=== PATIENT | female | born 1960 | race Caucasian/White ===

== ENCOUNTER 2024-05-30 19:00 | Outpatient (OUT) | payer MEDICARE, SELFPAY | END 2024-05-30 19:01 | disposition home or self-care (01) | LOC: SLEEP 05-31 09:10 | PROVIDERS: PCP Family Medicine; Visit Provider Family Medicine | DX: G47.33 Obstructive sleep apnea (adult) (pediatric) (principal) | CPT/HCPCS: 95811 ==

== ENCOUNTER 2024-09-10 16:03 | Outpatient (OUT) | payer MEDICARE, SELFPAY ==
--- NOTE | 2024-09-10 16:30 | XR_ITS ---
The [address] [address] Patient Name: FERMIN CARNES MRN: [id number] date: 1960 Sex: F Assigned Patient Location: LAB Current Patient Location: LAB Accession/Order Number: [id number] Exam Date: 09/10/2024 16:27 Report Date: 09/11/2024 08:56 At the request of: NOAH GRIFFITHS Procedure: XR chest 2V EXAM: XR chest. HISTORY: . Acute bronchitis, J20.9 . COMPARISON: None. TECHNIQUE: Frontal and lateral chest FINDINGS: Heart and vascularity are unremarkable. Lungs are free of focal infiltrates. Early spondylosis of the spine is noted. There is a slight scoliotic deformity of the spine with convexity to the right. XR/XR chest 2V IMPRESSION: No acute heart or lung disease identified. Electronically authenticated by: THOMAS PAREDES Date: 09/11/2024 08:56
[2024-09-10 17:23] LABS: Basophils Percent Auto 0.2 % (0.2-2.0); Hematocrit 45.8 % (36.0-48.0); Hemoglobin 15.1 g/dL (12.0-16.0); Immature Granulocytes Abs Auto 0.15 10^3/uL (0.00-0.03); Immature Granulocytes Pct Auto 1.6 % (0.0-0.5); Lymphocytes Absolute Auto 1.1 10^3/uL (1.2-3.8); Mean Corpuscular Hemoglobin 28.7 pg (26.7-34.0); Mean Corpuscular Volume 87.1 fL (81.0-99.0); Mean Platelet Volume 10.3 fL (9.5-13.5); Monocytes Absolute Auto 0.4 10^3/uL (0.3-0.8); Monocytes Percent Auto 4.6 % (1.7-12.0); Neutrophils Absolute Auto 7.7 10^3/uL (1.4-6.5); Neutrophils Percent Auto 81.6 % (43.0-75.0); Platelet Count 321 10^3/uL (150-450); Red Blood Count 5.26 10^6/uL (4.20-5.40); Red Cell Distribution Width 13.2 % (11.0-15.0); White Blood Count 9.5 10^3/uL (4.0-11.0)
[2024-09-10 18:11] LABS: Alanine Aminotransferase 53 U/L (14-59); Albumin Globulin Ratio 1.2; Albumin Level 3.8 g/dL (3.4-5.0); Alkaline Phosphatase 113 U/L (46-116); Anion Gap 9.6; Aspartate Amino Transferase 24 U/L (15-37); BUN Creatinine Ratio 22.5; Bilirubin Total 0.4 mg/dL (0.2-1.0); Calcium 9.1 mg/dL (8.5-10.1); Carbon Dioxide 34.7 mmol/L (21.0-32.0); Chloride 100 mmol/L (98-107); Estimated GFR (African America 50 (>=60 mL/min/1.73m^2); Estimated GFR (Non-African Ame 41 (>=60 mL/min/1.73m^2); Globulin 3.3 g/dL; Glucose 234 mg/dL (74-106); Potassium 3.3 mmol/L (3.5-5.1); Sodium 141 mmol/L (136-145); Total Protein 7.1 g/dL (6.4-8.2)
== END 2024-09-10 16:04 | disposition home or self-care (01) ==
LOC: LAB 16:05
PROVIDERS: PCP Family Medicine; Visit Provider Family Medicine
DX: E11.69 Type 2 diabetes mellitus with other specified complication (principal); J20.9 Acute bronchitis, unspecified
CPT/HCPCS: 36415; 71046; 80053; 85025

== ENCOUNTER 2024-09-11 08:22 | Outpatient (REF) | payer MEDICARE, SELFPAY ==
--- OUTSIDE RECORDS SUMMARY | 2024-09-11 08:45 | XMS_ITS | CCD ---
Author Organization [facility] CliniSynd Care Team Providers Care Underwriting Manager Name Role Phone DR NOAH LEWIS Primary Care Unavailable AYE, DR ZAMORA Admitting Unavailable AYE, DR ZAMORA Attending Unavailable AYE, DR ZAMORA Consulting Unavailable WEST, DR THOMAS Kee Consulting Unavailable DR NOAH LEWIS Primary Care Unavailable AYE, DR ZAMORA Admitting Unavailable AYE, DR ZAMORA Attending Unavailable AYE, DR ZAMORA Consulting Unavailable Unavailable Unavailable Noah Lewis Unavailable Unavailable Unavailable MD Noah Lewis Primary Care Provider [phone] MD Wiley Schmitt Attending Provider DO Bari Mac Attending Provider [phone] MD Noah Lewis Referring Provider [phone] Self, Referral Attending Provider Unavailable MD Noah Lewis Primary Care Provider [phone] MD Benedicto Campos Attending Provider Cleve Damien Luque Attending Provider Ene Poon Unavailable Dr. Noah Lewis Primary Care Unavail able Parish MATA, Dr. Wiley Solano Attending Unavailable Parish MATA, Dr. Wiley Solano Referring Unavailable Dr. Noah Lewis Primary Care Unavail able Dionte, Ms. Julia Thurman Attending Katja Rapp, Ms. Julia Thurman Referring Katja Schmitt II, Dr. Wiley Solano Attending Unavailable Parish MATA, Dr. Wiley Solano Referring Unavailable Dr. Noah Lewis Primary Care Unavail able Jose Laughlin Unavailable MD Noah Lewis Primary Care Provider MD Noah Lewis Attending Provider MD Noah Lewis Primary Care Provider MD Noah Lewis Attending Provider MD Noah Lewis Referring Provider MD Ana Luisa Harvey Attending Provider DO Raphael Connors Attending Provider Noah Lewis MD Primary Care Provider WILEY SCHMITT Referring Unavailable NOAH LEWIS Primary Care Unavailable WILEY SCHMITT Referring Unavailable NOAH LEWIS Primary Care Unavailable MD Noah Lewis Referring Provider MD Ana Luisa Harvey Attending Provider [phone] WILEY SCHMITT Attending Unavailable NOAH LEWIS Primary Care Unavailable MD Noah Lewis Referring Provider MD Ana Luisa Harvey Attending Provider MD Noah Lewis Primary Care Provider MD Noah Lewis Attending Provider [phone] MD Thomas Hoover Attending Provider MD Noah Lewis Referring Provider MD Ana Luisa Harvey Attending Provider MD Noah Lewis Primary Care Provider MD Noah Lewis Referring Provider MD Ana Luisa Harvey Attending Provider [phone] MD Noah Lewis Primary Care Provider MD Noah Lewis Referring Provider MD Kinsey Canela Attending Provider MD Noah Lewis Primary Care Provider MD Noah Lewis Attending Provider Noah Lewis Attending Unavailable Hoy, Noah M Primary Care Unavailable Hoy, Noah M Admitting Unavailable Hoy, Noah M Primary Care Unavailable Raphael Connors Admitting Unavailable LaffaRaphael ryder Attending Unavailable Hoy, Noah M Primary Care Unavailable Thomas Hoover Admitting Unavailable Thomas Hoover Attending Unavailable Hoy, Noah M Admitting Unavailable Hoy, Noah M Primary Care Unavailable Hoy, Noah M Attending Unavailable Hoy, Noah M Primary Care Unavailable Hoy, Noah M Attending Unavailable Hoy, Noah M Admitting Unavailable Hoy, Noah M Primary Care Unavailable Hoy, Noah M Attending Unavailable Hoy, Noah M Admitting Unavailable Hoy, Noah M Attending Unavailable Hoy, Noah M Primary Care Unavailable Hoy, Noah M Admitting Unavailable Hoy, Noah M Primary Care Unavailable Raphael Connors Admitting Unavailable LaffayRaphael Attending Unavailable Hoy, Noah M Attending Unavailable Hoy, Noah M Primary Care Unavailable Hoy, Noah M Admitting Unavailable Hoy, Noah M Referring Unavailable Hoy, Noah M Primary Care Unavailable Kinsey Canela Admitting Unavailable Kinsey Canela Attending Unavailable Noah Lewis MD Primary Care Provider RAPHAEL CONNORS Attending Unavailable HOY, NOAH M Referring Unavailable RAPHAEL CONNORS Attending Unavailable RAPHAEL CONNORS Attending Unavailable RAPHAEL CONNORS Attending Unavailable RAPHAEL CONNORS Attending Unavailable RAPHAEL CONNORS Attending Unavailable Allergies Allergy Classification Reported Allergen(s) Allergy Type Date of Onset Reaction(s) Facility Cephalosporins (antibiotic) (1 source) Cephalexin Drug Allergy [facility] Repository (20 sources) Cephalexin; Translations: [cephalexin] Drug Allergy 8 hives, Itching, Rash [facility] (10 sources) Hmg-Coa Reductase Inhibitors (Statins); Translations: [Statins] Allergy to drug (finding) Myalgia [facility] 250 DO Work Phone: (20 sources) Hydroxychloroqui ne; Translations: [Plaquenil Sulfate] Drug Allergy 4 Itching [facility] 250 DO Work Phone: (20 sources) Hydroxychloroqui ne; Translations: [HYDROXYCHLOROQU INE] Drug Allergy 8 Itching [facility] (18 sources) Pgyaehh-EWX-VpT Reductase Inhibitor; Translations: [Lfgyola-XRV-JgF Reductase Inhibitor] Allergy to substance 8 Difficulty Breathing [facility] (2 sources) Amoxicillin; Translations: [Amoxicillin TABS] [facility] (5 sources) HMG-CoA reductase inhibitor Drug allergy 4 Shortness of breath [facility] [employer] Other (16 sources) levoFLOXacin Drug Allergy 3 Swelling [facility] (8 sources) HMG-CoA reductase inhibitor; Translations: [JDITOKW-CRU-VID REDUCTASE INHIBITORS] Drug Allergy 4 [facility] Work Phone: (1 source) Cephalexin Drug Allergy 4 [facility] Repository (1 source) levoFLOXacin Drug Allergy 4 [facility] Repository (4 sources) ezetimibe Drug Allergy 4 Shortness of breath [facility] Medications Current Medications Medication Drug Class(es) Dates Sig (Normalized) Sig (Original) anastrozole 1 mg oral tablet (12 sources) Aromatase Inhibitor Start: 02-09-2024 End: 04-11-2024 anastrozole (Arimidex) 1 MG chemo tablet Daily 04/11/2024 Active aspirin 81 mg delayed release oral tablet (20 sources) Platelet Aggregation Inhibitor, Nonsteroidal Anti-inflammatory Drug Start: 06-19-2018 take 1 tablet by mouth once daily GNP Aspirin Low Dose 81 MG EC tablet TAKE 1 TABLET BY MOUTH ONCE DAILY DIRECTED 10/17/2023 Active 60 actuat budesonide 0.16 mg/actuat / formoterol fumarate 0.0045 mg/actuat metered dose inhaler (20 sources) Corticosteroid, beta2-Adrenergic Agonist Start: 07-14-2023 take 2 puff(s) by inhalation in the morning budesonide-formot fritz (Symbicort) 160-4.5 MCG/ACT inhaler Inhale 2 puffs in the morning and 2 puffs before bedtime. 07/14/2023 Active Start: 06-19-2018 take 1 puff(s) by in halation once daily in the morning Budesonide-Formoterol (Symbicort) 160-4.5 mcg/actuation Hfa Aerosol Inhaler Active 1 PUFF INHALATION Every morning June 19, 2018 12:00am Start: 06-19-2018 take 1 puff(s) by in halation every twelve hours Budesonide-Formoterol (Symbicort) 160-4.5 mcg/actuation Hfa Aerosol Inhaler Active 2 PUFF INHALATION Q12H June 19, 2018 12:00am budesonide-formo teroL (Symbicort) 160-4.5 mcg/actuation inhaler Inhale. As directed Active take 1 puff(s) by in halation twice daily Symbicort 160-4.5 MCG/ACT 1 puff Inhalation Twice a day Active Symbicort 160-4. 5 MCG/ACT Inhalation Aerosol USE DIRECTED. Quantity: 0 Refills: 0 Ordered: 02-Feb-2022 DO Active chlorthalidone 25 mg oral tablet (20 sources) Thiazide-like Diuretic Start: 01-22-2022 take 1 tablet by mouth once daily chlorthalidone (Hygroton) 25 MG tablet Take 25 mg by mouth Daily 10/17/2023 Active clopidogrel 75 mg oral tablet (20 sources) P2Y12 Platelet Inhibitor Start: 04-15-2022 End: 01-03-2025 take 1 tablet by mouth once daily clopidogrel (Plavix) 75 MG tablet Take 75 mg by mouth Daily 10/17/2023 Active diclofenac sodium 75 mg delayed release oral tablet (20 sources) Nonsteroidal Anti-inflammatory Drug Start: 10-24-2023 take 1 tablet by mouth in the morning diclofenac (Voltaren) 75 MG EC tablet Take 75 mg by mouth in the morning and 75 mg before bedtime. 10/24/2023 Active take 1 tablet by mouth once mike y diclofenac (Voltaren) 75 mg EC tablet Take 1 tablet (75 mg) by mouth once daily. Active doxycycline monohydrate 100 mg oral capsule (4 sources) Tetracycline-class Drug Start: 02-07-2024 take 1 capsule by mouth in the morning doxycycline (Monodox) 100 MG capsule Take 100 mg by mouth in the morning and 100 mg before bedtime. 02/07/2024 Active empagliflozin 10 mg oral tablet (2 sources) Sodium-Glucose Cotransporter 2 Inhibitor empagliflozin (Jardiance) 10 MG Take by mouth Active esomeprazole 40 mg delayed release oral capsule (20 sources) Proton Pump Inhibitor Start: 06-19-2018 take 1 capsule by mouth once daily esomeprazole (NexIUM) [address] capsule Take 40 mg by mouth Daily 11/21/2023 Active 1 ml evolocumab 140 mg/ml prefilled syringe (20 sources) PCSK9 Inhibitor Start: 01-04-2024 End: 01-03-2025 inject 1 mL by subcutaneous injection once evolocumab (Repatha Syringe) 140 mg/mL injection Indications: Mixed hyperlipidemia Inject 1 mL (140 mg) under the skin every 28 (twenty-eight) days. As directed 3 each 3 01/04/2024 01/03/2025 Active Start: 09-28-2023 inject 1 mL by subcu taneous injection every other week Repatha SureClick 140 MG/ML injection INJECT 1 ML subcutaneously EVERY 2 WEEKS 09/28/2023 Active Start: 06-19-2018 End: 01-04-2024 Evolocumab (Repatha Syringe) 140 mg/mL Syringe Active 140 MG SUBCUT EVERY 2 WEEKS June 19, 2018 12:00am inject 140 mg by sub cutaneous injection every other week Repatha SureClick 140 MG/ML Inject 140mg Subcutaneous every 2 weeks Active glimepiride 4 mg oral tablet (20 sources) Sulfonylurea Start: 10-17-2023 take 1 tablet by mouth at mealtime glimepiride (Amaryl) 4 MG tablet Take 4 mg by mouth in the morning. Take with meals. 10/17/2023 Active levothyroxine sodium 0.075 mg oral tablet (20 sources) l-Thyroxine Start: 12-01-2023 Levothyroxine (Synthroid) 75 mcg tablet Active 50 MCG PO Daily at bedtime December 01, 2023 7:58am Start: 06-19-2018 End: 12-01-2023 take 1 tablet by mouth once daily levothyroxine (Synthroid, Levoxyl) 75 MCG tablet Take 75 mcg by mouth Daily 04/11/2023 Active take 1 tablet by mono th once daily in the morning Levothyroxine Sodium 75 MCG 1 tablet in the morning on an empty stomach Orally Once a day Active lisinopril 40 mg oral tablet (20 sources) Angiotensin Converting Enzyme Inhibitor Start: 01-04-2024 take 1 tablet by mouth once daily lisinopril 40 mg tablet Indications: Essential hypertension , Hypertension, unspecified type Take 1 tablet (40 mg) by mouth once daily. 90 tablet 3 01/04/2024 Active Start: 11-14-2023 End: 01-04-2024 take 1 tablet by mouth once daily lisinopril 40 MG tablet Take 40 mg by mouth Daily 11/14/2023 Active take 1 tablet by mono th every twenty-four hours Lisinopril 40 MG 1 tablet Orally Once a day Active 24 hr metFORMIN hydrochloride 500 mg extended release oral tablet (20 sources) Biguanide Start: 10-17-2023 take 1 tablet by mouth once daily at dinner metFORMIN XR (Glucophage-XR) 500 MG 24 hr tablet TAKE 1 TABLET BY MOUTH ONCE DAILY WITH evening meal 10/17/2023 Active Start: 06-19-2018 take 500 mg by mouth once daily at bedtime Metformin Active 500 MG PO Daily at bedtime June 19, 2018 12:00am take 1 tablet by mono th every twenty-four hours metFORMIN HCl ER 500 MG 1 tablet with evening meal Orally Once a day Active 24 hr metoprolol succinate 100 mg extended release oral tablet (20 sources) beta-Adrenergic Parker Start: 01-22-2022 End: 01-03-2025 take 1 tablet by mouth once daily metoprolol succinate XL (Toprol-XL) 100 MG 24 hr tablet Take 100 mg by mouth Daily 10/17/2023 Active mometasone furoate 1 mg/ml topical cream (8 sources) Corticosteroid Start: 02-16-2024 mometasone (Elocon) 0.1 % cream Daily 02/16/2024 Active Start: 02-16-2024 Mometasone Act gibran 1 APPLIC TOPICAL Daily February 16, 2024 12:00am Apply to radiation site, once a day, AFTER radiation treatments. montelukast 10 mg oral tablet (20 sources) Leukotriene Receptor Antagonist Start: 06-19-2018 take 1 tablet by mouth once daily montelukast (Singulair) 10 MG tablet TAKE 1 TABLET BY MOUTH ONCE DAILY FOR 90 DAYS 07/29/2023 Active Multivitamin preparation (1 source) take 1 tablet by mouth once daily Multivitamin - 1 tablet Orally Once a day Glucocil Supplement for Blood Sugar Support Active NON FORMULARY (4 sources) NON FORMULARY GLUCOCIL 2 DAILY Active Suprep Bowel Prep Kit 17.5-3.13-1.6 GM/180ML (2 sources) Start: 06-15-2018 Suprep Bowel P rep Kit 17.5-3.13-1.6 GM/180ML 1 bottle AT 4 PM AND 1 BOTTLE AT 11 PM Orally Once a day for 1 days May, Active Completed/Discontinued Medications Medication Drug Class(es) Dates Sig (Normalized) Sig (Original) acetaminophen 325 mg / HYDROcodone bitartrate 5 mg oral tablet (8 sources) Opioid Agonist Start: 12-26-2023 End: 01-11-2024 take 2 tablets by mouth every six hours Hydrocodone-Acetam inophen Discontinued 2 TAB PO Q6H 20 December 26, 2023 January 11, 2024 8:53am amLODIPine 5 mg oral tablet (17 sources) Dihydropyridine Calcium Channel Parker Start: 07-25-2018 End: 12-01-2023 take 5 mg by mouth once daily Amlodipine Discontinued 5 MG PO Daily July 25, 2018 1:00am December 01, 2023 8:01am carvedilol 25 mg oral tablet (17 sources) alpha-Adrenergic Parker, beta-Adrenergic Parker Start: 06-19-2018 End: 12-01-2023 take 1 tablet by mouth twice daily Carvedilol (Coreg) 25 mg Tablet Discontinued 25 MG PO Twice daily June 19, 2018 12:00am December 01, 2023 8:01am irbesartan 300 mg oral tablet (17 sources) Angiotensin 2 Receptor Parker Start: 06-19-2018 End: 12-01-2023 take 300 mg by mouth once daily Irbesartan Discontinued 300 MG PO Daily June 19, 2018 12:00am December 01, 2023 8:01am nitroglycerin 0.4 mg sublingual tablet (20 sources) Nitrate Vasodilator Start: 07-25-2018 End: 11-22-2018 Nitroglycerin Discontinued 0.4 MG SUBLINGUAL every 5 to 15 minutes July 25, 2018 1:00am November 22, 2018 12:01am until response; do not exceed 3 doses per episode regadenoson (Lexiscan) injection 0.4 mg (1 source) Start: 12-20-2023 End: 12-20-2023 0.4 mg, intravenous, Once, 1 dose, On Tue12/20/23 at 1145, Routine Tc-99m tetrofosmin (Myoview) injection 30 millicurie (2 sources) Start: 12-21-2023 End: 12-21-2023 30 millicurie, intravenous, Once in imaging, Starting on Tue12/21/23 at 1422, For 1 dose, Administer 45 to 90 minutes prior to imaging unless otherwise indicated. Start: 12-20-2023 End: 12-20-2023 30 millicurie, intravenous, Once in imaging, 1 dose, Starting on Tue12/20/23 at 1138, Until Tue12/20/23 at 1128, Administer 45 to 90 minutes prior to imaging unless otherwise indicated., Routine ticagrelor 90 mg oral tablet (17 sources) Start: 07-25-2018 End: 07-20-2019 take 1 tablet by mouth twice daily Ticagrelor (Brilinta) 90 mg tablet Discontinued 90 MG PO Twice daily 180 90 July 25, 2018 1:00am July 20, 2019 1:05am Problems Active Problems Problem Classification Problem Date Documented Date Episodic/Chronic Administrative/social admission (20 sources) Patient encounter status; Translations: [Other specified counseling] 12-01-2023 Episodic Cancer of breast (20 sources) Malignant neoplasm of central part of female breast; Translations: [Malignant neoplasm of central portion of right female breast] Onset: 11-23-2023 12-01-2023 Chronic Cancer of breast (2 sources) History of malignant neoplasm of breast; Translations: [Personal history of malignant neoplasm of breast] 08-23-2024 Episodic Chronic obstructive pulmonary disease and bronchiectasis (14 sources) Chronic obstructive lung disease; Translations: [Chronic obstructive pulmonary disease, unspecified] 01-24-2024 Chronic Coronary atherosclerosis and other heart disease (20 sources) Atherosclerotic heart disease of [place] coronary artery with unstable angina pectoris; Translations: [Atherosclerotic heart disease of [place] coronary artery without angina pectoris] Onset: 01-16-2021 Chronic Coronary atherosclerosis and other heart disease (20 sources) Patient post percutaneous transluminal coronary angioplasty; Translations: [Percutaneous transluminal coronary angioplasty status] Onset: 01-04-2024 12-01-2023 Episodic Diabetes mellitus without complication (9 sources) Diabetes mellitus; Translations: [Diabetes mellitus without mention of complication, type II or unspecified type, not stated as uncontrolled] Chronic Disorders of lipid metabolism (13 sources) Hyperlipidemia; Translations: [Other and unspecified hyperlipidemia] Onset: 01-04-2024 01-04-2024 Chronic Essential hypertension (20 sources) Essential (primary) hypertension; Translations: [Essential hypertension] Onset: 01-23-2021 01-04-2024 Chronic Fluid and electrolyte disorders (13 sources) Metabolic alkalosis; Translations: [Alkalosis] 01-24-2024 Episodic Immunizations and screening for infectious disease (1 source) Encounter for immunization Episodic Osteoarthritis (8 sources) Unilateral primary osteoarthritis, right knee; Translations: [Osteoarthritis] Onset: 01-19-2021 Chronic Other aftercare (1 source) Other adjunct faculty for medical terminology (current) drug therapy Episodic Other aftercare (3 sources) Long-term current use of drug therapy; Translations: [Encounter for therapeutic drug level monitoring] 04-11-2024 Episodic Other aftercare (3 sources) Encounter for therapeutic drug level monitoring; Translations: [Encounter for therapeutic drug monitoring] 04-11-2024 Episodic Other hematologic conditions (7 sources) H/O: anemia - iron deficient; Translations: [Personal history of diseases of the blood and blood-forming organs and certain disorders involving the immune mechanism] 01-24-2024 Episodic Other hematologic conditions (6 sources) Personal history of diseases of the blood and blood-forming organs and certain disorders involving the immune mechanism; Translations: [Personal history of diseases of blood and blood-forming organs] 01-24-2024 Episodic Other nervous system disorders (1 source) Sleep-wake schedule disorder, delayed phase type; Translations: [Circadian rhythm sleep disorder, delayed sleep phase type] 05-01-2024 Chronic Other nervous system disorders (1 source) Circadian rhythm sleep disorder, delayed sleep phase type; Translations: [Circadian rhythm sleep disorder, delayed sleep phase type] 05-01-2024 Chronic Other nutritional; endocrine; and metabolic disorders (20 sources) Body mass index 40+ - severely obese; Translations: [Morbid obesity] Onset: 01-04-2024 01-04-2024 Chronic Other nutritional; endocrine; and metabolic disorders (3 sources) Body mass index (BMI) 40.0-44.9, adult; Translations: [Body Mass Index 40.0-44.9, adult] Onset: 01-04-2024 Chronic Other nutritional; endocrine; and metabolic disorders (6 sources) Body mass index (BMI) 45.0-49.9, adult; Translations: [Body Mass Index 45.0-49.9, adult] 01-24-2024 Chronic Residual codes; unclassified (8 sources) Obstructive sleep apnea syndrome; Translations: [Obstructive sleep apnea (adult) (pediatric)] 01-24-2024 Chronic Residual codes; unclassified (7 sources) Obstructive sleep apnea (adult) (pediatric); Translations: [Obstructive sleep apnea (adult)(pediatric)] Onset: 02-07-2024 01-24-2024 Chronic Residual codes; unclassified (1 source) Idiopathic sleep related nonobstructive alveolar hypoventilation; Translations: [Idiopathic sleep related non-obstructive alveolar hypoventilation] 05-01-2024 Chronic Residual codes; unclassified (17 sources) Family history of cancer of colon; Translations: [Family history of malignant neoplasm of digestive organs] 06-21-2018 Episodic Residual codes; unclassified (2 sources) Never smoked tobacco; Translations: [Other specified health status] Onset: 01-04-2024 01-04-2024 Episodic Residual codes; unclassified (1 source) Statin declined; Translations: [Procedure and treatment not carried out because of patient's decision for unspecified reasons] 01-04-2024 Episodic Residual codes; unclassified (2 sources) Other specified health status; Translations: [Other specified health status] Onset: 01-04-2024 Episodic Residual codes; unclassified (7 sources) Insomnia; Translations: [Insomnia, unspecified] 01-24-2024 Episodic Residual codes; unclassified (6 sources) Insomnia, unspecified; Translations: [Insomnia, unspecified] 01-24-2024 Episodic Thyroid disorders (9 sources) Hypothyroidism; Translations: [Hypothyroidism, unspecified] Onset: 05-31-2024 01-24-2024 Chronic Unclassified (1 source) Encounter for screening mammogram for malignant neoplasm of breast; Translations: [Encounter for screening mammogram for malignant neoplasm of breast] Onset: 10-27-2023 Past or Other Problems Problem Classification Problem Date Documented Da te Episodic/Chronic Acute bronchitis (1 source) Acute bronchiolitis, unspecified; Translations: [Acute bronchiolitis, unspecified] Onset: 06-16-2023 Episodic Nonmalignant breast conditions (20 sources) Breast lump; Translations: [Unspecified lump in the right breast, unspecified quadrant] Onset: 11-15-2023 11-15-2023 Episodic Other screening for suspected conditions (not mental disorders or infectious disease) (20 sources) Encounter for screening for osteoporosis; Translations: [Special screening for osteoporosis] Onset: 11-08-2023 12-01-2023 Episodic Residual codes; unclassified (1 source) Estrogen receptor positive status [ER+]; Translations: [Estrogen receptor positive status [ER+]] Onset: 12-26-2023 Episodic Unclassified (9 sources) Never smoked tobacco; Translations: [Never a smoker] Unclassified (1 source) Onset: 01-04-2024 01-04-2024 Results Test Name Value Interpretation Reference Range Facility A1C with Estimated Average G anujabrennan 05-31-2024 Glucose [Mass/Vol] 131 mg/dL Normal [facility] Comment on above: Result Comment: PERF ORMED BY: [place] [address] MAKER SUSAN THOMPSON M.D. Performed By: #### A 1C WT eA, THYROID SC, CBC, LIPID, T3F, CMP #### [facility] [address] [place] [address] [place] Alanine aminotransferase [En zymatic activity/volume] in Serum or PlasmaOrdered By: Noah Lewis on 05-31-2024 ALT [Catalytic activity/Vol] 26 U/L Normal 7-52 [facility] Comment on above: Performed By: #### A 1C WT eA, THYROID SC, CBC, LIPID, T3F, CMP #### [place] [address] [place] Albumin [Mass/volume] in Ser um or Plasma by Bromocresol green (BCG) dye binding methoOrdered By: Noah Lewis on 05-31-2024 Albumin BCG dye [Mass/Vol] 3.9 g/dL 3.5-5.7 [facility] Alkaline phosphatase [Enzyma tic activity/volume] in Serum or PlasmaOrdered By: Noah Lewis on 05-31-2024 ALP [Catalytic activity/Vol] 80 U/L Normal 34-104 [facility] Comment on above: Performed By: #### A 1C WT eA, THYROID SC, CBC, LIPID, T3F, CMP #### [address] Aspartate aminotransferase [ Enzymatic activity/volume] in Serum or PlasmaOrdered By: Noah Lewis on 05-31-2024 AST [Catalytic activity/Vol] 19 U/L Normal 13-39 [facility] Comment on above: Performed By: #### A 1C WT eA, THYROID SC, CBC, LIPID, T3F, CMP #### [address] Automated basophil %Ordered By: Noah Lewis on 05-31-2024 Basophils/100 WBC (Bld) 0.3 % Normal . [facility] Comment on above: Performed By: #### A 1C WT eA, THYROID SC, CBC, LIPID, T3F, CMP #### [address] Automated basophil countOrde red By: Noah Lewis on 05-31-2024 Basophils (Bld) [#/Vol] 0.0 10*3/uL Normal 0.0-0.2 [facility] Comment on above: Result Comment: PERF ORMED BY: [place] [address] MAKER SUSAN THOMPSON M.D. Performed By: #### A 1C WT eA, THYROID SC, CBC, LIPID, T3F, CMP #### [address] Automated blood monocyte cou ntOrdered By: Noah Lewis on 05-31-2024 Monocytes (Bld) [#/Vol] 0.7 10*3/uL Normal 0.0-0.8 [facility] Comment on above: Performed By: #### A 1C WTH eA, THYROID SC, CBC, LIPID, T3F, CMP #### [address] Automated eosinophil %Ordere d By: Noah Zamoraaleksey on 05-31-2024 Eosinophils/100 WBC (Bld) 1.1 % Normal . [facility] Comment on above: Performed By: #### A 1C WT eA, THYROID SC, CBC, LIPID, T3F, CMP #### [address] Automated eosinophil countOr dered By: Noah Zamoraaleksey on 05-31-2024 Eosinophils (Bld) [#/Vol] 0.1 10*3/uL Normal 0.0-0.45 [facility] [facility] Comment on above: Performed By: #### A 1C WT eA, THYROID SC, CBC, LIPID, T3F, CMP #### [address] Automated monocyte %Ordered By: Noah Lewis on 05-31-2024 Monocytes/100 WBC (Bld) 7.8 % Normal . [facility] Comment on above: Performed By: #### A 1C WT eA, THYROID SC, CBC, LIPID, T3F, CMP #### [address] Automated neutrophil %Ordere d By: Noah Aye on 05-31-2024 Neutrophils/100 WBC (Bld) 67.9 % Normal . [facility] Comment on above: Performed By: #### A 1C WT eA, THYROID SC, CBC, LIPID, T3F, CMP #### [address] Bilirubin.total [Mass/volume ] in Serum or PlasmaOrdered By: Noah Lewis on 05-31-2024 Bilirubin [Mass/Vol] 0.7 mg/dL Normal 0.3-1.0 [facility] Comment on above: Performed By: #### A 1C WTH eA, THYROID SC, CBC, LIPID, T3F, CMP #### [address] Calcium [Mass/volume] in Ser um or PlasmaOrdered By: Noah Lewis on 05-31-2024 Calcium [Mass/Vol] 9.4 mg/dL Normal 8.6-10.3 [facility] Comment on above: Performed By: #### A 1C WT eA, THYROID SC, CBC, LIPID, T3F, CMP #### [facility] [address] [place] [id number] [place] Carbon dioxide, total [Moles /volume] in Serum or PlasmaOrdered By: Noah Lewis on 05-31-2024 CO2 [Moles/Vol] 33.5 mmol/L High 21.0-31.0 [facility] Comment on above: Performed By: #### A 1C WT eA, THYROID SC, CBC, LIPID, T3F, CMP #### [facility] [address] [place] [address] [place] Chloride [Moles/volume] in S yoandy or PlasmaOrdered By: Noah Lewis on 05-31-2024 Chloride [Moles/Vol] 101 mmol/L Normal 98-107 [facility] Comment on above: Performed By: #### A 1C WT eA, THYROID SC, CBC, LIPID, T3F, CMP #### [facility] [address] [place] [id number] [place] Cholesterol [Mass/volume] in Serum or PlasmaOrdered By: Noah Lewis on 05-31-2024 Cholesterol [Mass/Vol] 209 mg/dL High 140-200 [facility] Comment on above: Chol less than 200 m g/dl low riskChol 201-239 mg/dl borderline riskChol 240 mg/dl and greater high risk Result Comment: Chol less than 200 mg/dl low risk Chol 201-239 mg/dl borderline risk Chol 240 mg/dl and greater high risk Performed By: #### A 1C WT eA, THYROID SC, CBC, LIPID, T3F, CMP #### [facility] [address] [place] [id number] [place] Cholesterol in LDL Calc [Mas s/Vol]Ordered By: Noah Lewis on 05-31-2024 Cholesterol in LDL [Mass/Vol] 120 mg/dL High 0-100 [facility] Comment on above: LDL ATP III CLASSIFI CATIONLDL less than 100 mg/dL OptimalLDL 100-129 mg/dL Near or above optimalLDL 130-159 mg/dL Borderline highLDL 160-189 mg/dL HighLDL greater than 189 mg/dL Very high Cholesterol in VLDL Calc [Ma ss/Vol]Ordered By: Noah Lewis on 05-31-2024 Cholesterol in VLDL [Mass/Vol] 50 mg/dL [facility] Complete Blood Count Auto Di ffon 05-31-2024 Mean Corpuscular HGB Conc 33.8 g/dL Normal 32.0-35.0 [facility] Comment on above: Performed By: #### A 1C WT eA, THYROID SC, CBC, LIPID, T3F, CMP #### [address] NRBC% 0.1 /100{WBC} Normal 0-0.5 [facility] Comment on above: Performed By: #### A 1C WT eA, THYROID SC, CBC, LIPID, T3F, CMP #### [facility] [address] [place] [address] Comprehensive Metabolic Pane deandre 05-31-2024 Albumin [Mass/Vol] 3.9 g/dL Normal 3.5-5.7 [facility] Comment on above: Performed By: #### A 1C WT eA, THYROID SC, CBC, LIPID, T3F, CMP #### [address] GFR/1.73 sq M.predicted MDRD (S/P/Bld) [Vol rate/Area] 53.991 mL/min/{1.73_m2} Normal [facility] Comment on above: Performed By: #### A 1C WT eA, THYROID SC, CBC, LIPID, T3F, CMP #### [address] Creatinine [Mass/volume] in Serum or PlasmaOrdered By: Noah Lewis on 05-31-2024 Creatinine [Mass/Vol] 1.13 mg/dL Normal 0.60-1.20 [facility] Comment on above: Performed By: #### A 1C WT eA, THYROID SC, CBC, LIPID, T3F, CMP #### [facility] [address] Erythrocyte distribution wid th [Ratio] by Automated countOrdered By: Noah Lewis on 05-31-2024 Erythrocyte distribution width (RBC) [Ratio] 14.0 % Normal 11.9-15.3 [facility] Comment on above: Performed By: #### A [address]C [facility] eA, THYROID SC, CBC, LIPID, T3F, CMP #### [facility] [address] Erythrocytes [#/volume] in B lood by Automated countOrdered By: Noah Lewis on 05-31-2024 RBC (Bld) [#/Vol] 4.66 10*6/uL Normal 3.60-5.00 [facility] Comment on above: Performed By: #### A 1C WT eA, THYROID SC, CBC, LIPID, T3F, CMP #### [facility] [address] Glucose [Mass/volume] in Ser um or PlasmaOrdered By: Noah Lewis on 05-31-2024 Glucose [Mass/Vol] 113 mg/dL High 70-100 [facility] Comment on above: ADA recommended refe rence rangeRandom Glucose Reference Range is dependent on time and content of last meal. Glucose of more than 200 mg/dL in a nonstressed, ambulatory subject supports the diagnosis of Diabetes Mellitus. Result Comment: [place] om Glucose Reference Range is dependent on time and content of last meal. Glucose of more than 200 mg/dL in a nonstressed, ambulatory subject supports the diagnosis of Diabetes Mellitus. ADA recommended reference range Performed By: #### A 1C WT eA, THYROID SC, CBC, LIPID, T3F, CMP #### [facility] [place] [address] Glucose mean value [Mass/vol ume] in Blood Estimated from glycated hemoglobinOrdered By: Noah Lewis on 05-31-2024 Average glucose Estimated from glycated hemoglobin (Bld) [Mass/Vol] 131 mg/dL [facility] Hematocrit [Volume Fraction] of Blood by Automated countOrdered By: Noah Lewis on 05-31-2024 Hematocrit (Bld) [Volume fraction] 40.3 % Normal 34.0-46.4 [facility] Comment on above: Performed By: #### A 1C WT eA, THYROID SC, CBC, LIPID, T3F, CMP #### [facility] [address] Hemoglobin A1c percentageOrd ered By: Noah Lewis on 05-31-2024 HbA1c (Bld) [Mass fraction] 6.2 % High 4.3-5.6 [facility] Comment on above: Increased risk for d iabetes: 5.7 - 6.4diabetes: >6.4glycemic control for adults with diabetes: <7.0 Result Comment: Incr eased risk for diabetes: 5.7 - 6.4 diabetes: >6.4 glycemic control for adults with diabetes: <7.0 Performed By: #### A [address] eA, THYROID SC, CBC, LIPID, T3F, CMP #### [facility] [address] [place] [address] [place] Hemoglobin [Mass/volume] in BloodOrdered By: Noah Lewis on 05-31-2024 Hemoglobin (Bld) [Mass/Vol] 13.6 g/dL Normal 11.8-15.4 [facility] Comment on above: Performed By: #### A 1C WT eA, THYROID SC, CBC, LIPID, T3F, CMP #### [facility] [address] [place] [address] Leukocytes [#/volume] correc irena for nucleated erythrocytes in Blood by Automated counOrdered By: Noah Lewis on 05-31-2024 WBC corrected for nucl RBC Auto (Bld) [#/Vol] 8.6 10*3/uL 3.8-11.6 [facility] Leukocytes [#/volume] in Blo od by Automated countOrdered By: Noah Lewis on 05-31-2024 WBC (Bld) [#/Vol] 8.6 10*3/uL Normal 3.8-11.6 [facility] Comment on above: Performed By: #### A 1C WTH eA, THYROID SC, CBC, LIPID, T3F, CMP #### [facility] [place] [address] [place] [id number] [facility] Lipid Panelon 05-31-2024 LDL Cholesterol,Calculated 120 mg/dL High 0-100 [facility] Comment on above: Result Comment: LDL ATP III CLASSIFICATION LDL less than 100 mg/dL Optimal LDL 100-129 mg/dL Near or above optimal LDL 130-159 mg/dL Borderline high LDL 160-189 mg/dL High LDL greater than 189 mg/dL Very high Performed By: #### A 1C WTH eA, THYROID SC, CBC, LIPID, T3F, CMP #### [facility] [address] Triglyceride w/Reflex 251 mg/dL High 0-149 [facility] Comment on above: Result Comment: TRIG ATP III CLASSIFICATION TRIG less than 150 mg/dL Normal TRIG 150-199 mg/dL Borderline high TRIG 200-500 mg/dL High TRIG greater than 500 mg/dL Very high Standard traceable to the Center for Disease Conrtrol and Prevention (CDC) test method. Performed By: #### A 1C WT eA, THYROID SC, CBC, LIPID, T3F, CMP #### [facility] [address] VLDL CHOLESTEROL 50 mg/dL Normal [facility] Comment on above: Performed By: #### A 1C WTH eA, THYROID SC, CBC, LIPID, T3F, CMP #### [facility] [address] [place] [address] [place] Lymphocytes [#/volume] in Bl ood by Automated countOrdered By: Noah Lewis on 05-31-2024 Lymphocytes (Bld) [#/Vol] 2.0 10*3/uL Normal 1.00-4.8 [facility] Comment on above: Performed By: #### A 1C WTH eA, THYROID SC, CBC, LIPID, T3F, CMP #### [facility] [place] [address] [place] [id number] [place] Lymphocytes/100 leukocytes i n Blood by Automated countOrdered By: Noah Lewis on 05-31-2024 Lymphocytes/100 WBC (Bld) 22.9 % Normal . [facility] Comment on above: Performed By: #### A [address] eA, THYROID SC, CBC, LIPID, T3F, CMP #### [facility] [address] MCH [Entitic mass] by Automa irena countOrdered By: Noah Lewis on 05-31-2024 MCH (RBC) [Entitic mass] 29.2 pg Normal 24.7-34.3 [facility] Comment on above: Performed By: #### A [address] [facility] eA, THYROID SC, CBC, LIPID, T3F, CMP #### [facility] [address] MCHC Auto (RBC) [Mass/Vol]Or dered By: Noah Lewis on 05-31-2024 MCHC (RBC) [Mass/Vol] 33.8 g/dL 32.0-35.0 [facility] MCV [Entitic volume] by Auto mated countOrdered By: Noah Lewis on 05-31-2024 MCV (RBC) [Entitic vol] 86.4 fL Normal 80-100 [facility] Comment on above: Performed By: #### A [address] [facility] eA, THYROID SC, CBC, LIPID, T3F, CMP #### [facility] [address] [place] [address] Neutrophils [#/volume] in Bl ood by Automated countOrdered By: Noah Lewis on 05-31-2024 Neutrophils (Bld) [#/Vol] 5.9 10*3/uL Normal 1.8-7.7 [facility] Comment on above: Performed By: #### A [address] eA, THYROID SC, CBC, LIPID, T3F, CMP #### [facility] [address] [place] [address] No Panel InformationOrdered By: Noah Lewis on 05-31-2024 Estimated GFR (CKD-EPI) 53.991 mL/Min [facility] Creatinine Clearance (Chem N/A [facility] Nucleated erythrocytes [Pres ence] in Blood by Automated countOrdered By: Noah Lewis on 05-31-2024 Nucleated RBC Auto Ql (Bld) 0.1 /100{WBC} 0-0.5 [facility] Platelet mean volume [Entiti c volume] in Blood by Automated countOrdered By: Noah Lewis on 05-31-2024 Platelet mean volume (Bld) [Entitic vol] 8.5 fL Normal 6.3-10.7 [facility] Comment on above: Performed By: #### A 1C WT eA, THYROID SC, CBC, LIPID, T3F, CMP #### [facility] [address] Platelets [#/volume] in Bloo d by Automated countOrdered By: Noah Lewis on 05-31-2024 Platelets (Bld) [#/Vol] 299 10*3/uL Normal 150-450 [facility] Comment on above: Performed By: #### A [address] eA, THYROID SC, CBC, LIPID, T3F, CMP #### [facility] [address] Potassium [Moles/volume] in Serum or PlasmaOrdered By: Noah Lewis on 05-31-2024 Potassium [Moles/Vol] 3.8 mmol/L Normal 3.5-5.1 [facility] Comment on above: Performed By: #### A 1C WT eA, THYROID SC, CBC, LIPID, T3F, CMP #### [facility] [address] Protein [Mass/volume] in Ser um or PlasmaOrdered By: Noah Lewis on 05-31-2024 Protein [Mass/Vol] 6.1 g/dL Low 6.4-8.9 [facility] Comment on above: Performed By: #### A 1C WT eA, THYROID SC, CBC, LIPID, T3F, CMP #### [facility] [address] Serum globulin measurement b y calculation (mass/volume)Ordered By: Noah Lewis on 05-31-2024 Globulin (S) [Mass/Vol] 2.2 g/dL Normal [facility] Comment on above: Performed By: #### A 1C WT eA, THYROID SC, CBC, LIPID, T3F, CMP #### [facility] [address] Serum or plasma albumin/glob ulin mass ratioOrdered By: Noah Lewis on 05-31-2024 Albumin/Globulin [Mass ratio] 1.8 {ratio} Normal [facility] Comment on above: Performed By: #### A 1C WT eA, THYROID SC, CBC, LIPID, T3F, CMP #### [facility] [address] Serum or plasma anion gap de terminationOrdered By: Noah Lewis on 05-31-2024 Anion gap [Moles/Vol] 11.3 mmol/L Normal 6.0-15.0 [facility] Comment on above: Performed By: #### A 1C WTH eA, THYROID SC, CBC, LIPID, T3F, CMP #### [address] Serum or plasma high density lipoprotein (HDL) cholesterol measurementOrdered By: Noah Lewis on 05-31-2024 Cholesterol in HDL [Mass/Vol] 39 mg/dL Normal 23-92 [facility] Comment on above: HDL CHOL ATP-III CLA SSIFICATION Cardiovascular RiskHDL > or equal to 60 mg/dL LOWHDL < 40 mg/dL HIGH Result Comment: HDL CHOL ATP-III CLASSIFICATION Cardiovascular Risk HDL > or equal to 60 mg/dL LOW HDL < 40 mg/dL HIGH Performed By: #### A 1C WTH eA, THYROID SC, CBC, LIPID, T3F, CMP #### [facility] [address] [place] [address] Serum or plasma total choles terol/high density lipoprotein (HDL) cholesterol mass ratOrdered By: Noah Lewis on 05-31-2024 Cholesterol.total/Mari sterol in HDL [Mass ratio] 5.4 {ratio} Normal <5.0 [facility] Comment on above: Performed By: #### A 1C WTH eA, THYROID SC, CBC, LIPID, T3F, CMP #### [facility] [address] [place] [address] Sodium [Moles/volume] in Ser um or PlasmaOrdered By: Noah Lewis on 05-31-2024 Sodium [Moles/Vol] 142 mmol/L Normal 136-145 [facility] Comment on above: Performed By: #### A [address] [facility] eA, THYROID SC, CBC, LIPID, T3F, CMP #### [facility] [address] Thyrotropin [Units/volume] i n Serum or PlasmaOrdered By: Noah Lewis on 05-31-2024 TSH Qn 2.02 m[IU]/L Normal 0.45-5.33 [facility] Comment on above: Performed By: #### A [address] [facility] eA, THYROID SC, CBC, LIPID, T3F, CMP #### [facility] [address] Thyroxine (T4) free [Mass/vo lume] in Serum or PlasmaOrdered By: Noah Lewis on 05-31-2024 Free T4 [Mass/Vol] 1.11 ng/dL Normal 0.61-1.12 [facility] Comment on above: Performed By: #### A [address] [facility] eA, THYROID SC, CBC, LIPID, T3F, CMP #### [facility] [address] Triglyceride [Mass/volume] i n Serum or PlasmaOrdered By: Noah Lewis on 05-31-2024 Triglyceride [Mass/Vol] 251 mg/dL High 0-149 [facility] Comment on above: TRIG ATP III CLASSIF ICATIONTRIG less than 150 mg/dL NormalTRIG 150-199 mg/dL Borderline highTRIG 200-500 mg/dL High TRIG greater than 500 mg/dL Very highStandard traceable to the Center for Disease Conrtrol and Prevention (CDC) test method. Urea nitrogen [Mass/volume] in Serum or PlasmaOrdered By: Noah Lewis on 05-31-2024 Urea nitrogen [Mass/Vol] 30 mg/dL High 7-25 [facility] Comment on above: Performed By: #### A 1C WT eA, THYROID SC, CBC, LIPID, T3F, CMP #### [facility] [address] Vitamin D 25 Hydroxy Totalon 05-31-2024 Vitamin D 25 Hydroxy Total 27.7 ng/mL Low 30-100 [facility] Comment on above: Result Comment: KEVEN MIN D STATUS 25([place])VITAMIN D RANGE (ng/mL) Deficient <20 Insufficient 20 to <30 Sufficient 30 to 100 Reference: Darrel Lima, Shane PAIGE, et al. Evaluation,treatment, and prevention of vitamin D deficiency; an Endocrine Society clinical practice guideline. JCEM. 2010; 96(7):191-. PERFORMED BY: [place] [address] MAKER SUSAN THOMPSON M.D. Performed By: #### A 1C WTH eA, THYROID SC, CBC, LIPID, T3F, CMP #### [address] [address] [facility] Vitamin D+Metabolites [Mass/ volume] in Serum or PlasmaOrdered By: Noah Lewis on 05-31-2024 Vitamin D+Metabolites [Mass/Vol] 27.7 ng/mL Low 30-100 [facility] Comment on above: VITAMIN D STATUS 25( [place])VITAMIN D RANGE (ng/mL) Deficient <20 Insufficient 20 to <30Sufficient 30 to 100Reference: Darrel Lima, Shane PAIGE, et al. Evaluation,treatment, and prevention of vitamin D deficiency; an Endocrine Society clinical practice guideline. JCEM. 2010; 96(7):1911-. Capillary blood glucose leonor urement by glucometer (mass/volume)Ordered By: Raphael Connors on 12-26-2023 Glucose [Mass/Vol] 127 mg/dL Normal [facility] Comment on above: Random Glucose Refer ence Range is dependent on time and content of last meal. Glucose of more than 200 mg/dL in a nonstressed, ambulatory subject supports the diagnosis of Diabetes Mellitus. Result Comment: [place] om Glucose Reference Range is dependent on time and content of last meal. Glucose of more than 200 mg/dL in a nonstressed, ambulatory subject supports the diagnosis of Diabetes Mellitus. Performed By: #### G LULS #### Point of Care testing , Glucose Poct Glucometerson 0 12-26-2023 Commemt1 Glu2: Cleaned Meter Normal [facility] Comment on above: Result Comment: PERF ORMED BY: [facility] [address] MAKER SUSAN THOMPSON M.D. Performed By: #### G LULS #### Point of Care testing , Deandre 12-26-2023 L Specimen: [id number] Received: 12/26/23 Status: JALEN Recharlotte Num: [id number] Spec Type: Surgical Subm Dr: Raphael Connors DO Tissues: A Breast Lumpectmy/Mass - Requiring Micros Eval of Margins (RT BREAST MASS) B Breast [place] Lymph Node (RT SN) Procedures: HE/44, Gross/Micro L5/2 Age/ Patient Sex Location Account Attending Physician Doris Carnes 63/F [place] [id number] Raphael Connors DO SPEC NUM: [id number] RECD: 12/26/23 STATUS: JALEN MIGUEL NUM: [id number] CAMELIA: 12/26/[address]: Raphael Connors DO ENTERED: 12/26/[address] [facility] [address]: SPEC TYPE: Surgical DEPT: S ORDERED: HE/44, Gross/Micro L5/2 ORDERED: HE/44, Gross/Micro L5/2 Supplemental Report Addendum 2 Entered: 02/16/24 Margins are negative for DCIS. DCIS is 0.7 cm from the closest margin (medial margin). Addendum Signed (signature on file) Kadi Aleman MD 02/16/241939 Addendum 1 Entered: 02/09/24 Oncotype DX report: Recurrence score result: 17 Distant recurrence risk at 9 years: 5% Group average absolute chemotherapy benefit: Less than 1% Please see attached report. Specimen: [id number] Received: 12/26/23 Status: JALEN Godwin Num: [id number] Spec Type: Surgical Subm Dr: Raphael Connors DO Tissues: A Breast Lumpectmy/Mass - Requiring Micros Eval of Margins (RT BREAST MASS) B Breast [place] Lymph Node (RT SN) Procedures: EBONY/Judith, Gross/Micro L5/2 Patient: Doris Carnes [id number] (Continued) Specimen: [id number] Received: 12/26/23 (Continued) Supplemental Report (Continued) Signed (signature on file) Kadi Aleman MD 12/28/23 1516 Specimen: [id number] Received: 12/26/23 Status: JALEN Godwin Num: [id number] Spec Type: Surgical Subm Dr: Raphael Connors DO Tissues: A Breast Lumpectmy/Mass - Requiring Micros Eval of Margins (RT BREAST MASS) B Breast [place] Lymph Node (RT SN) Procedures: EBONY/Judith, Erich/Lin L5/2 Patient: Doris Carnes [id number] (Continued) Specimen: [id number] Received: 12/26/23 (Continued) Supplemental Report (Continued) Addendum Signed (signature on file) Kadi Aleman MD 02/09/242012 Pathological Diagnosis A. Mass, Right breast, Lumpectomy: Invasive Ductal Carcinoma. Tumor Is 1.7 Cm In Greatest Dimension. Grade 3/ Poorly Differentiated. Tumor Is 0.2 Cm From The Nearest Surgical Margin (medial margin). Associated Ductal Carcinoma In Situ (DCIS), High Grade. No Evidence Of Lymphovascular Invasion. B. [place] node, left axilla, biopsy: One lymph node, negative for metastatic lesions (0/ 1). [facility]ER CASE SUMMARY SPECIMEN Procedure: Excision (less than total mastectomy) Specimen Laterality: Right TUMOR Histologic Type: Invasive carcinoma of no special type (ductal) Glandular (Acinar) / Tubular Differentiation: Score 3 Nuclear Pleomorphism: Score 3 Mitotic Rate: Score 2 Overall Grade: Grade 3 (score of 8/9) Tumor Size: Greatest dimension of largest invasive focus (Millimeters) - 17 mm Ductal Carcinoma In Situ (DCIS): Present Lymphatic and / or Vascular Invasion: Not identified Treatment Effect in the Breast: No known presurgical therapy MARGINS Margin Status for Invasive Carcinoma: Negative Distance from invasive carcinoma to Closest Margin: 2 mm Closest Margin(s) to invasive carcinoma: Medial Specimen: [id number] Received: 12/26/23 Status: JALEN Godwin Num: [id number] Spec Type: Surgical Subm Dr: Raphael Connors,DO Tissues: A Breast Lumpectmy/Mass - Requiring Micros Eval of Margins (RT BREAST MASS) B Breast [place] Lymph Node (RT SN) Procedures: HE/44, Gross/Micro L5/2 Patient: Doris Carnes [id number] (Continued) Specimen: [id number] Received: 12/26/23-1227 (Continued) Pathological Diagnosis (Continued) Signed (more content not included)... Normal [facility] MM surgical specimen RTon [place] [address] Mammography Report Signed Patient: Doris Carnes MR#: [id number] : 1960 Acct:[id number] Age/Sex: 63 / F ADM Date: 12/26/23 Loc: [place] Room: Type: [facility] Attending Dr: Raphael Connors DO Copies to: MD Raphael Bates DO Ordering Provider: Raphael Connors DO Date of Service: 12/26/23 MM/MM surgical specimen RT: RT BREAST SPECIMEN IN OR WITH CLIP/MAGNETIC SEED RIGHT BREAST SPECIMEN RADIOGRAPH CLINICAL DATA: Recently diagnosed invasive carcinoma of the right breast COMPARISON: Localization mammogram 12/23/2023 A single specimen radiograph was obtained in the operating room on a grid. The tissue sample contains the radiation seed overlying the C5 coordinate. The biopsy marking clip overlies the B5 coordinate. Impression dictated by: Yeni Garza M.D.12/26/2023 2:45 PM Dictation Location: [place] [address] Transcribed By: WILFREDO 12/26/23 144 Dictated By: Yeni Garza MD 12/26/231440 Signed By: 12/26/23 144 Normal [facility] NM sentinel node w imagingon 12-26-2023 NM sentinel node w imaging [facility] Main [place] [id number] Nuclear Medicine Report Signed Patient: Doris Carnes MR#: [id number] : 1960 Acct:[id number] Age/Sex: 63 / F ADM Date: 12/26/23 Loc: [place] Room: Type: [facility] Attending Dr: Raphael Connors DO Copies to: Edwardo Means Jr, DO Paul C Laffay, DO Ordering Provider: Raphael Connors DO Date of Service: 12/26/23 NM/NM sentinel node w imaging: [id number] Nuclear medicine [place] node imaging. Reason for exam: Right breast cancer. TECHNIQUE: 0.409 mCi of technetium 99m sulfur colloid was injected into the right breast and delayed images were obtained. FINDINGS: The delayed images demonstrate migration of the radiotracer towards the right axilla. NM/NM sentinel node w imaging Impression: Migration of the radiotracer seen towards the right axilla. Impression dictated by: Edwardo Means Jr., DTrinhOTrinh12/26/2023 2:04 PM Dictation Location: [facility] Transcribed By: [facility] 12/26/23 1404 Dictated By: Edwardo Means Jr, DO 12/26/23 1401 Signed By: 12/26/23 1404 Normal [facility] No Panel InformationOrdered By: Raphael Connors on 12-26-2023 Bedside Glucose Comment Glu2: cleaned meter [facility] MM diagnostic mammo RT w/CAD on 12-23-2023 MM diagnostic mammo RT w/CAD [facility] Main [address] [address] Ultrasound Report Signed Patient: Doris Carnes MR#: [id number] : 1960 Acct:[id number] Age/Sex: 63 / F ADM Date: 11/23/23 Loc: [place] Room: Type: [facility] Attending Dr: Raphael Connors DO Ordering Provider: Raphael Connors DO Date of Service: 12/23/23 US/US breast needle loc RT: RT BREAST MAGNETIC SEED LOC ([id number]) MM/MM diagnostic mammo RT w/CAD: POST U/S MAGNETIC SEED LOC Copies to: Raphael Connors,DO ULTRASOUND-GUIDED RIGHT BREAST MAGNETIC SEED LOCALIZATION CLINICAL DATA: Recently diagnosed invasive carcinoma at the superior medial breast. Patient's previous imaging from October 2023 was reviewed. Procedure was discussed with patient and consent was obtained. Ultrasound survey at the superior medial breast shows an ill-defined area of hypodensity at 1:00, 10 cm from the nipple. Following sterile preparation and local anesthesia with lidocaine, a spinal needle loaded with a magnetic seed was advanced into the area and the seed was deployed. There were no immediate complications. DIAGNOSTIC RIGHT MAMMOGRAM - FULL FIELD DIGITAL Craniocaudal and true lateral views of the breast were obtained using low-dose digital technique. Comparison is made to previous mammograms from April 08, 2022 through November 15, 2023. There is minimal residual fibroglandular tissue. At the superior medial breast, there is now a radiation seed a few millimeters inferior and medial to the biopsy marking clip. There is density within the breast posterior to the clip and seed which may be residual lesion and or hematoma. There are some benign-appearing calcifications. US/US breast needle loc RT IMPRESSION: STATUS POST MAGNETIC SEED LOCALIZATION OF THE RESIDUAL RIGHT BREAST LESION. Impression dictated by: Yeni Garza M.D.12/23/2023 11:29 AM Dictation Location: [facility] Tech: Rheaaleja Schafer Transcribed By: WILFREDO 12/23/23 1129 Dictated By: Yeni Garza MD 12/23/23 1056 Signed By: 12/23/23 1129 Normal [facility] NM Heart Perfusion W stress and W radionuclide [place] 12-21-2023 Normal Lexiscan Myov iew cardiac perfusion stress test. No evidence of ischemia or myocardial infarction by perfusion imaging. Normal left ventricular systolic function, ejection fraction 87%. When compared to previous study. Previous study reported anteroseptal defect under question infarct versus attenuation. This defect is no longer present. Signed by: Ciera Pastor 12/21/2023 5:04 PM Dictation workstation: [id number] MMODAL Interpreted By: Traboulssi, MourhaTam starkey STUDY: MYOCARDIAL PERFUSION STRESS TEST WITH LEXISCAN Performing facility: [facility], [address], [address], [place] [address] [facility] Provider: Ben Schmitt MD, [facility] PCP: Dr. Obi Lewis Supervising provider: Ciera Pastor MD INDICATION: Abnormal EKG; Pre-operative risk assessment for Lumpectomy scheduled at [facility] on 12-26-23 HISTORY: Gender: F; Age: 63 y/o ; Height: HT 162.6 cm cm; Weight: WT 122.018 kg kg. CAD; High Cholesterol; Abnormal EKG; Diabetes; HTN; Denies smoking. Cardiac catheterization on 2017. PTCA on 2017. COMPARISON: Previous nuclear testing completed [id number] at [facility]. ACCESSION NUMBER(S): [id number] ORDERING CLINICIAN: WILEY SCHMITT TECHNIQUE: TWO DAY protocol. Stress injection: Date:12-20-23, 34.5 mCi of Myoview IV 20 seconds after rapid injection of Lexiscan. Rest injection: Date: 12-21-23, 35.0 mCi of Myoview IV at rest. The patient had a rapid injection of 0.4 mg of Lexiscan IV over 10 seconds. Imaging was performed by gated tomographic technique. Reason for Lexiscan: hip/knee pain, Unsteady gait STRESS TEST DATA: Resting heart rate was 85 BPM. Resting blood pressure was 136/82 mmHg. Peak blood pressure was 128/82 mmHg. Peak heart rate was 112 BPM. TEST TERMINATED DUE TO: Protocol completed FINDINGS: STRESS TEST RESULTS: Resting electrocardiogram revealed normal sinus rhythm with nonspecific ST-T changes. There were no significant ischemic ECG changes or dysrhythmias. The patient did not have chest pains/symptoms during procedure. There was a normal recovery phase. IMAGING RESULTS: Image quality was good. Rest and stress tomographic images were reviewed and revealed normal perfusion without evidence of ischemia, myocardial infarction, or left ventricular dilatation with stress. Overall left ventricular systolic function appeared to be normal without regional wall motion abnormalities. Ejection fraction was 87%. TID is 0.7 and is normal. There were no evidence of attenuation artifact. MMODAL Ciera Pastor MD - 12/21/2023 Interpreted By: Ciera Pastor and Giannuzzi Michael STUDY: MYOCARDIAL PERFUSION STRESS TEST WITH LEXISCAN Performing facility: [facility], [address] [place] [address], [address], [place] [address] [facility] Provider: Ben Schmitt MD, FACC PCP: Dr. Obi Lewis Supervising provider: Ciera Pastor MD INDICATION: Abnormal EKG; Pre-operative risk assessment for Lumpectomy scheduled at [facility] on 12-26-23 HISTORY: Gender: F; Age: 63 y/o ; Height: HT 162.6 cm cm; Weight: WT 122.018 kg kg. CAD; High Cholesterol; Abnormal EKG; Diabetes; HTN; Denies smoking. Cardiac catheterization on 2017. PTCA on 2017. COMPARISON: Previous nuclear testing completed [id number] at [facility]. ACCESSION NUMBER(S): [id number] ORDERING CLINICIAN: WILEY SCHMITT TECHNIQUE: TWO DAY protocol. Stress injection: Date:12-20-23, 34.5 mCi of Myoview IV 20 seconds after rapid injection of Lexiscan. Rest injection: Date: 12-21-23, 35.0 mCi of Myoview IV at rest. The patient had a rapid injection of 0.4 mg of Lexiscan IV over 10 seconds. Imaging was performed by gated tomographic technique. Reason for Lexiscan: hip/knee pain, Unsteady gait STRESS TEST DATA: Resting heart rate was 85 BPM. Resting blood pressure was 136/82 mmHg. Peak blood pressure was 128/82 mmHg. Peak heart rate was 112 BPM. TEST TERMINATED DUE TO: Protocol completed FINDINGS: STRESS TEST RESULTS: Resting electrocardiogram revealed normal sinus rhythm with nonspecific ST-T changes. There were no significant ischemic ECG changes or dysrhythmias. The patient did not have chest pains/symptoms during procedure. There was a normal recovery phase. IMAGING RESULTS: Image quality was good. Rest and stress tomographic images were reviewed and revealed normal perfusion without evidence of ischemia, myocardial infarction, or left ventricular dilatation with stress. Overall left ventricular systolic function appeared to be normal without regional wall motion abnormalities. Ejection fraction was 87%. TID is 0.7 and is normal. There were no evidence of attenuation artifact. IMPRESSION: Normal Lexiscan Myoview cardiac perfusion stress test. No evidence of ischemia or myocardial infarction by perfusion imaging. Normal left ventricular systolic function, ejection fraction 87%. When compared to previous study. Previous study reported anteroseptal defect under question infarct versus attenuation. This defect is no longer present. Signed by: Ciera Pastor 12/21/2023 5:04 PM Dictation workstation: [id number] [facility] Work Phone: NM Heart Perfusion W stress and W radionuclide IVOrdered By: Ciera Pastor on 12-21-2023 [facility] Work Phone: NM Heart Perfusion W stress and W radionuclide [place] 12-20-2023 Radiology Study observation (narrative) [facility] Work Phone: NUCLEAR STRESS TESTon 2023 NUCLEAR STRESS TEST Interpreted By: Ciera Pastor and Adri Olson STUDY: MYOCARDIAL PERFUSION STRESS TEST WITH LEXISCAN Performing facility: [facility], [address] [place] [address], [address] Provider: Ben Schmitt MD, [facility] PCP: Dr. Obi Lewis Supervising provider: Ciera Pastor MD INDICATION: Abnormal EKG; Pre-operative risk assessment for Lumpectomy scheduled at [facility] on 12-26-23 HISTORY: Gender: F; Age: 63 y/o ; Height: HT 162.6 cm cm; Weight: WT 122.018 kg kg. CAD; High Cholesterol; Abnormal EKG; Diabetes; HTN; Denies smoking. Cardiac catheterization on 2017. PTCA on 2017. COMPARISON: Previous nuclear testing completed [id number] at [facility]. ACCESSION NUMBER(S): [id number] ORDERING CLINICIAN: WILEY SCHMITT TECHNIQUE: TWO DAY protocol. Stress injection: Date:12-20-23, 34.5 mCi of Myoview IV 20 seconds after rapid injection of Lexiscan. Rest injection: Date: 12-21-23, 35.0 mCi of Myoview IV at rest. The patient had a rapid injection of 0.4 mg of Lexiscan IV over 10 seconds. Imaging was performed by gated tomographic technique. Reason for Lexiscan: hip/knee pain, Unsteady gait STRESS TEST DATA: Resting heart rate was 85 BPM. Resting blood pressure was 136/82 mmHg. Peak blood pressure was 128/82 mmHg. Peak heart rate was 112 BPM. TEST TERMINATED DUE TO: Protocol completed FINDINGS: STRESS TEST RESULTS: Resting electrocardiogram revealed normal sinus rhythm with nonspecific ST-T changes. There were no significant ischemic ECG changes or dysrhythmias. The patient did not have chest pains/symptoms during procedure. There was a normal recovery phase. IMAGING RESULTS: Image quality was good. Rest and stress tomographic images were reviewed and revealed normal perfusion without evidence of ischemia, myocardial infarction, or left ventricular dilatation with stress. Overall left ventricular systolic function appeared to be normal without regional wall motion abnormalities. Ejection fraction was 87%. TID is 0.7 and is normal. There were no evidence of attenuation artifact. IMPRESSION: Normal Lexiscan Myoview cardiac perfusion stress test. No evidence of ischemia or myocardial infarction by perfusion imaging. Normal left ventricular systolic function, ejection fraction 87%. When compared to previous study. Previous study reported anteroseptal defect under question infarct versus attenuation. This defect is no longer present. Signed by: Ciera Pastor 12/21/2023 5:04 PM Dictation workstation: [id number] [facility] Automated basophil %Ordered By: Raphael Connors on 12-12-2023 Basophils/100 WBC (Bld) 0.3 % Normal . [facility] Comment on above: Performed By: #### B MP, CBC #### [address] Automated basophil countOrde red By: Raphael Connors on 12-12-2023 Basophils (Bld) [#/Vol] 0.0 10*3/uL Normal 0.0-0.2 [facility] Comment on above: Result Comment: PERF ORMED BY: [address] [place] [address] MAKER SUSAN THOMPSON M.D. Performed By: #### B MP, CBC #### [address] Automated blood monocyte cou ntOrdered By: Raphael Connors on 12-12-2023 Monocytes (Bld) [#/Vol] 0.5 10*3/uL Normal 0.0-0.8 [facility] Comment on above: Performed By: #### B MP, CBC #### [address] Automated eosinophil %Ordere d By: Raphael Connors on 12-12-2023 Eosinophils/100 WBC (Bld) 0.7 % Normal . [facility] Comment on above: Performed By: #### B MP, CBC #### [address] Automated eosinophil countOr dered By: Raphael Connors on 12-12-2023 Eosinophils (Bld) [#/Vol] 0.1 10*3/uL Normal 0.0-0.45 [facility] Comment on above: Performed By: #### B MP, CBC #### [address] Automated monocyte %Ordered By: Rapahel Connors on 12-12-2023 Monocytes/100 WBC (Bld) 6.5 % Normal . [facility] Comment on above: Performed By: #### B MP, CBC #### [address] Automated neutrophil %Ordere d By: Raphael Connors on 12-12-2023 Neutrophils/100 WBC (Bld) 64.9 % Normal . [facility] Comment on above: Performed By: #### B MP, CBC #### [address] Basic Metabolic Panelon 11-27 GFR/1.73 sq M.predicted MDRD (S/P/Bld) [Vol rate/Area] mL/min/{1.73_m2} Normal [facility] Comment on above: Performed By: #### B MP, CBC #### [address] Calcium [Mass/volume] in Ser um or PlasmaOrdered By: Raphael Connors on 12-12-2023 Calcium [Mass/Vol] 9.5 mg/dL Normal 8.6-10.3 [facility] Comment on above: Result Comment: PERF ORMED BY: [place] [address] MAKER SUSAN THOMPSON M.D. Performed By: #### B MP, CBC #### [address] Carbon dioxide, total [Moles /volume] in Serum or PlasmaOrdered By: Raphael Connors on 12-12-2023 CO2 [Moles/Vol] 33.7 mmol/L High 21.0-31.0 [facility] Comment on above: Performed By: #### B MP, CBC #### [address] Chloride [Moles/volume] in S yoandy or PlasmaOrdered By: Raphael Connors on 12-12-2023 Chloride [Moles/Vol] 101 mmol/L Normal 98-107 [facility] Comment on above: Performed By: #### B MP, CBC #### [address] Complete Blood Count Auto Di ffon 12-12-2023 Mean Corpuscular HGB Conc 33.4 g/dL Normal 32.0-35.0 [facility] Comment on above: Performed By: #### B MP, CBC #### [address] NRBC% 0.1 /100{WBC} Normal 0-0.5 [facility] Comment on above: Performed By: #### B MP, CBC #### [place] [address] [place] Creatinine [Mass/volume] in Serum or PlasmaOrdered By: Raphael Connors on 12-12-2023 Creatinine [Mass/Vol] 0.87 mg/dL Normal 0.60-1.20 [facility] Comment on above: Performed By: #### B MP, CBC #### [place] [address] [place] ECG 12 lead ECGon 12-12-2023 ECG 12 lead ECG [facility] Main [place] [address] [place] [address] Electrocardiograph Report Signed Patient: Doris Carnes MR#: [id number] : 1960 Acct:[id number] Age/Sex: 63 / F ADM Date: 12/12/23 Loc: [place] Room: Type: [facility] Attending Dr: Raphael Connors DO Ordering Provider: Raphael Connors DO Date of Service: 12/12/23 ECG/ECG 12 lead ECG: surgery 12/26/23 Copies to: Test Reason : Blood Pressure : / mmHG Vent. Rate : 083 BPM Atrial Rate : 083 BPM P-R Int : 208 ms QRS Dur : 084 ms QT Int : 378 ms P-R-T Axes : 034 008 029 degrees QTc Int : 444 ms Normal sinus rhythm Normal ECG When compared with ECG of 25-JUL-2018 08:37, No significant change was found Confirmed by Mustapha Krueger ([id number]) on 12/12/2023 2:18:19 PM Referred By: AYE CONNORS Electronically Signed By:Mustapha Krueger Transcribed By: MUS Signed By Mustapha Krueger MD 12/12/23 1418 Normal [facility] Erythrocyte distribution wid th [Ratio] by Automated countOrdered By: Raphael Connors on 12-12-2023 Erythrocyte distribution width (RBC) [Ratio] 13.9 % Normal 11.9-15.3 [facility] Comment on above: Performed By: #### B MP, CBC #### [facility] [address] [place] [address] [place] Erythrocytes [#/volume] in B lood by Automated countOrdered By: Raphael Connors on 12-12-2023 RBC (Bld) [#/Vol] 4.96 10*6/uL Normal 3.60-5.00 [facility] Comment on above: Performed By: #### B MP, CBC #### [facility] [address] [place] [address] [place] Glucose [Mass/volume] in Ser um or PlasmaOrdered By: Raphael Connors on 12-12-2023 Glucose [Mass/Vol] 109 mg/dL High 70-100 [facility] Comment on above: ADA recommended refe rence rangeRandom Glucose Reference Range is dependent on time and content of last meal. Glucose of more than 200 mg/dL in a nonstressed, ambulatory subject supports the diagnosis of Diabetes Mellitus. Result Comment: [place] om Glucose Reference Range is dependent on time and content of last meal. Glucose of more than 200 mg/dL in a nonstressed, ambulatory subject supports the diagnosis of Diabetes Mellitus. ADA recommended reference range Performed By: #### B MP, CBC #### [address] Hematocrit [Volume Fraction] of Blood by Automated countOrdered By: Raphael Connors on 12-12-2023 Hematocrit (Bld) [Volume fraction] 41.9 % Normal 34.0-46.4 [facility] Comment on above: Performed By: #### B MP, CBC #### [address] Hemoglobin [Mass/volume] in BloodOrdered By: Raphael Connors on 12-12-2023 Hemoglobin (Bld) [Mass/Vol] 14.0 g/dL Normal 11.8-15.4 [facility] Comment on above: Performed By: #### B MIKAELA, CBC #### [place] [address] [place] Leukocytes [#/volume] correc irena for nucleated erythrocytes in Blood by Automated counOrdered By: Raphael Connors on 12-12-2023 WBC corrected for nucl RBC Auto (Bld) [#/Vol] 8.2 10*3/uL 3.8-11.6 [facility] Leukocytes [#/volume] in Blo od by Automated countOrdered By: Raphael Connors on 12-12-2023 WBC (Bld) [#/Vol] 8.2 10*3/uL Normal 3.8-11.6 [facility] Comment on above: Performed By: #### B MP, CBC #### [place] [address] [place] Lymphocytes [#/volume] in Bl ood by Automated countOrdered By: Raphael Connors on 12-12-2023 Lymphocytes (Bld) [#/Vol] 2.3 10*3/uL Normal 1.00-4.8 [facility] Comment on above: Performed By: #### B MP, CBC #### [address] Lymphocytes/100 leukocytes i n Blood by Automated countOrdered By: Raphael Connors on 12-12-2023 Lymphocytes/100 WBC (Bld) 27.6 % Normal . [facility] Comment on above: Performed By: #### B MP, CBC #### [address] MCH [Entitic mass] by Automa irena countOrdered By: Raphael Connors on 12-12-2023 MCH (RBC) [Entitic mass] 28.2 pg Normal 24.7-34.3 [facility] Comment on above: Performed By: #### B MP, CBC #### [address] MCHC Auto (RBC) [Mass/Vol]Or dered By: Raphael Connors on 12-12-2023 MCHC (RBC) [Mass/Vol] 33.4 g/dL 32.0-35.0 [facility] MCV [Entitic volume] by Auto mated countOrdered By: Raphael Connors on 12-12-2023 MCV (RBC) [Entitic vol] 84.4 fL Normal 80-100 [facility] Comment on above: Performed By: #### B MP, CBC #### [address] Neutrophils [#/volume] in Bl ood by Automated countOrdered By: Raphael Connors on 12-12-2023 Neutrophils (Bld) [#/Vol] 5.3 10*3/uL Normal 1.8-7.7 [facility] Comment on above: Performed By: #### B MP, CBC #### [address] No Panel InformationOrdered By: Raphael Connors on 12-12-2023 Estimated GFR (CKD-EPI) > 60.0 mL/Min [facility] Creatinine Clearance (Chem N/A [facility] Nucleated erythrocytes [Pres ence] in Blood by Automated countOrdered By: Raphael Connors on 12-12-2023 Nucleated RBC Auto Ql (Bld) 0.1 /100{WBC} 0-0.5 [facility] Platelet mean volume [Entiti c volume] in Blood by Automated countOrdered By: Raphael Connors on 12-12-2023 Platelet mean volume (Bld) [Entitic vol] 8.4 fL Normal 6.3-10.7 [facility] Comment on above: Performed By: #### B MP, CBC #### [facility] [address] Platelets [#/volume] in Bloo d by Automated countOrdered By: Raphael Connors on 12-12-2023 Platelets (Bld) [#/Vol] 318 10*3/uL Normal 150-450 [facility] Comment on above: Performed By: #### B MP, CBC #### [facility] [address] [place] [address] [place] Potassium [Moles/volume] in Serum or PlasmaOrdered By: Raphael Connors on 12-12-2023 Potassium [Moles/Vol] 3.8 mmol/L Normal 3.5-5.1 [facility] Comment on above: Performed By: #### B MP, CBC #### [facility] [address] Serum or plasma anion gap de terminationOrdered By: Raphael Connors on 12-12-2023 Anion gap [Moles/Vol] 11.1 mmol/L Normal 6.0-15.0 [facility] Comment on above: Performed By: #### B MP, CBC #### [facility] [address] [place] [address] [place] Sodium [Moles/volume] in Ser um or PlasmaOrdered By: Raphael Connors on 12-12-2023 Sodium [Moles/Vol] 142 mmol/L Normal 136-145 [facility] Comment on above: Performed By: #### B MP, CBC #### [facility] [address] [place] [id number] [facility] Urea nitrogen [Mass/volume] in Serum or PlasmaOrdered By: Raphael Connors on 12-12-2023 Urea nitrogen [Mass/Vol] 17 mg/dL Normal 7-25 [facility] Comment on above: Performed By: #### B MP, CBC #### [facility] [address] [place] [id number] [place] Deandre 11-15-2023 L Specimen: [id number] Received: 11/15/23 Status: SOUT Req Num: [id number] Spec Type: Surgical Subm Dr: Juan Pablo Eubanks DO Tissues: A BREAST CORE NO CALCS (RT BREAST TISSUE) Procedures: HE/2, Gross/Micro L4, E CADHERIN, ER, p63, MI, GATA3 Age/ Patient Sex Location Account Attending Physician Doris Carnes 63/F MARI [id number] Noah Lewis MD SPEC NUM: [id number] RECD: 11/15/23 STATUS: JALEN GODWIN NUM: [id number] CAMELIA: 11/15/[address]: Juan Pablo Eubanks DO ENTERED: 11/15/[address] [facility] [address]: Noah Lewis MD SPEC TYPE: Surgical DEPT: S ORDERED: HE/2, Gross/Micro L4, E CADHERIN, ER, p63, MI, GATA3 ORDERED: HE/2, Gross/Micro L4, E CADHERIN, ER, p63, MI, GATA3 Addendum Signed (signature on file) Thomas Tran MD 11/17/23 1039 Supplemental Report Addendum 1 Entered: 11/22/23 Supplemental for findings of HER2 by immunohistochemistry from [employer]: -Negative -Score: 0 Addendum Signed (signature on file) Kenn Georges MD 11/22/231934 Pathological Diagnosis Right breast lesion at 1:00 (10 cm from nipple), ultrasound?guided core biopsy:: - Invasive ductal carcinoma, NOS (provisional [place] grade 1). - Immunohistochemical stain for HER2/leona in process with results to follow in a Specimen: [id number] Received: 11/15/23 Status: JALEN Miguel Num: [id number] Spec Type: Surgical Subm Dr: Juan Pablo Eubanks DO Tissues: A BREAST CORE NO CALCS (RT BREAST TISSUE) Procedures: HE/2, Gross/Micro L4, E CADHERIN, ER, p63, MI, GATA3 Patient: Doris Carnes [id number] (Continued) Specimen: [id number] Received: 11/15/23 (Continued) Pathological Diagnosis (Continued) Signed (signature on file) Thomas Tran MD 11/17/23 1031 Specimen: [id number] Received: 11/15/23 Status: JALEN [place] Num: [id number] Spec Type: Surgical Subm Dr: Juan Pablo Eubanks DO Tissues: A BREAST CORE NO CALCS (RT BREAST TISSUE) Procedures: HE/2, Gross/Micro L4, E CADHERIN, ER, p63, MI, GATA3 Patient: Doris Carnes [id number] (Continued) Specimen: Received: 11/15/23 (Continued) Pathological Diagnosis (Continued) supplemental report. - Please refer to the supplemental reports below. - Note: Properly controlled immunohistochemical stains for GATA3, E-cadherin and p63 were also performed. The tumor cells show diffuse positivity for GATA3 and retained membranous expression of E-cadherin, indicative of a ductal phenotype. No appreciable DCIS with retained peripheral p63 myoepithelial cells is noted. CAP CANCER CASE SUMMARY Applies To: SPECIMEN Procedure: Ultrasound?guided core biopsy Specimen Laterality: Right TUMOR Histologic Type: Invasive carcinoma of no special type (ductal) Glandular (Acinar) / Tubular Differentiation: Score 3 Nuclear Pleomorphism: Score 1 Mitotic Rate: Score 1 Overall Grade: Grade 1 (scores of 3, 4 or 5) Ductal Carcinoma In Situ (DCIS): Not identified Comment(s): Properly controlled estrogen receptor and progesterone receptor immunohistochemical stains were performed with the following results: Estrogen receptor strongly positive in 90-100% of tumor cells, progesterone receptor positive in 80-90% of cells at intermediate density. Clinical Information Right breast lesion, 1:00, 10 cm from nipple Gross Description Received in formalin labeled with the patient's name, date of and right breast is a 3.0 x 2.5 x 0.3 cm aggregate of cores of fibrofatty breast tissue. Entirely submitted in one cassette labeled A1. Time of excision: 1:26 PM 11/15/2023, time in formalin: 1:31 PM 11/15/2023, time out of formalin: 11:30 PM 11/15/2023. Cold Ischemia and Fixation Time meets the requirements specified in the latest version of the ASCO/CAP guidelines: Yes. Specimen: Received: 11/15/23 Status: JALEN Godwin Num: [id number] Spec Type: Surgical Subm Dr: Eubanks,Juan Pablo S DO Tissues: A BREAST CORE NO CALCS (RT BREAST TISSUE) Procedures: HE/ (more content not included)... Normal [facility] US breast ndl core biopsy RT on 11-15-2023 US breast ndl core biopsy RT [facility] [address] [place], [place] [id number] Ultrasound Report Signed Patient: Doris Carnes MR#: [id number] : 1960 Acct:[id number] Age/Sex: 63 / F ADM Date: 11/15/23 Loc: [facility] Room: Type: [facility] Attending Dr: Noah Lewis MD Ordering Provider: Noah Lewis MD Date of Service: 11/15/23 US/US breast ndl core biopsy RT: BREAST MASS ([id number]) MM/MM post biopsy RT w/CAD: POST U/S BX WITH CLIP Copies to: Noah Lewis MD ADDENDUM Pathology report: Invasive ductal carcinoma. Surgical consultation recommended. Impression dictated by: Juan Pablo Euabnks M.D.11/18/2023 8:26 AM Ultrasound-guided breast lesion biopsy with vacuum assistance HISTORY: Developing right breast nodule. PRIOR IMAGIN10/27/2023 TECHNIQUE: The region of concern was localized. Sterile technique and local lidocaine utilized. Core biopsy needle was advanced with ultrasound guidance Multiple core tissue samples of the lesion obtained. Before the needle was removed, biopsy marking clip placed. No immediate complications identified. Mammogram obtained for biopsy marking clip localization. Biopsy marking clip is seen within the lesion. IMPRESSION: Successful ultrasound-guided breast lesion biopsy. RESULT CODE: NL Impression dictated by: Juan Pablo Eubanks M.D.11/15/2023 1:58 PM Tech: Pushpa [employer] Transcribed By: 11/15/23 1516 Dictated By: Juan Pablo Eubanks DO 11/15/23 1358 Signed By: 11/22/23 1329 Normal [facility] US breast RT limitedon 11-07 US breast RT limited [facility] Main [place] [address] [place], [place] [id number] Mammography Report Signed Patient: Doris Carnes MR#: [id number] : 1960 Acct:[id number] Age/Sex: 63 / F ADM Date: 11/08/23 Loc: [place] Room: Type: [facility] Attending Dr: Noah Lewis MD Copies to: Noah Lewis MD Ordering Provider: Noah Lewis MD Date of Service: 11/08/23 MM/MM special view RT w/CAD: ABN MANUELA ([id number]) US/US breast RT limited: R92.8 CLINICAL DATA: Callback focal asymmetry right breast. RightDIAGNOSTIC MAMMOGRAM - WITH TOMOSYNTHESIS AND CAD , rightLIMITED BREAST ULTRASOUND COMPARISON:Mammograms dating back to 2014. Tomosynthesis imaging was obtained using low-dose digital technique. This examination was reviewed with the aid of CAD. Additional ultrasound imaging was also obtained. Mammogram: The right breast is composed of scattered fibroglandular densities. The previously identified focal asymmetry persists on today's study. Ultrasound: At the 1:00 position of the right breast approximately 10 cm from nipple, a hypoechoic mass with angular margins is seen measuring 8 x 6 x 4 mm. Additional imaging of the right axilla demonstrates no suspicious lymph nodes. MM/MM special view RT w/CAD IMPRESSION: AT THE 1:00 POSITION OF THE RIGHT BREAST APPROXIMATELY 10 CM FROM NIPPLE, A HYPOECHOIC MASS WITH ANGULAR MARGINS IS SEEN MEASURING 8 X 6 X 4 MM. MALIGNANCY CANNOT BE EXCLUDED AND ULTRASOUND-GUIDED BIOPSY IS RECOMMENDED. RESULT CODE: 4c Suspicious Abnormality - Biopsy Moderate Suspicion DENSITY CODE: 2 (approximately 25-50% glandular) FOLLOW UP: BIO The false-negative rate of mammography is approximately 10-percent. Management of a palpable abnormality must be based on clinical grounds. Impression dictated by: Edwardo Means Jr., D.OTrinh11/08/2023 11:35 AM Dictation Location: [facility] Transcribed By: [facility] 11/08/23 1135 Dictated By: Edwardo Means Jr, DO 11/08/23 1039 Signed By: 11/08/23 1135 Normal [facility] MM screening mammo BI w/CADo n 10-27-2023 MM screening mammo BI w/CAD [facility] [place] [address] Mammography Report Signed Patient: Doris Carnes MR#: [id number] : 1960 Acct:[id number] Age/Sex: 63 / F ADM Date: 10/27/23 Loc: [place] Room: Type: [facility] Attending Dr: Noah Lewis MD Copies to: Noah Lewis MD Ordering Provider: Noah Lewis MD Date of Service: 10/27/23 MM/MM screening mammo BI w/CAD: Z12.31 CLINICAL DATA: Screening for malignancy. BILATERAL SCREENING MAMMOGRAMS - FULL FIELD DIGITAL WITH TOMOSYNTHESIS AND CAD Tomosynthesis craniocaudal and mediolateral oblique views of both breasts were obtained using low- dose digital technique. Comparison is made to prior studies from 04/08/2022, 05/02/2020, 06/28/2018, 06/30/2015. This examination was reviewed with the aid of CAD. There are scattered fibroglandular densities. Benign-appearing lymph nodes are noted along the chest wall. Punctate benign-appearing calcifications are redemonstrated. There is a 9 mm focal asymmetry 9 cm deep to the nipple within the right breast which is new when compared to the prior exam. This is medial and slightly superior localizing to approximately the 2:00 to 3:00 position. MM/MM screening mammo BI w/CAD IMPRESSION: There is a 9 mm focal asymmetry 9 cm deep to the nipple within the right breast which is new when compared to the prior exam. This is medial and slightly superior localizing to approximately the 2:00 to 3:00 position. Further evaluation with spot compressed views of the right breast and ultrasound if necessary is recommended. RESULT CODE: 0 Incomplete:Needs Additional Imaging Evaluation DENSITY CODE: 2 (approximately 25-50% glandular) FOLLOW UP: ADD The false-negative rate of mammography is approximately 10-percent. Management of a palpable abnormality must be based on clinical grounds. Patient was entered into a reminder system with a target due date for the next mammogram. Impression dictated by: Brown Solis M.D.10/27/2023 3:59 PM Dictation Location: [facility] Transcribed By: WILFREDO 10/27/23 7787 Dictated By: Brown Solis II, MD 10/27/23 1555 Signed By: 10/27/23 1559 Normal [facility] Stool Occult Blood (Guaiac)o n 06-17-2023 Stool Occult Blood (Guaiac) Occult Blood Negative for Occult Blood by Guaiac Methodology -------- Reference range = Negative PERFORMED BY: [place] [address] MAKER SUSAN THOMPSON M.D. Normal [facility] Comment on above: Performed By: #### O B(GUAIAC) #### [place] [id number] [place] A1C with Estimated Average G luon 06-16-2023 Glucose [Mass/Vol] 128 mg/dL Normal [facility] Comment on above: Result Comment: PERF ORMED BY: [place] [address] MAKER SUSAN THOMPSON M.D. Performed By: #### A 1C WTH eA, THYROID SC, CBC, LIPID, T3F, CMP #### [facility] [address] [place] [address] [place] Alanine aminotransferase [En zymatic activity/volume] in Serum or PlasmaOrdered By: Noah Lewis on 06-16-2023 ALT [Catalytic activity/Vol] 30 U/L Normal [facility] Comment on above: Performed By: #### A 1C WTH eA, THYROID SC, CBC, LIPID, T3F, CMP #### [facility] [address] [place], [place] [id number] [place] Albumin [Mass/volume] in Ser um or Plasma by Bromocresol green (BCG) dye binding methoOrdered By: Noah Lewis on 06-16-2023 Albumin BCG dye [Mass/Vol] 4.1 g/dL 3.5-5.7 [facility] Alkaline phosphatase [Enzyma tic activity/volume] in Serum or PlasmaOrdered By: Noah Lewis on 06-16-2023 ALP [Catalytic activity/Vol] 78 U/L Normal 34-104 [facility] Comment on above: Performed By: #### A 1C WT eA, THYROID SC, CBC, LIPID, T3F, CMP #### [facility] [address] Aspartate aminotransferase [ Enzymatic activity/volume] in Serum or PlasmaOrdered By: Noah Lewis on 06-16-2023 AST [Catalytic activity/Vol] 21 U/L Normal 13-39 [facility] Comment on above: Performed By: #### A 1C WT eA, THYROID SC, CBC, LIPID, T3F, CMP #### [address] Automated basophil %Ordered By: Noah Lewis on 06-16-2023 Basophils/100 WBC (Bld) 0.3 % Normal . [facility] Comment on above: Performed By: #### A 1C WT eA, THYROID SC, CBC, LIPID, T3F, CMP #### [address] Automated basophil countOrde red By: Noah Lewis on 06-16-2023 Basophils (Bld) [#/Vol] 0.0 10*3/uL Normal 0.0-0.2 [facility] Comment on above: Result Comment: PERF ORMED BY: [place] [address] MAKER SUSAN THOMPSON M.D. Performed By: #### A 1C WT eA, THYROID SC, CBC, LIPID, T3F, CMP #### [address] Automated blood monocyte cou ntOrdered By: Noah Lewis on 06-16-2023 Monocytes (Bld) [#/Vol] 0.6 10*3/uL Normal 0.0-0.8 [facility] Comment on above: Performed By: #### A 1C WT eA, THYROID SC, CBC, LIPID, T3F, CMP #### [address] Automated eosinophil %Ordere d By: Noah Zamoraaleksey on 06-16-2023 Eosinophils/100 WBC (Bld) 1.2 % Normal . [facility] Comment on above: Performed By: #### A 1C WTH eA, THYROID SC, CBC, LIPID, T3F, CMP #### [facility] [address] Automated eosinophil countOr dered By: Noah Zamoraaleksey on 06-16-2023 Eosinophils (Bld) [#/Vol] 0.1 10*3/uL Normal 0.0-0.45 [facility] Comment on above: Performed By: #### A 1C WT eA, THYROID SC, CBC, LIPID, T3F, CMP #### [facility] [address] Automated monocyte %Ordered By: Noah Hoy on 06-16-2023 Monocytes/100 WBC (Bld) 7.3 % Normal . [facility] Comment on above: Performed By: #### A 1C WTH eA, THYROID SC, CBC, LIPID, T3F, CMP #### [facility] [address] Automated neutrophil %Ordere d By: Noah Zamoraaleksey on 06-16-2023 Neutrophils/100 WBC (Bld) 63.8 % Normal . [facility] Comment on above: Performed By: #### A 1C WT eA, THYROID SC, CBC, LIPID, T3F, CMP #### [facility] [address] Bilirubin.total [Mass/volume ] in Serum or PlasmaOrdered By: Noah Lewis on 06-16-2023 Bilirubin [Mass/Vol] 0.8 mg/dL Normal 0.3-1.0 [facility] Comment on above: Performed By: #### A 1C WTH eA, THYROID SC, CBC, LIPID, T3F, CMP #### [facility] [address] Calcium [Mass/volume] in Ser um or PlasmaOrdered By: Noah Lewis on 06-16-2023 Calcium [Mass/Vol] 9.3 mg/dL Normal 8.6-10.3 [facility] Comment on above: Performed By: #### A [address]C [facility] eA, THYROID SC, CBC, LIPID, T3F, CMP #### [facility] [address] [place] [address] [place] Carbon dioxide, total [Moles /volume] in Serum or PlasmaOrdered By: Noah Lewis on 06-16-2023 CO2 [Moles/Vol] 33.0 mmol/L High 21.0-31.0 [facility] Comment on above: Performed By: #### A [address] [facility] eA, THYROID SC, CBC, LIPID, T3F, CMP #### [facility] [address] [place] [address] [place] Chloride [Moles/volume] in S yoandy or PlasmaOrdered By: Noah Lewis on 06-16-2023 Chloride [Moles/Vol] 101 mmol/L Normal 98-107 [facility] Comment on above: Performed By: #### A [address] [facility] eA, THYROID SC, CBC, LIPID, T3F, CMP #### [facility] [address] [place] [address] [place] Cholesterol [Mass/volume] in Serum or PlasmaOrdered By: Noah Lewis on 06-16-2023 Cholesterol [Mass/Vol] 235 mg/dL High 140-200 [facility] Comment on above: Chol less than 200 m g/dl low riskChol 201-239 mg/dl borderline riskChol 240 mg/dl and greater high risk Result Comment: Chol less than 200 mg/dl low risk Chol 201-239 mg/dl borderline risk Chol 240 mg/dl and greater high risk Performed By: #### A [address] [facility] eA, THYROID SC, CBC, LIPID, T3F, CMP #### [facility] [address] [place] [address] [place] Cholesterol in LDL Calc [Mas s/Vol]Ordered By: Noah Lewis on 06-16-2023 Cholesterol in LDL [Mass/Vol] 142 mg/dL 0-100 [facility] Comment on above: LDL ATP III CLASSIFI CATIONLDL less than 100 mg/dL OptimalLDL 100-129 mg/dL Near or above optimalLDL 130-159 mg/dL Borderline highLDL 160-189 mg/dL HighLDL greater than 189 mg/dL Very high Cholesterol in VLDL Calc [Ma ss/Vol]Ordered By: Noah Lewis on 06-16-2023 Cholesterol in VLDL [Mass/Vol] 45 mg/dL [facility] Complete Blood Count Auto Di ffon 06-16-2023 Mean Corpuscular HGB Conc 33.5 g/dL Normal 32.0-35.0 [facility] Comment on above: Performed By: #### A 1C WTH eA, THYROID SC, CBC, LIPID, T3F, CMP #### [facility] [address] NRBC% 0.1 /100{WBC} Normal 0-0.5 [facility] Comment on above: Performed By: #### A 1C WTH eA, THYROID SC, CBC, LIPID, T3F, CMP #### [address] Comprehensive Metabolic Pane deandre 06-16-2023 Albumin [Mass/Vol] 4.1 g/dL Normal 3.5-5.7 [facility] Comment on above: Performed By: #### A 1C WTH eA, THYROID SC, CBC, LIPID, T3F, CMP #### [address] GFR/1.73 sq M.predicted MDRD (S/P/Bld) [Vol rate/Area] mL/min/{1.73_m2} Normal [facility] Comment on above: Performed By: #### A 1C WTH eA, THYROID SC, CBC, LIPID, T3F, CMP #### [address] Creatinine [Mass/volume] in Serum or PlasmaOrdered By: Noah Lewis on 06-16-2023 Creatinine [Mass/Vol] 0.98 mg/dL Normal 0.60-1.20 [facility] Comment on above: Performed By: #### A 1C WTH eA, THYROID SC, CBC, LIPID, T3F, CMP #### [address] Erythrocyte distribution wid th [Ratio] by Automated countOrdered By: Noah Lewis on 06-16-2023 Erythrocyte distribution width (RBC) [Ratio] 14.5 % Normal 11.9-15.3 [facility] Comment on above: Performed By: #### A 1C WT eA, THYROID SC, CBC, LIPID, T3F, CMP #### [facility] [address] Erythrocytes [#/volume] in B lood by Automated countOrdered By: Noah Lewis on 06-16-2023 RBC (Bld) [#/Vol] 4.56 10*6/uL Normal 3.60-5.00 [facility] Comment on above: Performed By: #### A 1C WT eA, THYROID SC, CBC, LIPID, T3F, CMP #### [facility] [address] Glucose [Mass/volume] in Ser um or PlasmaOrdered By: Noah Lewis on 06-16-2023 Glucose [Mass/Vol] 117 mg/dL High 70-100 [facility] Comment on above: ADA recommended refe rence rangeRandom Glucose Reference Range is dependent on time and content of last meal. Glucose of more than 200 mg/dL in a nonstressed, ambulatory subject supports the diagnosis of Diabetes Mellitus. Result Comment: [place] om Glucose Reference Range is dependent on time and content of last meal. Glucose of more than 200 mg/dL in a nonstressed, ambulatory subject supports the diagnosis of Diabetes Mellitus. ADA recommended reference range Performed By: #### A 1C WT eA, THYROID SC, CBC, LIPID, T3F, CMP #### [facility] [address] [place] [id number] [facility] Glucose mean value [Mass/vol ume] in Blood Estimated from glycated hemoglobinOrdered By: Noah Lewis on 06-16-2023 Average glucose Estimated from glycated hemoglobin (Bld) [Mass/Vol] 128 mg/dL [facility] Hematocrit [Volume Fraction] of Blood by Automated countOrdered By: Noah Lewis on 06-16-2023 Hematocrit (Bld) [Volume fraction] 39.4 % Normal 34.0-46.4 [facility] Comment on above: Performed By: #### A 1C WTH eA, THYROID SC, CBC, LIPID, T3F, CMP #### [facility] [address] Hemoglobin A1c percentageOrd ered By: Noah Lewis on 06-16-2023 HbA1c (Bld) [Mass fraction] 6.1 % High 4.3-5.6 [facility] Comment on above: Increased risk for d iabetes: 5.7 - 6.4diabetes: >6.4glycemic control for adults with diabetes: <7.0 Result Comment: Incr eased risk for diabetes: 5.7 - 6.4 diabetes: >6.4 glycemic control for adults with diabetes: <7.0 Performed By: #### A 1C WTH eA, THYROID SC, CBC, LIPID, T3F, CMP #### [address] Hemoglobin [Mass/volume] in BloodOrdered By: Noah Lewis on 06-16-2023 Hemoglobin (Bld) [Mass/Vol] 13.2 g/dL Normal 11.8-15.4 [facility] Comment on above: Performed By: #### A 1C WT eA, THYROID SC, CBC, LIPID, T3F, CMP #### [address] Leukocytes [#/volume] correc irena for nucleated erythrocytes in Blood by Automated counOrdered By: Noah Lewis on 06-16-2023 WBC corrected for nucl RBC Auto (Bld) [#/Vol] 8.4 10*3/uL 3.8-11.6 [facility] Leukocytes [#/volume] in Blo od by Automated countOrdered By: Noah Lewis on 06-16-2023 WBC (Bld) [#/Vol] 8.4 10*3/uL Normal 3.8-11.6 [facility] Comment on above: Performed By: #### A 1C WTH eA, THYROID SC, CBC, LIPID, T3F, CMP #### [address] Lipid Panelon 06-16-2023 LDL Cholesterol,Calculated 142 mg/dL High 0-100 [facility] Comment on above: Result Comment: LDL ATP III CLASSIFICATION LDL less than 100 mg/dL Optimal LDL 100-129 mg/dL Near or above optimal LDL 130-159 mg/dL Borderline high LDL 160-189 mg/dL High LDL greater than 189 mg/dL Very high Performed By: #### A 1C WTH eA, THYROID SC, CBC, LIPID, T3F, CMP #### [facility] [address] Triglyceride w/Reflex 225 mg/dL High 0-149 [facility] Comment on above: Result Comment: TRIG ATP III CLASSIFICATION TRIG less than 150 mg/dL Normal TRIG 150-199 mg/dL Borderline high TRIG 200-500 mg/dL High TRIG greater than 500 mg/dL Very high Standard traceable to the Center for Disease Conrtrol and Prevention (CDC) test method. Performed By: #### A 1C WTH eA, THYROID SC, CBC, LIPID, T3F, CMP #### [address] VLDL CHOLESTEROL 45 mg/dL Normal [facility] Comment on above: Performed By: #### A 1C WTH eA, THYROID SC, CBC, LIPID, T3F, CMP #### [address] Lymphocytes [#/volume] in Bl ood by Automated countOrdered By: Noah Lewis on 06-16-2023 Lymphocytes (Bld) [#/Vol] 2.3 10*3/uL Normal 1.00-4.8 [facility] Comment on above: Performed By: #### A 1C WTH eA, THYROID SC, CBC, LIPID, T3F, CMP #### [facility] [address] [place] [address] [place] Lymphocytes/100 leukocytes i n Blood by Automated countOrdered By: Noah Lewis on 06-16-2023 Lymphocytes/100 WBC (Bld) 27.4 % Normal . [facility] Comment on above: Performed By: #### A 1C WTH eA, THYROID SC, CBC, LIPID, T3F, CMP #### [facility] [address] [place] [address] [place] MCH [Entitic mass] by Automa irena countOrdered By: Noah Lewis on 06-16-2023 MCH (RBC) [Entitic mass] 28.9 pg Normal 24.7-34.3 [facility] Comment on above: Performed By: #### A [address] [facility] eA, THYROID SC, CBC, LIPID, T3F, CMP #### [facility] [address] [place] [address] MCHC Auto (RBC) [Mass/Vol]Or dered By: Noah Lewis on 06-16-2023 MCHC (RBC) [Mass/Vol] 33.5 g/dL 32.0-35.0 [facility] MCV [Entitic volume] by Auto mated countOrdered By: Noah Lewis on 06-16-2023 MCV (RBC) [Entitic vol] 86.3 fL Normal 80-100 [facility] Comment on above: Performed By: #### A [address] [facility] eA, THYROID SC, CBC, LIPID, T3F, CMP #### [address] Neutrophils [#/volume] in Bl ood by Automated countOrdered By: Noah Lewis on 06-16-2023 Neutrophils (Bld) [#/Vol] 5.4 10*3/uL Normal 1.8-7.7 [facility] Comment on above: Performed By: #### A [address] [facility] eA, THYROID SC, CBC, LIPID, T3F, CMP #### [address] No Panel InformationOrdered By: Noah Lewis on 06-16-2023 Estimated GFR (CKD-EPI) > 60.0 mL/Min [facility] Creatinine Clearance (Chem N/A [facility] Nucleated erythrocytes [Pres ence] in Blood by Automated countOrdered By: Noah Lewis on 06-16-2023 Nucleated RBC Auto Ql (Bld) 0.1 /100{WBC} 0-0.5 [facility] Platelet mean volume [Entiti c volume] in Blood by Automated countOrdered By: Noah Lewis on 06-16-2023 Platelet mean volume (Bld) [Entitic vol] 8.9 fL Normal 6.3-10.7 [facility] Comment on above: Performed By: #### A [address] [facility] eA, THYROID SC, CBC, LIPID, T3F, CMP #### [facility] [address] Platelets [#/volume] in Bloo d by Automated countOrdered By: Noah Lewis on 06-16-2023 Platelets (Bld) [#/Vol] 291 10*3/uL Normal 150-450 [facility] Comment on above: Performed By: #### A [address] [facility] eA, THYROID SC, CBC, LIPID, T3F, CMP #### [facility] [address] Potassium [Moles/volume] in Serum or PlasmaOrdered By: Noah Lewis on 06-16-2023 Potassium [Moles/Vol] 4.0 mmol/L Normal 3.5-5.1 [facility] Comment on above: Performed By: #### A [address] eA, THYROID SC, CBC, LIPID, T3F, CMP #### [facility] [address] Protein [Mass/volume] in Ser um or PlasmaOrdered By: Noah Lewis on 06-16-2023 Protein [Mass/Vol] 6.4 g/dL Normal 6.4-8.9 [facility] Comment on above: Performed By: #### A [address] [facility] eA, THYROID SC, CBC, LIPID, T3F, CMP #### [facility] [address] Serum globulin measurement b y calculation (mass/volume)Ordered By: Noah Lewis on 06-16-2023 Globulin (S) [Mass/Vol] 2.3 g/dL Normal [facility] Comment on above: Performed By: #### A 1C WT eA, THYROID SC, CBC, LIPID, T3F, CMP #### [facility] [address] Serum or plasma albumin/glob ulin mass ratioOrdered By: Noah Lewis on 06-16-2023 Albumin/Globulin [Mass ratio] 1.8 {ratio} Normal [facility] Comment on above: Performed By: #### A 1C WT eA, THYROID SC, CBC, LIPID, T3F, CMP #### [facility] [address] Serum or plasma anion gap de terminationOrdered By: Noah Lewis on 06-16-2023 Anion gap [Moles/Vol] 11.0 mmol/L Normal 6.0-15.0 [facility] Comment on above: Performed By: #### A 1C WT eA, THYROID SC, CBC, LIPID, T3F, CMP #### [facility] [address] Serum or plasma high density lipoprotein (HDL) cholesterol measurementOrdered By: Noah Lewis on 06-16-2023 Cholesterol in HDL [Mass/Vol] 48 mg/dL Normal 23-92 [facility] Comment on above: HDL CHOL ATP-III CLA SSIFICATION Cardiovascular RiskHDL > or equal to 60 mg/dL LOWHDL < 40 mg/dL HIGH Result Comment: HDL CHOL ATP-III CLASSIFICATION Cardiovascular Risk HDL > or equal to 60 mg/dL LOW HDL < 40 mg/dL HIGH Performed By: #### A 1C WT eA, THYROID SC, CBC, LIPID, T3F, CMP #### [facility] [address] Serum or plasma total choles terol/high density lipoprotein (HDL) cholesterol mass ratOrdered By: Noah Lewis on 06-16-2023 Cholesterol.total/Mari sterol in HDL [Mass ratio] 4.9 {ratio} Normal <5.0 [facility] Comment on above: Performed By: #### A 1C WT eA, THYROID SC, CBC, LIPID, T3F, CMP #### [facility] [address] Sodium [Moles/volume] in Ser um or PlasmaOrdered By: Noah Lewis on 06-16-2023 Sodium [Moles/Vol] 141 mmol/L Normal 136-145 [facility] Comment on above: Performed By: #### A 1C WT eA, THYROID SC, CBC, LIPID, T3F, CMP #### [facility] [address] Thyrotropin [Units/volume] i n Serum or PlasmaOrdered By: Noah Aye on 06-16-2023 TSH Qn 2.01 m[IU]/L Normal 0.45-5.33 [facility] Comment on above: Result Comment: PERF ORMED BY: [place] [address] MAKER SUSAN THOMPSON M.D. Performed By: #### A [address]C [facility] eA, THYROID SC, CBC, LIPID, T3F, CMP #### [facility] [address] Thyroxine (T4) free [Mass/vo lume] in Serum or PlasmaOrdered By: Noah Hoy on 06-16-2023 Free T4 [Mass/Vol] 1.09 ng/dL Normal 0.61-1.12 [facility] Comment on above: Performed By: #### A 1C WT eA, THYROID SC, CBC, LIPID, T3F, CMP #### [facility] [address] Triglyceride [Mass/volume] i n Serum or PlasmaOrdered By: Noah Hoy on 06-16-2023 Triglyceride [Mass/Vol] 225 mg/dL 0-149 [facility] Comment on above: TRIG ATP III CLASSIF ICATIONTRIG less than 150 mg/dL NormalTRIG 150-199 mg/dL Borderline highTRIG 200-500 mg/dL High TRIG greater than 500 mg/dL Very highStandard traceable to the Center for Disease Conrtrol and Prevention (CDC) test method. Triiodothyronine (T3) Freeon 06-16-2023 Triiodothyronine (T3) Free 4.16 pg/mL High 2.50-3.90 [facility] Comment on above: Result Comment: PERF ORMED BY: [place] [address] MAKER SUSAN THOMPSON M.D. Performed By: #### A 1C WTH eA, THYROID SC, CBC, LIPID, T3F, CMP #### [facility] [address] Triiodothyronine (T3) Free [ Mass/volume] in Serum or PlasmaOrdered By: Noah Lewis on 06-16-2023 Free T3 [Mass/Vol] 4.16 pg/mL 2.50-3.90 [facility] Urea nitrogen [Mass/volume] in Serum or PlasmaOrdered By: Noah Lewis on 06-16-2023 Urea nitrogen [Mass/Vol] 26 mg/dL High 7-25 [facility] Comment on above: Performed By: #### A 1C WTH eA, THYROID SC, CBC, LIPID, T3F, CMP #### [facility] [address] XR knee BI 3V - NOT FOR ER U Martha 06-16-2023 XR knee BI 3V - NOT FOR ER USE [facility] Main [place] [address] [place] [address] XRay Report Signed Patient: Doris Carnes MR#: [id number] : 1960 Acct:[id number] Age/Sex: 63 / F ADM Date: 06/16/23 Loc: XD Room: Type: [facility] Attending Dr: Noah Lewis MD Copies to: Noah Lewis MD Ordering Provider: Noah Lewis MD Date of Service: 06/16/23 XR/XR knee BI 3V - NOT FOR ER USE: M17.9 XR knee BI 3V - NOT FOR ER USE 06/16/2023 10:19 AM SIGNS AND SYMPTOMS: Chronic bilateral knee pain greater on the left compared to the right PROTOCOL: Frontal, lateral, and sunrise views of the bilateral knees COMPARISON: None FINDINGS: There is narrowing of the weightbearing joint spaces, greatest medially on the right. There is spurring along the medial tibial plateaus and medial femoral condyles, right greater than left. There is mild patellofemoral joint space loss. There is a small right and moderate left joint effusion. There is enthesophyte formation at the poles of the patella. There is no fracture or dislocation. XR/XR knee BI 3V - NOT FOR ER USE IMPRESSION: Degenerative changes are noted in the medial weightbearing joint spaces and patellofemoral joint spaces, more pronounced in the right medial weightbearing joint space. Small bilateral joint effusions are noted, left greater than right. No acute bony injury. Impression dictated by: Brown Solis M.D.06/16/2023 4:32 PM Dictation Location: [place] [address] Transcribed By: [facility] 06/16/23 1632 Dictated By: Brown Solis II, MD 06/16/23 1626 Signed By: 06/16/23 1632 Normal [facility] Office Visit (Cardiology)on 01-05-2023 Follow-up visit Diagnoses/Problems Assessed Essential hypertension (401.9) (I10) Diabetes mellitus (250.00) (E11.9) Atherosclerosis of [place] coronary artery of [place] heart without angina pectoris (414.01) (I25.10) S/P PTCA (percutaneous transluminal coronary angioplasty) (V45.82) (Z98.61) Morbid obesity with BMI of 45.0-49.9, adult (278.01,V85.42) (E66.01,Z68.42) Hyperlipidemia (272.4) (E78.5) Never a smoker Orders Atherosclerosis of [place] coronary artery of [place] heart without angina pectoris Renew: Aspirin 81 MG Oral Tablet Delayed Release; TAKE 1 TABLET DAILY DIRECTED Renew: Clopidogrel Bisulfate 75 MG Oral Tablet; TAKE ONE (1) TABLET BY MOUTH ONCE DAILY Atherosclerosis of [place] coronary artery of [place] heart without angina pectoris, Essential hypertension Renew: Chlorthalidone 25 MG Oral Tablet; TAKE 1 TABLET ONCE DAILY Renew: Metoprolol Succinate ER 100 MG Oral Tablet Extended Release 24 Hour; TAKE 1 TABLET DAILY Morbid obesity with BMI of 45.0-49.9, adult Healthy Weight Tips; Status:Complete - Retrospective Authorization; Done: 05Jan2023 Some eating tips that can help you lose weight.; Status:Complete - Retrospective Authorization; Done: 05Jan2023 SocHx: Never a smoker Tobacco Use Screening; Status:Complete; Done: 05Jan2023 Patient Instructions Please bring all medicines, vitamins, and herbal supplements with you when you come to the office. Prescriptions will not be filled unless you are compliant with your follow up appointments or have a follow up appointment scheduled as per instruction of your physician. Refills should be requested at the time of your visit. Follow up in 1 year. Chief Complaint DORIS CARNES is being seen for an annual follow-up of. History of Present Illness Patient returns in follow-up of problems as noted. She is done well. She has none of the symptoms of coronary disease that preceded her diagnosis and subsequent PTCA. Management of risk factors including lipids hypertension and diabetes is reviewed and they are adequately addressed. Blood pressure is controlled as his lipids. She is overweight and the merits of diet and weight loss as well as exercise were advocated. Surgical History Problems History of Colonoscopy History of Dental implant procedure History of Neck surgery History of Shoulder surgery History of Thyroidectomy History of Tonsillectomy with adenoidectomy History of Total hysterectomy abdominal Current Meds Medication NameInstruction Aspirin 81 MG Oral Tablet Delayed ReleaseTAKE 1 TABLET DAILY DIRECTED. Chlorthalidone 25 MG Oral TabletTAKE 1 TABLET ONCE DAILY. Clopidogrel Bisulfate 75 MG Oral TabletTAKE ONE (1) TABLET BY MOUTH ONCE DAILY Diclofenac Sodium 75 MG Oral Tablet Delayed ReleaseTake 1 tablet daily Glimepiride 4 MG Oral TabletTAKE 1 TABLET DAILY. GNP Aspirin Low Dose 81 MG Oral Tablet Delayed ReleaseTAKE ONE (1) TABLET BY MOUTH ONCE DAILY DIRECTED Levothyroxine Sodium 75 MCG Oral TabletTAKE 1 TABLET DAILY. Lisinopril 40 MG Oral TabletTAKE 1 TABLET DAILY. metFORMIN HCl - 500 MG Oral TabletTAKE 1 TABLET DAILY DIRECTED. Metoprolol Succinate ER 100 MG Oral Tablet Extended Release 24 HourTAKE 1 TABLET DAILY. Montelukast Sodium 10 MG Oral TabletTAKE 1 TABLET DAILY. NexIUM 40 MG Oral Capsule Delayed ReleaseTAKE 1 CAPSULE ONCE DAILY. Nitroglycerin 0.4 [address]t [address] 1 TABLET UNDER THE TONGUE EVERY 5 MINUTES FOR UP TO 3 DOSES NEEDED FOR CHEST PAIN.CALL 911 IF PAIN PERSISTS. Repatha 140 MG/ML Subcutaneous Solution Prefilled SyringeInject 1 syringe SQ every 2 weeks as directed. Symbicort 160-4.5 MCG/ACT Inhalation AerosolUSE DIRECTED. Allergies Medication cephalexin Itching; Rash; Updated By: Betty Carmen; 01/20/2022 3:53:46 PM Plaquenil Sulfate Itching; Updated By: Betty Carmen; 01/20/2022 3:53:46 PM Statins Myalgia; Updated By: Betty Carmen; 01/20/2022 3:53:46 PM Amoxicillin TABS Recorded By: Wendy Joseph; 01/05/2023 8:36:46 AM Social History Problems Caffeine use (V49.89) (Z78.9) 2 CUPS OF COFFEE DAILY Never a smoker No alcohol use No illicit drug use Review of Systems Constitutional: not feeling tired. Eyes: no eyesight problems. ENT: no hearing loss and no nosebleeds. Cardiovascular: no intermittent leg claudication and as noted in HPI. Respiratory: no chronic cough and no shortness of breath. Gastrointestinal: no change in bowel habits and no blood in stools. Genitourinary: no urinary frequency. Skin: no skin rashes. Neurological: no seizures and no frequent falls. Psychiatric: no depression and not suicidal. All other systems have been reviewed and are negative for complaint. Vitals Vital Signs Printed in Appendix #1 below. Physical Exam Constitutional: alert and in no acute distress. Eyes: no erythema, swelling or discharge from the eye . Neck: neck is supple, symmetric, trachea midline, no masses and no thyromegaly . Pulmonary: n (more content not included)... Normal [employer] Tobacco Screening.on 023 Adult depression screening assessment No [facility] DO Work Phone: Fall risk assessment a) No falls within the last year [facility] [employer] DO Work Phone: Tobacco use status [facility] b) No [facility] [employer] DO Work Phone: Office Visit (Cardiology)on 05-06-2022 Follow-up visit Diagnoses/Problems Assessed Essential hypertension (401.9) (I10) optimal in office Hyperlipidemia (272.4) (E78.5) Mar 2022 LDL 132: HDL 41 She had missed dosage of Repatha Will be seeing PCP in near future and will repeat lipids Diabetes mellitus (250.00) (E11.9) Mar 2022 HgA1c 6.2 Statin intolerant On SERENA Morbid obesity with BMI of 40.0-44.9, adult (278.01,V85.41) (E66.01,Z68.41) Reviewed the merits of healthy lifestyle choices on overall cardiovascular health. Orders Morbid obesity with BMI of 40.0-44.9, adult Healthy Weight Tips; Status:Complete; Done: [id number] Patient Instructions Please bring all medicines, vitamins, and herbal supplements with you when you come to the office. Prescriptions will not be filled unless you are compliant with your follow up appointments or have a follow up appointment scheduled as per instruction of your physician. Refills should be requested at the time of your visit. PLAN: Through informed decision making process incorporating patients unique circumstances, the following treatment plan will be initiated: 1. Prescription drug management of cardiovascular medication for efficacy, adherence to treatment, side effect assessment and polypharmacy. Current treatment clinically warranted and to continue without modifications. 2. Return for follow-up; in the interim, contact the office if new symptoms arise. Dr. Schmitt as scheduled Discussed the dynamic nature of coronary artery disease and the importance of seeking medical attention if new symptoms arise. Chief Complaint BP check 'doing fine' DORIS CARNES is being seen for a 2 month follow-up of hypertension. Patient was last evaluated in clinic Dr. Schmitt December 2021 Changes to medical regimen at that time coreg changed to Toprol, hydralazine stopped and chlorthalidone initiated. Repeat labs K+ 3.6, Cr 0.8 Patient has been compliant with changes, denies any side effects. BP at home: 'good' Type of machine: wrist Time of BP assessment: after meds Has machine been previously calibrated by medical staff? no Obstructive Sleep Apnea: + testing but does not have machine any longer Mar 2022 LDL 132 - reports did not have repatha at the time but has since resumed treatment. Otherwise, patient denies any change in overall cardiovascular status since last evaluation in clinic. Reports is becoming more diaphoretic (this was one of her symptoms prior to 2018 PCI), is not having limitations to activity like prior PCI. She believes PCP did stress test due to these concerns last year. History of Present Illness The patient presents for follow-up of essential hypertension. The patient states she has been doing well with her blood pressure control since the last visit. Comorbid Illnesses: coronary artery disease. Symptoms: denies impaired vision, denies dyspnea, denies chest pain, denies intermittent leg claudication and denies lower extremity edema. Associated symptoms include no headache. Home monitoring: The patient checks her blood pressure regularly. Blood pressure control has been good. Medications: the patient is adherent with her medication regimen. She denies medication side effects. Surgical History Problems History of Colonoscopy History of Dental implant procedure History of Neck surgery History of Shoulder surgery History of Thyroidectomy History of Tonsillectomy with adenoidectomy History of Total hysterectomy abdominal Current Meds Medication NameInstruction Aspirin 81 MG Oral Tablet Delayed ReleaseTAKE 1 TABLET DAILY DIRECTED. Chlorthalidone 25 MG Oral TabletTAKE 1 TABLET ONCE DAILY. Clopidogrel Bisulfate 75 MG Oral TabletTAKE ONE (1) TABLET BY MOUTH ONCE DAILY Diclofenac Sodium 75 MG Oral Tablet Delayed ReleaseTake 1 tablet daily Glimepiride 4 MG Oral TabletTAKE 1 TABLET DAILY. Levothyroxine Sodium 75 MCG Oral TabletTAKE 1 TABLET DAILY. Lisinopril 40 MG Oral TabletTAKE 1 TABLET DAILY. metFORMIN HCl - 500 MG Oral TabletTAKE 1 TABLET DAILY DIRECTED. Metoprolol Succinate ER 100 MG Oral Tablet Extended Release 24 HourTAKE 1 TABLET DAILY. Montelukast Sodium 10 MG Oral TabletTAKE 1 TABLET DAILY. NexIUM 40 MG Oral Capsule Delayed ReleaseTAKE 1 CAPSULE ONCE DAILY. Repatha 140 MG/ML Subcutaneous Solution Prefilled SyringeInject 1 syringe SQ every 2 weeks as directed. Symbicort 160-4.5 MCG/ACT Inhalation AerosolUSE DIRECTED. Patient did not bring medication list or bottles. Updated verbally with patient Allergies Medication cephalexin Itching; Rash; Updated By: Betty Carmen; 01/20/2022 3:53:46 PM Plaquenil Sulfate Itching; Updated By: Betty Carmen; 01/20/2022 3:53:46 PM Statins Myalgia; Updated By: Betty Carmen; 01/20/2022 3:53:46 PM Social History Problems Caffeine use (V49.89) (Z78.9) 2 CUPS OF COFFEE DAILY Never a smoker No alcohol use No illicit drug use Review of Systems Constitutional: not feeling tired. Cardiovascular: no chest pain, no palpitations (more content not included)... Normal [employer] Tobacco Screening.on 022 Adult depression screening assessment No [facility] DO Work Phone: Fall risk assessment a) No falls within the last year [facility] [employer] DO Work Phone: Tobacco use status [facility] b) No [facility] DO Work Phone: Basophils Auto (Bld) [#/Vol] Ordered By: Bari Mac on 04-08-2022 Basophils (Bld) [#/Vol] 0.0 10*3/uL 0.0-0.2 [facility] Basophils/100 WBC Auto (Bld) Ordered By: Bari Mac on 04-08-2022 Basophils/100 WBC (Bld) 0.4 % . [facility] Blood hemoglobin measurement (mass/volume)Ordered By: Bari Mac on 04-08-2022 Hemoglobin (Bld) [Mass/Vol] 14.2 g/dL 11.8-15.4 [facility] Blood leukocytes automated c ount (number/volume)Ordered By: Bari Mac on 04-08-2022 WBC (Bld) [#/Vol] 8.1 10*3/uL 4.5-11.0 [facility] Body fluid albumin measureme nt (mass/volume)Ordered By: Bari Mac on 04-08-2022 Albumin (Body fld) [Mass/Vol] 3.8 g/dL 3.2-5.5 [facility] Cholesterol [Mass/volume] in Serum or PlasmaOrdered By: Bari Mac on 04-08-2022 Cholesterol [Mass/Vol] 225 mg/dL 140-200 [facility] Comment on above: Chol less than 200 m g/dl low risk Chol 201-239 mg/dl borderline risk Chol 240 mg/dl and greater high risk Chol less than 200 m g/dl low riskChol 201-239 mg/dl borderline riskChol 240 mg/dl and greater high risk Cholesterol in LDL Calc [Mas s/Vol]Ordered By: Bari Mac on 04-08-2022 Cholesterol in LDL [Mass/Vol] 132 mg/dL 0-100 [facility] Comment on above: LDL ATP III CLASSIFI CATION LDL less than 100 mg/dL Optimal LDL 100-129 mg/dL Near or above optimal LDL 130-159 mg/dL Borderline high LDL 160-189 mg/dL High LDL greater than 189 mg/dL Very high LDL ATP III CLASSIFI CATIONLDL less than 100 mg/dL OptimalLDL 100-129 mg/dL Near or above optimalLDL 130-159 mg/dL Borderline highLDL 160-189 mg/dL HighLDL greater than 189 mg/dL Very high Cholesterol in VLDL Calc [Ma ss/Vol]Ordered By: Bari Mac on 04-08-2022 Cholesterol in VLDL [Mass/Vol] 52 mg/dL [facility] Creatinine and Glomerular fi ltration rate.predicted panel (S/P/Bld)Ordered By: Bari Mac on 04-08-2022 Creatinine [Mass/Vol] 0.94 mg/dL 0.44-1.03 [facility] Eosinophils Auto (Bld) [#/Vo l]Ordered By: Bari Mac on 04-08-2022 Eosinophils (Bld) [#/Vol] 0.1 10*3/uL 0.0-0.45 [facility] Eosinophils/100 WBC Auto (Bl d)Ordered By: Bari Mac on 04-08-2022 Eosinophils/100 WBC (Bld) 1.2 % . [facility] Erythrocyte distribution wid th Auto (RBC) [Ratio]Ordered By: Bari Mac on 04-08-2022 Erythrocyte distribution width (RBC) [Ratio] 14.3 % 11.9-15.3 [facility] Estimated glomerular filtrat ion rate (GFR) non- AmericanOrdered By: Bari Mac on 04-08-2022 GFR/1.73 sq M.predicted among non-blacks MDRD (S/P/Bld) [Vol rate/Area] 60 mL/Min [facility] Globulin Calc (S) [Mass/Vol] Ordered By: Bari Mac on 04-08-2022 Globulin (S) [Mass/Vol] 2.9 g/dL [facility] Glucose mean value [Mass/vol ume] in Blood Estimated from glycated hemoglobinOrdered By: Bari Mac on 04-08-2022 Average glucose Estimated from glycated hemoglobin (Bld) [Mass/Vol] 131 mg/dL [facility] Hematocrit Auto (Bld) [Volum e fraction]Ordered By: Bari Mac on 04-08-2022 Hematocrit (Bld) [Volume fraction] 42.7 % 34.0-46.4 [facility] Laboratory - Chemistry and C hemistry - challengeOrdered By: Bari Mac on 04-08-2022 Glucose [Mass/Vol] 111 mg/dL 70-100 [facility] Comment on above: ADA recommended refe rence range Laboratory - Hematology and Cell countsOrdered By: Bari Mac on 04-08-2022 HbA1c (Bld) [Mass fraction] 6.2 % 4.3-5.6 [facility] Comment on above: Increased risk for d iabetes: 5.7 - 6.4 diabetes: >6.4 glycemic control for adults with diabetes: <7.0 Increased risk for d iabetes: 5.7 - 6.4diabetes: >6.4glycemic control for adults with diabetes: <7.0 Nucleated RBC/100 WBC (Bld) [Ratio] 0.1 % 0-0.5 [facility] Lymphocytes Auto (Bld) [#/Vo l]Ordered By: Bari Mac on 04-08-2022 Lymphocytes (Bld) [#/Vol] 2.3 10*3/uL 1.00-4.8 [facility] Lymphocytes/100 WBC Auto (Bl d)Ordered By: Bari Mac on 04-08-2022 Lymphocytes/100 WBC (Bld) 28.8 % . [facility] MCH Auto (RBC) [Entitic mass ]Ordered By: Bari Mac on 04-08-2022 MCH (RBC) [Entitic mass] 28.8 pg 24.7-34.3 [facility] MCHC Auto (RBC) [Mass/Vol]Or dered By: Bari Mac on 04-08-2022 MCHC (RBC) [Mass/Vol] 33.1 g/dL 32.0-35.0 [facility] MCV Auto (RBC) [Entitic vol] Ordered By: Bari Mac on 04-08-2022 MCV (RBC) [Entitic vol] 87.0 fL 80-100 [facility] Monocyte %Ordered By: Bari Mac on 04-08-2022 Monocyte % 262 mg/dL 35-149 [facility] Comment on above: TRIG ATP III CLASSIF ICATION TRIG less than 150 mg/dL Normal TRIG 150-199 mg/dL Borderline high TRIG 200-500 mg/dL High TRIG greater than 500 mg/dL Very high Standard traceable to the Center for Disease Conrtrol and Prevention (CDC) test method. TRIG ATP III CLASSIF ICATIONTRIG less than 150 mg/dL NormalTRIG 150-199 mg/dL Borderline highTRIG 200-500 mg/dL High TRIG greater than 500 mg/dL Very highStandard traceable to the Center for Disease Conrtrol and Prevention (CDC) test method. Monocytes Auto (Bld) [#/Vol] Ordered By: Bari Mac on 04-08-2022 Monocytes (Bld) [#/Vol] 0.6 10*3/uL 0.0-0.8 [facility] Monocytes/100 WBC Auto (Bld) Ordered By: Bari Mac on 04-08-2022 Monocytes/100 WBC (Bld) 7.6 % . [facility] Neutrophils Auto (Bld) [#/Vo l]Ordered By: Bari Mac on 04-08-2022 Neutrophils (Bld) [#/Vol] 5.0 10*3/uL 1.8-7.7 [facility] Neutrophils/100 WBC Auto (Bl d)Ordered By: Bari Mac on 04-08-2022 Neutrophils/100 WBC (Bld) 62.0 % . [facility] No Panel InformationOrdered By: Bari Mac on 04-08-2022 Estimated GFR () > 60 mL/Min [facility] Comment on above: GFR estimated refere nce range: According to KDOQI guidelines, <60 ml/min/1.73m2 is sufficient to diagnose a patient with chronic kidney disease. Nicotine Metabolite Negative Cutoff=25 [facility] Comment on above: Performed at: [facility] [place] [address] [place], [place] [id number] Knock Out Hand: Mendy Elizondo MD, Phone: [phone] Performed at: [facility] [id number] [place], [place] [id number] Director: Mendy Elizondo MD, Phone: [phone] Pharmacy Creatinine Clearance (Chem N/A [facility] Platelet mean volume Auto (B ld) [Entitic vol]Ordered By: Bari Mac on 04-08-2022 Platelet mean volume (Bld) [Entitic vol] 9.1 fL 6.3-10.7 [facility] Platelets Auto (Bld) [#/Vol] Ordered By: Bari Mac on 04-08-2022 Platelets (Bld) [#/Vol] 290 10*3/uL 150-450 [facility] Protein [Mass/volume] in Ser um or PlasmaOrdered By: Bari Mac on 04-08-2022 Protein [Mass/Vol] 6.7 g/dL 6.1-7.9 [facility] RBC Auto (Bld) [#/Vol]Ordere d By: Bari Mac on 04-08-2022 RBC (Bld) [#/Vol] 4.91 10*6/uL 3.60-5.00 [facility] Serum or plasma alanine warren otransferase measurement without P-5'-P (enzymatic activiOrdered By: Bari Mac on 04-08-2022 ALT No additional P-5'-P [Catalytic activity/Vol] 32 U/L 10-60 [facility] Serum or plasma albumin/glob ulin mass ratioOrdered By: Bari Mac on 04-08-2022 Albumin/Globulin [Mass ratio] 1.3 {ratio} [facility] Serum or plasma alkaline jhonatan sphatase measurement (enzymatic activity/volume)Ordered By: Bari Mac on 04-08-2022 ALP [Catalytic activity/Vol] 87 U/L 32-92 [facility] Serum or plasma aspartate am inotransferase measurement (enzymatic activity/volume)Ordered By: Bari Mac on 04-08-2022 AST [Catalytic activity/Vol] 24 U/L 10-42 [facility] Serum or plasma calcium leonor urement (mass/volume)Ordered By: Bari Mac on 04-08-2022 Calcium [Mass/Vol] 9.4 mg/dL 8.2-10.2 [facility] Serum or plasma chloride maggie surement (moles/volume)Ordered By: Bari Mac on 04-08-2022 Chloride [Moles/Vol] 96 mmol/L 95-114 [facility] Serum or plasma high density lipoprotein (HDL) cholesterol measurementOrdered By: Bari Mac on 04-08-2022 Cholesterol in HDL [Mass/Vol] 41 mg/dL 35-85 [facility] [facility] Comment on above: HDL CHOL ATP-III CLA SSIFICATION Cardiovascular Risk HDL > or equal to 60 mg/dL LOW HDL < 40 mg/dL HIGH HDL CHOL ATP-III CLA SSIFICATION Cardiovascular RiskHDL > or equal to 60 mg/dL LOWHDL < 40 mg/dL HIGH Serum or plasma potassium me asurement (moles/volume)Ordered By: Bari Mac on 04-08-2022 Potassium [Moles/Vol] 3.6 mmol/L 3.5-5.1 [facility] Serum or plasma sodium measu rement (moles/volume)Ordered By: Bari Mac on 04-08-2022 Sodium [Moles/Vol] 139 mmol/L 136-146 [facility] Serum or plasma total biliru bin measurement (mass/volume)Ordered By: Bari Mac on 04-08-2022 Bilirubin [Mass/Vol] 0.9 mg/dL 0.3-1.2 [facility] Serum or plasma total carbon dioxide measurement (moles/volume)Ordered By: Bari Mac on 04-08-2022 CO2 [Moles/Vol] 31.6 mmol/L 22.0-30.0 [facility] Serum or plasma total choles terol/high density lipoprotein (HDL) cholesterol mass ratOrdered By: Bari Mac on 04-08-2022 Cholesterol.total/Mari sterol in HDL [Mass ratio] 5.5 {ratio} <5.0 [facility] Serum or plasma urea nitroge n measurement (mass/volume)Ordered By: Bari Mac on 04-08-2022 Urea nitrogen [Mass/Vol] 20 mg/dL 9- [facility] TSH DL <= 0.005 mIU/L QnOrde red By: Bari Mac on 04-08-2022 TSH Qn 1.68 m[IU]/L 0.45-5.33 [facility] Creatinine and Glomerular fi ltration rate.predicted panel (S/P/Bld)Ordered By: Wiley Schmitt on 02-12-2022 Creatinine [Mass/Vol] 0.85 mg/dL 0.44-1.03 [facility] Estimated glomerular filtrat ion rate (GFR) non- AmericanOrdered By: Wiley Schmitt on 02-12-2022 GFR/1.73 sq M.predicted among non-blacks MDRD (S/P/Bld) [Vol rate/Area] > 60 mL/Min [facility] No Panel InformationOrdered By: Wiley Schmitt on 02-12-2022 Estimated GFR () > 60 mL/Min [facility] Comment on above: GFR estimated refere nce range: According to KDOQI guidelines, <60 ml/min/1.73m2 is sufficient to diagnose a patient with chronic kidney disease. Pharmacy Creatinine Clearance (Chem N/A [facility] No Panel Informationon 02-12 9.1\S\9.1 Normal 8.2-10.[address] [facility] [employer] [address] DO Work Phone: Comment on above: PERFORMED BY:[facility] [place], [place] [id number] MEDICAL DIRECTORSUSAN THOMPSON M.D. 30.0\S\30.0 Normal 22.0-30.[address] [facility] [address] DO Work Phone: [phone] 98\S\98 Normal 95-[address] [facility] [address] DO Work Phone: [phone] 3.6\S\3.6 Normal 3.5-5.[address] [facility] [address] DO Work Phone: [phone] 141\S\141 Normal 136-[address] [facility] [address] DO Work Phone: [phone] > [address] [facility] [place] [facility] Work Phone: [phone] Comment on above: GFR estimated refere nce range: According to KDOQI guidelines, <60 ml/min/1.73m2 is sufficient to diagnose a patient with chronic kidney disease. 0.85\S\0.85 Normal 0.44-1.[address] [facility] [address] DO Work Phone: 16\S\16 Normal 9-[address] [facility] [address] DO Work Phone: [phone] 122\S\122 above high threshold 70-[address] [facility] [address] DO Work Phone: Comment on above: Random Glucose Refer ence Range is dependent on time and content of last meal. Glucose of more than 200 mg/dL in a nonstressed, ambulatory subject supports the diagnosis of Diabetes Mellitus. ADA recommended reference range Serum or plasma calcium leonor urement (mass/volume)Ordered By: Wiley Schmitt on 02-12-2022 Calcium [Mass/Vol] 9.1 mg/dL 8.2-10.2 [facility] Serum or plasma chloride maggie surement (moles/volume)Ordered By: Wiley Schmitt on 02-12-2022 Chloride [Moles/Vol] 98 mmol/L 95-114 [facility] Serum or plasma glucose leonor urement (mass/volume)Ordered By: Wiley Schmitt on 02-12-2022 Glucose [Mass/Vol] 122 mg/dL 70-100 [facility] Comment on above: ADA recommended refe rence range Random Glucose Reference Range is dependent on time and content of last meal. Glucose of more than 200 mg/dL in a nonstressed, ambulatory subject supports the diagnosis of Diabetes Mellitus. Serum or plasma potassium me asurement (moles/volume)Ordered By: Wiley Schmitt on 02-12-2022 Potassium [Moles/Vol] 3.6 mmol/L 3.5-5.1 [facility] Serum or plasma sodium measu rement (moles/volume)Ordered By: Wiley Schmitt on 02-12-2022 Sodium [Moles/Vol] 141 mmol/L 136-146 [facility] Serum or plasma total carbon dioxide measurement (moles/volume)Ordered By: Wiley Schmitt on 02-12-2022 CO2 [Moles/Vol] 30.0 mmol/L 22.0-30.0 [facility] Serum or plasma urea nitroge n measurement (mass/volume)Ordered By: Wiley Schmitt on 02-12-2022 Urea nitrogen [Mass/Vol] 16 mg/dL 05-21 [facility] Office Visit (Cardiology)on 01-22-2022 Follow-up visit Diagnoses/Problems Assessed Diabetes mellitus (250.00) (E11.9) Essential hypertension (401.9) (I10) Hyperlipidemia (272.4) (E78.5) Atherosclerosis of [place] coronary artery of [place] heart without angina pectoris (414.01) (I25.10) S/P PTCA (percutaneous transluminal coronary angioplasty) (V45.82) (Z98.61) Never a smoker Morbid obesity with BMI of 45.0-49.9, adult (278.01,V85.42) (E66.01,Z68.42) Orders Atherosclerosis of [place] coronary artery of [place] heart without angina pectoris, Essential hypertension Start: Chlorthalidone 25 MG Oral Tablet; TAKE 1 TABLET ONCE DAILY Basic Metabolic Panel; Status:Active; Requested for:08Feb2022; Start: Metoprolol Succinate ER 100 MG Oral Tablet Extended Release 24 Hour; TAKE 1 TABLET DAILY SocHx: Never a smoker Tobacco Use Screening; Status:Complete; Done: 22Jan2022 Unlinked Stop: Carvedilol 25 MG Oral Tablet Stop: hydrALAZINE HCl - 25 MG Oral Tablet Stop: hydrALAZINE HCl - 50 MG Oral Tablet Patient Instructions By signing my name below, I, Shelley Horowitz LPN, Scribe, attest that this documentation has been prepared under the direction and in the presence of Dr. Wiley Schmitt MD. All medical record entries made by the Keithibe were at my direction and personally dictated by me. I have reviewed the chart and agree that the record accurately reflects my personal performance of the history, physical exam, discussion and plan. Please bring all medicines, vitamins, and herbal supplements with you when you come to the office. Prescriptions will not be filled unless you are compliant with your follow up appointments or have a follow up appointment scheduled as per instruction of your physician. Refills should be requested at the time of your visit. Blood Pressure Follow Up In 2-3 weeks Follow up in 1 year. Patient is okay to hold her plavix as needed for dental for 5-7 days prior. Chief Complaint DORIS CARNES is being seen for an annual follow-up of. History of Present Illness Patient is seen in follow-up of hypertension. Recently has been difficult to control. Otherwise asymptomatic. No complaints of angina or anginal-like symptomatology we discussed her coronary disease and symptoms that led up to PTCA and she has had none of those symptoms. Diabetes and lipids are adequately. I recommended changes in blood pressure medicine, specifically changing carvedilol to Toprol-XL and stopping hydralazine and adding chlorthalidone. Blood pressure check with chemistries in several weeks. I also reminded her of the merits of diet and weight loss and its favorable impact on diabetes and hypertension. Surgical History Problems History of Colonoscopy History of Neck surgery History of Shoulder surgery History of Thyroidectomy History of Tonsillectomy with adenoidectomy History of Total hysterectomy abdominal Current Meds Medication NameInstruction Aspirin 81 MG Oral Tablet Delayed ReleaseTAKE 1 TABLET DAILY DIRECTED. Carvedilol 25 MG Oral TabletTAKE 1 TABLET TWICE DAILY. Clopidogrel Bisulfate 75 MG Oral TabletTAKE 1 TABLET DAILY. Diclofenac Sodium 75 MG Oral Tablet Delayed ReleaseTake 1 tablet daily Glimepiride 4 MG Oral TabletTAKE 1 TABLET DAILY. hydrALAZINE HCl - 25 MG Oral TabletTAKE 1 TABLET TWICE DAILY. hydrALAZINE HCl - 50 MG Oral TabletTAE 1/2 TABLET TWICE DAILY Levothyroxine Sodium 75 MCG Oral TabletTAKE 1 TABLET DAILY. Lisinopril 40 MG Oral TabletTAKE 1 TABLET DAILY. metFORMIN HCl - 500 MG Oral TabletTAKE 1 TABLET DAILY DIRECTED. Montelukast Sodium 10 MG Oral TabletTAKE 1 TABLET DAILY. NexIUM 40 MG Oral Capsule Delayed ReleaseTAKE 1 CAPSULE ONCE DAILY. Allergies Medication cephalexin Itching; Rash; Updated By: Betty Carmen; 01/20/2022 3:53:46 PM Plaquenil Sulfate Itching; Updated By: Betty Carmen; 01/20/2022 3:53:46 PM Statins Myalgia; Updated By: Betty Carmen; 01/20/2022 3:53:46 PM Social History Problems Caffeine use (V49.89) (Z78.9) 2 CUPS OF COFFEE DAILY Never a smoker No alcohol use No illicit drug use Review of Systems Constitutional: not feeling tired. Eyes: no eyesight problems. ENT: no hearing loss and no nosebleeds. Cardiovascular: no intermittent leg claudication and as noted in HPI. Respiratory: no chronic cough and no shortness of breath. Gastrointestinal: no change in bowel habits and no blood in stools. Genitourinary: no urinary frequency. Skin: no skin rashes. Neurological: no seizures and no frequent falls. Psychiatric: no depression and not suicidal. All other systems have been reviewed and are negative for complaint. Vitals Vital Signs Recorded: 22Jan2022 12:20PM Heart Rate74, L Radial Ondbvlof935, RUE, Sitting [id number], RUE, Sitting Height5 ft 4 in Fuvlyg189 lb BMI Mbodiyytkx82 kg/m2 BSA Calculated2.22 Tobacco Useb) No PHQ-2 #1. Over the last 2 weeks have you felt down, depressed or hopeless? (If yes, answer PHQ-9 below)No PHQ-2 #2. Over the last 2 weeks paige (more content not included)... Normal [employer] Tobacco Screening.on Adult depression screening assessment No [facility] [employer] [facility] Work Phone: Fall risk assessment a) No falls within the last year [facility] [employer] DO Work Phone: Tobacco use status [facility] b) No [facility] [employer] DO Work Phone: NM STRESS/REST MULTIon 01-16 NM STRESS/REST MULTI Patient: DORIS CARNES Exam Date: 01/16/2021 : 1960 Gender:F Ordering : DR NOAH LEWIS . Admission #: [id number] Family : Order #: [id number] CLICK HERE TO VIEW EXAM RADIOLOGY REPORT PROCEDURE: RADIONUCLIDE IMAGING STRESS/REST MULTI COMPARISON: None. INDICATIONS: Dyspnea TECHNIQUE: Exam Description: Stress/Rest two day protocol gated SPECT Rest Imagin.0 mCi Tc-99m Cardiolite IV on 01/16/2021 Stress Imaging 25.2 mCi Tc-99m Cardiolite IV on 01/19/2021 Exercise Protocol: 0.4 mg Lexiscan given IV Heart Rate (bpm): Rest: 66 Max: 92 PMHR: 58 Blood Pressure: Rest: 180/112 Max: 192/116 Symptoms: Rest and peak stress ECG findings were non-diagnostic and the exercise portion of the study was Non-diagnostic per attending physician Dr. Holguin due to T wave inversions V4 AND V5. For more details please see separate cardiac stress test report. FINDINGS: QUALITY OF STUDY: Good. PERFUSION DEFECT: LOCATION: Basal anterior. Mid-anterior. Apical anterior. [place]. SIZE: Medium (3-4 segments). SEVERITY: Moderate. TYPE: Persistent. WALL MOTION: Moderate hypokinesis: Apical anterior. Apical inferior. [place]. LV SIZE: Normal. 79 mL. TID / TCD: None; 1.0 LVEF: Normal. Calculated EF 64%. SUMMARY: Myocardial perfusion imaging study has ABNORMAL findings. CONCLUSION: 1. Fixed defect in the anterior wall, possibly breast attenuation artifact 2. No reversible ischemia 3. Nondiagnostic exercise test secondary to T-wave inversions Dictated by: Thomas Flynn MD on 01/19/2021 at 15:25 Approved by: Thomas Flynn MD on 01/19/2021 at 15:40 Normal [facility] Vital Signs Date Time Vital Sign Value Performing Clinician Facility 08-23-2024 13:43-0500 Body height 162.6 cm Raphael Monialeksey [employer] Work Phone: [facility] 08-23-2024 13:43-0500 Body mass index (BMI) [Ratio] 43.94 kg/m2 Raphael [employer] Work Phone: [facility] 08-23-2024 13:43-0500 Body weight 116.12 kg Raphael [employer] Phone: [facility] 08-23-2024 13:43-0500 Diastolic blood pressure 80 mm[Hg] Raphael [employer] Phone: [facility] 08-23-2024 13:43-0500 Systolic blood pressure 125 mm[Hg] Raphael [employer] Phone: [facility] 05-01-2024 14:24-0400 Body height 162.56 cm MD Noah Lewis Work Phone: [facility] 05-01-2024 14:24-0400 Body mass index (BMI) [Ratio] 43.9 kg/m2 MD Noah Lewis Work Phone: [facility] 05-01-2024 14:24-0400 Body weight 116.11 kg MD Noah Lewis Work Phone: [facility] 05-01-2024 14:24-0400 Diastolic blood pressure 83 mm[Hg] MD Noah Lewis Work Phone: [facility] 05-01-2024 14:24-0400 Heart rate 76 /min MD Noah Lewis Work Phone: [facility] 05-01-2024 14:24-0400 SaO2% (BldA) [Mass fraction] 96 % MD Noah Lewis Work Phone: [facility] 05-01-2024 14:24-0400 Systolic blood pressure 142 mm[Hg] MD Noah Lewis Work Phone: [facility] 04-17-2024 09:50-0400 Body height 162.6 cm Raphael Connors DO Work Phone: [facility] 04-17-2024 09:50-0400 Body mass index (BMI) [Ratio] 44.29 kg/m2 Raphael Connors DO Work Phone: [facility] 04-17-2024 09:50-0400 Body weight 117.03 kg Raphael Connors DO Work Phone: [facility] 04-17-2024 09:50-0400 Diastolic blood pressure 80 mm[Hg] Raphael Connors DO Work Phone: [facility] 04-17-2024 09:50-0400 Systolic blood pressure 120 mm[Hg] Raphael Connors DO Work Phone: [facility] 04-11-2024 11:16-0400 Body height 162.56 cm MD Noah Lewis Work Phone: [facility] 04-11-2024 11:16-0400 Body mass index (BMI) [Ratio] 44.2 kg/m2 MD Noah Lewis Work Phone: [facility] 04-11-2024 11:16-0400 Body temperature 97.8 [degF] MD Noah Lewis Work Phone: [facility] 04-11-2024 11:16-0400 Body weight 117.02 kg MD Noah Lewis Work Phone: [facility] 04-11-2024 11:16-0400 Diastolic blood pressure 78 mm[Hg] MD Noah Lewis Work Phone: [facility] 04-11-2024 11:16-0400 Heart rate 65 /min MD Noah Lewis Work Phone: [facility] 04-11-2024 11:16-0400 Respiratory rate 16 /min MD Noah Lewis Work Phone: [facility] 04-11-2024 11:16-0400 SaO2% (BldA) [Mass fraction] 98 % MD Noah Lewis Work Phone: [facility] 04-11-2024 11:16-0400 Systolic blood pressure 135 mm[Hg] MD Noah Lewis Work Phone: [facility] 02-16-2024 13:11-0400 Body weight 118.84 kg MD Noah Lewis Work Phone: [facility] 02-16-2024 13:11-0400 Diastolic blood pressure 91 mm[Hg] MD Noah Lewis Work Phone: [facility] 02-16-2024 13:11-0400 Heart rate 69 /min MD Noah Lewis Work Phone: [facility] 02-16-2024 13:11-0400 Respiratory rate 18 /min MD Noah Lewis Work Phone: [facility] 02-16-2024 13:11-0400 SaO2% (BldA) [Mass fraction] 97 % MD Noah Lewis Work Phone: [facility] 02-16-2024 13:11-0400 Systolic blood pressure 150 mm[Hg] MD Noah Lewis Work Phone: [facility] 02-09-2024 09:00-0400 Body height 162.56 cm MD Noah Lewis Work Phone: [facility] 02-09-2024 09:00-0400 Body mass index (BMI) [Ratio] 45.4 kg/m2 MD Noah Lewis Work Phone: [facility] 02-09-2024 09:00-0400 Body temperature 97.5 [degF] MD Noah Lewis Work Phone: [facility] 02-09-2024 09:00-0400 Body weight 120.2 kg MD Noah Lewis Work Phone: [facility] 02-09-2024 09:00-0400 Diastolic blood pressure 104 mm[Hg] MD Noah Lewis Work Phone: [facility] 02-09-2024 09:00-0400 Heart rate 73 /min MD Noah Lewis Work Phone: [facility] 02-09-2024 09:00-0400 Respiratory rate 16 /min MD Noah Lewis Work Phone: [facility] 02-09-2024 09:00-0400 SaO2% (BldA) [Mass fraction] 95 % MD Noah Lewis Work Phone: [facility] 02-09-2024 09:00-0400 Systolic blood pressure 169 mm[Hg] MD Noah Lewis Work Phone: [facility] 01-24-2024 08:38-0400 Body height 162.56 cm MD Noah Lewis Work Phone: [facility] 01-24-2024 08:38-0400 Body mass index (BMI) [Ratio] 45.4 kg/m2 MD Noah Lewis Work Phone: [facility] 01-24-2024 08:38-0400 Body weight 120.2 kg MD Noah Lewis Work Phone: [facility] 01-24-2024 08:38-0400 Diastolic blood pressure 95 mm[Hg] MD Noah Lewis Work Phone: [facility] 01-24-2024 08:38-0400 Heart rate 68 /min MD Noah Lewis Work Phone: [facility] 01-24-2024 08:38-0400 SaO2% (BldA) [Mass fraction] 98 % MD Noah Lewis Work Phone: [facility] 01-24-2024 08:38-0400 Systolic blood pressure 153 mm[Hg] MD Noah Lewis Work Phone: [facility] 01-11-2024 08:51-0400 Body temperature 97 [degF] MD Noah Lewis Work Phone: [facility] 01-11-2024 08:51-0400 Body weight 119.74 kg MD Noah Lewis Work Phone: [facility] 01-11-2024 08:51-0400 Diastolic blood pressure 85 mm[Hg] MD Noah Lewis Work Phone: [facility] 01-11-2024 08:51-0400 Heart rate 66 /min MD Noah Lewis Work Phone: [facility] 01-11-2024 08:51-0400 Respiratory rate 16 /min MD Noah Lewis Work Phone: [facility] 01-11-2024 08:51-0400 SaO2% (BldA) [Mass fraction] 97 % MD Noah Lewis Work Phone: [facility] 01-11-2024 08:51-0400 Systolic blood pressure 141 mm[Hg] MD Noah Lewis Work Phone: [facility] 01-04-2024 08:50-0400 Body height 162.6 cm Wiley Schmitt MD Work Phone: [facility] 01-04-2024 08:50-0400 Body mass index (BMI) [Ratio] 44.97 kg/m2 Wiley Schmitt MD Work Phone: [facility] 01-04-2024 08:50-0400 Body weight 118.84 kg Wiley Schmitt MD Work Phone: [facility] 01-04-2024 08:50-0400 Diastolic blood pressure 82 mm[Hg] Wiley Schmitt MD Work Phone: [facility] 01-04-2024 08:50-0400 Heart rate 76 /min Wiley Schmitt MD Work Phone: [facility] 01-04-2024 08:50-0400 Systolic blood pressure 118 mm[Hg] Wiley Schmitt MD Work Phone: [facility] 12-26-2023 13:40-0400 Diastolic blood pressure 95 mm[Hg] MD Noah Lewis Work Phone: [facility] 12-26-2023 13:40-0400 Heart rate 57 /min MD Noah Lewis Work Phone: [facility] 12-26-2023 13:40-0400 Respiratory rate 16 /min MD Noah Lewis Work Phone: [facility] 12-26-2023 13:40-0400 SaO2% (BldA) [Mass fraction] 96 % MD Noah Lewis Work Phone: [facility] 12-26-2023 13:40-0400 Systolic blood pressure 161 mm[Hg] MD Noah Lewis Work Phone: [facility] 12-26-2023 12:45-0400 Body temperature 97.1 [degF] MD Noah Lewis Work Phone: [facility] 12-26-2023 12:15-0400 Inhaled oxygen flow rate 8 L/min MD Noah Lewis Work Phone: [facility] 12-26-2023 10:22-0400 Body height 162.56 cm MD Noah Lewis Work Phone: [facility] 12-26-2023 10:22-0400 Body mass index (BMI) [Ratio] 45 kg/m2 MD Noah Lewis Work Phone: [facility] 12-26-2023 10:22-0400 Body weight 119 kg MD Noah Lewis Work Phone: [facility] 12-20-2023 11:19-0400 Diastolic blood pressure 82 mm[Hg] Kerline 1 [facility] 12-20-2023 11:19-0400 Heart rate 85 /min Kerline 1 [facility] 12-20-2023 11:19-0400 Systolic blood pressure 136 mm[Hg] Kerline 1 [facility] 12-01-2023 11:02-0400 Body height 162.56 cm MD Noah Lewis Work Phone: [facility] 12-01-2023 11:02-0400 Body mass index (BMI) [Ratio] 45.6 kg/m2 MD Noah Lewis Work Phone: [facility] 12-01-2023 11:02-0400 Body temperature 97.1 [degF] MD Noah Lewis Work Phone: [facility] 12-01-2023 11:02-0400 Body weight 120.65 kg MD Noah Lewis Work Phone: [facility] 12-01-2023 11:02-0400 Diastolic blood pressure 106 mm[Hg] MD Noah Lewis Work Phone: [facility] 12-01-2023 11:02-0400 Heart rate 76 /min MD Noah Lewis Work Phone: [facility] 12-01-2023 11:02-0400 Respiratory rate 16 /min MD Noah Lewis Work Phone: [facility] 12-01-2023 11:02-0400 SaO2% (BldA) [Mass fraction] 98 % MD Noah Lewis Work Phone: [facility] 12-01-2023 11:02-0400 Systolic blood pressure 173 mm[Hg] MD Noah Lewis Work Phone: [facility] 11-15-2023 13:05-0400 Body temperature 98.2 [degF] MD Noah Lewis Work Phone: [facility] 11-15-2023 13:05-0400 Diastolic blood pressure 92 mm[Hg] MD Noah Lewis Work Phone: [facility] 11-15-2023 13:05-0400 Heart rate 76 /min MD Noah Lewis Work Phone: [facility] 11-15-2023 13:05-0400 Respiratory rate 18 /min MD Noah Lewis Work Phone: [facility] 11-15-2023 13:05-0400 SaO2% (BldA) [Mass fraction] 98 % MD Noah Lewis Work Phone: [facility] 11-15-2023 13:05-0400 Systolic blood pressure 173 mm[Hg] MD Noah Lewis Work Phone: [facility] 01-05-2023 10:37-0400 Body height 162.56 cm Noah Zamoray Work Phone: [facility] [employer] [address] DO Work Phone: 01-05-2023 10:37-0400 Body mass index (BMI) [Ratio] 46.17 kg/m2 Noah Zamoray Work Phone: [facility] [employer] [address] DO Work Phone: 01-05-2023 10:37-0400 Body surface area Derived from formula 2.22 m2 Noah Goldsmith Hoy Work Phone: [facility] [employer] 600 DO Work Phone: 01-05-2023 10:37-0400 Body weight 122.02 kg Noah Zamoray Work Phone: [facility] [employer] 600 DO Work Phone: 01-05-2023 10:37-0400 Diastolic blood pressure 84 mm[Hg] Noah M Hoy Work Phone: [facility] [address] DO Work Phone: 01-05-2023 10:37-0400 Heart rate 64 /min Noah M Hoy Work Phone: [facility] [address] DO Work Phone: 01-05-2023 10:37-0400 Systolic blood pressure 134 mm[Hg] Noah M Hoy Work Phone: [facility] [address] DO Work Phone: 01-05-2023 09:14-0400 Diastolic blood pressure 92 mm[Hg] Noah M Hoy Work Phone: [facility] [address] DO Work Phone: 01-05-2023 09:14-0400 Diastolic blood pressure 100 mm[Hg] Noah M Hoy Work Phone: [facility] [address] DO Work Phone: 01-05-2023 09:14-0400 Systolic blood pressure 138 mm[Hg] Noah M Hoy Work Phone: [facility] [address] DO Work Phone: 01-05-2023 09:14-0400 Systolic blood pressure 130 mm[Hg] Noah M Hoy Work Phone: [facility] [address] DO Work Phone: 01-05-2023 08:38-0400 Body height 162.56 cm Noah M Hoy Work Phone: [facility] [address] DO Work Phone: 01-05-2023 08:38-0400 Body mass index (BMI) [Ratio] 46.17 kg/m2 Noah M Hoy Work Phone: [facility] [address] DO Work Phone: 01-05-2023 08:38-0400 Body surface area Derived from formula 2.22 m2 Noah M Hoy Work Phone: [facility] [address] DO Work Phone: 01-05-2023 08:38-0400 Body weight 122.02 kg Noah M Hoy Work Phone: [facility] [address] DO Work Phone: 01-05-2023 08:38-0400 Diastolic blood pressure 102 mm[Hg] Noah M Hoy Work Phone: [facility] [address] DO Work Phone: 01-05-2023 08:38-0400 Heart rate 68 /min Noah M Hoy Work Phone: [facility] [address] DO Work Phone: 01-05-2023 08:38-0400 Systolic blood pressure 148 mm[Hg] Noah M Hoy Work Phone: [facility] 600 DO Work Phone: 05-06-2022 14:44-0400 Body height 162.56 cm Noah M Hoy Work Phone: [facility] 600 DO Work Phone: 05-06-2022 14:44-0400 Body mass index (BMI) [Ratio] 44.8 kg/m2 Noah M Hoy Work Phone: [facility] 600 DO Work Phone: 05-06-2022 14:44-0400 Body surface area Derived from formula 2.19 m2 Noah M Hoy Work Phone: [facility] 600 DO Work Phone: 05-06-2022 14:44-0400 Body weight 118.39 kg Noah M Hoy Work Phone: [facility] 600 DO Work Phone: 05-06-2022 14:44-0400 Diastolic blood pressure 82 mm[Hg] Noah M Hoy Work Phone: [facility] 600 DO Work Phone: 05-06-2022 14:44-0400 Heart rate 63 /min Noah M Hoy Work Phone: [facility] 600 DO Work Phone: 05-06-2022 14:44-0400 Systolic blood pressure 120 mm[Hg] Noah M Hoy Work Phone: [facility] 600 DO Work Phone: 01-22-2022 12:20-0400 Body height 162.56 cm Noah M Hoy Work Phone: [facility] 600 DO Work Phone: 01-22-2022 12:20-0400 Body mass index (BMI) [Ratio] 46 kg/m2 Noah M Hoy Work Phone: [facility] 600 DO Work Phone: 01-22-2022 12:20-0400 Body surface area Derived from formula 2.22 m2 Noah M Hoy Work Phone: [facility] 600 DO Work Phone: 01-22-2022 12:20-0400 Body weight 121.56 kg Noah M Hoy Work Phone: [facility] 600 DO Work Phone: 01-22-2022 12:20-0400 Diastolic blood pressure 96 mm[Hg] Noah M Hoy Work Phone: [facility] 600 DO Work Phone: 01-22-2022 12:20-0400 Heart rate 74 /min Noah M Hoy Work Phone: [facility] DO Work Phone: 01-22-2022 12:20-0400 Systolic blood pressure 150 mm[Hg] Noah Lewis Work Phone: [facility] 600 DO Work Phone: Encounters Encounter Date Encounter Type Care Provider Facility Start: 08-23-2024 End: 08-23-2024 Office outpatient visit 15 minutes Raphael Connors DO Work Phone: [facility] Comment on above: Infiltrating ductal carcinoma of right breast (CMS/HCC) (Primary Dx); History of right breast cancer Start: 08-23-2024 End: 08-23-2024 ambulatory RAPHAEL CONNORS Not Available Start: 05-31-2024 End: 05-31-2024 Patient encounter procedure MD Noah Lewis Work Phone: [facility] [place] Work Phone: Start: 05-31-2024 End: 05-31-2024 ambulatory MD Noah Lewis Work Phone: [facility] Work Phone: Start: 05-01-2024 End: 05-01-2024 Patient encounter procedure MD Noah Lewis Work Phone: [facility] Work Phone: Start: 04-17-2024 End: 04-17-2024 ambulatory RAPHAEL CONNORS Not Available Start: 04-17-2024 End: 04-17-2024 Office outpatient visit 15 minutes Raphael Connors DO Work Phone: [facility] Comment on above: Infiltrating ductal carcinoma of right breast (CMS/HCC) (Primary Dx) Start: 04-11-2024 End: 04-11-2024 ambulatory MD Noah Lewis Work Phone: [facility] Work Phone: Start: 04-11-2024 End: 04-11-2024 Patient encounter procedure MD Noah Lewis Work Phone: [facility] Work Phone: Start: 04-11-2024 Registered Recurring MD Rich Lewis Work Phone: [facility] Work Phone: Start: 04-11-2024 ambulatory Noah Lewis Facility: [facility] Start: 03-05-2024 Non-patient / Non-visit MD Panfilo Lewis Work Phone: [facility] Work Phone: Start: 02-21-2024 Non-patient / Non-visit MD Panfilo Lewis Work Phone: [facility] Sleep Lab Work Phone: Start: 02-21-2024 Non-patient / Non-visit MD Panfilo Lewis Work Phone: [facility] Work Phone: Start: 02-16-2024 End: 02-16-2024 ambulatory MD Noah Lewis Work Phone: [facility] Work Phone: Start: 02-16-2024 End: 02-16-2024 Patient encounter procedure MD Noah Lewis Work Phone: [facility] Work Phone: Start: 02-16-2024 Registered Recurring MD Rich Lewis Work Phone: [facility] Work Phone: Start: 02-09-2024 End: 02-09-2024 ambulatory MD Noah Lewis Work Phone: [facility] Work Phone: Start: 02-09-2024 End: 02-09-2024 Patient encounter procedure MD Noah Lewis Work Phone: [facility] Work Phone: Start: 02-09-2024 Registered Recurring MD Rich Lewis Work Phone: [facility] Work Phone: Start: 02-07-2024 End: 02-07-2024 Patient encounter procedure MD Noah Lewis Work Phone: [facility]-Sleep Lab Work Phone: Start: 02-07-2024 End: 02-07-2024 ambulatory MD Noah Lewis Work Phone: [facility] Work Phone: Start: 01-24-2024 End: 01-24-2024 ambulatory MD Noah Lewis Work Phone: [facility] Work Phone: Start: 01-24-2024 End: 01-24-2024 Patient encounter procedure MD Noah Lewis Work Phone: [facility] Sleep Lab Work Phone: Start: 01-17-2024 End: 01-17-2024 ambulatory RAPHAEL CONNORS Not Available Start: 01-11-2024 End: 01-11-2024 Patient encounter procedure MD Noah Lewis Work Phone: [facility] Work Phone: Start: 01-11-2024 Registered Recurring MD Rich Lewis Work Phone: [facility] Work Phone: Start: 01-04-2024 End: 01-04-2024 ambulatory WILEY Hicks [facility] Start: 01-04-2024 End: 01-04-2024 Office outpatient visit 25 minutes Wiley Schmitt MD Work Phone: [facility] Comment on above: Coronary artery dise ase involving [place] coronary artery of [place] heart without angina pectoris (Primary Dx); Essential hypertension; Mixed hyperlipidemia; History of PTCA; Hypertension, unspecified type; BMI 40.0-44.9, adult (Multi); Never smoked tobacco; Statin declined Start: 01-03-2024 End: 01-03-2024 ambulatory RAPHAEL CONNORS Not Available Start: 12-26-2023 End: 12-26-2023 Admission to same day surgery center MD Noah Lewis Work Phone: [facility]-Surgery Center [place] Start: 12-26-2023 End: 12-26-2023 ambulatory MD Noah Lewis Work Phone: [facility] Work Phone: Start: 12-21-2023 End: 12-22-2023 ambulatory [facility] Start: 12-21-2023 End: 12-21-2023 Subsequent hospital visit by physician Kerline Shen 1 [facility] Start: 12-21-2023 End: 12-21-2023 ambulatory RAPHAEL CONNORS Not Available Start: 12-20-2023 End: 12-21-2023 ambulatory [facility] Start: 12-20-2023 End: 12-21-2023 Encounter for other preprocedural examination [facility] Start: 12-20-2023 End: 12-20-2023 Preoperative state [address] Work Phone: Start: 12-20-2023 End: 12-20-2023 Subsequent hospital visit by physician Kerline Shen Admin Room 1 [facility] Comment on above: Pre-operative cleara nce; Abnormal EKG; Osteoarthritis, unspecified osteoarthritis type, unspecified site Start: 12-14-2023 Registered Recurring MD Rich Lewis Work Phone: [facility]-Cancer Center Acute Work Phone: Start: 12-12-2023 End: 12-12-2023 Patient encounter procedure MD Noah Lewis Work Phone: [facility]-Pre-Surgical Testing Work Phone: Start: 12-12-2023 End: 12-12-2023 ambulatory MD Noah Lewis Work Phone: [facility] Work Phone: Start: 12-12-2023 Encounter for preprocedural laboratory examination Raphael Cnonors [facility] Physician [facility] Start: 12-01-2023 Registered Recurring MD Rich Lewis Work Phone: [facility]-Cancer Center Acute Work Phone: Start: 12-01-2023 End: 12-01-2023 ambulatory MD Noah Lewis Work Phone: [facility] Work Phone: Start: 12-01-2023 End: 12-01-2023 Patient encounter procedure MD Noah Lewis Work Phone: [facility] Physician [facility] Ambulatory Work Phone: Start: 11-23-2023 End: 11-23-2023 ambulatory RAPHAEL CONNORS Not Available Start: 11-15-2023 End: 11-15-2023 Admission to same day surgery center MD Noah Lewis Work Phone: [facility]-Ultrasound Cntr for Breast Car Start: 11-15-2023 End: 11-15-2023 ambulatory MD Noah Lewis Work Phone: [facility] Work Phone: Start: 11-08-2023 End: 11-08-2023 Patient encounter procedure MD Noah Lewis Work Phone: [facility]-Center for Breast Care Work Phone: Start: 11-08-2023 End: 11-08-2023 ambulatory Noah Lewis Facility:[facility] Start: 10-27-2023 End: 10-27-2023 ambulatory Noah Lewis Facility:[facility] Start: 10-27-2023 End: 10-27-2023 Patient encounter procedure MD Noah Lewis Work Phone: [facility]-Center for Breast Care Work Phone: Start: 06-17-2023 End: 06-17-2023 ambulatory Noah Lewis Facility:[facility] Start: 06-16-2023 End: 06-16-2023 Patient encounter procedure MD Noah Lewis Work Phone: [facility] Ctr-XRay Main [place] Work Phone: Start: 06-16-2023 End: 06-16-2023 ambulatory MD Noah Lewis Work Phone: [facility] Work Phone: Start: 06-09-2023 Registered Recurring MD Rich Lewis Work Phone: [facility] Work Phone: Start: 06-09-2023 End: 06-09-2023 ambulatory Jose Laughlin Other [employer] [facility] [employer] Other Start: 06-09-2023 TX ROOM EST LVL II M TM VIRTUAL [facility] Start: 05-12-2023 End: 05-12-2023 ambulatory Ene Poon Other [facility] [employer] Other Start: 05-12-2023 Telephone encounter Ene Poon [facility] Start: 01-05-2023 Office outpatient vi sit 25 minutes Noah Lewis Work Phone: [facility] 600 DO Work Phone: Start: 01-05-[address] Wiley Schmitt II Facility: Start: 11-23-2022 Rx Renewal Noah Goldsmith Hoy Work Phone: [facility] 250 DO Work Phone: Start: 10-22-2022 Rx Renewal Noah Goldsmith Hoy Work Phone: [facility] 250 DO Work Phone: Start: 05-27-2022 ([facility] INJ) [facility] Injection Ene Poon [facility] Start: 05-27-2022 End: 05-27-2022 ambulatory MD Noah Lewis Work Phone: [facility] Work Phone: Start: 05-27-2022 End: 05-27-2022 Patient encounter procedure MD Noah Lewis Work Phone: [facility] Start: 05-06-2022 Office outpatient vi sit 15 minutes [facility] Work Phone: Start: 05-06-[address] Noah Lewis Facility: Start: 04-15-2022 Rx Renewal Noah Lewis Work Phone: [facility] 250 DO Work Phone: Start: 04-08-2022 End: 04-08-2022 Patient encounter procedure MD Noah Lewis Work Phone: [facility] Start: 04-08-2022 End: 04-08-2022 Departed Referred MD Noah Lewis Work Phone: [facility]-Employee Benefit Screening Start: 02-18-2022 Chart Update [facility] Work Phone: Start: 02-12-2022 End: 02-12-2022 Patient encounter procedure MD Noah Lewis Work Phone: [facility]-Lab Main [place] Start: 01-22-2022 Office outpatient vi sit 25 minutes [facility] Work Phone: Start: 01-22-[address] Noah Lewis Facility: Start: 10-12-2021 Rx Renewal Wiley amin MD Work Phone: [facility] 250 DO Work Phone: Start: 01-19-2021 End: 01-20-[address] NOAH LEWIS Facility:[facility] Start: 01-16-2021 End: 01-17-[address] NOAH LEWIS Facility: Procedures Date Procedure Procedure Detail Performing Clinician Start: 01-04-2024 History of percutaneous transluminal coronary angioplasty History of PTCA Wiley Schmitt MD Work Phone: Start: 12-26-2023 Lumpectomy of right breast MD Noah ryder Work Phone: Start: 12-26-2023 Radionuclide sentinel lymph node study MD Noah Lewis Work Phone: Start: 12-26-2023 Mammography Raphael Connors DO Work Phone: Start: 12-26-2023 Mammography of right breast specimen MD Noah Lewis Work Phone: Start: 12-23-2023 Mammography of right breast MD Noah strong Work Phone: Start: 12-23-2023 Ultrasonography guided needle localization of lesion of right breast MD Noah Lewis Work Phone: Start: 12-21-2023 NUCLEAR STRESS TEST WILEY SCHMITT Start: 12-21-2023 Cv strs tst xers&/or rx cont ecg trcg only Wiley Schmitt MD Work Phone: Start: 12-14-2023 Dual energy X-ray absorptiometry MD Noah Lewis Work Phone: Start: 11-15-2023 Core needle biopsy of breast using ultrasound guidance MD Noah Lewis Work Phone: Start: 11-15-2023 Mammography of right breast MD Noah strong Work Phone: Start: 11-08-2023 Mammography of right breast MD Noah strong Work Phone: Start: 11-08-2023 Ultrasonography of right breast MD Noah Lewis Work Phone: Start: 10-27-2023 Screening mammography of bilateral breasts MD Noah Lewis Work Phone: Start: 06-16-2023 X-ray of both knees MD Noah Lewis Work Phone: Start: 04-08-2022 Screening mammography of bilateral breasts MD Noah Lewis Work Phone: Colonoscopy Noah Lewis Work Phone: Dental implant procedure Panfilo babak Lewis Work Phone: History of placement of stent in anterior descending branch of left coronary artery History of placement of stent in LAD coronary artery MD Noah Lewis Work Phone: Procedure on neck Noah Lewis Work Phone: Repair of shoulder Noah Lewis Work Phone: Thyroidectomy Noah Lewis Work Phone: Tonsillectomy and adenoidectomy Noah Lewis Work Phone: Total abdominal hysterectomy Noah Lewis Work Phone: Plan of Treatment Date Care Activity Detail Author Start: 01-03-2025 End: 01-03-2025 Patient encounter procedure 01/03/2025 1:30 PM EDT Office Visit [facility] [address] [facility] [address] [place] [address] Ciera Pastor MD [address] [place] [address] [facility] Start: 12-25-2024 Screening for malign ant neoplasm of breast Mammogram [facility] Start: 12-25-2024 End: 12-25-2024 Patient encounter procedure 12/25/2024 10:45 AM EDT Office Visit [facility] [address] [facility] [address] [place] [id number] Raphael Connors DO [address] [facility] [address] [place] [address] [facility] Start: 11-26-2024 End: 10-24-2025 MG Breast - bilateral Diagnostic Bilateral diagnostic mammogram Imaging Routine Infiltrating ductal carcinoma of right breast (CMS/HCC) History of right breast cancer Expected: 11/26/2024, Expires: 10/24/2025 [facility] Work Phone: Comment on above: Expected: 11/26/2024 , Expires: 10/24/2025 Start: 08-23-2024 End: 08-23-2024 Patient encounter procedure 08/23/2024 1:45 PM EST Office Visit [facility] [address] [facility] [address] [place] [id number] Raphael Connors DO [address] [facility] [address] [place] [address] [facility] Start: 04-29-2024 Influenza vaccination Influenza Vacc ine (#1) [facility] Start: 02-09-2024 Patient referral [facility] Work Phone: Start: 01-04-2024 FUV, Provider: Wiley Schmitt, Status: Pen, Time: 9:00 AM FUV, Provider: Wiley Schmitt, Status: Pen, Time: 9:00 AM [facility] 600 DO Work Phone: Start: 01-04-2024 End: 01-04-2024 Patient encounter procedure 01/04/2024 9:00 AM EDT Office Visit [place] [address] [place] [address] Wiley Schmitt MD [address] [facility] [address] [place] [address] [facility] Start: 01-03-2024 Pneumococcal Vaccine : 65+ Years (2 of 2 - PCV) Pneumococcal Vaccine: 65+ Years (2 of 2 - PCV) [facility] Start: 12-26-2023 [facility] Start: 12-26-2023 [facility] Start: 12-26-2023 NM Lymphatic vessels Views W radionuclide intra lymphatic [facility] Start: 12-26-2023 Radionuclide sentine l lymph node study NM sentinel node w imaging [facility] Start: 12-26-2023 Mammography of right breast specimen MM surgical specimen RT [facility] Start: 12-26-2023 MG Breast specimen - right Views [facility] Start: 12-21-2023 End: 12-21-2023 Patient encounter procedure Karen [facility] Start: 11-26-2023 COVID-19 Vaccine () COVID-19 Vaccine () [facility] Start: 01-05-2023 FUV, Provider: Wiley Schmitt, Status: Pen, Time: 8:40 AM FUV, Provider: Wiley Schmitt, Status: Pen, Time: 8:40 AM -[facility] 600 DO Work Phone: Start: 05-07-2022 FUV, Provider: Wiley Schmitt, Status: Pen, Time: 1:00 PM FUV, Provider: Wiley Schmitt, Status: Pen, Time: 1:00 PM -[facility] 250 DO Work Phone: Start: 05-06-2022 FUV, Provider: Julia Verdin, Status: Pen, Time: 2:30 PM FUV, Provider: Julia Verdin, Status: Pen, Time: 2:30 PM -[facility] 250 DO Work Phone: Start: 03-25-2022 FUV, Provider: Julia Verdin, Status: Pen, Time: 2:30 PM FUV, Provider: Julia Verdin, Status: Pen, Time: 2:30 PM -[facility] 250 DO Work Phone: Start: 2019 RSV patient s and/or patients aged 60+ years (1 - 1-dose 60+ series) RSV patients and/or patients aged 60+ years (1 - 1-dose 60+ series) [facility] Start: 07-07-2017 Pneumococcal Vaccine : 65+ Years (2 of 2 - PCV) Pneumococcal Vaccine: 65+ Years (2 of 2 - PCV) [facility] Start: 2009 Zoster Vaccines (1 o f 2) Zoster Vaccines (1 of 2) [facility] Start: 1989 Screening for malign ant neoplasm of cervix [facility] Start: 1981 DTaP/Tdap/Td Vaccine s (1 - Tdap) DTaP/Tdap/Td Vaccines (1 - Tdap) [facility] Start: 01-03-1980 Screening for malign ant neoplasm of cervix [facility] Start: 1977 Diabetes mellitus screening Diabetes Screening [facility] Start: 1977 Hepatitis C screening Hepatitis C [facility] Start: 01-03-1960 MMR Vaccines (1 of 1 - Standard series) MMR Vaccines (1 of 1 - Standard series) [facility] Start: 1959 Annual wellness visit Medicare Initial Physical (IPPE) [facility] Start: 1959 HIV screening HIV Screening [facility] Start: 1959 Lipid panel Lipid Panel [facility] Start: 1959 Screening for malign ant neoplasm of colon [facility] Start: 1959 Screening for osteoporosis Bone Density Scan [facility] Start: 1959 Thyroid stimulating hormone measurement TSH Level [facility] Start: 1959 Yearly Adult Physical Yearly Adult P hysical [facility] Computed tomography for radiotherapy planning [facility] DXA Skeletal system.axial Views for bone density [facility] End: 12-20-2023 NM Heart Perfusion W stress and W radionuclide [facility] Service Area Work Phone: Comment on above: Once for 1 Occurrenc es starting 12/20/2023 until 12/20/2023 Patient referral [facility] Work Phone: [facility] Immunizations Immunization Date Immunization Notes Care Provider Fa cility 07-28-2023 COVID-19 (PFIZER) [id number] 12Y and older MD Noah Lewis Work Phone: [facility] 07-28-2023 influenza virus vacc ine, unspecified formulation Raphael Connors DO Work Phone: [facility] 05-27-2022 influenza, injectabl e, quadrivalent, preservative free Ene Fitt Other [facility] 05-27-2022 COVID-19 Moderna (BIvalent) Ene Fitt Other [facility] 06-30-2021 Moderna COVID-19 Vac cine 100 MCG/0.5ML Intramuscular Suspension Noah M Hoy Work Phone: [facility] 09-22-2020 Moderna COVID-19 Vac cine 100 MCG/0.5ML Intramuscular Suspension Noah M Hoy Work Phone: [facility] 08-25-2020 Moderna COVID-19 Vac cine 100 MCG/0.5ML Intramuscular Suspension Noah M Hoy Work Phone: [facility] 06-06-2020 influenza virus vacc ine, unspecified formulation Noah M Hoy [facility] Work Phone: 05-29-2020 influenza virus vacc ine, unspecified formulation Noah M Hoy Work Phone: [facility] Work Phone: 06-05-2019 influenza virus vacc ine, unspecified formulation Noah M Hoy Work Phone: [facility] Work Phone: 06-16-2018 influenza virus vacc ine, unspecified formulation Noah M Hoy Work Phone: [facility] DO Work Phone: 07-07-2016 pneumococcal polysaccharide vaccine, 23 valent Noah M Hoy Work Phone: [facility] DO Work Phone: Payers Date Payer Category Payer Medicare [id number] 2023 Medicare (Managed Care) [employer] Member Subscriber Plan / Payer (Effective 2023-Present) Name: Doris Carnes Relation to Subscriber: Self Name: Doris Carnes Payer ID: Not on file Group ID: [id number] Type: Not on file Address: [facility] [address] [place] [id number] 2023 Medicare [id number] 2023 Unknown 2023 Self-pay [id number] 1959 Unknown [id number] 1959 Unknown [id number] 2.16.840.1.618832.3.579.2. 593 1959 Unknown [id number] 2.16.840.1.112169.3.579.2. 593 1959 Unknown [id number] 2.16.840.1.402991.3.579.2. 356 1959 Unknown [id number] 2.16.840.1.392828.3.579.2. 356 1959 Unknown [id number] 2.16.840.1.921653.3.579.2. 356 1959 Unknown [id number] 2.16.840.1.768181.3.579.2. 1246 1959 Unknown [id number] 2.16.840.1.584175.3.579.2. 1246 1959 Unknown [id number] 2.16.840.1.860663.3.579.2. 1245 1959 Unknown [id number] 2.16.840.1.190645.3.579.2. 1245 1959 Unknown [id number] 2.16.840.1.610249.3.579.2. 1245 1959 Unknown [id number] 2.16.840.1.368708.3.579.2. 1243 1959 Unknown [id number] 2.16.840.1.312945.3.579.2. 1258 1959 Unknown [id number] 2.16.840.1.267190.3.579.2. 1258 1959 Unknown [id number] 2.16.840.1.324737.3.579.2. 1258 1959 Unknown [id number] 2.16.840.1.917964.3.579.2. 1258 1959 Unknown [id number] 2.16.840.1.212254.3.579.2. 1258 1959 Unknown [id number] 2.16.840.1.998527.3.579.2. 1259 Unknown [id number] 2.16.840.1.755917.3.579.2. 531 Unknown [id number] 2.16.840.1.891051.3.579.2. 531 Unknown [id number] 2.16.840.1.006000.3.579.2. 531 Unknown [id number] 2.16.840.1.326693.3.579.2. 531 Unknown [id number] 2.16.840.1.274383.3.579.2. 531 Unknown [id number] 2.16.840.1.024822.3.579.2. 531 Unknown [id number] 2.16.840.1.290722.3.579.2. 531 Unknown [id number] 2.16.840.1.204522.3.579.2. 531 Unknown [id number] 2.16.840.1.909618.3.579.2. 531 Unknown [id number] Social History Date Type Detail Facility Start: 01-04-2024 End: 08-23-2024 No alcohol use No alcohol use [facility] DO Work Phone: Comment on above: 2 CUPS OF COFFEE SHRUTHI LY; Start: 1960 Sex Assigned At Female F [facility] Start: 01-04-2024 End: 08-23-2024 Sex Assigned At [facility] [employer] Other Start: 11-23-2023 End: 12-01-2023 Tobacco smoking status NHIS Never smoked tobacco (finding) [facility] Start: 11-02-2023 Tobacco smoking stat us ILIS Tobacco smoking consumption unknown [facility] Work Phone: Start: 1960 [facility] Start: 12-10-2023 End: 01-04-2024 Exposure to SARS-CoV-2 (event) Not sure [facility] Start: 11-23-2023 End: 01-04-2024 Tobacco use and exposure Smokeless tobacco non-user [facility] Work Phone: Start: 01-04-2024 End: 08-23-2024 Alcoholic beverage intake Lifetime non-drinker (finding) [facility] Work Phone: Start: 11-21-2023 Gender identity Identifies as female gender (finding) [facility] Work Phone: Start: 11-21-2023 Sexual orientation Heterosexual (fin ding) [facility] Work Phone: Medical Equipment Procedure Code Equipment Code Equipment Origin al Text Equipment Identifier Dates CL STENT DONNA 4. 0 X 22 FDA Start: 07-25-2018 CL STENT DONNA 4. 0 X 22 FDA Start: 07-25-2018 CL STENT DONNA 4. 0 X 22 FDA Start: 07-25-2018 CL STENT DONNA 4. 0 X 22 FDA Start: 07-25-2018 CL STENT DONNA 4. 0 X 22 FDA Start: 07-25-2018 CL STENT DONNA 4. 0 X 22 FDA Start: 07-25-2018 CL STENT DONNA 4. 0 X 22 FDA Start: 07-25-2018 CL STENT DONNA 4. 0 X 22 FDA Start: 07-25-2018 CL STENT DONNA 4. 0 X 22 FDA Start: 07-25-2018 CL STENT DONNA 4. 0 X 22 FDA Start: 07-25-2018 CL STENT DONNA 4. 0 X 22 FDA Start: 07-25-2018 CL STENT DONNA 4. 0 X 22 FDA Start: 07-25-2018 CL STENT DONNA 4. 0 X 22 FDA Start: 07-25-2018 CL STENT DONNA 4. 0 X 22 FDA Start: 07-25-2018 CL STENT DONNA 4. 0 X 22 FDA Start: 07-25-2018 CL STENT DONNA 4. 0 X 22 FDA Start: 07-25-2018 CL STENT DONNA 4. 0 X 22 FDA Start: 07-25-2018 USE FOR BLOOD GLUCOSE MONITORING TWICE DAILY AND NEEDED DIRECTED Start: 12-19-2023 Goals Date Patient Goal Desired Activity /State Clinical Notes 05-27-2022 to 08-23-2024 Raphael Connors DO - 08/23/2024 1:45 PM Leila Connors DO - 04/17/2024 9:45 AM Breana Schmitt MD - 01/04/2024 9:00 AM EDTPatient Instructions Note Date & Type Note Facility 08-23-2024 History of Presen t illness Narrative Images from the original note were not included. Doris Carnes 1960 Doris Carnes is a 64 y.o. female presents with chief complaint of 8th pom Rt lumpectomy HPI: HPI Patient said that she is doing well. She has been going to the [facility] and getting some exercise. She still does notice a little bit of a lump at the lumpectomy site. It has not changed. She is not having any skin changes. She has not having any dimpling nipple discharge. She has not having any new lumps or bumps at any other locations. SUBJECTIVE: MEDICATIONS: ALLERGIES Current Outpatient Medications Medication Instructions anastrozole (Arimidex) 1 MG chemo tablet Daily budesonide-formoterol (Symbicort) 160-4.5 MCG/ACT inhaler 2 puffs, 2 times daily chlorthalidone (HYGROTON) 25 mg, Daily clopidogrel (PLAVIX) 75 mg, Daily diclofenac (VOLTAREN) 75 mg, 2 times daily doxycycline (MONODOX) 100 mg, 2 times daily empagliflozin (Jardiance) 10 MG Take by mouth esomeprazole (NEXIUM) 40 mg, Daily glimepiride (AMARYL) 4 mg, Daily with breakfast GNP Aspirin Low Dose 81 MG EC tablet TAKE 1 TABLET BY MOUTH ONCE DAILY DIRECTED levothyroxine (SYNTHROID, LEVOXYL) 75 mcg, Daily lisinopril 40 mg, Daily metFORMIN XR (Glucophage-XR) 500 MG 24 hr tablet TAKE 1 TABLET BY MOUTH ONCE DAILY WITH evening meal metoprolol succinate XL (TOPROL-XL) 100 mg, Daily mometasone (Elocon) 0.1 % cream Daily montelukast (Singulair) 10 MG tablet TAKE 1 TABLET BY MOUTH ONCE DAILY FOR 90 DAYS nitroglycerin (NITROSTAT) 0.4 mg, Every 5 min PRN NON FORMULARY GLUCOCIL 2 DAILY Repatha SureClick 140 MG/ML injection INJECT 1 ML subcutaneously EVERY 2 WEEKS True Metrix Blood Glucose Test test strip USE FOR BLOOD GLUCOSE MONITORING TWICE DAILY AND NEEDED DIRECTED Allergies Allergen Reactions Statins Shortness of breath Other Reaction(s): Myalgia Zetia [Ezetimibe] Shortness of breath Hydroxychloroquine Itching Levofloxacin Swelling Cephalexin Itching and Rash PAST MEDICAL HISTORY: SOCIAL HISTORY SURGICAL HISTORY: Past Medical History: Diagnosis Date Breast cancer (CMS/HCC) 11/18/23 COPD (chronic obstructive pulmonary disease) (CMS/HCC) Coronary artery disease (CMS/HCC) 2018 Diabetes mellitus (CMS/HCC) Diverticulitis of colon Fibrocystic breast May 2019 Hypertension (CMS/HCC) Thyroid nodule (CMS/HCC) One side removed Social History Tobacco Use Smoking status: Never Smokeless tobacco: Never Substance Use Topics Alcohol use: Never Drug use: Never Past Surgical History: Procedure Laterality Date BREAST LUMPECTOMY 12/26/2023 Right lumpectomy HYSTERECTOMY TUBAL LIGATION REVIEW OF SYMPTOMS: Review of Systems Constitutional: Negative for appetite change, fatigue and fever. HENT: Negative for trouble swallowing. Breasts: Positive for breast mass. Negative for breast discharge. Respiratory: Negative for cough and shortness of breath. Cardiovascular: Negative for chest pain. Gastrointestinal: Negative for abdominal pain. Genitourinary: Negative for hematuria. Musculoskeletal: Negative for back pain. Skin: Negative for wound. Neurological: Negative for seizures. OBJECTIVE: Visit Vitals Ht 5' 4 Wt 256 lb BMI 43.94 kg/m Smoking Status Never BSA 2.29 m Physical Exam Exam conducted with a electric truck operator present. Constitutional: Appearance: Normal appearance. HENT: Head: Atraumatic. Eyes: General: No scleral icterus. Cardiovascular: Rate and Rhythm: Regular rhythm. Pulmonary: Effort: No respiratory distress. Chest: Comments: Postsurgical changes are unchanged at the lumpectomy site. There is no other dominant mass noted. No skin changes or nipple discharge or axillary lymphadenopathy. Abdominal: General: There is no distension. Tenderness: There is no abdominal tenderness. Skin: Findings: No bruising. Neurological: Mental Status: She is alert. Gait: Gait normal. ASSESSMENT AND PLAN: Assessment/Plan Diagnoses and all orders for this visit: Infiltrating ductal carcinoma of right breast (CMS/HCC) Status post right lumpectomy and sentinel lymph node biopsy for invasive ductal carcinoma and DCIS. Margins are negative. [place] lymph node negative. T1 N0 = stage I breast CA. Oncotype DX low risk of recurrence, no chemo. Pt on endocrine therapy. Patient will continue on her anastrozole. If she notices anything suspicious she will contact me for sooner re-evaluation otherwise I will see her in 4 months. She will get mammogram in the meantime. documented in this encounter [facility] 04-17-2024 History of Presen t illness Narrative Images from the original note were not included. Doris Carnes 1960 Doris Carnes is a 64 y.o. female presents for 4th pom - right lumpectomy HPI: HPI Patient had her radiation without any difficulty. She has not having any sunburn or skin changes or problems. She has not having any new lumps or bumps or masses. Some swelling that she had the area and firmness at the surgical site is getting smaller. She has not having any nipple discharge. She feels no side effects from the anastrozole. She has not losing weight without trying to. She has not feeling fatigued or with other issues. She has not having shortness of breath or chest pain. She has not noticed any new breast masses or lumps or bumps. She has not having any nerve issues. She does have hot flashes that is something she had before she was taking anastrozole as well as some joint pain. OBJECTIVE: Physical Exam Exam conducted with a electric truck operator present. Constitutional: Appearance: Normal appearance. HENT: Head: Atraumatic. Eyes: General: No scleral icterus. Cardiovascular: Rate and Rhythm: Regular rhythm. Pulmonary: Effort: No respiratory distress. Chest: Comments: There is palpable postsurgical changes and well healing scar on the right breast otherwise no suspicious findings whatsoever on either breast nor any skin changes nor nipple discharge nor any axillary lymphadenopathy. Abdominal: General: There is no distension. Tenderness: There is no abdominal tenderness. Skin: Findings: No bruising. Neurological: Mental Status: She is alert. Gait: Gait normal. ASSESSMENT AND PLAN: Assessment/Plan Diagnoses and all orders for this visit: Infiltrating ductal carcinoma of right breast (CMS/HCC) Status post right lumpectomy and sentinel lymph node biopsy for invasive ductal carcinoma and DCIS. Margins are negative. [place] lymph node negative. T1 N0 = stage I breast CA. Oncotype DX low risk of recurrence, no chemo. Pt on endocrine therapy. No evidence of any recurrence on exam. Would recommend repeat exam every 4 months for the 1st 2 years and then every 6 months for the next 3. Yearly mammogram. If she notices anything suspicious in the meantime she will contact me for sooner re-evaluation. Additionally No follow-ups on file. She will continue with her anastrozole. documented in this encounter [facility] 01-11-2024 Hospital Discharg e instructions Ambulatory OrdersOncology Histology Time Frame: 01/11/24, Location: Determined By Patient [facility] Work Phone: 01-04-2024 History of Presen t illness Narrative Subjective Doris Carnes is a 64 y.o. female Chief Complaint Follow-up HPI Review of Systems All other systems reviewed and are negative. Patient returns in follow-up of problems as noted. In the interim she is done well. I cannot elicit any angina CHF or arrhythmia symptomatology. She states she has none of the symptoms of coronary disease that preceded her diagnosis and subsequent PTCA. Blood pressure control is good. Lipids could be improved upon. LDL cholesterol is 142 and I recommend the addition of another agent. She steadfastly refuses. She states she has had every known side effect in the book not only on statin therapy but even on Zetia. Because of this she is steadfastly opposed to the implementation of any other agent. I attempted to impress upon her the negative effect of hyperlipidemia on her prognosis but she states she understands and chooses not to take any more additional medical therapy. She was educated regarding cardiac signs and symptoms to watch for and encouraged to call if they arise. We also advocated the merits of diet and weight loss. Vitals: 01/04/24 0850 BP: 118/82 BP Location: Left arm Patient Position: Sitting Pulse: 76 Weight: 119 kg (262 lb) Height: 1.626 m (5' 4 ) Objective Physical Exam Constitutional: Appearance: Normal appearance. HENT: Nose: Nose normal. Neck: Vascular: No carotid bruit. Cardiovascular: Rate and Rhythm: Normal rate. Pulses: Normal pulses. Heart sounds: Normal heart sounds. Pulmonary: Effort: Pulmonary effort is normal. Abdominal: General: Bowel sounds are normal. Palpations: Abdomen is soft. Musculoskeletal: General: Normal range of motion. Cervical back: Normal range of motion. Right lower leg: No edema. Left lower leg: No edema. Skin: General: Skin is warm and dry. Neurological: General: No focal deficit present. Mental Status: She is alert. Psychiatric: Mood and Affect: Mood normal. Behavior: Behavior normal. Thought Content: Thought content normal. Judgment: Judgment normal. Allergies Hydroxychloroquine, Kndefoo-dek-lzm reductase inhibitors, and Cephalexin Current Medications Current Outpatient Medications: aspirin 81 mg EC tablet, Take 1 tablet (81 mg) by mouth once daily., Disp: , Rfl: budesonide-formoteroL (Symbicort) 160-4.5 mcg/actuation inhaler, Inhale. As directed, Disp: , Rfl: chlorthalidone (Hygroton) 25 mg tablet, Take 1 tablet (25 mg) by mouth once daily., Disp: , Rfl: clopidogrel (Plavix) 75 mg tablet, Take 1 tablet (75 mg) by mouth once daily., Disp: , Rfl: diclofenac (Voltaren) 75 mg EC tablet, Take 1 tablet (75 mg) by mouth 2 times a day., Disp: , Rfl: esomeprazole (NexIUM) [address] capsule, Take 1 capsule (40 mg) by mouth once daily., Disp: , Rfl: evolocumab (Repatha Syringe) 140 mg/mL injection, Inject under the skin. As directed, Disp: , Rfl: glimepiride (Amaryl) 4 mg tablet, Take 1 tablet (4 mg) by mouth once daily., Disp: , Rfl: levothyroxine (Synthroid, Levoxyl) 75 mcg tablet, Take 1 tablet (75 mcg) by mouth once daily., Disp: , Rfl: lisinopril 40 mg tablet, Take 1 tablet (40 mg) by mouth once daily., Disp: 90 tablet, Rfl: 3 metFORMIN (Glucophage) 500 mg tablet, Take 1 tablet (500 mg) by mouth once daily., Disp: , Rfl: metoprolol succinate XL (Toprol-XL) 100 mg 24 hr tablet, Take 1 tablet (100 mg) by mouth once daily., Disp: , Rfl: montelukast (Singulair) 10 mg tablet, Take 1 tablet (10 mg) by mouth once daily., Disp: , Rfl: nitroglycerin (Nitrostat) 0.4 mg SL tablet, Place 1 tablet (0.4 mg) under the tongue every 5 minutes if needed for chest pain., Disp: , Rfl: Assessment/Plan 1. Coronary artery disease involving [place] coronary artery of [place] heart without angina pectoris No recurrence of symptoms hence we believe CAD to be stable, for now. 2. Essential hypertension Review of treatment strategy demonstrates good control 3. Mixed hyperlipidemia Treatment could be improved upon but she refuses 4. History of PTCA A durable result has been achieved 5. Hypertension, unspecified type Review of treatment strategy demonstrates good control 6. BMI 40.0-44.9, adult (Multi) The merits of diet and weight loss were advocated 7. Never smoked tobacco Noted Scribe Attestation By signing my name below, I, Wendy HERNAN , Keithibe attest that this documentation has been prepared under the direction and in the presence of Wiley Schmitt MD. Provider Attestation - Scribe documentation All medical record entries made by the Scribe were at my direction and personally dictated by me. I have reviewed the chart and agree that the record accurately reflects my personal performance of the history, physical exam, discussion and plan. documented in this encounter [facility] Work Phone: 01-04-2024 Instructions Ana Luisa Mederos LPN - 01/04/2024 9:00 AM EDT Please bring all medicines, vitamins, and herbal supplements with you when you come to the office. Prescriptions will not be filled unless you are compliant with your follow up appointments or have a follow up appointment scheduled as per instruction of your physician. Refills should be requested at the time of your visit. documented in this encounter [facility] Work Phone: 06-09-2023 Evaluation note Encounter Date Diagnosis Assessment Notes May, Encounter for medication management (ICD-10 - Z79.899) May, Other Patient presented today for a virtual comprehensive medication review with pharmacist as part of the [facility] Medication Therapy Management (MTM) program. The patient verbally consents to this comprehensive medication review being completed via audio/visual virtual visit. Patients information as available was reviewed and a preliminary individualized packet prepared prior to visit. At visit, patient information was updated as to medication, dosages, reason for taking, timing of taking, and start date or current length of therapy. OTC treatments, either routine or PRN were added. Problem list was updated. Discussed patient's vaccine history and potential vaccines the patient may be due for. This patient has been selected for MTM services by their prescription benefit due to being prescribed the medication, Repatha (Evolocumab). The following was reviewed with the patient, regarding this medication: Reason for Taking (Indication): High cholesterol - How does the patient feel this medication is working for them? Patient has been on repatha for 4 years. Patient has statin intolerance. Patient states their cholesterol and triglycerides have gone down since starting this medication. Potential Side Effects: This is not a comprehensive list of all side effects. Talk to your doctor if you have questions. Drug Information Handout was provided. - runny nose - sore throat - common cold or flu-like symptoms - back pain - high blood sugar (diabetes) - redness, pain, or bruising at the injection site Side Effect the Patient is Experiencing: None of the above side effects reported Administration Technique: Drug information Handout was provided. Patient explained how they inject this medication and any knowledge gaps were discussed. - It is given into the fatty part of the skin on the top of the thigh, belly area, or upper arm. - Wash your hands before and after use. - Do not open until you are ready to use. - Do not give into skin that is irritated, tender, bruised, red, scarred, or has stretch dietrich. - Rotate the sites where you give this drug. Do not give into the same place as another shot. - Do not shake. - Let this drug come to room temperature before using it. Be sure you know how long to leave it at room temperature before using. Do not heat this drug. - Do not use this drug if it has been dropped or if it is broken. - Do not use if the solution is cloudy, leaking, or has particles. This drug is colorless to a faint yellow. Do not use if the solution changes color. - Throw away after using. Do not use the device more than 1 time. - Throw away needles in a needle/sharp disposal box. Do not reuse needles or other items. Storage: - Store in a refrigerator. Do not freeze. Store in the original container to protect from light. Keep all drugs in a safe place. Keep all drugs out of the reach of children and pets. Dispose of used medication in a sharps disposal container. - If needed, you may store at room temperature for up to 30 days. Write down the date you take this drug out of the refrigerator. If stored at room temperature and not used within 30 days, throw this drug away. Missed Doses: - If you take this drug every 2 weeks: take a missed dose as soon as you think about it. If it has been 7 days or more since the missed dose, skip the missed dose and go back to your normal time. - Do not take 2 doses at the same time or extra doses The patient was provided with information on medications, a medication list, and an action plan sheet to remind patient of advised changes or monitoring, as well as issues to discuss with provider. Time spent with patient: 25 minutes Seen by: Jose Laughlin PharmD , Evolocumab injection material was published [employer] Other 09-29-2022 Evaluation note* Encounter Date Diagnosis Assessment Notes Treatment Notes Treatment Clinical Notes Apr, Encounter for immunization (ICD-10 - Z23) Patient denies current illness, previous allergic reaction to influenza vaccine, eggs, or other vaccines, and Guillain-[place] Syndrome. Patient given current editions of influenza Vaccine Information Statement (VIS). [employer] Other Evaluation noteNo assessment information available [facility] Work Phone: evaluamakk noteNo InformationNort [employer] Other evaluqjnht note* Diagnosis Onset Date Resolution Status Breast mass, right acute [facility] Work Phone: Evaluation note* Diagnosis Onset Date Resolution Status Breast mass, right acute Encounter for coordination of complex care acute History of placement of stent in LAD coronary artery acute [id number] acute Screening for osteoporosis a cute [facility] Work Phone: Evaluation note* Diagnosis Pre-operative clearance Unspecified pre-operative examination Abnormal EKG Nonspecific abnormal electrocardiogram (ECG) (EKG) Osteoarthritis, unspecified osteoarthritis type, unspecified site documented in this encounter [facility] Work Phone: Evaluation note* Diagnosis Coronary artery disease involving [place] coronary artery of [place] heart without angina pectoris- Primary Essential hypertension Unspecified essential hypertension Mixed hyperlipidemia History of PTCA Postsurgical percutaneous transluminal coronary angioplasty status Hypertension, unspecified type BMI 40.0-44.9, adult (Multi) Never smoked tobacco Statin declined documented in this encounter [facility] Work Phone: Evaluation note* Diagnosis Onset Date Resolution Status Breast mass, right acute Encounter for coordination of complex care acute History of placement of stent in LAD coronary artery acute [id number] acute Screening for osteoporosis a cute Encounter for coordination of complex care acute History of placement of stent in LAD coronary artery acute [id number] acute Screening for osteoporosis a cute BMI 45.0-49.9, adult acute COPD (chronic obstructive pulmonary disease) acute Hx of iron deficiency anemia acute Hypertension acute Insomnia acute Metabolic alkalosis acute [facility] Work Phone: Evaluation note* Diagnosis Onset Date Resolution Status Breast mass, right acute Encounter for coordination of complex care acute History of placement of stent in LAD coronary artery acute [id number] acute Screening for osteoporosis a cute Encounter for coordination of complex care acute History of placement of stent in LAD coronary artery acute [id number] acute Screening for osteoporosis a cute BMI 45.0-49.9, adult acute COPD (chronic obstructive pulmonary disease) acute Hx of iron deficiency anemia acute Hypertension acute Insomnia acute Metabolic alkalosis acute Obstructive sleep apnea acut e [facility] Work Phone: Evaluation note* Diagnosis Onset Date Resolution Status Breast mass, right acute Encounter for coordination of complex care acute History of placement of stent in LAD coronary artery acute [id number] acute Screening for osteoporosis a cute Encounter for coordination of complex care acute History of placement of stent in LAD coronary artery acute [id number] acute Screening for osteoporosis a cute BMI 45.0-49.9, adult acute COPD (chronic obstructive pulmonary disease) acute Hx of iron deficiency anemia acute Hypertension acute Insomnia acute Metabolic alkalosis acute Obstructive sleep apnea acut e Encounter for coordination of complex care acute History of placement of stent in LAD coronary artery acute [id number] acute Screening for osteoporosis [facility] Work Phone: Evaluation note* Diagnosis Onset Date Resolution Status Encounter for coordination of complex care acute History of placement of stent in LAD coronary artery acute [id number] acute Screening for osteoporosis a cute Encounter for coordination of complex care acute History of placement of stent in LAD coronary artery acute [id number] acute Screening for osteoporosis a cute BMI 45.0-49.9, adult acute COPD (chronic obstructive pulmonary disease) acute Hx of iron deficiency anemia acute Hypertension acute Insomnia acute Metabolic alkalosis acute Obstructive sleep apnea acut e Encounter for coordination of complex care acute History of placement of stent in LAD coronary artery acute [id number] [id number] Work Phone: Evaluation note* Diagnosis Onset Date Resolution Status BMI 45.0-49.9, adult acute COPD (chronic obstructive pulmonary disease) acute Hx of iron deficiency anemia acute Hypertension acute Insomnia acute Metabolic alkalosis acute Obstructive sleep apnea acut e Encounter for coordination of complex care acute History of placement of stent in LAD coronary artery acute [id number] [facility] for [facility] Health [id number] acute Encounter for monitoring aromatase inhibitor therapy acute History of placement of stent in LAD coronary artery acute [id number] acute Screening for osteoporosis a [facility] Work Phone: Evaluation note* Diagnosis Onset Date Resolution Status BMI 45.0-49.9, adult acute COPD (chronic obstructive pulmonary disease) acute Hx of iron deficiency anemia acute Hypertension acute Insomnia acute Metabolic alkalosis acute Obstructive sleep apnea acut e Encounter for coordination of complex care acute History of placement of stent in LAD coronary artery acute [id number] acute Screening for osteoporosis a [facility] [id number] acute Encounter for monitoring aromatase inhibitor therapy acute History of placement of stent in LAD coronary artery acute [id number] acute Screening for osteoporosis a cute [id number] [facility] Work Phone: Evaluation note* Diagnosis Onset Date Resolution Status Encounter for monitoring aromatase inhibitor therapy acute History of placement of stent in LAD coronary artery acute [id number] acute Screening for osteoporosis a [facility] [id number] acute BMI 40.0-44.9, adult acute Chronic intermittent hypoxia with obstructive sleep apnea acute COPD (chronic obstructive pulmonary disease) acute Hypertension acute Hypothyroidism acute Obstructive sleep apnea acut e Sleep phase syndrome, delayed acute [facility] Work Phone: Evaluation note* Diagnosis Infiltrating ductal carcinoma of right breast (CMS/HCC)- Primary documented in this encounter [facility] HealthcareEvaluation note* Diagnosis Infiltrating ductal carcinoma of right breast (CMS/HCC)- Primary History of right breast cancer documented in this encounter [facility] HealthcareHistory general Narrative - Reported* Type Description Date Medical History high cholesterol Medical History Esophageal reflux Medical History heart disease Medical History high blood pressure Medical History Hypothyroidism Medical History diabetes mallitus Medical History shortness of breath [employer] Other History of Present illness NarrativePatient is seen in follow-up of hypertension. Recently has been difficult to control. Otherwise asymptomatic. No complaints of angina or anginal-like symptomatology we discussed her coronary disease and symptoms that led up to PTCA and she has had none of those symptoms. Diabetes and lipids are adequately. I recommended changes in blood pressure medicine, specifically changing carvedilol to Toprol- XL and stopping hydralazine and adding chlorthalidone. Blood pressure check with chemistries in several weeks. I also reminded her of the merits of diet and weight loss and its favorable impact on diabetes and hypertension.-[facility] [employer] DO Work Phone: History of Present illness Narrative* The patient presents for follow-up of essential hypertension. The patient states she has been doingwell with her blood pressure control since the last visit. Comorbid Illnesses: coronary artery disease. * Symptoms: denies impaired vision, denies dyspnea, denies chest pain, denies intermittent leg claudication and denies lower extremity edema. Associated symptoms include no headache. * Home monitoring: The patient checks her blood pressure regularly. Blood pressure control has been good. * Medications: the patient is adherent with her medication regimen. She denies medication side effects. -[facility] [employer] 600 DO Work Phone: History of Present illness NarrativePatient returns in follow-up of problems as noted. She is done well. She has none of the symptoms of coronary disease that preceded her diagnosis and subsequent PTCA. Management of risk factors including lipids hypertension and diabetes is reviewed and they are adequately addressed. Blood pressure is controlled as his lipids. She is overweight and the merits of diet and weight loss as well as exercise were advocated.-[facility] [employer] 600 DO Work Phone: Hospital Discharge instructionsAmbulatory Orders* Referral to Radiation Oncology Location: None [facility] Work Phone: Reason for referral (narrative)* Consultation (Routine) - Authorized Specialty Diagnoses / Procedures Referred By Contac t Referred To Contact Cardiology Diagnoses Coronary artery disease involving [place] coronary artery of [place] heart without angina pectoris Procedures Follow Up In Cardiology Wiley Schmitt MD [address] [place] [address] [address], [address] [address] Ciera Pastor MD [address] [place] [address] 2, [address] [address] Referral ID Status Reason Start Date Expiration Date V isits Requested Visits Authorized [id number] Authorized 01/04/2024 01/03/2025 1 1 [facility] Work Phone: Summary Purpose Family History No Family History Records FoundUnknown Family Member Name Dates Details Family history of arterioscl erotic cardiovascular disease: Mother, Father(V17.49, Z82.49) Status:Active Family history of diabetes m ellitus: Mother(V18.0, Z83.3) Status:Active Unknown Family Member Name Dates Details Family history of arterioscl erotic cardiovascular disease: Mother, Father(V17.49, Z82.49) Status:Active Family history of diabetes m ellitus: Mother(V18.0, Z83.3) Status:Active Unknown Family Member Name Dates Details Family history of arterioscl erotic cardiovascular disease: Mother, Father(V17.49, Z82.49) Status:Active Family history of diabetes m ellitus: Mother(V18.0, Z83.3) Status:Active Unknown Family Member Name Dates Details Family history of arterioscl erotic cardiovascular disease: Mother, Father(V17.49, Z82.49) Status:Active Family history of diabetes m ellitus: Mother(V18.0, Z83.3) Status:Active Unknown Family Member Name Dates Details Family history of arterioscl erotic cardiovascular disease: Mother, Father(V17.49, Z82.49) Status:Active Family history of diabetes m ellitus: Mother(V18.0, Z83.3) Status:Active Unknown Family Member Name Dates Details Family history of arterioscl erotic cardiovascular disease: Mother, Father(V17.49, Z82.49) Status:Active Family history of diabetes m ellitus: Mother(V18.0, Z83.3) Status:Active Unknown Family Member Name Dates Details Family history of arterioscl erotic cardiovascular disease: Mother, Father(V17.49, Z82.49) Status:Active Family history of diabetes m ellitus: Mother(V18.0, Z83.3) Status:Active Unknown Family Member Name Dates Details Family history of arterioscl erotic cardiovascular disease: Mother, Father(V17.49, Z82.49) Status:Active Family history of diabetes m ellitus: Mother(V18.0, Z83.3) Status:Active Relationship Condition Age at Onset Recorded Date/T shannon Not Specified Diabetes mellitus Unknown Heart disease Unknown father Parkinson's disease Unknown Alzheimer's disease Unknown Relationship Condition Age at Onset Recorded Date/T shannon mother Diabetes mellitus Unknown Heart disease Unknown father Parkinson's disease Unknown Alzheimer's disease Unknown Advance Directives No Advanced Directives Records Found Advance Directive Response Recorded Date/ Time Advance Directives No June 02, 2017 11:36am Chief Complaint DORIS CARNES is being seen for an annual follow-up of.* BP check 'doing fine' * DORIS CARNES is being seen for a 2 month follow-up of hypertension. * Patient was last evaluated in clinic Dr. Schmitt December 2021 * Changes to medical regimen at that time coreg changed to Toprol, hydralazine stopped and chlorthalidone initiated. * Repeat labs K+ 3.6, Cr 0.8 * Patient has been compliant with changes, denies any side effects. * BP at home: 'good' * Type of machine: wrist * Time of BP assessment: after meds * Has machine been previously calibrated by medical staff? no * Obstructive Sleep Apnea: + testing but does not have machine any longer * Mar 2022 LDL 132 - reports did not have repatha at the time but has since resumed treatment. * Otherwise, patient denies any change in overall cardiovascular status since last evaluation in clinic. * Reports is becoming more diaphoretic (this was one of her symptoms prior to 2018 PCI), is not having limitations to activity like prior PCI. She believes PCP did stress test due to these concerns last year. DORIS CARNES is being seen for an annual follow-up of.DORIS CARNES is being seen for an annual follow-up of. Chief Complaint and Reason for Visit Chief Complaint I25.10 I10 Chief Complaint I25.10 I10 Pillars Screening Chief Complaint Pillars Screening Booster Flu Chief Complaint obesity J21.9 B35.4 M17.9 Chief Complaint z12.31 r92.8 Breast Mass Reason for Visit Breast mass, right Chief Complaint z12.31 r92.8 Breast Mass NEW Invasive breast cancer Invasive ductal carcinoma Reason for Visit Breast mass, right Chief Complaint z12.31 r92.8 Breast Mass NEW Invasive breast cancer Invasive ductal carcinoma Right Breast Cancer Reason for Visit Breast mass, right Encounter for coordination of complex care History of placement of stent in LAD coronary artery [id number] Screening for osteoporosis Chief Complaint z12.31 r92.8 Breast Mass NEW Invasive breast cancer Right Breast Cancer Invasive ductal carcinoma Right Breast Cancer Reason for Visit Breast mass, right Encounter for coordination of complex care History of placement of stent in LAD coronary artery [id number] Screening for osteoporosis Chief Complaint z12.31 r92.8 Breast Mass NEW Invasive breast cancer Right Breast Cancer Right Breast Cancer Invasive ductal carcinoma Follow Up after Surgery g47.33 Reason for Visit Breast mass, right Encounter for coordination of complex care History of placement of stent in LAD coronary artery [id number] Screening for osteoporosis Encounter for coordination of complex care History of placement of stent in LAD coronary artery [id number] Screening for osteoporosis BMI 45.0-49.9, adult COPD (chronic obstructive pulmonary disease) Hx of iron deficiency anemia Hypertension Insomnia Metabolic alkalosis Chief Complaint Breast Mass NEW Invasive breast cancer Right Breast Cancer Right Breast Cancer Invasive ductal carcinoma Follow Up after Surgery g47.33 Unspecified sleep apnea Reason for Visit Breast mass, right Encounter for coordination of complex care History of placement of stent in LAD coronary artery [id number] Screening for osteoporosis Encounter for coordination of complex care History of placement of stent in LAD coronary artery [id number] Screening for osteoporosis BMI 45.0-49.9, adult COPD (chronic obstructive pulmonary disease) Hx of iron deficiency anemia Hypertension Insomnia Metabolic alkalosis Obstructive sleep apnea Chief Complaint Breast Mass NEW Invasive breast cancer Right Breast Cancer Right Breast Cancer Follow Up after Surgery g47.33 Unspecified sleep apnea Invasive ductal carcinoma Follow Up Reason for Visit Breast mass, right Encounter for coordination of complex care History of placement of stent in LAD coronary artery [id number] Screening for osteoporosis Encounter for coordination of complex care History of placement of stent in LAD coronary artery [id number] Screening for osteoporosis BMI 45.0-49.9, adult COPD (chronic obstructive pulmonary disease) Hx of iron deficiency anemia Hypertension Insomnia Metabolic alkalosis Obstructive sleep apnea Encounter for coordination of complex care History of placement of stent in LAD coronary artery [id number] Screening for osteoporosis Chief Complaint NEW Invasive breast cancer Right Breast Cancer Right Breast Cancer Follow Up after Surgery g47.33 Unspecified sleep apnea Follow Up Invasive ductal carcinoma New Patient, Right Breast Cancer Reason for Visit Encounter for coordi nation of complex care History of placement of stent in LAD coronary artery [id number] Screening for osteoporosis Encounter for coordination of complex care History of placement of stent in LAD coronary artery [id number] Screening for osteoporosis BMI 45.0-49.9, adult COPD (chronic obstructive pulmonary disease) Hx of iron deficiency anemia Hypertension Insomnia Metabolic alkalosis Obstructive sleep apnea Encounter for coordination of complex care History of placement of stent in LAD coronary artery [id number] Screening for osteoporosis [id number] Chief Complaint g47.33 Unspecified sleep apnea Follow Up New Patient, Right Breast Cancer Right Breast Invasive ductal carcinoma APNEA Right Breast Invasive ductal carcinoma Right Breast Invasive ductal carcinoma Follow Up Reason for Visit BMI 45.0-49.9, adult COPD (chronic obstructive pulmonary disease) Hx of iron deficiency anemia Hypertension Insomnia Metabolic alkalosis Obstructive sleep apnea Encounter for coordination of complex care History of placement of stent in LAD coronary artery [id number] Screening for osteoporosis [id number] Encounter for monitoring aromatase inhibitor therapy History of placement of stent in LAD coronary artery [id number] Screening for osteoporosis Chief Complaint g47.33 Unspecified sleep apnea Follow Up New Patient, Right Breast Cancer Right Breast Invasive ductal carcinoma APNEA Right Breast Invasive ductal carcinoma Right Breast Invasive ductal carcinoma Follow Up Follow Up 1 Month, Right Breast Cancer Reason for Visit BMI 45.0-49.9, adult COPD (chronic obstructive pulmonary disease) Hx of iron deficiency anemia Hypertension Insomnia Metabolic alkalosis Obstructive sleep apnea Encounter for coordination of complex care History of placement of stent in LAD coronary artery [id number] Screening for osteoporosis [id number] Encounter for monitoring aromatase inhibitor therapy History of placement of stent in LAD coronary artery [id number] Screening for osteoporosis [id number] Chief Complaint Right Breast Invasiv e ductal carcinoma Follow Up Follow Up 1 Month, Right Breast Cancer MELVI/ Visit i25.10 e11.69 g47.00 i10 e03.9 Reason for Visit Encounter for monito ring aromatase inhibitor therapy History of placement of stent in LAD coronary artery [id number] Screening for osteoporosis [id number] BMI 40.0-44.9, adult Chronic intermittent hypoxia with obstructive sleep apnea COPD (chronic obstructive pulmonary disease) Hypertension Hypothyroidism Obstructive sleep apnea Sleep phase syndrome, delayed Reason for Referral Specialty Diagnoses / Procedures Referred By Contac t Referred To Contact Radiology Diagnoses Pre-operative clearance Abnormal EKG Osteoarthritis, unspecified osteoarthritis type, unspecified site Procedures Nuclear Stress Test CHG MYOCARDIAL SPECT MULTIPLE STUDIES Wiley Schmitt MD [address] [address], [place] [id number] Referral ID Status Reason Start Date Expiration Date V isits Requested Visits Authorized [id number] Authorized 11/30/2023 11/29/2024 5 5 Additional Source Comments INFORMATION SOURCE (unrecogn ized section and content) DATE CREATED AUTHOR 01/25/2021 [facility] DATE CREATED AUTHOR AUTHOR'S ORGANIZ ATION 01/07/2023 [facility] DATE CREATED AUTHOR AUTHOR'S ORGANIZ ATION 01/07/2023 [employer] DATE CREATED AUTHOR AUTHOR'S ORGANIZ ATION 12/26/2023 [facility] DATE CREATED AUTHOR AUTHOR'S ORGANIZ ATION 01/05/2024 [facility] DATE CREATED AUTHOR AUTHOR'S ORGANIZ ATION 06/12/2024 [facility] DATE CREATED AUTHOR AUTHOR'S ORGANIZ ATION 08/24/2024 [facility] Care Teams (unrecognized sec tion and content) Team Status: Active Member Role Status Rosa Lewis MD Primary Care Provider Active Team Status: Active Member Role Status Rosa Lewis MD Primary Care Provide r, Referring Provider Active Start: April 11, 2024 Kinsey Canela MD Attending Provider Active Start: April 11, 2024 Team Status: Inactive Member Role Status Rosa Lewis MD Primary Care Provider Active Start: April 11, 2024 End: April 11, 2024 Ana Luisa Harvey MD Attending Provider Active Start: April 11, 2024 End: April 11, 2024 Team Status: Inactive Member Role Status Rosa Lewis MD Primary Care Provider Active Start: April 11, 2024 End: April 11, 2024 Kinsey Canela MD Attending Provider Active Start: April 11, 2024 End: April 11, 2024 Team Status: Inactive Member Role Status Rosa Lewis MD Primary Care Provider Active Start: May 01, 2024 End: May 01, 2024 Thomas Hoover MD Attending Provider Active S tart: May 01, 2024 End: May 01, 2024 Team Status: Inactive Member Role Status Rosa Lewis MD Primary Care Provide r, Attending Provider Active Start: May 31, 2024 End: May 31, 2024 Team Status: Inactive Member Role Status Rosa Lewis MD Primary Care Provide r, Attending Provider Active Start: October 27, 2023 End: October 27, 2023 Team Status: Inactive Member Role Status Rosa Lewis MD Primary Care Provide r, Attending Provider Active Start: November 08, 2023 End: November 08, 2023 Team Status: Inactive Member Role Status Rosa Lewis MD Primary Care Provide r, Attending Provider Active Start: November 15, 2023 End: November 15, 2023 Team Status: Active Member Role Status Dates Noah Lewis MD Primary Care Provider, Attending Pr ovider Active Team Status: Inactive Member Role Status Rosa Lewis MD Primary Care Provider, Attending Pr ovider Active Team Status: Inactive Member Role Status Rosa Lewis MD Primary Care Provider Active Wiley Schmitt MD Attending Provider Active Team Status: Inactive Member Role Status Rosa Lewis MD Primary Care Provider, Referring Pr ovider Active Referral Self Attending Provider Active Team Status: Inactive Member Role Status Rosa Lewis MD Primary Care Provider Active Bari Mac DO [facility] Attending Provider Active Team Status: Active Member Role Status Rosa Lewis MD Primary Care Provider Active Ene Poon Damien Attending Provider Active Team Status: Inactive Member Role Status Rosa Lewis MD Primary Care Provider Active Benedicto Campos MD Attending Provider Active Team Status: Inactive Member Role Status Rosa Lewis MD Primary Care Provider Active Ene Poon Damien Attending Provider Active Team Status: Inactive Member Role Status Rosa Lewis MD Primary Care Provide r, Referring Provider Active Start: December 01, 2023 End: December 01, 2023 Ana Luisa Harvey MD Attending Provider Active Start: December 01, 2023 End: December 01, 2023 Team Status: Active Member Role Status Rosa Lewis MD Primary Care Provide r, Referring Provider Active Start: December 01, 2023 Ana Luisa Harvey MD Attending Provider Active Start: December 01, 2023 Team Status: Inactive Member Role Status Dates Noah Lewis MD Primary Care Provider Active Start: December 12, 2023 End: December 12, 2023 Raphael Connors DO Attending Provider Active Start : December 12, 2023 End: December 12, 2023 Underwriting Manager Relationship Specialty Start Date End Date Noah Lewis MD [address] [place] [address] PCP - General 08/29/20 Underwriting Manager Relationship Specialty Start Date End Date Noah Lewis MD [address] [place] [address] [place] [address] PCP - General 08/29/20 Underwriting Manager Relationship Specialty Start Date End Date Noah Lewis MD [address] [place] [address] PCP - General 08/29/20 Underwriting Manager Relationship Specialty Start Date End Date Noah Lewis MD [facility] [place] [address] PCP - General 08/29/20 Team Status: Active Member Role Status Dates Noah Lewis MD Primary Care Provide r, Referring Provider Active Start: December 14, 2023 Ana Luisa Harvey MD Attending Provider Active Start: December 14, 2023 Team Status: Inactive Member Role Status Dates Noah Lewis MD Primary Care Provider Active Start: December 26, 2023 End: December 26, 2023 Raphael Connors DO Attending Provider Active Start : December 26, 2023 End: December 26, 2023 Underwriting Manager Relationship Specialty Start Date End Date Noah Lewis MD [address] [place] [address] PCP - General 08/29/20 Team Status: Active Member Role Status Dates Noah Lewis MD Primary Care Provide r, Referring Provider Active Start: January 11, 2024 Ana Luisa Harvey MD Attending Provider Active Start: January 11, 2024 Team Status: Inactive Member Role Status Dates Noah Lewis MD Primary Care Provider Active Start: January 11, 2024 End: January 11, 2024 Ana Luisa Harvey MD Attending Provider Active Start: January 11, 2024 End: January 11, 2024 Team Status: Inactive Member Role Status Dates Noah Lewis MD Primary Care Provider Active Start: January 24, 2024 End: January 24, 2024 Thomas Hoover MD Attending Provider Active S tart: January 24, 2024 End: January 24, 2024 Team Status: Inactive Member Role Status Dates Noah Lewis MD Primary Care Provider Active Start: February 07, 2024 End: February 07, 2024 Thomas Hoover MD Attending Provider Active S tart: February 07, 2024 End: February 07, 2024 Team Status: Active Member Role Status Dates Noah Lewis MD Primary Care Provide r, Referring Provider Active Start: February 09, 2024 Ana Luisa Harvey MD Attending Provider Active Start: February 09, 2024 Team Status: Inactive Member Role Status Dates Noah Lewis MD Primary Care Provider Active Start: February 09, 2024 End: February 09, 2024 Ana Luisa Harvey MD Attending Provider Active Start: February 09, 2024 End: February 09, 2024 Team Status: Active Member Role Status Rosa Lewis MD Primary Care Provide r, Referring Provider Active Start: February 16, 2024 Ana Luisa Harvey MD Attending Provider Active Start: February 16, 2024 Team Status: Inactive Member Role Status Dates Noah Lewis MD Primary Care Provider Active Start: February 16, 2024 End: February 16, 2024 Kinsey Canela MD Attending Provider Active Start: February 16, 2024 End: February 16, 2024 Team Status: Active Member Role Status Dates Noah Lewis MD Primary Care Provide r, Referring Provider Active Start: February 21, 2024 Kinsey Canela MD Attending Provid er, Other Provider Active Start: February 21, 2024 Team Status: Active Member Role Status Dates Noah Lewis MD Primary Care Provider Active Start: February 21, 2024 Thomas Hoover MD Attending Provider, Other Provide r Active Start: February 21, 2024 Team Status: Active Member Role Status Dates Noah Lewis MD Primary Care Provide r, Referring Provider Active Start: March 05, 2024 Kinsey Canela MD Attending Provid er, Other Provider Active Start: March 05, 2024 Underwriting Manager Relationship Specialty Start Date End Date Noah Lewis MD [address] [place] [address] PCP - General Family Medicine 11/21/23 Underwriting Manager Relationship Specialty Start Date End Date Noah Lewis MD [address] [place] [id number] PCP - General Family Medicine 11/21/23 Goals (unrecognized section and content) Goals may be documented in a n alternate sectionGoals may be documented in an alternate sectionGoals may be documented in an alternate sectionGoals may be documented in an alternate sectionGoals may be documented in an alternate sectionNo InformationNo InformationNo InformationGoals may be documented in an alternate sectionGoals may be documented in an alternate sectionGoals may be documented in an alternate sectionGoals may be documented in an alternate sectionGoals may be documented in an alternate sectionGoals may be documented in an alternate sectionGoals may be documented in an alternate section REASON FOR VISIT (unrecogniz ed section and content) Specialty Diagnoses / Procedures Referred By Contac t Referred To Contact Radiology Diagnoses Pre-operative clearance Abnormal EKG Osteoarthritis, unspecified osteoarthritis type, unspecified site Procedures Nuclear Stress Test CHG MYOCARDIAL SPECT MULTIPLE STUDIES Wiley Schmitt MD [address] [facility] 2, [facility] [address] [place] [address] Referral ID Status Reason Start Date Expiration Date V isits Requested Visits Authorized [id number] Authorized 11/30/2023 11/29/2024 5 5 Reason Comments Follow-up 1yr Reason Comments 4th pom - right lumpectomy Reason Comments 8th pom Rt lumpectomy FOR RECORDS PERTAINING TO PATIENTS WHO ARE OR HAVE BEEN ENROLLED IN A CHEMICAL DEPENDENCY/SUBSTANCEABUSE PROGRAM, SOME INFORMATION MAY BE OMITTED. This clinical summary was aggregated from multiple sources. Caution should be exercised in using it in the provision of clinical care. This summary normalizes information from multiple sources, and as a consequence, information in this document may materially change the coding, format and clinical context of patient data. In addition, data may be omitted in some cases. CLINICAL DECISIONS SHOULD BE BASED ON THE PRIMARY CLINICAL RECORDS. [employer] [facility]. provides no warranty or guarantee of the accuracy or completeness of information in this document.
== END 2024-09-11 08:23 | disposition home or self-care (01) ==
LOC: LAB 08:22
PROVIDERS: PCP Family Medicine; Visit Provider Family Medicine
DX: J20.9 Acute bronchitis, unspecified (principal); E11.69 Type 2 diabetes mellitus with other specified complication
CPT/HCPCS: 87070; 87205

== ENCOUNTER 2025-05-03 11:14 | Outpatient (OUT) | payer MEDICARE, SELFPAY ==
--- OUTSIDE RECORDS SUMMARY | 2025-01-23 07:00 | XMS_ITS ---
Author Organization The [facility] in [place] Address [address] [place] [address] Care Team Providers Care Third Mate Name Role Phone Carlos Enrique Lewis Primary Care Provider Allergies Allergen (clinical drug ingredient) Drug/Non Drug Allergy documented on EMR Reaction Allergy Type Onset Date Status rosuvastatin Crestor Unknown Drug Allergy Acti ve Keflex Unknown Drug Allergy Active hydroxychloroquine Hydroxychloroquine Unknown Drug Allergy Active Substance with 0-qrwelhx-0-methylglutar yl-coenzyme A reductase inhibitor mechanism of action (substance) Statins Unknown Drug Allergy Active levofloxacin Levofloxacin Nausea, Drug Allergy A ctive REASON FOR VISIT 3mon, Dr Pastor wanted her to discuss Monjouro to see if helps with A1C, Patient states BS highthis AM but forget meds last night, Patient curious on why the longer she stands, the more she sweats Medications Medication SIG (Take, Route, Frequency, Duration) Notes Start Date End Date Status Montelukast Sodium 10 MG 1 tablet Oral O nce a day for 90 days Active Test Strips - Use 1 strip to monit or glucose daily DX E11.9 for 90 days 09/24/2024 Active True Metrix Strips/Lancets - Use one strip with meter QD and PRN Dx: Diabetes Type II for 90 days 03/14/2023 Active Repatha SureClick 140 MG/ML INJECT 1ML S UBCUTANEOUS ONCE EVERY TWO WEEKS 28 DAYS for 84 Active Symbicort 160-4.5 MCG/ACT 2 puffs Inhala tion Twice a day for 90 days 05/23/2023 Active Metoprolol Succinate ER 100 MG TAKE 1 TABLET BY MOUTH ONCE DAILY Oral for 90 days Active metFORMIN HCl ER 500 MG 1 tablet with ev ening meal Orally Once a day for 90 days 05/10/2023 Active Levothyroxine Sodium 75 MCG 1 tablet in the morning on an empty stomach Orally Once a day for 90 days Active Lisinopril 40 MG TAKE 1 TABLET BY JEANNE TH ONCE DAILY Oral for 90 Days Active Mounjaro 2.5 MG/0.5ML 2.5 mg Subcutaneou s weekly 01/23/2025 Active Lancets 33G - Use as directed BID and PRN to test blood sugar Dx: Diabetes Type II for 90 days 03/14/2023 Active Lancets 33G - Use 1 lancet to chec k glucose level DX E11.9 for 90 days 09/24/2024 Active GNP Aspirin Low Dose 81 MG TAKE 1 TABLET BY MOUTH ONCE DAILY DIRECTED Oral for 90 Days Active Jardiance 10 MG 1 tablet Orally Once a day for 90 days 05/17/2024 Active Glimepiride 4 MG 1/2 tablet Orally wi th breakfast for 90 days Active Clopidogrel Bisulfate 75 MG TAKE 1 TABLE T BY MOUTH ONCE DAILY Oral for 90 Days Active Diclofenac Sodium 75 MG 1 tablet as need ed Orally Twice a day for 30 days 10/17/2024 Active Chlorthalidone 25 MG TAKE 1 TABLET BY MO NCH ONCE DAILY Oral for 90 Days Active Esomeprazole Magnesium 40 MG TAKE ONE CAPSULE BY MOUTH EVERY DAY for 90 Active Blood Glucose Test - as directed true metrix test strips In Vitro once daily for 100 days DX E11.9 09/13/2024 Active Anastrozole 1 MG 1 tablet Orally Once a day 05/17/2024 Active Blood Glucose Meter -- Use device to mon itor glucose level DX E11.9 for 365 days 09/24/2024 Active Probiotic Bioma Active Accu-Chek Guide Test - Use 1 strip In Vi tro to check sugar daily DX E11.9 for 90 days Active Ketoconazole 2 % 1 application Cutter Aluminum Sheet ally bid for 14 days 01/23/2025 Active Social History Tobacco Use: Social History Observation Description Date Details (start date - stop date) Never Smoker NA - NA Tobacco Use/Smoking Question Answer Notes Patient is a nonsmoker Problems Problem Type SNOMED Code ICD Code Onset Dates Problem Status W/U Status Risk Notes Problem Panlobular emphysema (4674490) Panlobular emphysema (J43.1) Active confirmed Vital Signs Weight 255.2 lbs 01/23/2025 Height 64 in 01/23/2025 Blood pressure systolic 134 mm Hg 01/24/20 25 Blood pressure diastolic 90 mm Hg 025 BMI 43.8 kg/m2 01/23/2025 Encounters Encounter Location Date Provider Diagnosis [facility] [address] [place] [address] 01/23/2025 Carlos Enrique Lewis Panlobular emphysema J43.1 ; Type 2 diabetes mellitus with other specified complication E11.69 ; CAD (coronary artery disease) I25.10 ; Obstructive sleep apnea G47.33 ; Hypothyroidism E03.9 and Hypertension I10 Assessments Encounter Date Diagnosis (ICD Code) Assessment Notes Treatment Notes Treatment Clinical Notes Section Notes 01/23/2025 Panlobular emphysema (ICD-10 - J43.1) 01/23/2025 Type 2 diabetes mellitus with other specified complication (ICD-10 - E11.69) reviewd labs from last year 01/23/2025 CAD (coronary artery disease) (ICD-10 - I25.10) stable 01/23/2025 Obstructive sleep apnea (ICD-10 - G47.33) wearing mas 01/23/2025 Hypothyroidism (ICD-10 - E03.9) on mes - reviewed labs 01/23/2025 Hypertension (ICD-10 - I10) stable Plan Of Treatment Medication Medication Name Sig Start Date Stop Date Notes Mounjaro 2.5 MG/0.5ML 2.5 mg Subcutaneous weekly Ketoconazole 2 % 1 application Cutter Aluminum Sheet ally bid for 14 days 01/23/2025 Treatment Notes Assessment Notes Type 2 diabetes mellitus wit h other specified complication reviewd labs from last year CAD (coronary artery disease) stable Obstructive sleep apnea wearing mas Hypothyroidism on mes - reviewed la bs Hypertension stable Progress Notes * Nina MAYS:[birth year] (65 yo F)Acc No.[id number]:01/23/2025 Progress Note Patient: Doris OCONNELL Provider: Isael Lewis ([facility]), :1960 A ge:65 Y S ex:Female Date:01/23/2025 Address:[address], [place], [id number] Check In:10:55 AM ESTCheck O ut:11:41 AM EST Subjective: * Chief Complaints: * 3 Joe Pastor wanted her to discuss Monjouro to see if helps with [id number] states BS high this AM but forget meds last nightPatient curious on why the longer she stands, the more she sweats * HPI: G eneral: rash on chest - some nasal congestion - nasal gavage is helping some - taking coricedin encuraged claritin DM - 146 this am 0 but didngt take meds yesterday hypertension - well controled astham - well controlled. * ROS: E ENT: hearing changes d enies. v isual changes d enies.?non-healing mouth sores d enies. s wollen glands or neck lumps d enies. h oarseness d enies. s ore throat d enies. d ifficulty swallowing d enies. n ose bleeds d enies. n david congestion d enies. e ar ache d enies. e ar discharge?denies. r inging in ears d enies. l ight sensitivity d enies. e ye pain d enies. b lurring d enies. e ye irritation d enies. d ouble vision d enies.?vision loss d enies. G eneral/Constitutional: Sweats: D enies. F atigue d enies. S leep problems d enies. A norexia d enies. M alaise d enies. W eight loss d enies.?Fatigue or Weakness d enies. F ever or Chills d enies. C ardiovascular: Shortness of Breath w/lying flat d enies. L ightheadedness/dizziness d enies. C hest tightness/ heavy pressure d enies. S welling of legs, ankles, or feet d enies. W aking up with shortness of breath d enies. C hest pain denies. P alpitations d enies. W eight gain d enies. R espiratory: Chronic or frequent cough d enies. C oughing up blood?denies. D ifficulty breathing d enies. P roductive cough d enies. S noring?denies. S hortness of breath that awakens from sleep (PND) d enies. C hest pain d enies. S putum production d enies. W heezing d enies. M usculoskeletal: Joint pain d enies. J oint Fluid d enies. B ack pain d enies. K nee pain d enies. N owen pain d enies. J oint Stiffness d enies. M uscle cramps d enies. W eakness of muscles d enies. A rthritis d enies. M uscle aches d enies. P ain in shoulder(s) d enies. S wollen joints d enies. * Active Problem List E78.5 Hyperlipidemia Modified On:05/24/2023 Status:confirmed I10 Hypertension Modified On:09/23/2023 Status:confirmed E03.9 Hypothyroidism Modified On:09/23/2023 Status:confirmed G47.33 Obstructive sleep ap saul Modified On:10/28/2023 Status:confirmed I25.10 CAD (coronary artery disease) Modified On:05/24/2023 Status:confirmed M79.7 Fibromyalgia Modified On:05/24/2023 Status:confirmed E11.69 Type 2 diabetes nav itus with other specified complication Modified On:09/23/2023 Status:confirmed J21.9 Acute bronchiolitis Modified On:05/24/2023 Status:confirmed B35.4 Tinea corporis Modified On:05/24/2023 Status:confirmed M17.9 Knee osteoarthritis Modified On:06/29/2023 Status:confirmed C50.919 Breast cancer Modified On:11/18/2023 Status:confirmed G47.00 Insomnia, unspecifie d Modified On:01/25/2024U Status:confirmed E66.01 Morbid (severe) obes ity due to excess calories Modified On:09/06/2024U Status:confirmed J43.1 Panlobular emphysema Modified On:01/23/2025W/U Status:confirmed * Medical History: * Surgical History: T otal Hysterectomy Tonsils and Adnoids Partial Thyroidectomy Left Shoulder Spurs Plate in Back of Neck Lumpectomy * Hospitalization/Major Diagno stic Procedure: D enies Past Hospitalization * Family History: F ather: , rheumatoid arthritis, Parkinsons, Alzheimers, diagnosed with Unspecified heart disease. M other: , diagnosed with Diabetes mellitus without mention of complication, type II or unspecified type, not stated as uncontrolled, Unspecified heart disease. * Social History: T obacco Use: T obacco Use/Smoking P atient is a n onsmoker * Medications: T akingAccu-Chek Guide Test(Glucose Blood) - Strip Use 1 strip In Vitro to check sugar daily DX E11.9 Anastrozole 1 MG Tablet 1 tablet Orally Once a day Blood Glucose Meter -- -- Use device to monitor glucose level DX E11.9 Blood Glucose Test - Strip as directed true metrix test strips In Vitro once daily DX E11.9Chlorthalidone 25 MG Tablet TAKE 1 TABLET BY MOUTH ONCE DAILY Oral Clopidogrel Bisulfate 75 MG Tablet TAKE 1 TABLET BY MOUTH ONCE DAILY Oral Diclofenac Sodium 75 MG Tablet Delayed Release 1 tablet as needed Orally Twice a day Esomeprazole Magnesium 40 MG Capsule Delayed Release TAKE ONE CAPSULE BY MOUTH EVERY DAY Glimepiride 4 MG Tablet 1/2 tablet Orally with breakfast GNP Aspirin Low Dose(Aspirin) 81 MG Tablet Delayed Release TAKE 1 TABLET BY MOUTH ONCE DAILY DIRECTED Oral Jardiance(Empagliflozin) 10 MG Tablet 1 tablet Orally Once a day Lancets 33G(Lancets) - Miscellaneous Use as directed BID and PRN to test blood sugar Dx: Diabetes Type II Lancets 33G(Lancets) - Miscellaneous Use 1 lancet to check glucose level DX E11.9 Levothyroxine Sodium 75 MCG Capsule 1 tablet in the morning on an empty stomach Orally Once a day Lisinopril 40 MG Tablet TAKE 1 TABLET BY MOUTH ONCE DAILY Oral metFORMIN HCl ER 500 MG Tablet Extended Release 24 Hour 1 tablet with evening meal Orally Once a day Metoprolol Succinate ER 100 MG Tablet Extended Release 24 Hour TAKE 1 TABLET BY MOUTH ONCE DAILY Oral Montelukast Sodium 10 MG Tablet 1 tablet Oral Once a day Probiotic , Notes to Pharmacist: Marcella Barretoick(Evolocumab) 140 MG/ML Solution Auto-injector INJECT 1ML SUBCUTANEOUS ONCE EVERY TWO WEEKS 28 DAYS Symbicort(Budesonide-Formoterol Fumarate) 160-4.5 MCG/ACT Aerosol 2 puffs Inhalation Twice a day Test Strips - - Use 1 strip to monitor glucose daily DX E11.9 True Metrix Strips/Lancets - - Use one strip with meter QD and PRN Dx: Diabetes Type II Taking Accu-Chek Guide Test(Glucose Blood) - Strip Use 1 strip In Vitro to check sugar daily DX E11.9 Taking Anastrozole 1 MG Tablet 1 tablet Orally Once a day Taking Blood Glucose Meter -- -- Use device to monitor glucose level DX E11.9 Taking Blood Glucose Test - Strip as directed true metrix test strips In Vitro once daily DX E11.9Taking Chlorthalidone 25 MG Tablet TAKE 1 TABLET BY MOUTH ONCE DAILY Oral Taking Clopidogrel Bisulfate 75 MG Tablet TAKE 1 TABLET BY MOUTH ONCE DAILY Oral Taking Diclofenac Sodium 75 MG Tablet Delayed Release 1 tablet as needed Orally Twice a day Taking Esomeprazole Magnesium 40 MG Capsule Delayed Release TAKE ONE CAPSULE BY MOUTH EVERY DAY Taking Glimepiride 4 MG Tablet 1/2 tablet Orally with breakfast Taking GNP Aspirin Low Dose(Aspirin) 81 MG Tablet Delayed Release TAKE 1 TABLET BY MOUTH ONCE DAILY DIRECTED Oral Taking Jardiance(Empagliflozin) 10 MG Tablet 1 tablet Orally Once a day Taking Lancets 33G(Lancets) - Miscellaneous Use as directed BID and PRN to test blood sugar Dx: Diabetes Type II Taking Lancets 33G(Lancets) - Miscellaneous Use 1 lancet to check glucose level DX E11.9 Taking Levothyroxine Sodium 75 MCG Capsule 1 tablet in the morning on an empty stomach Orally Once a day Taking Lisinopril 40 MG Tablet TAKE 1 TABLET BY MOUTH ONCE DAILY Oral Taking metFORMIN HCl ER 500 MG Tablet Extended Release 24 Hour 1 tablet with evening meal Orally Once a day Taking Metoprolol Succinate ER 100 MG Tablet Extended Release 24 Hour TAKE 1 TABLET BY MOUTH ONCE DAILY Oral Taking Montelukast Sodium 10 MG Tablet 1 tablet Oral Once a day Taking Probiotic , Notes to Pharmacist: StephaTaking Zoran Martinez(Evolocumab) 140 MG/ML Solution Auto-injector INJECT 1ML SUBCUTANEOUS ONCE EVERY TWO WEEKS 28 DAYS Taking Symbicort(Budesonide-Formoterol Fumarate) 160-4.5 MCG/ACT Aerosol 2 puffs Inhalation Twice a day Taking Test Strips - - Use 1 strip to monitor glucose daily DX E11.9 Taking True Metrix Strips/Lancets - - Use one strip with meter QD and PRN Dx: Diabetes Type II DiscontinuedDiflucan(Fluconazole) 100 MG Tablet 1 tablet Orally daily Medication List reviewed and reconciled with the patientDiscontinued Diflucan(Fluconazole) 100 MG Tablet 1 tablet Orally daily Medication List reviewed and reconciled with the patient * Allergies: K eflexHydroxychloroquineCrestorStatinsLevofloxacin: Nausea,no[Allergies Verified] Objective: * Vitals: W t:255.2lbs, Ht: 64 in, BP:134/90mm Hg, BMI:43.8Index, Ht-cm: 162.56 cm, Wt-k.76 kg. * Examination: P hysical Exam: GENERAL: w ell developed, well nourished, in no acute distress. HEAD: n ormocephalic/atraumatic. EYES: p upils equal, round and reactive to light, conjunctivae and sclerae normal. EARS: n o deformity or lesion of external ear, canals and TM appear normal bilaterally, TM's intact, not inflamed with normal light reflex, hearing grossly normal to conversational speech. NOSE: n o deformity, discharge, inflammation, or lesions.? MOUTH: m ucous membranes moist, normal oropharynx and posterior pharynx without lesions or exudates, tongue normal, dentition normal. NECK: n owen supple, no masses or palpable cervical nodes, trachea midline, thyroid without nodules, masses, tenderness, or enlargement. CHEST: n o chest wall deformity, no chest wall tenderness.? LUNGS: n ormal respiratory effort and clear to auscultation, no wheezes, rales, or rhonchi, good air exchange. CARDIO: r egular rate and rhythm, normal S1 and S2, nor murmur, rub, or gallop. PULSES: n ormal capillary refill. ABDOMEN: s oft, non-distended, non-tender, no masses. MUSCULOSKELETAL: n o deformity or scoliosis noted, normal range of motion, joints normal, no erythema, edema, effusion, or ecchymosis. EXTREMITY: n o clubbing, cyanosis, edema, or deformity with normal ROM in both upper and lower bilateral extremities. NEUROLOGIC: g rossly normal. SKIN: n o rashes, ulcerations, or suspicious lesions. LYMPH NODES: n o cervical adenopathy, nodes normal. MENTAL STATUS: a lert and oriented x3, normal mood and affect. Assessment: * Assessment: 1. P anlobular emphysema - J43.1 (Primary) 2 . T ype 2 diabetes mellitus with other specified complication - E11.69 3 . C AD (coronary artery disease) - I25.10 4 . O bstructive sleep apnea - G47.33 5 . H ypothyroidism - E03.9 6 . H ypertension - I10 Plan: * Treatment: 2. T ype 2 diabetes mellitus with other specified complication Start Mounjaro Solution Auto-injector, 2.5 MG/0.5ML, 2.5 mg, Subcutaneous, weekly, 1, Refills 11.? Notes: reviewd labs from last year 3. C AD (coronary artery disease) Notes: stable 4. O bstructive sleep apnea Notes: wearing mas 5. H ypothyroidism Notes: on mes - reviewed labs 6. H ypertension Notes: stable * Procedure Codes: * Preventive Medicine: Screenings/Counseling: B RI ACTION PLAN Above Normal BMI Follow-up D ietary management education, guidance, and counseling * * Sign off status: Completed Visit Status: C HK (Check Out) true * Provider: Isael Lewis ([facility])MD Date: 0 01/23/2025 Generated for Printi ng/Fajaelyng/eTransmitting on: 0 05/03/2025 11:19 AM EDT History and Physical Notes * HPI (History of Present Illness) Category Sub-Category Detail Notes Category Not es General rash on chest - some nasal congestion - nasal gavage is helping some - taking coricedin encuraged claritin DM - 146 this am 0 but didngt take meds yesterday hypertension - well controled astham - well controlled Examination Category Sub-Category Detail Notes Category Not es Physical Exam GENERAL: well developed, well nourished, in no acute distress HEAD: normocephalic/atraum atic EYES: pupils equal, round and reactive to light, conjunctivae and sclerae normal EARS: no deformity or lesi on of external ear, canals and TM appear normal bilaterally, TM's intact, not inflamed with normal light reflex, hearing grossly normal to conversational speech NOSE: no deformity, discha rge, inflammation, or lesions MOUTH: mucous membranes ruben st, normal oropharynx and posterior pharynx without lesions or exudates, tongue normal, dentition normal NECK: neck supple, no mass es or palpable cervical nodes, trachea midline, thyroid without nodules, masses, tenderness, or enlargement CHEST: no chest wall deform ity, no chest wall tenderness LUNGS: normal respiratory e ffort and clear to auscultation, no wheezes, rales, or rhonchi, good air exchange CARDIO: regular rate and rhy thm, normal S1 and S2, nor murmur, rub, or gallop PULSES: normal capillary ref ill ABDOMEN: soft, non-distended, non-tender, no masses RECTAL: MUSCULOSKELETAL: no deformity or scol iosis noted, normal range of motion, joints normal, no erythema, edema, effusion, or ecchymosis EXTREMITY: no clubbing, cyanosi s, edema, or deformity with normal ROM in both upper and lower bilateral extremities NEUROLOGIC: grossly normal SKIN: no rashes, ulceratio ns, or suspicious lesions LYMPH NODES: no cervical adenopat hy, nodes normal MENTAL STATUS: alert and oriented x 3, normal mood and affect
--- OUTSIDE RECORDS SUMMARY | 2025-03-08 06:08 | XMS_ITS ---
Author Organization The [facility] in [place] Address [address] [place] [address] Care Team Providers Care Electric Brain Wave Equipment Mechanic Name Role Phone Carlos Enrique Lewis Primary Care Provider [phone] REASON FOR VISIT BS Medications Medication SIG (Take, Route, Fr equency, Duration) Notes Start Date End Date Status Glimepiride 1 MG 1 tablet NEEDED O rally with breakfast for 90 days Active Encounters Encounter Location Date Provider Diagnosis [facility] [address] [place] [address] 03/08/2025 Carlos Enrique Lewis Hyperlipidemia E78.5 Assessments Encounter Date Diagnosis (ICD Code) Assessment Notes Treatment Notes Treatment Clinical Notes Section Notes 03/08/2025 Hyperlipidemia (ICD-10 - E78.5) Plan Of Treatment Medication Medication Name Sig Start Date Stop Date Notes Glimepiride 1 MG 1 tablet NEEDED O rally with breakfast for 90 days Progress Notes * Doris MAYSDOB:[birth year] (65 yo F)Acc No.[id number]:03/08/2025 Patient: Doris OCONNELL :1960 A ge:65 Y S ex:Female Address:[address] [place], [address] * Refills Refill Glimepiride Tablet, 1 MG, Orally, 1 tablet NEEDED, with breakfast, 90 days, Refills=3 * true * Date: Generated for Shiloh manzanares/Mahendra/Mingitting on: 0 05/03/2025 11:20 AM EDT
--- OUTSIDE RECORDS SUMMARY | 2025-04-17 06:48 | XMS_ITS ---
Author Organization The [facility] in [place] Address [address] [place] [address] Care Team Providers Care Senior Production Supervisor Name Role Phone Debbie Carlos Enrique Primary Care Provider [phone] REASON FOR VISIT Sinus Infection Medications Medication SIG (Take, Route, Frequency, Duration) Notes Start Date End Date Status Amoxicillin-Pot Clavulanate 875-125 MG 1 tablet Orally every 12 hrs for 10 days 04/17/2025 Active Wsfrqlmz-Ljvfhxyni-Apwmyjdg 3.5-84891-3.1 1 drop into affected eye Ophthalmic Four times a day for 7 days 04/17/2025 Active Encounters Encounter Location Date Provider Diagnosis [facility] [address] [place] [address] 04/17/2025 Carlos Enrique Lewis Plan Of Treatment Medication Medication Name Sig Start Date Stop Date Notes Amoxicillin-Pot Clavulanate 875-125 MG 1 tablet Orally every 12 hrs for 10 days 04/17/2025 Vfyvuhfy-Wrgfbwzcm-Diwuoljc 3.5-78216-6.1 1 drop into affected eye Ophthalmic Four times a day for 7 days 04/17/2025 Progress Notes * Doris MAYSDOB:[birth year] (65 yo F)Acc No.[id number]:04/17/2025 Patient: Doris OCONNELL :1960 A ge:65 Y S ex:Female Address:[address] [place], [address] * Refills Start Unkyzydi-Dahbfpidq-Oztvknjh Suspension, 3.5-55791-9.1, Ophthalmic, 1.4 ML, 1 drop into affected eye, Four times a day, 7 days, Refills=1 Start Amoxicillin-Pot Clavulanate Tablet, 875-125 MG, Orally, 20 Tablet, 1 tablet, every 12 hrs, 10 days, Refills=0 * true * Date: Generated for Shiloh manzanares/Mahendra/Mingitting on: 0 05/03/2025 11:19 AM EDT
--- OUTSIDE RECORDS SUMMARY | 2025-04-24 12:12 | XMS_ITS ---
Author Organization The [facility] in [place] Address [address] [place] [address] Care Team Providers Care Field Care Manager Name Role Phone NoahalekseyCarlos Enrique Primary Care Provider REASON FOR VISIT Stellus Rx - Statin Recommendation Problems Problem Type SNOMED Code ICD Code Onset Dates Problem Status W/U Status Risk Notes Problem Myopathy (851258753) Myopathy (G72.9) Active confirmed Encounters Encounter Location Date Provider Diagnosis [facility] [address] [place] [address] 04/24/2025 Carlos Enrique Lewis Plan Of Treatment No Information Progress Notes * DEYVI DorisDOB:[birth year] (65 yo F)Acc No.[id number]:04/24/2025 UNLOCKED PROGRESS NOTE Patient: Doris OCONNELL :1960 A ge:65 Y S ex:Female Address:[address] [place], [address] * * Date:
--- OUTSIDE RECORDS SUMMARY | 2025-04-25 10:15 | XMS_ITS ---
Author Organization [facility] [place] Address [address] [place] [address] Care Team Providers Care Log Buyer Name Role Phone Carlos Enrique Lewis Primary Care Provider Allergies Allergen (clinical drug ingredient) Drug/Non Drug Allergy documented on EMR Reaction Allergy Type Onset Date Status rosuvastatin Crestor Unknown Drug Allergy Acti ve Keflex Unknown Drug Allergy Active hydroxychloroquine Hydroxychloroquine Unknown Drug Allergy Active Substance with 7-gfuloei-7-methylglutar yl-coenzyme A reductase inhibitor mechanism of action (substance) Statins Unknown Drug Allergy Active levofloxacin Levofloxacin Nausea, Drug Allergy A ctive REASON FOR VISIT 3 month f/u, When she sits in her chair with feet up, her left hip starts to hurt her- sometimes goes down into the knee- sometimes feels better if gets up and moves, Sugars have been running 120s-140s Medications Medication SIG (Take, Route, Frequency, Duration) Notes Start Date End Date Status True Metrix Strips/Lancets - Use one strip with meter QD and PRN Dx: Diabetes Type II for 90 days 03/14/2023 Active Test Strips - Use 1 strip to monit or glucose daily DX E11.9 for 90 days 09/24/2024 Active Avtyxchl-Diqrjsejk-Hwkaxzzm 3.5-39740-0.1 1 drop into affected eye Ophthalmic Four times a day for 7 days 04/17/2025 Active Repatha SureClick 140 MG/ML INJECT 1ML S UBCUTANEOUS ONCE EVERY TWO WEEKS 28 DAYS for 84 Active Probiotic Bioma Active Lisinopril 40 MG TAKE 1 TABLET BY JEANNE ONCE DAILY Oral for 90 Days Active Metoprolol Succinate ER 100 MG TAKE ONE TABLET BY MOUTH EVERY DAY for 90 Active metFORMIN HCl ER 500 MG TAKE ONE TABLET BY MOUTH WITH EVENING MEAL ONCE DAILY for 90 Active Mounjaro 2.5 MG/0.5ML 2.5 mg Subcutaneou s weekly 01/23/2025 Active Montelukast Sodium 10 MG TAKE ONE TABLET BY MOUTH EVERY DAY for 90 Active Lancets 33G - Use 1 lancet to chec k glucose level DX E11.9 for 90 days 09/24/2024 Active Lancets 33G - Use as directed BID and PRN to test blood sugar Dx: Diabetes Type II for 90 days 03/14/2023 Active Levothyroxine Sodium 75 MCG 1 tablet in the morning on an empty stomach Orally Once a day for 90 days Active Ketoconazole 2 % 1 application Evaporator Repairer ally bid for 14 days 01/23/2025 Active Jardiance 10 MG 1 tablet Orally Once a day for 90 days 05/17/2024 Active Diclofenac Sodium 75 MG 1 tablet as need ed Orally Twice a day for 30 days 10/17/2024 Active Clopidogrel Bisulfate 75 MG TAKE 1 TABLE T BY MOUTH ONCE DAILY Oral for 90 Days Active Glimepiride 1 MG 1 tablet NEEDED Orally with breakfast for 90 days Active Esomeprazole Magnesium 40 MG TAKE ONE CAPSULE BY MOUTH EVERY DAY for 90 Active GNP Aspirin Low Dose 81 MG TAKE 1 TABLET BY MOUTH ONCE DAILY DIRECTED Oral for 90 Days Active Chlorthalidone 25 MG TAKE 1 TABLET BY MO [facility] ONCE DAILY Oral for 90 Days Active Breyna 160-4.5 MCG/ACT INHALE TWO PUFFS BY MOUTH TWICE A DAY for 90 Active Blood Glucose Test - as directed true metrix test strips In Vitro once daily for 100 days DX E11.9 09/13/2024 Active Blood Glucose Meter -- Use device to mon itor glucose level DX E11.9 for 365 days 09/24/2024 Active Anastrozole 1 MG 1 tablet Orally Once a day 05/17/2024 Active Nexletol 180 MG 1 tablet Orally Once a day Cardio 04/25/2025 Active Amoxicillin-Pot Clavulanate 875-125 MG 1 tablet Orally every 12 hrs for 10 days 04/17/2025 Active Accu-Chek Guide Test - Use 1 strip In Vi tro to check sugar daily DX E11.9 for 90 days Active Social History Tobacco Use: Social History Observation Description Date Details (start date - stop date) Never Smoker NA - NA Tobacco Use/Smoking Question Answer Notes Patient is a nonsmoker Vital Signs Weight 245.6 lbs 04/25/2025 Height 64 in 04/25/2025 Blood pressure systolic 132 mm Hg 04/25/20 25 Blood pressure diastolic 88 mm Hg 025 BMI 42.15 kg/m2 04/25/2025 Encounters Encounter Location Date Provider Diagnosis [facility] [address] [place] [address] 04/25/2025 Carlos Enrique Lewis Type 2 diabetes nav itus with other specified complication E11.69 ; Hyperlipidemia E78.5 ; Hypertension I10 ; Obstructive sleep apnea G47.33 ; CAD (coronary artery disease) I25.10 ; Hip pain, acute, right M25.551 and Hip pain, acute, left M25.552 Assessments Encounter Date Diagnosis (ICD Code) Assessment Notes Treatment Notes Treatment Clinical Notes Section Notes 04/25/2025 Type 2 diabetes mellitus with other specified complication (ICD-10 - E11.69) well controld 04/25/2025 Hyperlipidemia (ICD-10 - E78.5) on Repatha 04/25/2025 Hypertension (ICD-10 - I10) stabel here - diastolic up sl 04/25/2025 Obstructive sleep apnea (ICD-10 - G47.33) weating mask 04/25/2025 CAD (coronary artery disease) (ICD-10 - I25.10) stqabel seeing cardiology 04/25/2025 Hip pain, acute, right (ICD-10 - M25.551) 04/25/2025 Hip pain, acute, left (ICD-10 - M25.552) needs x-ray Plan Of Treatment Treatment Notes Assessment Notes Type 2 diabetes mellitus wit h other specified complication well controld Hyperlipidemia on Repatha Hypertension stabel here - diasto lic up sl Obstructive sleep apnea weating mask CAD (coronary artery disease) stqabel se eing cardiology Hip pain, acute, left needs x-ray Pending Test Test Name Order Date HEMOGLOBIN A1C (GLYCO) 04/25/2025 IRON, TOTAL 04/25/2025 LIPID PANEL (CHOL/TRIG/HDL/LDL) 04/25/20 25 VITAMIN D, 25 LEVEL (TOTAL) 04/25/2025 XR HIP LT 2 3V W PELVIS 04/25/2025 THYROID PANEL (T4/TSH/FREE T3) 5 CMP (COMP MET PETERS) w/eGFR CKD-EPI 2024 CBC WITH DIFF 04/25/2025 Progress Notes * Doris MAYSDOB:[birth year] (65 yo F)Acc No.[id number]:04/25/2025 Progress Note Patient: Doris OCONNELL Provider: Isael Lewis ([facility])MD :1960 A ge:65 Y S ex:Female Date:04/25/2025 Address:[address] [place] [address], [place], [id number] Check In:01:51 PM ESTCheck O ut:02:52 PM EST Subjective: * Chief Complaints: * 3 month f/uWhen she sits in her chair with feet up, her left hip starts to hurt her- sometimes goes down into the knee- sometimes feels better if gets up and movesSugars have been running 120s-140s * HPI: G eneral: DM 120- 140's if cheats HTN - stabel at home Tyrpoid - meds - stabel Hyperchol - on nexlatol, and repatha R hip pain 0jnitermittant worse wtihactivity. * ROS: E ENT: hearing changes d [...] nav itus with other specified complication Modified On:01/26/2024W/U Status:confirmed J21.9 Acute bronchiolitis Modified On:05/24/2023 Status:confirmed B35.4 Tinea corporis Modified On:05/24/2023 Status:confirmed M17.9 Knee osteoarthritis Modified On:06/29/2023 Status:confirmed C50.919 Breast cancer Modified On:11/18/2023 Status:confirmed G47.00 Insomnia, unspecifie d Modified On:01/25/2024U Status:confirmed E66.01 Morbid (severe) obes ity due to excess calories Modified On:09/06/2024 Status:confirmed J43.1 Panlobular emphysema Modified On:01/23/2025 Status:confirmed C50.911 Malignant neoplasm o f right breast Modified On:04/16/2025 Status:confirmed G72.9 Myopathy Modified On:05/01/2025 Status:confirmed * Medical History: * Surgical History: [...] Vitro to check sugar daily DX E11.9 Amoxicillin-Pot Clavulanate 875-125 MG Tablet 1 tablet Orally every 12 hrs Anastrozole 1 MG Tablet 1 tablet Orally Once a day Blood Glucose Meter -- -- Use device to monitor glucose level DX E11.9 Blood Glucose Test - Strip as directed true metrix test strips In Vitro once daily DX E11.9Breyna(Budesonide-Formoterol Fumarate) 160-4.5 MCG/ACT Aerosol INHALE TWO PUFFS BY MOUTH TWICE A DAY Chlorthalidone 25 MG Tablet TAKE 1 TABLET BY MOUTH ONCE DAILY Oral Clopidogrel Bisulfate 75 MG Tablet TAKE 1 TABLET BY MOUTH ONCE DAILY Oral Diclofenac Sodium 75 MG Tablet Delayed Release 1 tablet as needed Orally Twice a day Esomeprazole Magnesium 40 MG Capsule Delayed Release TAKE ONE CAPSULE BY MOUTH EVERY DAY Glimepiride 1 MG Tablet 1 tablet NEEDED Orally with breakfast GNP Aspirin Low Dose(Aspirin) 81 MG Tablet Delayed Release TAKE 1 TABLET BY MOUTH ONCE DAILY DIRECTED Oral Jardiance(Empagliflozin) 10 MG Tablet 1 tablet Orally Once a day Ketoconazole 2 % Cream 1 application Externally bid Lancets 33G(Lancets) - Miscellaneous Use as directed [...] 500 MG Tablet Extended Release 24 Hour TAKE ONE TABLET BY MOUTH WITH EVENING MEAL ONCE DAILY Metoprolol Succinate ER 100 MG Tablet Extended Release 24 Hour TAKE ONE TABLET BY MOUTH EVERY DAY Montelukast Sodium 10 MG Tablet TAKE ONE TABLET BY MOUTH EVERY DAY Mounjaro(Tirzepatide) 2.5 MG/0.5ML Solution Auto-injector 2.5 mg Subcutaneous weekly Miqiidaf-Qknebibzf-Uznoowig 3.5-14986-8.1 Suspension 1 drop into affected eye Ophthalmic Four times a day Nexletol(Bempedoic Acid) 180 MG Tablet 1 tablet Orally Once a day , Notes to Pharmacist: CardioProbiotic , Notes to Pharmacist: BiomaRepatha SureClick(Evolocumab) 140 MG/ML Solution Auto-injector INJECT 1ML SUBCUTANEOUS ONCE EVERY TWO WEEKS 28 DAYS Test Strips - - Use 1 strip to monitor glucose daily DX E11.9 True Metrix Strips/Lancets - - Use one strip with meter QD and PRN Dx: Diabetes Type II Medication List reviewed and reconciled with the patientTaking Accu-Chek Guide Test(Glucose Blood) - Strip Use 1 strip In Vitro to check sugar daily DX E11.9 Taking Amoxicillin-Pot Clavulanate 875-125 MG Tablet 1 tablet Orally every 12 hrs Taking Anastrozole 1 MG Tablet 1 tablet Orally Once a day Taking Blood Glucose Meter -- -- Use device to monitor glucose level DX E11.9 Taking Blood Glucose Test - Strip as directed true metrix test strips In Vitro once daily DX E11.9Taking Breyna(Budesonide-Formoterol Fumarate) 160-4.5 MCG/ACT Aerosol INHALE TWO PUFFS BY MOUTH TWICE A DAY Taking Chlorthalidone 25 MG Tablet TAKE 1 TABLET BY MOUTH ONCE DAILY Oral Taking Clopidogrel Bisulfate 75 MG Tablet TAKE 1 TABLET BY MOUTH ONCE DAILY Oral Taking Diclofenac Sodium 75 MG Tablet Delayed Release 1 tablet as needed Orally Twice a day Taking Esomeprazole Magnesium 40 MG Capsule Delayed Release TAKE ONE CAPSULE BY MOUTH EVERY DAY Taking Glimepiride 1 MG Tablet 1 tablet NEEDED Orally with breakfast Taking GNP Aspirin Low Dose(Aspirin) 81 MG Tablet Delayed Release TAKE 1 TABLET BY MOUTH ONCE DAILY DIRECTED Oral Taking Jardiance(Empagliflozin) 10 MG Tablet 1 tablet Orally Once a day Taking Ketoconazole 2 % Cream 1 application Externally bid Taking Lancets 33G(Lancets) - Miscellaneous Use as [...] 500 MG Tablet Extended Release 24 Hour TAKE ONE TABLET BY MOUTH WITH EVENING MEAL ONCE DAILY Taking Metoprolol Succinate ER 100 MG Tablet Extended Release 24 Hour TAKE ONE TABLET BY MOUTH EVERY DAY Taking Montelukast Sodium 10 MG Tablet TAKE ONE TABLET BY MOUTH EVERY DAY Taking Mounjaro(Tirzepatide) 2.5 MG/0.5ML Solution Auto-injector 2.5 mg Subcutaneous weekly Taking Zwqkjnlf-Uqbvbcigt-Gahjswqb 3.5-79799-3.1 Suspension 1 drop into affected eye Ophthalmic Four times a day Taking Nexletol(Bempedoic Acid) 180 MG Tablet 1 tablet Orally Once a day , Notes to Pharmacist: CardioTaking Probiotic , Notes to Pharmacist: BiomaTaking Repatha SureClick(Evolocumab) 140 MG/ML Solution Auto-injector INJECT 1ML SUBCUTANEOUS ONCE EVERY TWO WEEKS 28 DAYS Taking Test Strips - - Use 1 strip to monitor glucose daily DX E11.9 Taking True Metrix Strips/Lancets - - Use one strip with meter QD and PRN Dx: Diabetes Type II Medication List reviewed and reconciled with the patient * Allergies: K eflexHydroxychloroquineCrestorStatinsLevofloxacin: Nausea,no[Allergies Verified] Objective: * Vitals: W t:245.6lbs, Ht: 64 in, BP:132/88mm Hg, BMI:42.15Index, Ht-cm: 162.56 cm, Wt-k.4 kg. * Examination: P hysical Exam: GENERAL: [...] mood and affect. Assessment: * Assessment: 1. T ype 2 diabetes mellitus with other specified complication - E11.69 (Primary) ?2. H yperlipidemia - E78.5 3 . H ypertension - I10 4 .?Obstructive sleep apnea - G47.33 5 . C AD (coronary artery disease) - I25.10 6. H ip pain, acute, right - M25.551 7 . H ip pain, acute, left - M25.552 Plan: * Treatment: 2. H yperlipidemia L AB: HEMOGLOBIN A1C (GLYCO) L AB: IRON, TOTAL L AB: LIPID PANEL (CHOL/TRIG/HDL/LDL) L AB: VITAMIN D, 25 LEVEL (TOTAL) L AB: THYROID PANEL (T4/TSH/FREE T3) L AB: CMP (COMP MET PETERS) w/eGFR CKD-EPI L AB: CBC WITH DIFF Notes: on Repatha 3. H ypertension L AB: HEMOGLOBIN A1C (GLYCO) L AB: IRON, TOTAL L AB: LIPID PANEL (CHOL/TRIG/HDL/LDL) L AB: VITAMIN D, 25 LEVEL (TOTAL) L AB: THYROID PANEL (T4/TSH/FREE T3) L AB: CMP (COMP MET PETERS) w/eGFR CKD-EPI L AB: CBC WITH DIFF Notes: stabel here - diastolic up sl 4. O bstructive sleep apnea L AB: HEMOGLOBIN A1C (GLYCO) L AB: IRON, TOTAL L AB: LIPID PANEL (CHOL/TRIG/HDL/LDL) L AB: VITAMIN D, 25 LEVEL (TOTAL) L AB: THYROID PANEL (T4/TSH/FREE T3) L AB: CMP (COMP MET PETERS) w/eGFR CKD-EPI L AB: CBC WITH DIFF Notes: weating mask 5. C AD (coronary artery disease) L AB: HEMOGLOBIN A1C (GLYCO) L AB: IRON, TOTAL L AB: LIPID PANEL (CHOL/TRIG/HDL/LDL) L AB: VITAMIN D, 25 LEVEL (TOTAL) L AB: THYROID PANEL (T4/TSH/FREE T3) L AB: CMP (COMP MET PETERS) w/eGFR CKD-EPI L AB: CBC WITH DIFF Notes: stqabel seeing cardiology 6. H ip pain, acute, right L AB: HEMOGLOBIN A1C (GLYCO) L AB: IRON, TOTAL L AB: LIPID PANEL (CHOL/TRIG/HDL/LDL) L AB: VITAMIN D, 25 LEVEL (TOTAL) L AB: THYROID PANEL (T4/TSH/FREE T3) L AB: CMP (COMP MET PETERS) w/eGFR CKD-EPI L AB: CBC WITH DIFF I maging: XR HIP LT 2 3V W PELVIS 7. H ip pain, acute, left L AB: HEMOGLOBIN A1C (GLYCO) L AB: IRON, TOTAL L AB: LIPID PANEL (CHOL/TRIG/HDL/LDL) L AB: VITAMIN D, 25 LEVEL (TOTAL) L AB: THYROID PANEL (T4/TSH/FREE T3) L AB: CMP (COMP MET PETERS) w/eGFR CKD-EPI L AB: CBC WITH DIFF Notes: needs x-ray * Procedure Codes: * Preventive Medicine: Screenings/Counseling: B [facility] PLAN Above Normal BMI Follow-up D ietary management education, guidance, and counseling * * Sign off status: Completed Visit Status: C HK (Check Out) true * Provider: Isael Lewis (TTC)MD Date: 0 04/25/2025 Generated for Printi ng/Faxing/eTransmitting on: 0 05/03/2025 11:20 AM EDT History and Physical Notes * HPI (History of Present Illness) Category Sub-Category Detail Notes Category Not es General DM 120- 140's if cheats HTN - stabel at home Tyrpoid - meds - stabel Hyperchol - on nexlatol, and repatha R hip pain 0jnitermittant worse wtihactivity Examination Category Sub-Category Detail Notes Category Not [...]
--- OUTSIDE RECORDS SUMMARY | 2025-04-30 10:45 | XMS_ITS | Encounter Summary ---
Author Organization [facility] Address [address] [place] [address] Care Team Providers Care Crop Scout Name Role Phone Carlos Lewis MD Primary Care Provider [phone] Reason for Visit * Reason Comments 1st poy 4th pom Rt lumpectomy Encounter Details Date Type Department Care Team (Late st Contact Info) Description 04/30/2025 10:45 AM EDT Office Visit [facility] [address] [phone] Raphael Nelson DO 703 [facility] [address] [place] [address] History of right breast cancer (Primary Dx) Social History Tobacco Use Types Packs/Day Years Used Date Smoking Tobacco: Never Smokeless Tobacco: Never Alcohol Use Standard Drinks/Week Comments Never 0 (1 standard drink = 0.6 oz pur e alcohol) Comments Unknown Sex and Gender Information Value Date Recorded Sex Assigned at Female 11/21/2023 12:04 PM EDT Legal Sex Female 9:34 AM EDT Gender Identity Female 11/21/2023 12:04 PM EDT Sexual Orientation Straight 11/21/2023 12 :04 PM EDT documented as of this encounter Last Filed Vital Signs Vital Sign Reading Time Taken Comments Blood Pressure 123/78 04/30/2025 10:45 AM EDT Pulse - - Temperature - - Respiratory Rate - - Oxygen Saturation - - Inhaled Oxygen Concentration - - Weight 109 kg (240 lb) 04/30/2025 10:45 AM EDT Height 162.6 cm (5' 4 ) 04/30/2025 10:45 AM EDT Body Mass Index 41.2 04/30/2025 10:45 AM EDT documented in this encounter Progress Notes * Raphael Nelson, - 04/30/2025 10:45 AM EDT Images from the original note were not included. Doris Mays 1960 Doris Mays is a 65 y.o. female presents with chief complaint of 1st poy 4th pom Rt lumpectomy HPI: HPI Patient does not have any changes to the scar tissue that she can feel at the right breast lumpectomy site nor does she notice any dominant mass on either breast. She has not noticing any skin changes or lumps or bumps. She has not having any nipple discharge. She has not having any lumps or bumps in the axilla. She has not having any new health complaints. She is still taking anastrozole. SUBJECTIVE: MEDICATIONS: ALLERGIES Current Outpatient Medications Medication Instructions anastrozole (Arimidex) 1 MG chemo tablet budesonide-formoterol (Symbicort) 160-4.5 MCG/ACT inhaler 2 puffs, 2 times daily chlorthalidone (HYGROTON) 25 mg, Daily clopidogrel (PLAVIX) 75 mg, Daily diclofenac (VOLTAREN) 75 mg, 2 times daily doxycycline (MONODOX) 100 mg, 2 times daily empagliflozin (Jardiance) 10 MG Take by mouth esomeprazole (NEXIUM) 40 mg, Daily glimepiride (AMARYL) 4 mg, Daily with breakfast GNP Aspirin Low Dose 81 MG EC tablet lisinopril 40 mg, Daily metFORMIN XR (Glucophage-XR) 500 MG 24 hr tablet metoprolol succinate XL (TOPROL-XL) 100 mg, Daily mometasone (Elocon) 0.1 % cream montelukast (Singulair) 10 MG tablet nitroglycerin (NITROSTAT) 0.4 mg, Every 5 min PRN NON FORMULARY GLUCOCIL 2 DAILY Repatha SureClick 140 MG/ML injection Synthroid 50 MCG tablet True Metrix Blood Glucose Test test strip Allergies Allergen Reactions Statins Shortness of breath Other Reaction(s): Myalgia Zetia [Ezetimibe] Shortness of breath Hydroxychloroquine Itching Levofloxacin Swelling Cephalexin Itching and Rash PAST MEDICAL HISTORY: SOCIAL HISTORY SURGICAL HISTORY: Past Medical History: Diagnosis Date Breast cancer (HCC) 11/18/23 COPD (chronic obstructive pulmonary disease) (HCC) Coronary artery disease 2018 Diabetes mellitus (HCC) Diverticulitis of colon Fibrocystic breast May 2019 Hypertension Thyroid nodule One side removed Social History Tobacco Use Smoking status: Never Smokeless tobacco: Never Substance Use Topics Alcohol use: Never Drug use: Never Past Surgical History: Procedure Laterality Date BREAST LUMPECTOMY 12/26/2023 Right lumpectomy HYSTERECTOMY TUBAL LIGATION REVIEW OF SYMPTOMS: Review of Systems Constitutional: Negative for appetite change, fatigue and fever. HENT: Negative for trouble swallowing. Breasts: Negative for breast discharge. Respiratory: Negative for cough and shortness of breath. Cardiovascular: Negative for chest pain. Gastrointestinal: Negative for abdominal pain. Genitourinary: Negative for hematuria. Musculoskeletal: Negative for back pain. Skin: Negative for wound. Neurological: Negative for seizures. OBJECTIVE: Visit Vitals Smoking Status Never Physical Exam Exam conducted with a chute worker present. Constitutional: Appearance: Normal appearance. HENT: Head: Atraumatic. Eyes: General: No scleral icterus. Cardiovascular: Rate and Rhythm: Regular rhythm. Pulmonary: Effort: No respiratory distress. Chest: Comments: Bilateral exam is performed in the seated and supine position, there is no suspicious mass, skin changes or nipple discharge. There is no axillary lymphadenopathy. Patient has unchanged palpable scar tissue / fat necrosis around this site of the lumpectomy, just above the middle of the incision. Abdominal: General: There is no distension. Tenderness: There is no abdominal tenderness. Skin: Findings: No bruising. Neurological: Mental Status: She is alert. Gait: Gait normal. 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 [place] lymph node negative. T1 N0 = stage I breast CA. Oncotype DX low risk of recurrence, no chemo. Pt on endocrine therapy. October Repeat bilateral mammogram shows no suspicious findings. No suspicious findings on exam besides stable palpable postsurgical changes.. We discussed continue follow up, recheck physical exam in 4 months. She will continue with the anastrozole. Repeat mammogram next year. If she notices anything suspicious or concerning she will contact me for earlier re-evaluation. documented in this encounter Plan of Treatment Upcoming Encounters Date Type Department Care Team (Late st Contact Info) Description 09/04/2025 9:45 AM EST Office Visit [facility] [address] [phone] Raphael Nelson DO [address] [address] documented as of this encounter Visit Diagnoses Diagnosis History of right breast cancer- Primary documented in this encounter Care Teams Crop Scout Relationship Specialty Start Date End Date Carlos Lewis MD [address] [place] [address] PCP - General Family Medicine 04/09/25 documented as of this encounter
--- OUTSIDE RECORDS SUMMARY | 2025-05-03 11:19 | XMS_ITS | Encounter Summary ---
Author Organization [facility] Address [address] [place] [address] Phone Care Team Providers Care Salesperson Florist Supplies Name Role Phone Carlos Lewis MD Primary Care Provider [phone] Encounter Details Date Type Department Care Team (Late st Contact Info) Description 04/08/2022 Orders Only [facility] [address] [place] [address] Conversion, Onbase Social History Tobacco Use Types Packs/Day Years Used Date Smoking Tobacco: Never Assessed Comments Unknown Sex and Gender Information Value Date Recorded Sex Assigned at Female 01/03/2024 10:02 PM EDT Legal Sex Female 5:24 PM EST Gender Identity Female 01/03/2024 10:02 PM EDT Sexual Orientation Straight 01/03/2024 10 :02 PM EDT documented as of this encounter Plan of Treatment Upcoming Encounters Date Type Department Care Team (Late st Contact Info) Description 01/07/2026 1:50 PM EDT Office Visit [address] [place] [address] Ciera Pastor MD [address] [facility] [place] [address] Scheduled Orders Name Type Priority Associated Diagnoses Orde r Schedule OUTSIDE LAB SCAN Lab Ordered: 04/08/2022 documented as of this encounter Visit Diagnoses Not on filedocumented in this encounter Care Teams Salesperson Florist Supplies Relationship Specialty Start Date End Date Carlos Lewis MD [address] [place] [address] PCP - General 08/29/20 documented as of this encounter
--- OUTSIDE RECORDS SUMMARY | 2025-05-03 11:19 | XMS_ITS | Patient Health Record ---
Author Organization [facility] in [place] Address [address] [place] [address] Care Team Providers Care Rn Endocrinology Name Role Phone Debbie Carlos Enrique Primary Care Provider [phone] Allergies Allergen (clinical drug ingredient) Drug/Non Drug Allergy documented on EMR Reaction Allergy Type Onset Date Status rosuvastatin Crestor Unknown Drug Allergy Acti ve Keflex Unknown Drug Allergy Active hydroxychloroquine Hydroxychloroquine Unknown Drug Allergy Active Substance with 6-jluvmvg-4-methylglutar yl-coenzyme A reductase inhibitor mechanism of action (substance) Statins Unknown Drug Allergy Active levofloxacin Levofloxacin Nausea, Drug Allergy A ctive Results Component Value Reference Range Notes XR chest 2V Reviewed date:09/11/2024 07:15:50 PM Interpretation: Performing Lab: Notes/Report: Source Facility: [place] [address] [place] [address] XRay Report Signed Patient: DORIS MAYS MR#: [id number] : 1960 Acct:[id number] Age/Sex: 64 / F ADM Date: 09/10/24 Loc: LAB Attending Dr: Noah Griffiths M.D. Ordering Physician: Noah Griffiths M.D. Date of Service: 09/10/24 Procedure(s): XR chest 2V Accession Number(s): [id number] cc: Noah Griffiths M.D. [place] [id number] Patient Name: DORIS MAYS MRN: [id number] date: 1960 Sex: F Assigned Patient Location: LAB Current Patient Location: LAB Accession/Order Number: [id number] Exam Date: 09/10/2024 16:27 Report Date: 09/11/2024 08:56 At the request of: NOAH GRIFFITHS Procedure: XR chest 2V EXAM: XR chest. HISTORY: . Acute bronchitis, J20.9 . COMPARISON: None. TECHNIQUE: Frontal and lateral chest FINDINGS: Heart and vascularity are unremarkable. Lungs are free of focal infiltrates. Early spondylosis of the spine is noted. There is a slight scoliotic deformity of the spine with convexity to the right. XR/XR chest 2V IMPRESSION: No acute heart or lung disease identified. Electronically authenticated by: THOMAS PRIDE Date: 09/11/2024 08:56 Dictated By: Thomas Pride M.D. Signed By: 09/11/24 0859 DD/ TD/TT: Body Worker: [place] [address] XRay Report Signed Patient: DORIS MAYS MR#: [id number] : 1960 Acct:[id number] Age/Sex: 64 / F ADM Date: 09/10/24 Loc: LAB Attending Dr: Rich Grififths M.D. Ordering Physician: Noah Griffiths M.D. Date of Service: 09/10/24 Procedure(s): XR ana st 2V Accession Number(s): [id number] cc: Noah Griffiths M.D. [address] [address] Patient Name: DORIS MAYS MRN: [id number] date: 1960 Sex: F Assigned Patient Location: LAB Current Patient Location: LAB Accession/Order Numb er: [id number] Exam Date: 09/10/2024 16:27 Report Date: 09/11/2024 08:56 At the request of: NOAH GRIFFITHS Procedure: XR chest 2V EXAM: XR chest. HISTORY: . Acute bronchitis, J20.9 . COMPARISON: None. TECHNIQUE: Frontal a nd lateral chest FINDINGS: Heart and vascularity are unremarkable. Lungs are free of focal infiltrates. Early spondylosis of the spine is noted. There is a slight scoliotic deformity of the spine with convexity to the right. XR/XR chest 2V IMPRESSION: No acute heart or mark ng disease identified. Electronically authenticated by: THOMAS PRIDE Date: 09/11/2024 08:56 Dictated By: Thomas Pride M.D. Signed By: 09/11/2459 DD/ TD/TT: Body Worker: PROF Murcia(COMP METB) Reviewed date:09/10/2024 08:20:42 PM Interpretation: Performing Lab: Notes/Report: [facility] , Sodium 141 136-145 mmol/L Potassium 3.3 3.5-5.1 mmol/L Chloride 100 98-107 mmol/L Carbon Dioxide 34.7 21.0-32.0 mmol/L Anion Gap 9.6 Glucose 234 74-106 mg/dL Blood Urea Nitrogen 29.0 7.0-18.0 mg/dL Creatinine 1.29 0.55-1.02 mg/dL Estimated GFR ( Angela 50 >=60 mL/min/1.73m 2 Estimated GFR (Non- Cassi 41 >=60 mL/min/1.73m 2 BUN Creatinine Ratio 22.5 Calcium 9.1 8.5-10.1 mg/dL Bilirubin Total 0.4 0.2-1.0 mg/dL Aspartate Amino Transferase 24 15-37 U/L Alanine Aminotransferase 53 14-59 U/L Alkaline Phosphatase 113 46-116 U/L Total Protein 7.1 6.4-8.2 g/dL Albumin Level 3.8 3.4-5.0 g/dL Globulin 3.3 Albumin Globulin Ratio 1.2 Performing Lab: see note ML - [facility] LB CBC AUTO DIFF Reviewed date:09/10/2024 08:20:42 PM Interpretation: Performing Lab: Notes/Report: [facility] , White Blood Count 9.5 4.0-11.0 10 3/uL Red Blood Count 5.26 4.20-5.40 10 6/uL Hemoglobin 15.1 12.0-16.0 g/dL Hematocrit 45.8 36.0-48.0 % Mean Corpuscular Volume 87.1 81.0-99.0 fL Mean Corpuscular Hemoglobin 28.7 26.7-34.0 pg Mean Corpuscular HGB Conc 33.0 29.9-35.2 g/dL Red Cell Distribution Width 13.2 11.0-15.0 % Platelet Count 321 150-450 10 3/uL Mean Platelet Volume 10.3 9.5-13.5 fL Neutrophils Percent Auto 81.6 43.0-75.0 % Lymphocytes Percent Auto 12.0 20.5-60.0 % Monocytes Percent Auto 4.6 1.7-12.0 % Eosinophils Percent Auto 0.0 0.9-7.0 % Basophils Percent Auto 0.2 0.2-2.0 % Immature Granulocytes Pct Auto 1.6 0.0-0.5 % Neutrophils Absolute Auto 7.7 1.4-6.5 10 3/uL Lymphocytes Absolute Auto 1.1 1.2-3.8 10 3/uL Monocytes Absolute Auto 0.4 0.3-0.8 10 3/uL Eosinophils Absolute Auto 0.0 0.0-0.7 10 3/uL Basophils Absolute Auto 0.0 0.0-0.1 10 3/uL Immature Granulocytes Abs Auto 0.15 0.00-0.03 10 3/uL Performing Lab: see note ML - [facility] LB COVID-19, Flu A+B IH Reviewed date:09/11/2024 07:15:50 PM Interpretation: Performing Lab: Notes/Report: COVID neg FLU A neg FLU B neg Control present Lower Respiratory Culture Reviewed date:09/16/2024 02:45:03 PM Interpretation: Performing Lab: Notes/Report: [facility] , Lower Respiratory Culture See Below For Report WILL FOLLOW Lower Respiratory Culture Lower Respiratory Culture Routine respir atory jimbo WILL FOLLOW Lower Respiratory Culture Lower Res[facility] Respiratory Culture Lower Respiratory Culture [address], [place], [place] [id number] WILL FOLLOW Lower Respiratory Culture Lower Respiratory Culture Newspaper Writer: Tyler Freedman PhD, Phone: [phone] WILL FOLLOW Lower Respiratory Culture Performing Lab: see note SEE REPORT - Tax Associate Attorney Id information not found for OBX-specific shafting worker legend LC - [facility] LB Gram Stain Evaluation Reviewed date:09/16/2024 02:45:03 PM Interpretation: Performing Lab: Notes/Report: [facility] , Gram Stain Evaluation See Below For Report Gram Stain Evaluation This specimen is of good quality and is acceptable for routine Gram Stain Evaluation bacterial culture. Gram Stain Evaluation This specimen is of good quality and is acceptable for routine Performing Lab: see note LC - [facility] LB Result 4 Reviewed date:09/16/2024 02:45:03 PM Interpretation: Performing Lab: Notes/Report: [facility] , Result 4 See Below For Report Result 4 Few gram positive rods. Performing Lab: see note LC - [facility] LB Result 3 Reviewed date:09/16/2024 02:45:03 PM Interpretation: Performing Lab: Notes/Report: [facility] , Result 3 See Below For Report Few gram negative diplococci. Result 3 Performing Lab: see note LC - [facility] LB Result 2 Reviewed date:09/16/2024 02:45:03 PM Interpretation: Performing Lab: Notes/Report: [facility] , Result 2 See Below For Report Few gram negative rods. Result 2 Performing Lab: see note LC - [facility] LB Result 1 Reviewed date:09/16/2024 02:45:03 PM Interpretation: Performing Lab: Notes/Report: [facility] , Result 1 See Below For Report Result 1 Moderate number of gram positive cocci. Performing Lab: see note LC - [facility] LB Epithelial Cells Reviewed date:09/16/2024 02:45:03 PM Interpretation: Performing Lab: Notes/Report: [facility] , Epithelial Cells See Below For Report Few Epithelial Cells Performing Lab: see note LC - [facility] LB White Blood Cells Reviewed date:09/16/2024 02:45:03 PM Interpretation: Performing Lab: Notes/Report: [facility] , White Blood Cells See Below For Report Wh ite Blood Cells White Blood Cells Few White Bloo d Cells Performing Lab: see note LC - [facility] LB Reason For Referral No Information Medications Medication SIG (Take, Route, Frequency, Duration) Notes Start Date End Date Status Lancets 33G - Use 1 lancet to chec k glucose level DX E11.9 for 90 days 09/24/2024 Active Lancets 33G - Use as directed BID and PRN to test blood sugar Dx: Diabetes Type II for 90 days 03/14/2023 Active Lisinopril 40 MG TAKE 1 TABLET BY JEANNE TH ONCE DAILY Oral for 90 Days Active Levothyroxine Sodium 75 MCG 1 tablet in the morning on an empty stomach Orally Once a day for 90 days Active Ketoconazole 2 % [address] Man ally bid for 14 days 01/23/2025 Active Jardiance 10 MG 1 tablet Orally Once a day for 90 days 05/17/2024 Active Blood Glucose Meter -- Use device to mon itor glucose level DX E11.9 for 365 days 09/24/2024 Active Anastrozole 1 MG 1 tablet Orally Once a day 05/17/2024 Active Nexletol 180 MG 1 tablet Orally Once a day Cardio 04/25/2025 Active Metoprolol Succinate ER 100 MG TAKE ONE TABLET BY MOUTH EVERY DAY for 90 Active metFORMIN HCl ER 500 MG TAKE ONE TABLET BY MOUTH WITH EVENING MEAL ONCE DAILY for 90 Active Amoxicillin-Pot Clavulanate 875-125 MG 1 tablet Orally every 12 hrs for 10 days 04/17/2025 Active Mounjaro 2.5 MG/0.5ML 2.5 mg Subcutaneou s weekly 01/23/2025 Active Accu-Chek Guide Test - Use 1 strip In Vi tro to check sugar daily DX E11.9 for 90 days Active Montelukast Sodium 10 MG TAKE ONE TABLET BY MOUTH EVERY DAY for 90 Active Chlorthalidone 25 MG TAKE 1 TABLET BY MO NEH ONCE DAILY Oral for 90 Days Active True Metrix Strips/Lancets - Use one strip with meter QD and PRN Dx: Diabetes Type II for 90 days 03/14/2023 Active Breyna 160-4.5 MCG/ACT INHALE TWO PUFFS BY MOUTH TWICE A DAY for 90 Active Test Strips - Use 1 strip to monit or glucose daily DX E11.9 for 90 days 09/24/2024 Active Diclofenac Sodium 75 MG 1 tablet as need ed Orally Twice a day for 30 days 10/17/2024 Active Clopidogrel Bisulfate 75 MG TAKE 1 TABLE T BY MOUTH ONCE DAILY Oral for 90 Days Active Jykgrwxl-Ntmuotnek-Jqzgvinu 3.5-12728-9.1 1 drop into affected eye Ophthalmic Four times a day for 7 days 04/17/2025 Active Blood Glucose Test - as directed true metrix test strips In Vitro once daily for 100 days DX E11.9 09/13/2024 Active Repatha SureClick 140 MG/ML INJECT 1ML S UBCUTANEOUS ONCE EVERY TWO WEEKS 28 DAYS for 84 Active Probiotic Bioma Active Glimepiride 1 MG 1 tablet NEEDED Orally with breakfast for 90 days Active Esomeprazole Magnesium 40 MG TAKE ONE CAPSULE BY MOUTH EVERY DAY for 90 Active GNP Aspirin Low Dose 81 MG TAKE 1 TABLET BY MOUTH ONCE DAILY DIRECTED Oral for 90 Days Active Social History Tobacco Use: Social History Observation Description Date Details (start date - stop date) Never Smoker NA - NA Tobacco Use/Smoking Question Answer Notes Patient is a nonsmoker Problems Problem Type SNOMED Code ICD Code Onset Dates Problem Status W/U Status Risk Notes Problem Tinea corporis (66643678) Tinea corporis (B35.4) Active confirmed Problem 96609846 Type 2 diabetes mellitus with other specified complication (E11.69) Active confirmed Problem Morbid obesity (disorder) (150157357) Morbid (severe) obesity due to excess calories (E66.01) Active confirmed Problem 307321052 Insomnia, unspecified (G47.00) Active confirmed Problem Panlobular emphysema (5703680) Panlobular emphysema (J43.1) Active confirmed Problem Hyperlipidemia (85832026) Hyperlipidemia (E78.5) Active confirmed Problem Hypertension (40448578) Hypertension (I10) Active confirmed Problem Hypothyroidism (58316023) Hypothyroidism (E03.9) Active confirmed Problem Obstructive sleep apnea (30858478) Obstructive sleep apnea (G47.33) Active confirmed Problem Osteoarthritis of knee (169794483) Knee osteoarthritis (M17.9) Active confirmed Problem Coronary artery disease (09684827) CAD (coronary artery disease) (I25.10) Active confirmed Problem Breast cancer (463580040) Breast cancer (C50.919) Active confirmed Problem Fibromyalgia (859937352) Fibromyalgia (M79.7) Active confirmed Problem Myopathy (972387507) Myopathy (G72.9) Active confirmed Problem Acute bronchiolitis (8684348) Acute bronchiolitis (J21.9) Active confirmed Problem Malignant neoplasm of female breast (450695552) Malignant neoplasm of right breast (C50.911) Active confirmed Vital Signs Temperature 98.7 degrees Fahrenheit 09/06/2024 Blood pressure diastolic 88 mm Hg 04/25/2025 Height 64 in 04/25/2025 Blood pressure systolic 132 mm Hg 04/25/2025 Weight 245.6 lbs 04/25/2025 BMI 42.15 kg/m2 04/25/2025 Encounters Encounter Location Date Provider Diagnosis [facility] [address] [place] [address] 04/17/2025 Carlos Enrique [facility] [address] [place] [address] 04/24/[address] [facility] [address] [place] [address] 09/13/2024 Carlos Enrique Griffiths [facility] [address] [facility] [place] [address] 09/14/[address] [facility] [address] [place] [address] 09/20/2024 Carlos Enrique [facility] [address] [place] [address] 09/24/[address] [facility] [address] [facility] [place] [address] 10/17/[address] [facility] [address] [facility] [place] [address] 03/08/2025 Carlos Enrique Griffiths Hyperlipidemia E78.5 [facility] [address] [facility] [place] [address] 05/17/2024 Carlos Enrique Griffiths Hypothyroidism E03.9 ; Hypertension I10 ; CAD (coronary artery disease) I25.10 ; Type 2 diabetes mellitus with other specified complication E11.69 and Insomnia, unspecified G47.00 [facility] [address] [facility] [place] [address] 05/31/2024 Carlos Enrique Zamoray [facility] [address] [facility] [place] [address] 09/06/2024 Carlos Enrique Griffiths Hypertension I10 [facility] [address] [facility] [place] [address] 09/10/2024 Carlos Enrique Griffiths Type 2 diabetes nav itus with other specified complication E11.69 and Acute bronchitis, unspecified organism J20.9 [facility] [address] [place] [address] 09/11/[address] [facility] [address] [place] [address] 09/11/[address] [facility] [address] [place] [address] 05/17/[address] [facility] [address] [place] [address] 05/17/2024 Carlos Enrique Griffiths Hypertension I10 ; Hypothyroidism E03.9 ; Obstructive sleep apnea G47.33 ; Type 2 diabetes mellitus with other specified complication E11.69 and CAD (coronary artery disease) I25.10 [address] [place] [address] 09/06/2024 Carlos Enrique Griffiths Type 2 diabetes nav itus with other specified complication E11.69 ; Acute bronchitis, unspecified organism J20.9 and Morbid (severe) obesity due to excess calories E66.01 [address] [place] [address] 01/23/2025 Carlos Enrique Griffiths Panlobular emphysema J43.1 ; Type 2 diabetes mellitus with other specified complication E11.69 ; CAD (coronary artery disease) I25.10 ; Obstructive sleep apnea G47.33 ; Hypothyroidism E03.9 and Hypertension I10 [address] [address] 10/17/2024 Carlos Enrique Griffiths Hypertension I10 ; Hypothyroidism E03.9 ; Hyperlipidemia E78.5 and CAD (coronary artery disease) I25.[address] [address] 04/25/2025 Carlos Enrique Griffiths Type 2 diabetes nav itus with other specified complication E11.69 ; Hyperlipidemia E78.5 ; Hypertension I10 ; Obstructive sleep apnea G47.33 ; CAD (coronary artery disease) I25.10 ; Hip pain, acute, right M25.551 and Hip pain, acute, left M25.552 Assessments Encounter Date Diagnosis (ICD Code) Assessment Notes Treatment Notes Treatment Clinical Notes Section Notes 05/17/2024 Hypertension (ICD-10 - I10) 05/17/2024 Hypothyroidism (ICD-10 - E03.9) 09/06/2024 Type 2 diabetes mellitus with other specified complication (ICD-10 - E11.69) 09/06/2024 Acute bronchitis, unspecified organism (ICD-10 - J20.9) Rest and drink more liquids, especially water. You may use a humidifier or vaporizer to help keep the drainage moist. Ford-ovr-hvukplc Nasal Saline may help the stuffy and runny nose. Use Ibuprofen and or Tylenol as needed for fever, chills, body aches or pain. Children 5 years old should not be given hzol-txm-kqkjoql cough and cold medications such as guaifenesin and dextromethorphan. If you're over age 5, you may try izla-iio-ayuhvxz cold medications such as guaifenesin and dextromethorphan, or multi-symptom cold reliever such as Dayquil to help reduce the symptoms. Antibiotics have been prescribed. You should take these until completed and follow the directions. Antibiotics can sometimes cause upset stomach, and in rare cases, serious allergic reactions or serious gastrointestinal problems. If you start having severe abdominal pain, severe vomiting, or bloody diarrhea, you should be reevaluated by your physician or urgent care immediately. Follow up with your Primary Care Provider or return to clinic if symptoms do not improve within 3-5 days. If you develop severe symptoms such as shortness of breath, repeated vomiting, coughing up blood, or chest pain you should go to the emergency room or call 911 01/23/2025 Panlobular emphysema (ICD-10 - J43.1) 01/23/2025 Type 2 diabetes mellitus with other specified complication (ICD-10 - E11.69) reviewd labs from last year 10/17/2024 Hypertension (ICD-10 - I10) 10/17/2024 Hypothyroidism (ICD-10 - E03.9) 05/17/2024 Hypothyroidism (ICD-10 - E03.9) 05/17/2024 Hypertension (ICD-10 - I10) 04/25/2025 Type 2 diabetes mellitus with other specified complication (ICD-10 - E11.69) well controld 04/25/2025 Hyperlipidemia (ICD-10 - E78.5) on Repatha 09/06/2024 Hypertension (ICD-10 - I10) 09/10/2024 Type 2 diabetes mellitus with other specified complication (ICD-10 - E11.69) 03/08/2025 Hyperlipidemia (ICD-10 - E78.5) 09/10/2024 Acute bronchitis, unspecified organism (ICD-10 - J20.9) 04/25/2025 Hypertension (ICD-10 - I10) stabel here - diastolic up sl 05/17/2024 CAD (coronary artery disease) (ICD-10 - I25.10) 10/17/2024 Hyperlipidemia (ICD-10 - E78.5) 01/23/2025 CAD (coronary artery disease) (ICD-10 - I25.10) stable 09/06/2024 Morbid (severe) obesity due to excess calories (ICD-10 - E66.01) 05/17/2024 Obstructive sleep apnea (ICD-10 - G47.33) 05/17/2024 Type 2 diabetes mellitus with other specified complication (ICD-10 - E11.69) 01/23/2025 Obstructive sleep apnea (ICD-10 - G47.33) wearing mas 10/17/2024 CAD (coronary artery disease) (ICD-10 - I25.10) 05/17/2024 Type 2 diabetes mellitus with other specified complication (ICD-10 - E11.69) 04/25/2025 Obstructive sleep apnea (ICD-10 - G47.33) weating mask 04/25/2025 CAD (coronary artery disease) (ICD-10 - I25.10) stqabel seeing cardiology 05/17/2024 Insomnia, unspecified (ICD-10 - G47.00) 01/23/2025 Hypothyroidism (ICD-10 - E03.9) on mes - reviewed labs 05/17/2024 CAD (coronary artery disease) (ICD-10 - I25.10) 01/23/2025 Hypertension (ICD-10 - I10) stable 04/25/2025 Hip pain, acute, right (ICD-10 - M25.551) 04/25/2025 Hip pain, acute, left (ICD-10 - M25.552) needs x-ray Plan Of Treatment Pending Test Test Name Order Date CMP (COMPLETE METABOLIC PANEL) 09/26/202 3 CMP (COMPLETE METABOLIC PANEL) 4 HEMOGLOBIN A1C (GLYCO) 05/24/2023 HEMOGLOBIN A1C (GLYCO) 04/25/2025 IRON, TOTAL 04/25/2025 LIPID PANEL (CHOL/TRIG/HDL/LDL) 04/25/20 25 LIPID PANEL (CHOL/TRIG/HDL/LDL) 05/24/20 23 CBC WITH DIFF 05/24/2023 VITAMIN D, 25 LEVEL (TOTAL) 04/25/2025 MAMM Mammograms CAD 09/23/2023 US Guided Breast Biopsy 11/08/2023 CBC W/AUTO DIFF 05/17/2024 STOOL OCCULT BLOOD 05/24/2023 US Breast Limited Bilat-Right 10/27/2023 MAMM DIAG UNILAT RT CHARLY 3D GLOBAL GLYCOHEMOGLOBIN A1C 05/17/2024 LIPID PROFILE 05/17/2024 XR HIP LT 2 3V W PELVIS 04/25/2025 XR KNEE LT 3V 05/24/2023 XR KNEE RT 3V 05/24/2023 THYROID PANEL (T4/TSH/FREE T3) 3 THYROID PANEL (T4/TSH/FREE T3) 5 THYROID PANEL (T4/TSH/FREE T3) 4 Vitamin D 05/17/2024 Gram Stain w/Sputum Cult Rflx 09/10/2024 CMP (COMP MET PETERS) w/eGFR CKD-EPI 2024 CBC WITH DIFF 04/25/2025 Insurance Providers Payer Name Payer Address Payer Phone Subscriber Number Group Number Insured Name Patient Relationship to Insured Coverage Start Date Coverage End Date [employer] ADV PLAN [address] [place] [phone] [id number] Doris Mays Self - patient is the insured Medications Administered Medication Instructions Date of Administration Dosage Notes Kenalog-40 06/29/2023 80 mg Kenalog-40 06/29/2023 80 mg Medical (General) History Medical History History ICD Code Internal derangement of knee M23.90 COVID-19 U07.1 Osteoarthritis of right knee M17.11 CAD (coronary artery disease) I25.10 Unstable angina I20.0 Fibromyalgia M79.7 Hypertension I10 Gout M10.9 Insomnia G47.00 Diverticular disease K57.90 Obstructive sleep apnea G47.33 Hyperlipidemia E78.5 Hypothyroidism E03.9 malignant neoplasm of central portion of right breast Surgical History Surgery Date(Month/Year) Lumpectomy Plate in Back of Neck Left Shoulder Spurs Partial Thyroidectomy Tonsils and Adnoids Total Hysterectomy
--- OUTSIDE RECORDS SUMMARY | 2025-05-03 11:19 | XMS_ITS | Encounter Summary ---
Author Organization [facility] Address [address] [place] [address] Phone Care Team Providers Care De Alcholizer Name Role Phone Carlos Lewis MD Primary Care Provider [phone] Encounter Details Date Type Department Care Team (Late st Contact Info) Description 05/31/2024 Scanned Document [facility] [address] [place] [id number] Scanning, Generic Provider Social History Tobacco Use Types Packs/Day Years [...] Description 01/07/2026 1:50 PM EDT Office Visit [place] [address] [facility] [address] [place] [address] Ciera Pastor MD [address] [facility] [address] [place], [place] [id number] documented as of this encounter Visit Diagnoses Not on filedocumented in this encounter Additional Health Concerns Assessment Noted Time A fall risk assessment has been complete d for the patient 01/04/2024 8:50 AM EDT documented as of this encounter Care Teams De Alcholizer Relationship Specialty Start Date End Date Carlos Lewis MD [address] [place] [address] PCP - General 08/29/20 documented as of this encounter
--- OUTSIDE RECORDS SUMMARY | 2025-05-03 11:19 | XMS_ITS | Encounter Summary ---
Author Organization [facility] Address [address] [place] [address] Care Team Providers Care Osteopathic Physician Name Role Phone Carlos Lewis MD Primary Care Provider [phone] Carlos Lewis MD Primary Care Provider [phone] Encounter Details Date Type Department Care Team (Late Contact Info) Description 12/12/2023 External Result Encounter [facility] External Department Unsolicited Raphael Nelson, [address] [address] Social History Tobacco Use Types Packs/Day Years [...] Encounters Date Type Department Care Team (Late Contact Info) Description 09/04/2025 9:45 AM EST Office Visit [facility] [address] [phone] Raphael Nelson DO [address] [address] documented as of this encounter Procedures Procedure Name Priority Date/Time Associated Diagnosis Comments ECG 12-LEAD 12/12/2023 11:06 AM EDT documented in this encounter Results * ECG 12 lead (12/12/2023 11:06 AM EDT) 12/12/2023 11:0 6 AM EDT [facility] - 12/12/2023 2:18 PM EDT [place] [id number] Electrocardiograph Report Signed Patient: Doris Mays MR#: [id number] : 1960 Acct:[id number] Age/Sex: 63 / F ADM Date: 12/12/23 Loc: PS Room: Type: REG CLI Attending Dr: Raphael Nelson DO Ordering Provider: Raphael Nelson DO Date of Service: 12/12/23 ECG/ECG 12 [...] change was found Confirmed by Mustapha Krueger ([id number]) on 12/12/2023 2:18:19 PM Referred By: AYE NELSON Electronically Signed By:Mustapha Krueger Transcribed By: MUS Signed By Mustapha Krueger MD 12/12/23 1418 Procedure Note Morris Krueger MD - 12/12/[address] [address] Electrocardiograph Report Signed Patient: Doris Mays EMR#: [id number] : 9Acct:[id number] Age/Sex: 63 / FADM Date: 12/12/23 Loc: PS Room:Type: REG CLI Attending Dr: Raphael Nelson DO Ordering Provider: Raphael Nelson DO Date of Service: 12/12/23 ECG/ECG 12 [...] change was found Confirmed by Mustapha Krueger ([id number]) on 12/12/2023 2:18:19 PM Referred By: AYE NELSON Electronically Signed By:Mustapha Krueger Transcribed By: [facility] Signed By Mustapha Krueger MD 12/12/23 1418 us Raphael Nelson DO ECG ORDERABLES Final Result Performing Organization Address City/State/[facility] Phone Number [address] [address] documented in this encounter Visit Diagnoses Not on filedocumented in this encounter Care Teams Osteopathic Physician Relationship Specialty Start Date End Date Carlos Lewis MD PCP - General Family Medicine 11/21/23 04/08/25 Carlos Lewis MD [address] [place] [address] PCP - General Family Medicine 04/09/25 documented as of this encounter
--- OUTSIDE RECORDS SUMMARY | 2025-05-03 11:19 | XMS_ITS | Encounter Summary ---
Author Organization [facility] Address [address] [place] [address] Phone Care Team Providers Care Build Technician Name Role Phone Carlos Lewis MD Primary Care Provider [phone] Encounter Details Date Type Department Care Team (Late st Contact Info) Description 12/12/2023 Scanned Document [facility] [address] [place] [id number] Scanning, Generic Provider Social History Tobacco Use [...] Description 01/07/2026 1:50 PM EDT Office Visit [place] 332773 [facility] [address] [place] [address] Ciera Pastor MD 703 [facility] [address] [place] [address] documented as of this encounter Visit Diagnoses Not on filedocumented in this encounter Care Teams Build Technician Relationship Specialty Start Date End Date Carlos Lewis MD [address] [place] [address] PCP - General 08/29/20 documented as of this encounter
--- OUTSIDE RECORDS SUMMARY | 2025-05-03 11:19 | XMS_ITS | Clinical Summary ---
Author Organization [facility] Address [address] [place] [address] Phone Care Team Providers Care Bar And Filler Assembler Name Role Phone Carlos Lewis MD Primary Care Provider [phone] Allergies Active Allergy Reactions Criticality Noted Date Comments Cephalexin Itching,Rash Low 11/02/2023 Hydroxychloroquine Itching 11/02/2023 Biezrou-Qeo-Ume Reductase Inhibitors Myalgia 11/02/2023 Medications budesonide-formoter oL (Symbicort) 160-4.5 mcg/actuation inhaler Inhale. As directed Active diclofenac (Voltaren) 75 mg EC tablet Take 1 tablet (75 mg) by mouth 2 times a day. Active esomeprazole (NexIUM) [address] capsule Take 1 capsule (40 mg) by mouth once daily. Active glimepiride (Amaryl) 4 mg tablet Take 1 tablet (4 mg) by mouth once daily. Active levothyroxine (Synthroid, Levoxyl) 75 mcg tablet Take 1 tablet (75 mcg) by mouth once daily. Active metFORMIN (Glucophage) 500 mg tablet Take 1 tablet (500 mg) by mouth once daily. Active montelukast (Singulair) 10 mg tablet Take 1 tablet (10 mg) by mouth once daily. Active nitroglycerin (Nitrostat) 0.[address] 1 tablet (0.4 mg) under the tongue every 5 minutes if needed for chest pain. Active metoprolol succinate XL (Toprol-XL) 100 mg 24 hr tabletIndications:C oronary artery disease involving lumbee coronary artery of lumbee heart without angina pectoris Take 1 tablet (100 mg) by mouth once daily. 90 tablet 3 4 Active lisinopril 40 mg tabletIndications:E ssential hypertension,Hypert ension, unspecified type Take 1 tablet (40 mg) by mouth once daily. 90 tablet 3 5 12/06/19 26 Active chlorthalidone (Hygroton) 25 mg tabletIndications:E ssential hypertension Take 1 tablet (25 mg) by mouth once daily. 90 tablet 3 5 12/06/19 26 Active clopidogrel (Plavix) 75 mg tabletIndications:C oronary artery disease involving lumbee coronary artery of lumbee heart without angina pectoris,History of PTCA Take 1 tablet (75 mg) by mouth once daily. 90 tablet 3 5 12/06/19 26 Active empagliflozin (Jardiance) 10 mg tablet Take by mouth. Active anastrozole (Arimidex) 1 mg tablet Take 1 tablet (1 mg total) by mouth once daily. Swallow whole with a drink of water. Active multivitamin tablet Take 1 tablet by mouth once daily. Active evolocumab (Repatha SureClick) 140 mg/mL injection Inject 1 mL (140 mg) under the skin every 14 (fourteen) days. Active bempedoic acid (Nexletol) 180 mg tabletIndications:C oronary artery disease involving lumbee coronary artery of lumbee heart without angina pectoris,Mixed hyperlipidemia Take 180 mg by mouth early in the morning.. 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 angina pectoris 01/04/2024 Essential hypertension 01/04/2024 Mixed hyperlipidemia 01/04/2024 History of PTCA 01/04/2024 Never smoked tobacco 01/04/2024 BMI 40.0-44.9, adult (Multi) 01/04/2024 Immunizations Immunization Administration Dates Next Due Flu vaccine (IIV4), preserva tive free *Check age/dose* 05/27/2022 Flu vaccine, quadrivalent, n o egg protein, age 6 month or greater (FLUCELVAX) 07/28/2023 Influenza, Unspecified 05/29/2020,06/05/2019, Influenza, seasonal, injectable 05/29/2020 Moderna SARS-CoV-2 Vaccination 06/30/2021,2020,08/25/2020 Pneumococcal polysaccharide vaccine, 23-valent, age 2 years and older (PNEUMOVAX 23) 07/07/2016 Family History Medical History Relation Name Comments Coronary artery disease Father Coronary artery disease Mother Diabetes Mother Relation Name Status Comments Father Mother Social History Tobacco Use Types Packs/Day Years Used Date Smoking Tobacco: Never Smokeless Tobacco: Never Tobacco Cessation:Counseling Given: Not Answered Alcohol Use Standard Drinks/Week Comments Never 0 (1 standard drink = 0.6 oz pur e alcohol) Comments Unknown Sex and Gender Information Value Date Recorded Sex Assigned at Female 01/03/2024 10:02 PM EDT Legal Sex Female 5:24 PM EST Gender Identity Female 01/03/2024 10:02 PM EDT Sexual Orientation Straight 01/03/2024 10 :02 PM EDT Last Filed Vital Signs Vital Sign Reading Time Taken Comments Blood Pressure 124/58 01/03/2025 1:28 PM EDT Pulse 61 01/03/2025 1:28 PM EDT Temperature - - Respiratory Rate - - Oxygen Saturation - - Inhaled Oxygen Concentration - - Weight 117 kg (258 lb) 01/03/2025 1:28 PM EDT Height 162.6 cm (5' 4 ) 01/03/2025 1:28 PM EDT Body Mass Index 44.29 01/03/2025 1:28 PM EDT Plan of Treatment Upcoming Encounters Date Type Department Care Team (Late st Contact Info) Description 01/07/2026 1:50 PM EDT Office Visit [facility] 703 [facility] [address] [place] [address] Ciera Pastor MD 703 [facility] [address] [place] [address] Health Maintenance Due Date Last Done Comments CT Colonography 1960 Colonoscopy 1960 Colorectal Cancer Screening 1960 Diabetes: Hemoglobin A1C 1960 Diabetes: Urine Protein Screening 1960 FIT-DNA (Cologuard) 1960 FIT 1960 Lipid Panel 1960 Medicare Annual Wellness Visit (AWV) 1960 Sigmoidoscopy 1960 TSH Level 1960 MMR Vaccines (1 of 1 - Standard series) 01/03/1960 Diabetes: Retinopathy Screening 1969 Hepatitis C Screening 1977 DTaP/Tdap/Td Vaccines (1 - Tdap) 1981 Zoster Vaccines (1 of 2) 2009 Pneumococcal Vaccine (2 of 2 - PCV) 07/07/2017 07/07/2016 RSV High Risk: (Elderly (60+) or Population) (1 - Risk 60-74 years 1-dose series) 2019 Bone Density Scan 01/03/2024 COVID-19 Vaccine (6 - Moderna risk 2023- season) 2025 05/13/2024, 07/28/2023, 05/27/2022, Additional history exists Influenza Vaccine (#1) 2025 , 07/28/2023, 05/27/2022, Additional history exists Mammogram 11/08/2025 11/08/2024, 10/27, 11/08/2024, Additional history exists HIB Vaccines Aged Out No longer eligi ble based on patient's age to complete this topic HPV Vaccines Aged Out No longer eligi ble based on patient's age to complete this topic Hepatitis A Vaccines Aged Out No long er eligible based on patient's age to complete this topic Hepatitis B Vaccines Aged Out No long er eligible based on patient's age to complete this topic IPV Vaccines Aged Out No longer eligi ble based on patient's age to complete this topic Meningococcal Vaccine Aged Out No meli vinnie eligible based on patient's age to complete this topic Rotavirus Vaccines Aged Out No longer eligible based on patient's age to complete this topic Insurance [facility] MEDICARE ADVANTAGE [facility] MEDICARE ADVANTAGE Care Teams Bar And Filler Assembler Relationship Specialty Start Date End Date Carlos Lewis MD [address] [facility] [place] [address] PCP - General 08/29/20
--- OUTSIDE RECORDS SUMMARY | 2025-05-03 11:19 | XMS_ITS | Encounter Summary ---
Author Organization [facility] Address [address] [place] [address] Care Team Providers Care Dry Cleaner Apprentice Name Role Phone Carlos Lewis MD Primary Care Provider [phone] Carlos Lewis MD Primary Care Provider [phone] Encounter Details Date Type Department Care Team (Late Contact Info) Description 02/15/2024 Orders Only [facility] [address] [address] Raphael Nelson DO [address] [address] Social History Tobacco Use Types Packs/Day Years [...] EST Office Visit [facility] 703 [facility] [address] [place] [address] Raphael Nelson DO [address] [facility] [address] [place] [address] documented as of this encounter Procedures Procedure Name Priority Date/Time Associated Diagnosis Comments GENERAL PATHOLOGY Routine 02/15/2024 4:11 PM EDT documented in this encounter Results * GENERAL PATHOLOGY (02/15/2024 4:11 PM EDT) Raphael Nelson DO [facility] Final Result documented in this encounter Visit Diagnoses Not on filedocumented in this encounter Care Teams Dry Cleaner Apprentice Relationship Specialty Start Date End Date Carlos Lewis MD PCP - General Family Medicine 11/21/23 04/08/25 [place] [address] [place] [phone] PCP - General Family Medicine 04/09/25 documented as of this encounter
--- OUTSIDE RECORDS SUMMARY | 2025-05-03 11:19 | XMS_ITS | Encounter Summary ---
Author Organization [facility] Address [address] [place] [address] Phone Care Team Providers Care Clay House Worker Name Role Phone Carlos Lewis MD Primary Care Provider [phone] Encounter Details Date Type Department Care Team (Late st Contact Info) Description 05/19/2020 Orders Only [facility] [address] [place] [address] Conversion, Onbase Social History Tobacco Use Types [...] Department Care Team (Late Contact Info) Description 01/07/2026 1:50 PM EDT Office Visit [address] [place] [address] Ciera Pastor MD 703 [facility] [address] [place] [address] Scheduled Orders Name Type Priority Associated Diagnoses Orde r Schedule OUTSIDE LAB SCAN Lab Ordered: 05/19/2020 documented as of this encounter Visit Diagnoses Not on filedocumented in this encounter Care Teams Clay House Worker Relationship Specialty Start Date End Date Carlos Lewis MD [address] [place] [address] PCP - General 08/29/20 documented as of this encounter
--- OUTSIDE RECORDS SUMMARY | 2025-05-03 11:19 | XMS_ITS | Encounter Summary ---
Author Organization [facility] Address [address] [place] [address] Care Team Providers Care Insurance Rater Name Role Phone Carlos Lewis MD Primary Care Provider [phone] Carlos Lewis MD Primary Care Provider [phone] Encounter Details Date Type Department Care Team (Late Contact Info) Description 02/20/2024 Orders Only [facility] [address] [address] Raphael Nelson DO [address] [address] Social History Tobacco Use Types [...] EST Office Visit [facility] 703 [facility] 150 [place] [address] Raphael Nelson DO 703 [facility] [address] [place] [address] documented as of this encounter Procedures Procedure Name Priority Date/Time Associated Diagnosis Comments GENERAL PATHOLOGY Routine 02/20/2024 9:24 AM EDT documented in this encounter Results * GENERAL PATHOLOGY (02/20/2024 9:24 AM EDT) Raphael Nelson DO [facility] Final Result documented in this encounter Visit Diagnoses Not on filedocumented in this encounter Care Teams Insurance Rater Relationship Specialty Start Date End Date Carlos Lewis MD PCP - General Family Medicine 11/21/23 04/08/25 [place] [address] [place] [phone] PCP - General Family Medicine 04/09/25 documented as of this encounter
--- OUTSIDE RECORDS SUMMARY | 2025-05-03 11:19 | XMS_ITS | Encounter Summary ---
Author Organization [facility] Address [address] [place] [address] Phone Care Team Providers Care Florist Helper Name Role Phone Carlos Lewis MD Primary Care Provider [phone] Encounter Details Date Type Department Care Team (Late st Contact Info) Description 04/13/2021 Orders Only [facility] [address] [place] [address] Conversion, Onbase Social History Tobacco Use Types [...] Description 01/07/2026 1:50 PM EDT Office Visit [address] [place] [address] Ciera Pastor MD 703 [facility] [address], [address] [place] [address] Scheduled Orders Name Type Priority Associated Diagnoses Orde r Schedule OUTSIDE LAB SCAN Lab Ordered: 04/13/2021 documented as of this encounter Visit Diagnoses Not on filedocumented in this encounter Care Teams Florist Helper Relationship Specialty Start Date End Date Carlos Lewis MD [address] [place] [address] PCP - General 08/29/20 documented as of this encounter
--- OUTSIDE RECORDS SUMMARY | 2025-05-03 11:19 | XMS_ITS | Encounter Summary ---
Author Organization [facility] Address [address] [place] [address] Phone Care Team Providers Care Checkout Supervisor Name Role Phone Carlos Lewis MD Primary Care Provider [phone] Encounter Details Date Type Department Care Team (Late st Contact Info) Description 03/03/2020 Orders Only [facility] [address] [place] [address] Conversion, Onbase Social History Tobacco Use Types [...] Description 01/07/2026 1:50 PM EDT Office Visit [address] [place] [address] Ciera Pastor MD 703 [facility] [address], [address] [place] [address] Scheduled Orders Name Type Priority Associated Diagnoses Orde r Schedule OUTSIDE LAB SCAN Lab Ordered: 03/03/2020 OUTSIDE LAB SCAN Lab Ordered: 03/03/2020 documented as of this encounter Visit Diagnoses Not on filedocumented in this encounter Care Teams Checkout Supervisor Relationship Specialty Start Date End Date Carlos Lewis MD [address] [place] [address] PCP - General 08/29/20 documented as of this encounter
--- OUTSIDE RECORDS SUMMARY | 2025-05-03 11:19 | XMS_ITS | Encounter Summary ---
Author Organization [facility] Address [address] [place] [address] Care Team Providers Care Reserve Operator Name Role Phone Carlos Lewis MD Primary Care Provider [phone] Carlos Lewis MD Primary Care Provider [phone] Encounter Details Date Type Department Care Team (Late Contact Info) Description 02/14/2024 Orders Only [facility] [address] [address] Raphael Nelson DO [address] [address] Social History Tobacco Use Types [...] EST Office Visit [facility] 703 [facility] [address] [place] [address] Raphael Nelson DO 703 [facility] 150 [place] [address] documented as of this encounter Procedures Procedure Name Priority Date/Time Associated Diagnosis Comments GENERAL PATHOLOGY Routine 02/14/2024 9:34 AM EDT documented in this encounter Results * GENERAL PATHOLOGY (02/14/2024 9:34 AM EDT) Raphael Nelson DO [facility] Final Result documented in this encounter Visit Diagnoses Not on filedocumented in this encounter Care Teams Reserve Operator Relationship Specialty Start Date End Date Carlos Lewis MD PCP - General Family Medicine 11/21/23 04/08/25 [place] [address] [place] [phone] PCP - General Family Medicine 04/09/25 documented as of this encounter
--- OUTSIDE RECORDS SUMMARY | 2025-05-03 11:20 | XMS_ITS | Encounter Summary ---
Author Organization [facility] Address [address] [place] [address] Care Team Providers Care Emergency Vehicle Dispatcher Name Role Phone Carlos Lewis MD Primary Care Provider [phone] Carlos Lewis MD Primary Care Provider [phone] Encounter Details Date Type Department Care Team (Late Contact Info) Description 12/26/2023 External Result Encounter [facility] External Department Unsolicited Raphael Nelson, [address] [address] Social History Tobacco Use Types Packs/Day Years [...] EST Office Visit [facility] [address] [phone] Raphael Nelson DO [address] [address] documented as of this encounter Procedures Procedure Name Priority Date/Time Associated Diagnosis Comments BI MAMMOGRAM DIAGNOSTIC RIGHT 12/26/2023 2:41 PM EDT documented in this encounter Results * Right diagnostic mammogram (12/26/2023 2:41 PM EDT) Anatomical Region Laterality Modality Breast Right Mammography 12/26/2023 2:41 PM EDT Narrative 12/26/2023 2:48 PM EDT [place] [id number] Mammography Report Signed Patient: Doris Mays MR#: [id number] : 1960 Acct:[id number] Age/Sex: 63 / F ADM Date: 12/26/23 Loc: [place] Room: Type: [facility] Attending Dr: Raphael Nelson DO Copies to: MD Raphael Bates DO Ordering Provider: Raphael Nelson DO Date of Service: 12/26/23 MM/MM surgical [...] Yeni Garza M.D.12/26/2023 2:45 PM Dictation Location: [place] [address] Transcribed By: [facility] 12/26/23 1445 Dictated By: Yeni Garza MD 12/26/23 1441 Signed By: <Electronically signed by MD Yeni Garza in OV> 12/26/23 1445 Procedure Note Radiology, Radiologist, - 12/26/[address] [address] Mammography Report Signed Patient: Doris Mays EMR#: [id number] : 1960cct:[id number] Age/Sex: 63 / FADM Date: 12/26/23 Loc: [place] Room:Type: [facility] Attending Dr: Raphael Nelson DO Copies to: MD Raphael Bates DO Ordering Provider: Raphael Nelson DO Date of Service: 12/26/23 MM/MM surgical specimen RT: RT BREAST SPECIMENIN OR WITH CLIP/MAGNETIC SEED RIGHT BREAST SPECIMEN RADIOGRAPH CLINICAL DATA: Recently diagnosed invasive carcinoma of the right breast COMPARISON: Localization mammogram 12/23/2023 A single specimen radiograph was obtained in the operating room on a grid.The tissue sample contains the radiation seed overlying the C5 coordinate. The biopsymarking clip overlies the B5 coordinate. Impression dictated by: Yeni Garza M.D.12/26/2023 2:45 PM Dictation Location: [place] [address] Transcribed By: [facility] 12/26/23 1445 Dictated By: Yeni Garza MD 12/26/23 1441 Signed By: <Electronically signed by MD Yeni Garza in OV> 12/26/23 1445 Raphael Nelson DO IMG BI PROCEDURES Final Result documented in this encounter Visit Diagnoses Not on filedocumented in this encounter Care Teams Emergency Vehicle Dispatcher Relationship Specialty Start Date End Date Carlos Lewis MD PCP - General Family Medicine 11/21/23 04/08/25 Carlos Lewis MD [address] [place] [address] PCP - General Family Medicine 04/09/25 documented as of this encounter
--- OUTSIDE RECORDS SUMMARY | 2025-05-03 11:20 | XMS_ITS | Encounter Summary ---
Author Organization [facility] Address [address] [place] [address] Care Team Providers Care Candy Attendant Name Role Phone Carlos Lewis MD Primary Care Provider [phone] Carlos Lewis MD Primary Care Provider [phone] Encounter Details Date Type Department Care Team (Late Contact Info) Description 11/08/2024 External Result Encounter [facility] External Department Unsolicited Raphael Nelson, [address] [address] Social History Tobacco Use Types Packs/Day Years [...] Office Visit [facility] [address] [phone] Raphael Nelson DO [address] [address] documented as of this encounter Procedures Procedure Name Priority Date/Time Associated Diagnosis Comments BI MAMMOGRAM DIAGNOSTIC TOMOSYNTHESIS BILATERAL 11/08/2024 10:55 AM EDT documented in this encounter Results * Bilateral diagnostic mammogram with tomosynthesis (11/08/2024 10:55 AM EDT) Anatomical Region Laterality Modality Breast Bilateral Mammography 11/08/2024 10:5 5 AM EDT Impressions 11/08/2024 12:34 PM EDT NO MAMMOGRAPHIC EVIDENCE OF MALIGNANCY. ROUTINE FOLLOW-UP IS RECOMMENDED IN ONE YEAR. RESULT CODE: 1 Negative DENSITY CODE: 2 (approximately 25-50% glandular) There are scattered areas of fibroglandular density. FOLLOW UP: 1YR The false-negative rate of mammography is approximately 10-percent. Management of a palpable abnormality must be based on clinical grounds. Patient was entered into a reminder system with a target due date for the next mammogram. Impression dictated by: Edwardo Means Jr., DTrinhOTrinh11/08/2024 11:01 AM Dictation Location: [facility] Dictated By: Edwardo Means Jr, DO 11/08/24 1055 Signed By: <Electronically signed by Edwardo Means Jr, DO in OV> 11/08/24 1101 Narrative 11/08/2024 12:34 PM EDT [facility] [address] [place] [address] Mammography Report Signed Patient: Doris Mays MR#: [id number] : 1960 Acct:[id number] Age/Sex: 64 / F Adm Date: 11/08/24 Loc: [place] Room: Type: [facility] Attending Dr: Raphael Nelson DO Ordering Provider: Raphael Nelson DO Date of Service: 11/08/24 Procedure(s): MM diagnostic mammo BI w/CAD Accession Number(s): ([id number]) MM/MM diagnostic mammo BI w/CAD: Z85.3 Copies to: MD Raphael Bates DO CLINICAL DATA: History of right-sided breast cancer status post lumpectomy in 2023. Bilateral DIAGNOSTIC MAMMOGRAM - WITH TOMOSYNTHESIS AND CAD COMPARISON:Mammograms dating back to 2019 Tomosynthesis imaging was obtained using low-dose digital technique. This examination was reviewed with the aid of CAD. FINDINGS: The breasts are composed of scattered fibroglandular densities. Posttreatment changes are noted involving the right breast. No new areas of architectural distortion, worrisome masses or suspicious microcalcifications. MM/MM diagnostic mammo BI w/CAD Procedure Note Edwardo Means Jr., MD - 11/08/2024 [facility] [address] [place] [address] Mammography Report Signed Patient: Doris Mays EMR#: [id number] : 9Acct:[id number] Age/Sex: 64 / FAdm Date: 11/08/24 Loc: [place] Room:Type: [facility] Attending Dr: Raphael Nelson DO Ordering Provider: Raphael Nelson DO Date of Service: 11/08/24 Procedure(s): MM diagnostic mammo BI w/CAD Accession Number(s): ([id number]) MM/MM diagnostic mammo BI w/CAD: Z85.3 Copies to: MD Raphael Bates DO CLINICAL DATA: History of right-sided breast cancer status postlumpectomy in 2023. Bilateral DIAGNOSTIC MAMMOGRAM - WITH TOMOSYNTHESIS AND CAD COMPARISON:Mammograms dating back to 2019 Tomosynthesis imaging was obtained using low-dose digital technique.This examination was reviewed with the aid of CAD. FINDINGS: The breasts are composed of scattered fibroglandular densities.Posttreatment changes are noted involving the right breast. No new areas of architectural distortion,worrisome masses or suspicious microcalcifications. MM/MM diagnostic mammo BI w/CAD IMPRESSION: NO MAMMOGRAPHIC EVIDENCE OF MALIGNANCY. ROUTINE FOLLOW-UP IS RECOMMENDED IN ONE YEAR. RESULT CODE: 1 Negative DENSITY CODE: 2 (approximately 25-50% glandular) There are scattered areasof fibroglandular density. FOLLOW UP: 1YR The false-negative rate of mammography is approximately 10-percent. Management of a palpable abnormality must be based on clinical grounds. Patient was entered into a reminder system with a target due date for thenext mammogram. Impression dictated by: Edwardo Means Jr., D.OTrinh11/08/2024 11:01 AM Dictation Location: [facility] Dictated By: Edwardo Means Jr, DO 11/08/24 1055 Signed By: <Electronically signed by Edwardo Means Jr DO inOV> 11/08/24 1101 Raphael Nelson DO IMG BI PROCEDURES Final Result documented in this encounter Visit Diagnoses Not on filedocumented in this encounter Care Teams Candy Attendant Relationship Specialty Start Date End Date Carlos Lewis MD PCP - General Family Medicine 11/21/23 04/08/25 Carlos Lewis MD [address] [place] [address] PCP - General Family Medicine 04/09/25 documented as of this encounter
--- OUTSIDE RECORDS SUMMARY | 2025-05-03 11:20 | XMS_ITS | Encounter Summary ---
Author Organization [facility] Address [address] [place] [address] Care Team Providers Care Roller Inspector Name Role Phone Carlos Lewis MD Primary Care Provider [phone] Carlos Lewis MD Primary Care Provider [phone] Encounter Details Date Type Department Care Team (Late Contact Info) Description 12/26/2023 External Result Encounter [facility] External Department Unsolicited Raphael Nelson, [address] [address] Social History Tobacco Use Types Packs/Day Years [...] EST Office Visit [facility] [address] [phone] Raphael Nelson DO [address] [address] documented as of this encounter Procedures Procedure Name Priority Date/Time Associated Diagnosis Comments NM LYMPHOSCINTIGRAM 12/26/2023 2 :01 PM EDT documented in this encounter Results * NM lymphoscintigram (12/26/2023 2:01 PM EDT) Anatomical Region Laterality Modality Nuclear Medicine 12/26/2023 2:01 PM EDT Narrative 12/26/2023 2:06 PM EDT [place] [id number] Nuclear Medicine Report Signed Patient: Doris Mays MR#: [id number] : 1960 Acct:[id number] Age/Sex: 63 / F ADM Date: 12/26/23 Loc: [place] Room: Type: [facility] Attending Dr: Raphael Nelson DO Copies to: Edwardo Means Jr, DO Paul C Laffay, DO Ordering Provider: Raphael Nelson DO Date of Service: 12/26/23 NM/NM sentinel node w imaging: slnb Nuclear medicine [place] node imaging. Reason for exam: Right breast cancer. TECHNIQUE: 0.409 mCi of technetium 99m sulfur colloid was injected into the right breast and delayed images were obtained. FINDINGS: The delayed images demonstrate migration of the radiotracer towards the right axilla. NM/NM sentinel node w imaging Impression: Migration of the radiotracer seen towards the right axilla. Impression dictated by: Edwardo Means Jr., D.OTrinh12/26/2023 2:04 PM Dictation Location: [facility] Transcribed By: [facility] 12/26/23 1404 Dictated By: Edwardo Means Jr, DO 12/26/23 1401 Signed By: <Electronically signed by Edwardo Means Jr, DO in OV> 12/26/23 1404 Procedure Note Radiology, Radiologist, MD - 12/26/2023 [place] [id number] Nuclear Medicine Report Signed Patient: Doris Mays EMR#: [id number] : 1960cct:[id number] Age/Sex: 63 / FADM Date: 12/26/23 Loc: [place] Room:Type: [facility] Attending Dr: Raphael Nelson DO Copies to: Edwardo Means Jr, DO Paul C Laffay, DO Ordering Provider: Raphael Nelson DO Date of Service: 12/26/23 NM/NM sentinel node w imaging: slnb Nuclear medicine [place] node imaging. Reason for exam: Right breast cancer. TECHNIQUE: 0.409 mCi of technetium 99m sulfur colloid was injected intothe right breast and delayed images were obtained. FINDINGS: The delayed images demonstrate migration of the radiotracertowards the right axilla. NM/NM sentinel node w imaging Impression: Migration of the radiotracer seen towards the right axilla. Impression dictated by: Edwardo Means Jr., D.O.12/26/2023 2:04 PM Dictation Location: [place] [address] Transcribed By: [facility] 12/26/23 1404 Dictated By: Edwardo Means Jr, DO 12/26/23 1401 Signed By: <Electronically signed by Edwardo Means Jr, DO inOV> 12/26/23 1404 Raphael Nelson DO IMG NM PROCEDURES Final Result documented in this encounter Visit Diagnoses Not on filedocumented in this encounter Care Teams Roller Inspector Relationship Specialty Start Date End Date Carlos Lewis MD PCP - General Family Medicine 11/21/23 04/08/25 Carlos Lewis MD [address] [place] [address] [phone] PCP - General Family Medicine 04/09/25 documented as of this encounter
--- OUTSIDE RECORDS SUMMARY | 2025-05-03 11:20 | XMS_ITS | Clinical Summary ---
Author Organization [facility] Address [address] [place] [address] Care Team Providers Care Ointment Mill Tender Name Role Phone Carlos Lewis MD Primary Care Provider [phone] Allergies Active Allergy Reactions Criticality Noted Date Comments Cephalexin Itching,Rash Low 11/02/2023 Hydroxychloroquine Itching 11/02/2023 Levofloxacin Swelling 11/23/2023 Statins Shortness of breath High 11/02/2023 Other Reaction(s): Myalgia Ezetimibe Shortness of breath High 04/17/2024 Medications GNP Aspirin Low Dose 81 MG EC tablet 10/17/19 24 Active esomeprazole (NexIUM) [address] capsule Take 40 mg by mouth Daily 11/21/19 24 Active metFORMIN XR (Glucophage-X R) 500 MG 24 hr tablet 10/17/19 24 Active montelukast (Singulair) 10 MG tablet 07/29/20 23 Active Repatha SureClick 140 MG/ML injection 09/28/19 24 Active diclofenac (Voltaren) 75 MG EC tablet Take 75 mg by mouth in the morning and 75 mg before bedtime. 10/24/19 24 Active budesonide-fo rmoterol (Symbicort) 160-4.5 MCG/ACT inhaler Inhale 2 puffs in the morning and 2 puffs before bedtime. 07/14/20 23 Active lisinopril 40 MG tablet Take 40 mg by mouth Daily 11/14/19 24 Active clopidogrel (Plavix) 75 MG tablet Take 75 mg by mouth Daily 10/17/19 24 Active chlorthalidon e (Hygroton) 25 MG tablet Take 25 mg by mouth Daily 10/17/19 24 Active metoprolol succinate XL (Toprol-XL) 100 MG 24 hr tablet Take 100 mg by mouth Daily 10/17/19 24 Active nitroglycerin (Nitrostat) 0.[address] 0.4 mg under the tongue every 5 (five) minutes if needed for chest pain Active NON FORMULARY GLUCOCIL 2 DAILY Active anastrozole (Arimidex) 1 MG chemo tablet 04/11/20 24 Active doxycycline (Monodox) 100 MG capsule Take 100 mg by mouth in the morning and 100 mg before bedtime. 02/07/20 24 Active True Metrix Blood Glucose Test test strip 12/19/19 24 Active mometasone (Elocon) 0.1 % cream 02/16/20 24 Active empagliflozin (Jardiance) 10 MG Take by mouth Active Synthroid 50 MCG tablet 10/12/19 25 Active Mounjaro 2.5 MG/0.5ML solution auto-injector INJECT 2.5 MG SUBCUTANEOUSLY WEEKLY 04/17/20 25 Active Nexletol 180 MG tablet TAKE 1 TABLET BY MOUTH EVERY DAY IN THE MORNING *FAXED PA* Active glimepiride (Amaryl) 4 MG tablet Take 4 mg by mouth in the morning. Take with meals. 10/17/19 24 2024 Discontinued Active Problems Problem Noted Date Diagnosed Date History of right breast cancer 04/30/2025 Infiltrating ductal carcinoma of right breast Encounters Date Type Department Care Team Description 04/30/2025 10:45 AM EDT Office Visit [facility] [address] [address] Raphael Nelson, History of right breast cancer (Primary Dx) 04/30/2025 Travel 04/25/2025 Travel 04/09/2025 Travel from Last 3 Months Family History Medical History Relation Name Comments Arthritis Father Vic Rohrbacher Hearing loss Father Vic Rohrbacher Heart disease Father Vic Rohrbacher Hyperlipidemia Father Vic Rohrbacher Vision loss Father's Sister Bailey Morrowr Heart disease Maternal Grandfather Efrem Quevedo Sr Heart disease Maternal Grandmother Henry Quevedo Diabetes Mother Yaquelin Rohrbacher Heart disease Mother Yaquelin Rohrbacher Hyperlipidemia Mother Yaquelin Phillipsrbacher Hypertension Mother Yaquelin Phillipsrbacher Kidney disease Mother Yaquelin Rohrbacher Cancer Mother's Brother Efrem(Topton) Quevedo Jr Cancer Mother's Sister Naty Mora COPD Paternal Grandmother Iris Rohrbacher Diabetes Sister Luiza Watters Hyperlipidemia Sister Luiza Watters Hypertension Sister Luiza Watters Relation Name Status Comments Father Vic Phillipsrbacher Father's Sister Bailey Elias Maternal Grandfather Efrem Quevedo Sr Maternal Grandmother Henry Quevedo Mother Yaquelin Phillipsrbacher Mother's Brother Efrem(Topton) Quevedo Jr Mother's Sister Naty Mora Paternal Grandmother Iris Rohrbacher Sister Luiza Watters Social History Tobacco Use Types Packs/Day Years [...] Orientation Straight 11/21/2023 12 :04 PM EDT Last Filed Vital Signs Vital [...] Mass Index 41.2 04/30/2025 10:45 AM EDT Plan of Treatment Upcoming Encounters Date Type Department Care Team (Late st Contact Info) Description 09/04/2025 9:45 AM EST Office Visit [facility] [address] [address] Raphael Nelson DO 703 [facility] [address] [place] [address] Health Maintenance Due Date Last Done Comments CT Colonography 1960 Colonoscopy 1960 Colorectal Cancer Screening 1960 FIT-DNA 1960 FIT 1960 FOBT 1960 Sigmoidoscopy 1960 Pneumococcal Vaccine: 65+ Ye ars (2 of 2 - PCV) 07/07/2017 07/07/2016 Influenza Vaccine (#1) 2025 , 07/28/2023, 05/27/2022, Additional history exists Mammogram 11/08/2025 11/08/2024, 04/04/2024, 12/23/2023, Additional history exists Procedures Procedure Name Priority Date/Time Associated Diagnosis Comments BI MAMMOGRAM DIAGNOSTIC TOMOSYNTHESIS BILATERAL 11/08/2024 10:55 AM EDT from Last 3 Months or Most Recently Relevant to Health Maintenance Results * Bilateral diagnostic mammogram with tomosynthesis [...] Means Jr., D.OTrinh11/08/2024 11:01 AM Dictation Location: [facility] Dictated By: Edwardo Means Jr, DO 11/08/24 1055 Signed By: <Electronically signed by Edwardo Means Jr, DO in OV> 11/08/24 1101 Narrative 11/08/2024 12:34 PM EDT [facility] [address] [place] [address] Mammography Report Signed Patient: Doris Mays MR#: [id number] : 1960 Acct:[id number] Age/Sex: 64 / F Adm Date: 11/08/24 Loc: [place] Room: Type: [facility] CLI Attending Dr: Raphael Nelson DO Ordering Provider: Raphael Nelson DO Date of Service: 11/08/24 Procedure(s): MM diagnostic mammo BI w/CAD Accession Number(s): ([id number]) MM/MM diagnostic mammo BI w/CAD: Z85.3 Copies to: MD Raphael aBtes DO CLINICAL DATA: History of right-sided breast [...] Note Edwardo Means Jr., MD - 11/08/2024 [facility] [place] [address] Mammography Report Signed Patient: Doris Mays EMR#: [id number] : 1960cct:[id number] Age/Sex: 64 / FAdm Date: 11/08/24 Loc: [place] Room:Type: [facility] CLI Attending Dr: Raphael Nelson DO Ordering Provider: Raphael Nelson DO Date of Service: 11/08/24 Procedure(s): MM diagnostic mammo BI w/CAD Accession Number(s): ([id number]) MM/MM diagnostic mammo BI w/CAD: Z85.3 Copies to: MD Raphael Bates DO CLINICAL DATA: History of right-sided breast cancer status postlumpectomy in 2023. Bilateral DIAGNOSTIC MAMMOGRAM - WITH TOMOSYNTHESIS AND CAD COMPARISON:Mammograms dating back to 2020 Tomosynthesis imaging was obtained using low-dose digital [...] mammogram. Impression dictated by: Edwardo Means Jr., Isael.OTrinh11/08/2024 11:01 AM Dictation Location: [facility] Dictated By: Edwardo Means Jr, DO 11/08/24 1055 Signed By: <Electronically signed by Edwardo Means Jr, DO inOV> 11/08/24 1101 Raphael Nelson DO IMG BI PROCEDURES Final Result from Last 3 Months or Most Recently Relevant to Health Maintenance Insurance [employer] Care Teams Ointment Mill Tender Relationship Specialty Start Date End Date Carlos Lewis MD [address] [place] [address] PCP - General Family Medicine 8/12/25
--- OUTSIDE RECORDS SUMMARY | 2025-05-03 11:20 | XMS_ITS | Encounter Summary ---
Author Organization [facility] Address [address] [place] [address] Care Team Providers Care Piano Technician Name Role Phone Carlos Lewis MD Primary Care Provider [phone] Carlos Lewis MD Primary Care Provider [phone] Encounter Details Date Type Department Care Team (Late Contact Info) Description 11/23/2023 Orders Only [facility] [address] [address] Carlos Lewis MD [address] [place] [phone] Social History Tobacco Use Types Packs/Day Years [...] EST Office Visit [facility] [address] [address] Raphael Nelson, [address] [address] documented as of this encounter Procedures Procedure Name Priority Date/Time Associated Diagnosis Comments US LIMITED BREAST RT Routine 11/23/2023 4:14 PM EDT MG MAMMOGRAM SCREENING BILAT Routine 11/23/2023 4:13 PM EDT documented in this encounter Results * US LIMITED BREAST RT (11/23/2023 4:14 PM EDT) Anatomical Region Laterality Modality Radiographic Kenia ging Carlos Lewis MD IMG XR PROCEDURES Final Result * MG MAMMOGRAM SCREENING BILAT (11/23/2023 4:13 PM EDT) Anatomical Region Laterality Modality Radiographic Kenia ging Carlos Lewis MD IMG XR PROCEDURES Final Result documented in this encounter Visit Diagnoses Not on filedocumented in this encounter Care Teams Piano Technician Relationship Specialty Start Date End Date Carlos Lewis MD PCP - General Family Medicine 11/21/23 04/08/25 Carlos Lewis MD [address] [place] [address] PCP - General Family Medicine 04/09/25 documented as of this encounter
--- OUTSIDE RECORDS SUMMARY | 2025-05-03 11:20 | XMS_ITS | Encounter Summary ---
Author Organization [facility] Address [address] [place] [address] Care Team Providers Care Family Program Specialist Name Role Phone Carlos Lewis MD Primary Care Provider [phone] Encounter Details Date Type Department Care Team (Latest Contact Info) Description 04/25/2025 Travel Social History Tobacco Use Types Packs/Day Years [...] EST Office Visit [facility] 703 [facility] [address] [place] [phone] Raphael Nelson DO 703 [facility] [address] [place] [address] documented as of this encounter Visit Diagnoses Not on filedocumented in this encounter Care Teams Family Program Specialist Relationship Specialty Start Date End Date Carlos Lewis MD [address] [facility] [place] [address] PCP - General Family Medicine 04/09/25 documented as of this encounter
--- OUTSIDE RECORDS SUMMARY | 2025-05-03 11:20 | XMS_ITS | Encounter Summary ---
Author Organization [facility] Address [address] [place] [address] Care Team Providers Care Animal Scientist Name Role Phone Carlos Lewis MD Primary Care Provider [phone] Encounter Details Date Type Department Care Team (Latest Contact Info) Description 04/30/2025 Travel Social History Tobacco Use Types Packs/Day [...] EST Office Visit [facility] [address] [facility] [address] [place] [phone] Raphael Nelson DO 703 [facility] [address] [place] [address] documented as of this encounter Visit Diagnoses Not on filedocumented in this encounter Care Teams Animal Scientist Relationship Specialty Start Date End Date Carlos Lewis MD [address] [facility] [place] [address] PCP - General Family Medicine 04/09/25 documented as of this encounter
--- OUTSIDE RECORDS SUMMARY | 2025-05-03 11:20 | XMS_ITS | Encounter Summary ---
Author Organization [facility] Address [address] [place] [address] Care Team Providers Care Device Engineer Name Role Phone Carlos Lewis MD Primary Care Provider [phone] Carlos Lewis MD Primary Care Provider [phone] Encounter Details Date Type Department Care Team (Late Contact Info) Description 12/23/2023 External Result Encounter [facility] External Department Unsolicited Raphael Nelson, [address] [address] Social History Tobacco Use Types Packs/Day Years [...] EST Office Visit [facility] [address] [phone] Raphael Nelson DO [address] [address] documented as of this encounter Procedures Procedure Name Priority Date/Time Associated Diagnosis Comments BI MAMMOGRAM DIAGNOSTIC TOMOSYNTHESIS RIGHT 12/23/2023 10:56 AM EDT documented in this encounter Results * Right diagnostic mammogram with tomosynthesis (12/23/2023 10:56 AM EDT) Anatomical Region Laterality Modality Breast Right Mammography 12/23/2023 10:5 6 AM EDT Impressions 12/23/2023 1:41 PM EDT STATUS POST MAGNETIC SEED LOCALIZATION OF THE RESIDUAL RIGHT BREAST LESION. Impression dictated by: Yeni Garza M.D.12/23/2023 11:29 AM Dictation Location: [facility] Tech: Rhea Pang; Pushpa Schafer Transcribed By: WILFREDO 12/23/23 1129 Dictated By: Yeni Garza MD 12/23/23 1056 Signed By: <Electronically signed by MD Yeni Garza in OV> 12/23/23 1129 Narrative 12/23/2023 1:41 PM EDT [facility] [place] [address] Ultrasound Report Signed Patient: Doris Mays MR#: [id number] : 1960 Acct:[id number] Age/Sex: 63 / F ADM Date: 11/23/23 Loc: [place] Room: Type: [facility] Attending Dr: Raphael Nelson DO Ordering Provider: Raphael Nelson DO Date of Service: 12/23/23 US/US breast needle loc RT: RT BREAST MAGNETIC SEED LOC ([id number]) MM/MM diagnostic mammo RT w/CAD: POST U/S MAGNETIC SEED LOC Copies to: Raphael Nelson DO ULTRASOUND-GUIDED RIGHT BREAST MAGNETIC SEED LOCALIZATION CLINICAL [...] benign-appearing calcifications. US/US breast needle loc RT Procedure Note Radiology, Radiologist, MD - 12/23/2023 [facility] [place] [address] [place] [address] Ultrasound Report Signed Patient: Doris Mays EMR#: [id number] : 9Acct:[id number] Age/Sex: 63 / FADM Date: 11/23/23 Loc: [place] Room:Type: [facility] Attending Dr: Raphael Nelson DO Ordering Provider: Raphael Nelson DO Date of Service: 12/23/23 US/US breast needle loc RT: RT BREAST MAGNETICSEED LOC ([id number]) MM/MM diagnostic mammo RT w/CAD: POST U/S MAGNETIC SEED LOC Copies to: Raphael Nelson DO ULTRASOUND-GUIDED RIGHT BREAST MAGNETIC SEED LOCALIZATION CLINICAL DATA: Recently diagnosed invasive carcinoma at the superiormedial breast. Patient's previous imaging from October 2023 was reviewed. Procedure wasdiscussed with patient and consent was obtained. Ultrasound survey at the superior medial breastshows an ill-defined area of hypodensity at 1:00, 10 cm from the nipple. Following sterile preparationand local anesthesia with lidocaine, a spinal needle loaded with a magnetic seed was advanced intothe area and the seed was deployed. There were no immediate complications. DIAGNOSTIC RIGHT MAMMOGRAM - FULL FIELD DIGITAL Craniocaudal and true lateral views of the breast were obtained usinglow-dose digital technique. Comparison is made to previous mammograms from April 08, 2022 throughNovember 15, 2023. There is minimal residual fibroglandular tissue. At the superior medialbreast, there is now a radiation seed a few millimeters inferior and medial to the biopsy markingclip. There is density within the breast posterior to the clip and seed which may be residuallesion and or hematoma. There are some benign-appearing calcifications. US/US breast needle loc RT IMPRESSION: STATUS POST MAGNETIC SEED LOCALIZATION OF THE RESIDUAL RIGHT BREASTLESION. Impression dictated by: Yeni Garza M.D.12/23/2023 11:29 AM Dictation Location: [facility] Tech: Rhea Pang; Pushpa Hanh Transcribed By: WILFREDO 12/23/23 1129 Dictated By: Yeni Garza MD 12/23/23 1056 Signed By: <Electronically signed by MD Yeni Garza in OV> 12/23/23 1129 Raphael Nelson DO IMG BI PROCEDURES Edited Result - Final documented in this encounter Visit Diagnoses Not on filedocumented in this encounter Care Teams Device Engineer Relationship Specialty Start Date End Date Carlos Lewis MD PCP - General Family Medicine 11/21/23 04/08/25 Carlos Lewis MD [address] [place] [address] PCP - General Family Medicine 04/09/25 documented as of this encounter
--- OUTSIDE RECORDS SUMMARY | 2025-05-03 11:25 | XMS_ITS | CCD ---
Author Organization [facility] [employer] Care Team Providers Care Commercial Truck Driver Name Role Phone DR NOAH LEWIS Primary [...] Unavailable MD Noah Lewis Primary Care Provider [phone] MD Wiley Schmitt Attending Provider DO Bari Mac Attending Provider MD Noah Lewis Referring Provider Self, Referral Attending Provider Unavailable MD Noah Lewis Primary Care Provider [phone] MD Benedicto Campos Attending Provider Cleve Damien [...] Luisa Harvey Attending Provider MD Noah Lewis Referring Provider MD Ana Luisa Harvey Attending Provider MD Noah Lewis Primary Care Provider MD Noah Lewis Attending Provider [phone] MD Thomas Hoover Attending Provider MD Noah Lewis Referring Provider [phone] MD Ana Luisa Harvey Attending Provider MD Noah Lewis Primary Care Provider MD Noah Lewis Referring Provider MD Ana Luisa Harvey Attending Provider MD Noah Lewis Primary Care Provider MD Noah Lewis Referring Provider MD Kinsey Canela Attending Provider MD Noah Lewis Primary Care Provider MD Noah Lewis Attending Provider Noah Lewis MD Primary Care Provider Noah Lewis MD Primary Care Provider Raphael Connors DO Attending Provider Noah Lewis MD Primary Care Provider KAEY PASTOR Attending Unavailable WILEY SCHMITT Referring Unavailable NOAH LEWIS Primary Care Unavailable Noah Lewis MD Primary Care Provider Thomas Hoover MD Attending Provider Kiko TRACK SUPERVISOR-C, Milagro Reaves Attending Provider Noah Lewis MD Referring Provider [phone] Kinsey Canela MD Attending Provider Raphael Connors Admitting Unavailable Raphael Connors Attending Unavailable Noah Lewis Primary Care Unavailable Noah Lewis Admitting Unavailable Noah Lewis Attending Unavailable Noah Lewis Primary Care Unavailable Noah Lewis Referring Unavailable Noah Lewsi Primary Care Unavailable Kinsey Canela Admitting Unavailable Kinsey Canela Attending Unavailable Thomas Hoover Admitting Unavailable Thomas Hoover Attending Unavailable Noah Lewis Primary Care Unavailable Noah Lewis MD Primary Care Provider RAPHAEL CONNORS Attending Unavailable RAPHAEL CONNORS Attending Unavailable RAPHAEL CONNORS Attending Unavailable Allergies Allergy Classification Reported Allergen(s) Allergy Type Date of Onset Reaction(s) Facility Cephalosporins (antibiotic) (1 source) Cephalexin Drug Allergy [facility] Repository (20 sources) Cephalexin; Translations: [cephalexin] Drug Allergy 8 hives, Itching, Rash [facility] (10 sources) Hmg-Coa Reductase Inhibitors (Statins); Translations: [Statins] Allergy to drug (finding) Myalgia [facility] [email or web address] 250 DO Work Phone: (20 sources) Hydroxychloroqui ne; Translations: [Plaquenil Sulfate] Drug Allergy 4 Itching [facility] [email or web address] 250 DO Work Phone: (20 sources) Hydroxychloroqui ne; Translations: [HYDROXYCHLOROQU INE] Drug Allergy 8 Itching [facility] (20 sources) Cjcnmec-EQI-XbU Reductase Inhibitor; Translations: [Aupgcuw-MNE-QnB Reductase Inhibitor] Allergy to substance 8 Difficulty Breathing [facility] Comment on above: joints hurt (2 sources) Amoxicillin; Translations: [Amoxicillin TABS] Drug Allergy -[facility] 600 DO Work Phone: (9 sources) HMG-CoA reductase inhibitor Drug allergy 4 Shortness of breath [facility] [employer] Other (20 sources) levoFLOXacin Drug Allergy 3 Swelling [facility] (9 sources) HMG-CoA reductase inhibitor; Translations: [GELGLZH-JNG-YKD REDUCTASE INHIBITORS] Drug Allergy 4 [facility] Work Phone: (8 sources) ezetimibe Drug Allergy 4 Shortness of breath [facility] (1 source) Cephalexin Drug Allergy 5 [facility] Repository (1 source) levoFLOXacin Drug Allergy 5 [facility] Repository Medications Current Medications Medication Drug Class(es) Dates Sig (Normalized) Sig (Original) anastrozole 1 mg oral tablet (20 sources) Aromatase Inhibitor Start: 02-09-2024 End: 04-11-2024 anastrozole (Arimidex) 1 MG chemo tablet 04/11/2024 Active aspirin 81 mg delayed release oral tablet (20 sources) Platelet Aggregation Inhibitor, Nonsteroidal Anti-inflammatory Drug Start: 06-19-2018 End: 01-24-2025 GNP Aspirin Low Dose 81 MG EC tablet 10/17/2023 Active bempedoic acid 180 mg oral tablet (6 sources) Start: 01-03-2025 End: 01-03-2026 take 1 tablet by mouth once daily 60 actuat budesonide 0.16 mg/actuat / formoterol fumarate 0.0045 mg/actuat metered dose inhaler (20 sources) Corticosteroid, beta2-Adrenergic Agonist Start: 11-16-2023 take 2 puff(s) by inhalation in the morning budesonide-formot fritz (Symbicort) 160-4.5 MCG/ACT inhaler Inhale 2 puffs in the morning and 2 puffs before bedtime. 07/14/2023 Active Start: 06-19-2018 take 1 puff(s) by in halation once daily in the morning Start: 06-19-2018 take 1 puff(s) by in halation once daily in the morning Budesonide-Formoterol (Symbicort) 160-4.5 mcg/actuation Hfa Aerosol Inhaler Active 1 PUFF INHALATION Every morning June 19, 2018 12:00am Complies with drug therapy Start: 06-19-2018 take 1 puff(s) by in halation once daily in the morning Budesonide-Formoterol (Symbicort) 160-4.5 mcg/actuation Hfa Aerosol Inhaler Active 1 PUFF INHALATION Every morning June 18, 2018 11:00pm Start: 06-19-2018 take 1 puff(s) by in [...] tablet (20 sources) Thiazide-like Diuretic Start: 01-22-2022 End: 12-05-2025 take 1 tablet by mouth once daily chlorthalidone (Hygroton) 25 MG tablet Take 25 mg by mouth Daily 10/17/2023 Active clopidogrel 75 mg oral tablet (20 sources) P2Y12 Platelet Inhibitor Start: 04-15-2022 End: 12-05-2025 take 1 tablet by mouth once daily clopidogrel (Plavix) 75 MG tablet Take 75 mg by mouth Daily 10/17/2023 Active diclofenac sodium 75 mg delayed release oral tablet (20 sources) Nonsteroidal Anti-inflammatory Drug Start: 10-24-2023 End: 10-10-2024 take 1 tablet by mouth twice daily take 1 tablet by mouth once mike y diclofenac (Voltaren) 75 mg EC tablet Take 1 tablet (75 mg) by mouth once daily. Active doxycycline monohydrate 100 mg oral capsule (8 sources) Tetracycline-class Drug Start: 02-07-2024 take 1 capsule by mouth in the morning doxycycline (Monodox) 100 MG capsule Take 100 mg by mouth in the morning and 100 mg before bedtime. 02/07/2024 Active empagliflozin 10 mg oral tablet (12 sources) Sodium-Glucose Cotransporter 2 Inhibitor Start: 10-10-2024 take 1 tablet by mouth once daily esomeprazole 40 mg delayed release oral capsule [...] As directed 3 each 3 01/04/2024 01/03/2025 Discontinued (Med List Cleanup) Start: 09-28-2023 Repatha SureCl ick 140 MG/ML injection 09/28/2023 Active Start: 09-28-2023 inject 1 mL by subcu taneous injection every other week Repatha SureClick 140 MG/ML injection INJECT 1 ML subcutaneously EVERY 2 WEEKS 09/28/2023 Active Start: 06-19-2018 End: 01-04-2024 inject 1 mL by subcu taneous injection once evolocumab (Repatha SureClick) 140 mg/mL injection Inject 1 mL (140 mg) under the skin every 14 (fourteen) days. Active inject 140 mg by sub cutaneous injection every other week Zoran Martinez 140 MG/ML Inject 140mg Subcutaneous every 2 weeks Active glimepiride 4 mg oral tablet (20 sources) Sulfonylurea Start: 10-17-2023 End: 04-30-2025 take 1 tablet by mouth at mealtime glimepiride (Amaryl) 4 MG tablet Take 4 mg by mouth in the morning. Take with meals. 10/17/2023 04/30/2025 Discontinued levothyroxine sodium 0.05 mg oral tablet (20 sources) l-Thyroxine Start: 10-12-2024 Synthroid 50 M CG tablet 10/12/2024 Active Start: 12-01-2023 Start: 06-19-2018 End: 12-25-2024 take 1 tablet by mouth once daily Levothyroxine (Synthroid) 75 mcg Tablet Discontinued 75 MCG PO Daily June 19, 2018 12:00am December 01, 2023 8:01am take 1 tablet by mono th once daily in the morning Levothyroxine Sodium 75 MCG 1 tablet in the morning on an empty stomach Orally Once a day Active lisinopril 40 mg oral tablet (20 sources) Angiotensin Converting Enzyme Inhibitor Start: 12-05-2024 End: 12-05-2025 take 1 tablet by mouth once daily lisinopril 40 mg tablet Indications: Essential hypertension , Hypertension, unspecified type Take 1 tablet (40 mg) by mouth once daily. 90 tablet 3 12/05/2024 12/05/2025 Active Start: 01-04-2024 take 1 tablet by mono th once daily lisinopril 40 mg tablet Indications: [...] 1 tablet Orally Once a day Active Magnesium (3 sources) Start: 03-06-2025 Start: 03-06-2025 magnesium Acti ve PO March 06, 2025 12:00am Complies with drug therapy 24 hr metFORMIN hydrochloride 500 mg extended release oral tablet (20 sources) Biguanide Start: 10-17-2023 metFORMIN XR ( Glucophage-XR) 500 MG 24 hr tablet 10/17/2023 Active Start: 10-17-2023 take 1 tablet by mono th once daily at dinner metFORMIN XR (Glucophage-XR) 500 MG 24 hr tablet TAKE 1 TABLET BY MOUTH ONCE DAILY WITH evening meal 10/17/2023 Active Start: 06-19-2018 take 1 tablet by mono once daily at bedtime take 1 tablet by mono every twenty-four hours metFORMIN HCl ER 500 [...] Active mometasone furoate 1 mg/ml topical cream (17 sources) Corticosteroid Start: 02-16-2024 mometasone (Elocon) 0.1 % cream 02/16/2024 Active Start: 02-16-2024 mometasone (El linda) 0.1 % cream Daily 02/16/2024 Active Start: 02-16-2024 End: 10-10-2024 Mometasone 0.1 % cream Disco ntinued 1 APPLIC TOPICAL Daily 45 February 16, 2024 12:00am October 10, 2024 12:31pm Apply to radiation site, once a day, AFTER radiation treatments. montelukast 10 mg oral tablet (20 sources) Leukotriene Receptor Antagonist Start: 06-19-2018 montelukast (Singulair) 10 MG tablet 07/29/2023 Active Mounjaro 2.5 MG/0.5ML solution auto-injector (2 sources) Start: 04-17-2025 inject 2.5 mg by subcutaneous injection every week Mounjaro 2.5 MG/0.5ML solution auto-injector INJECT 2.5 MG SUBCUTANEOUSLY WEEKLY 04/17/2025 Active Multivitamin preparation (1 source) take 1 tablet by mouth once daily Multivitamin - 1 tablet Orally Once a day Glucocil Supplement for Blood Sugar Support Active multivitamin tablet (1 source) take 1 tablet by mouth once daily multivitamin tablet Take 1 tablet by mouth once daily. Active nitroglycerin 0.4 mg sublingual tablet (20 sources) Nitrate Vasodilator Start: 10-10-2024 Start: 07-25-2018 End: 11-22-2018 Nitroglycerin 0.4 mg tablet, sublingual Discontinued 0.4 MG SUBLINGUAL every 5 to 15 minutes as needed for chest pain July 25, 2018 1:00am November 21, 2018 12:00am November 22, 2018 12:01am until response; do not exceed 3 doses per episode NON FORMULARY (8 sources) NON FORMULARY GL UCOCIL 2 DAILY Active Suprep Bowel Prep Kit 17.5-3.13-1.6 GM/180ML (2 sources) Start: 06-15-2018 Suprep Bowel P rep Kit 17.5-3.13-1.6 GM/180ML 1 bottle AT 4 PM AND 1 BOTTLE AT 11 PM Orally Once a day for 1 days May, Active Tirzepatide (3 sources) Start: 03-06-2025 Start: 03-06-2025 Tirzepatide (Rupal hi) 2.5 mg/0.5 mL pen injector Active 2.5 MG SUBCUT every week March 06, 2025 12:00am for 4 weeks Complies with drug therapy Completed/Discontinued Medications Medication Drug Class(es) Dates Sig (Normalized) Sig (Original) acetaminophen 325 mg / HYDROcodone bitartrate 5 mg oral tablet (13 sources) Opioid Agonist Start: 12-26-2023 End: 01-11-2024 take 2 tablets by mouth every six hours as needed for pain Hydrocodone-Aceta minophen 5-325 mg tablet Discontinued 2 TAB PO Q6H as needed for pain 17 03December 26, 2023 January 11, 2024 8:53am amLODIPine 5 mg oral tablet (20 sources) Dihydropyridine Calcium Channel Parker Start: 07-25-2018 End: 12-01-2023 take 1 tablet by mouth once daily Amlodipine 5 mg Tablet Discontinued 5 MG PO Daily July 25, 2018 1:00am December 01, 2023 8:01am carvedilol 25 mg oral tablet (20 sources) alpha-Adrenergic Parker, beta-Adrenergic Parker Start: 06-19-2018 End: 12-01-2023 take 1 tablet by mouth twice daily Carvedilol (Coreg) 25 mg Tablet Discontinued 25 MG PO Twice daily June 19, 2018 12:00am December 01, 2023 8:01am irbesartan 300 mg oral tablet (20 sources) Angiotensin 2 Receptor Parker Start: 06-19-2018 End: 12-01-2023 take 1 tablet by mouth once daily Irbesartan 300 mg Tablet Discontinued 300 MG PO Daily June 19, 2018 12:00am December 01, 2023 8:01am Syedhkhwvcwv-Tbck-J olic Acid (Women's Daily Multivitamin) 18-400 mg-mcg tablet (3 sources) Start: 03-06-2025 End: 04-12-2025 take 1 tablet by mouth once daily Multivitamin-Iron -Folic Acid (Women's Daily Multivitamin) 18-400 mg-mcg tablet Discontinued 1 TAB PO Daily March 06, 2025 12:00am April 12, 2025 11:29am Start: 03-06-2025 take 1 tablet by mouth once da melvin Start: 03-06-2025 take 1 tablet by mouth once da melvin Auiebezkipls-Rjtn-Cnyjm Acid (Women's Daily Multivitamin) 18-400 mg-mcg tablet Active 1 TAB PO Daily March 06, 2025 12:00am Complies with drug therapy regadenoson (Lexiscan) injection 0.4 mg (1 source) [...] indicated., Routine ticagrelor 90 mg oral tablet (20 sources) Start: 07-25-2018 End: 07-20-2019 take 1 tablet by mouth twice daily Ticagrelor (Brilinta) 90 mg tablet Discontinued 90 MG PO Twice daily 180 90 July 25, 2018 1:00am July 19, 2019 1:00am July 20, 2019 1:05am Problems Active Problems Problem Classification Problem Date Documented Date Episodic/Chronic Administrative/social admission (20 sources) Patient encounter status; Translations: [Other specified counseling] 12-01-2023 Episodic Cancer of breast (20 sources) Malignant neoplasm of central part of female breast; Translations: [Malignant neoplasm of central portion of right female breast] Onset: 11-23-2023 12-01-2023 Chronic Comment on above: 11/18/2023 Cancer of breast (6 sources) History of malignant neoplasm of breast; Translations: [Personal history of malignant neoplasm of breast] Onset: 04-30-2025 08-23-2024 Episodic Chronic obstructive pulmonary disease and bronchiectasis (19 sources) Chronic obstructive lung disease; Translations: [Chronic obstructive pulmonary disease, unspecified] 01-24-2024 Chronic Coronary atherosclerosis and other heart disease (20 sources) Atherosclerotic heart disease of [place] coronary artery with unstable angina pectoris; Translations: [Atherosclerotic heart disease of [place] coronary artery without angina pectoris] Onset: 01-16-2021 Chronic Comment on above: 2018 Coronary atherosclerosis and other heart disease (20 sources) Patient post percutaneous transluminal coronary angioplasty; Translations: [Percutaneous transluminal coronary angioplasty status] Onset: 01-04-2024 12-01-2023 Episodic Diabetes mellitus without complication (11 sources) Diabetes mellitus; Translations: [Diabetes mellitus without mention of complication, type II or unspecified type, not stated as uncontrolled] Onset: 01-03-2025 01-03-2025 Chronic Disorders of lipid metabolism (15 sources) Hyperlipidemia; Translations: [Other and unspecified hyperlipidemia] Onset: 01-04-2024 01-04-2024 Chronic Essential hypertension (20 sources) Essential (primary) hypertension; Translations: [Essential hypertension] Onset: 01-23-2021 01-04-2024 Chronic Fluid and electrolyte disorders (18 sources) Metabolic alkalosis; Translations: [Alkalosis] 01-24-2024 Episodic Immunizations and screening for infectious disease (1 source) Encounter for immunization Episodic Nonmalignant breast conditions (20 sources) Breast lump; Translations: [Unspecified lump in the right breast, unspecified quadrant] 11-15-2023 Episodic Osteoarthritis (8 sources) Unilateral primary osteoarthritis, right knee; Translations: [Osteoarthritis] Onset: 01-19-2021 Chronic Other aftercare (1 source) Other fci (current) drug therapy Episodic Other aftercare (9 sources) Long-term current use of drug therapy; Translations: [Encounter for therapeutic drug level monitoring] 04-11-2024 Episodic Other aftercare (5 sources) Encounter for therapeutic drug level monitoring; Translations: [Encounter for therapeutic drug monitoring] 04-11-2024 Episodic Other hematologic conditions (12 sources) H/O: anemia - iron deficient; Translations: [Personal history of diseases of the blood and blood-forming organs and certain disorders involving the immune mechanism] 01-24-2024 Episodic Other hematologic conditions (6 sources) Personal history of diseases of the blood and blood-forming organs and certain disorders involving the immune mechanism; Translations: [Personal history of diseases of blood and blood-forming organs] 01-24-2024 Episodic Other hereditary and degenerative nervous system conditions (4 sources) Restless legs; Translations: [Restless legs syndrome] 03-06-2025 Chronic Other nervous system disorders (9 sources) Sleep-wake schedule disorder, delayed phase type; Translations: [...] [Body Mass Index 45.0-49.9, adult] 01-24-2024 Chronic Other nutritional; endocrine; and metabolic disorders (3 sources) Body mass index (BMI) 40.0-44.9, adult; Translations: [Body Mass Index 40.0-44.9, adult] Onset: 01-04-2024 4 Chronic Other nutritional; endocrine; and metabolic disorders (1 source) Disorder of iron metabolism, unspecified; Translations: [Disorder of iron metabolism, unspecified] Onset: 03-06-2025 Chronic Other screening for suspected conditions (not mental disorders or infectious disease) (20 sources) Encounter for screening for osteoporosis; Translations: [Special screening for osteoporosis] Onset: 12-20-2023 12-01-2023 Episodic Residual codes; unclassified (20 sources) Obstructive sleep apnea syndrome; Translations: [Obstructive sleep apnea (adult) (pediatric)] 01-24-2024 Chronic Residual codes; unclassified (6 sources) Obstructive sleep apnea (adult) (pediatric); Translations: [Obstructive sleep apnea (adult)(pediatric)] 01-24-2024 Chronic Residual codes; unclassified (1 source) Idiopathic sleep related nonobstructive alveolar hypoventilation; Translations: [Idiopathic sleep related non-obstructive alveolar hypoventilation] 05-01-2024 Chronic Residual codes; unclassified (4 sources) Hypersomnia; Translations: [Hypersomnia, unspecified] 03-06-2025 Chronic Residual codes; unclassified (20 sources) Family history of cancer of colon; Translations: [Family history of malignant neoplasm of digestive organs] 06-21-2018 Episodic Residual codes; unclassified (4 sources) Never smoked tobacco; Translations: [Other specified health status] Onset: 01-04-2024 01-04-2024 Episodic Residual codes; unclassified (1 source) Statin declined; Translations: [Procedure and treatment not carried out because of patient's decision for unspecified reasons] 01-04-2024 Episodic Residual codes; unclassified (12 sources) Insomnia; Translations: [Insomnia, unspecified] 01-24-2024 Episodic Residual codes; unclassified (6 sources) Insomnia, unspecified; Translations: [Insomnia, unspecified] 01-24-2024 Episodic Residual codes; unclassified (2 sources) Other specified health status; Translations: [Other specified health status] Onset: 01-04-2024 Episodic Thyroid disorders (16 sources) Hypothyroidism; Translations: [Hypothyroidism, unspecified] Onset: 05-31-2024 01-24-2024 Chronic Past or Other Problems Problem Classification Problem Date Documented Da te Episodic/Chronic Unclassified (9 sources) Never smoked tobacco; Translations: [Never a smoker] Unclassified (2 sources) Onset: 01-04-2024 01-04-2024 Results Test Name Value Interpretation Reference Range Facility Basophils [#/volume] in Bloo d by Automated countOrdered By: Thomas Hoover on 03-06-2025 Basophils (Bld) [#/Vol] 0.0 10*3/uL Normal 0.0-0.2 [facility] Comment on above: Result Comment: PERF ORMED BY: [place] [address] PATHOLOGIST READING INTERVENTION TEACHER NICOLETTE MARTINEZ M.D. Performed By: #### F ER, CBC, FE and TIBC #### [address] Basophils/100 leukocytes in Blood by Automated countOrdered By: Thomas Hoover on 03-06-2025 Basophils/100 WBC (Bld) 0.3 % Normal . [facility] Comment on above: Performed By: #### F ER, CBC, FE and TIBC #### [address] Complete Blood Count Auto Di ffon 03-06-2025 Mean Corpuscular HGB Conc 33.6 g/dL Normal 32.0-35.0 [facility] Comment on above: Performed By: #### F ER, CBC, FE and TIBC #### [address] NRBC% 0.1 /100{WBC} Normal 0-0.5 [facility] Comment on above: Performed By: #### F ER, CBC, FE and TIBC #### [address] White Blood Count 8.5 [CFU]/mL Normal 3.8-11.6 [facility] Comment on above: Performed By: #### F ER, CBC, FE and TIBC #### [address] Eosinophils [#/volume] in Bl ood by Automated countOrdered By: Thomas Hoover on 03-06-2025 Eosinophils (Bld) [#/Vol] 0.1 10*3/uL Normal 0.0-0.45 [facility] Comment on above: Performed By: #### F ER, CBC, FE and TIBC #### [address] Eosinophils/100 leukocytes i n Blood by Automated countOrdered By: Thomas Hoover on 03-06-2025 Eosinophils/100 WBC (Bld) 1.3 % Normal . [facility] Comment on above: Performed By: #### F ER, CBC, FE and TIBC #### [address] Erythrocyte distribution wid th [Ratio] by Automated countOrdered By: Thomas Hoover on 03-06-2025 Erythrocyte distribution width (RBC) [Ratio] 14.4 % Normal 11.9-15.3 [facility] Comment on above: Performed By: #### F ER, CBC, FE and TIBC #### [address] Erythrocytes [#/volume] in B lood by Automated countOrdered By: Thomas Hoover on 03-06-2025 RBC (Bld) [#/Vol] 4.78 10*6/uL Normal 3.60-5.00 [facility] Comment on above: Performed By: #### F ER, CBC, FE and TIBC #### [address] Ferritin [Mass/volume] in Se rum or PlasmaOrdered By: Thomas Hoover on 03-06-2025 Ferritin [Mass/Vol] 42.5 ng/mL Normal 11.0-306.8 [facility] Comment on above: Result Comment: PERF ORMED BY: [place] [address] PATHOLOGIST READING INTERVENTION TEACHER NICOLETTE MARTINEZ M.D. Performed By: #### F ER, CBC, FE and TIBC #### [address] Hematocrit [Volume Fraction] of Blood by Automated countOrdered By: Thomas Hoover on 03-06-2025 Hematocrit (Bld) [Volume fraction] 41.2 % Normal 34.0-46.4 [facility] Comment on above: Performed By: #### F ER, CBC, FE and TIBC #### [address] Hemoglobin [Mass/volume] in BloodOrdered By: Thomas Hoover on 03-06-2025 Hemoglobin (Bld) [Mass/Vol] 13.8 g/dL Normal 11.8-15.4 [facility] Comment on above: Performed By: #### F ER, CBC, FE and TIBC #### [facility] [address] [place] [address] Iron [Mass/volume] in Serum or PlasmaOrdered By: Thomas Hoover on 03-06-2025 Iron [Mass/Vol] 112 ug/dL Normal 50-212 [facility] Comment on above: Performed By: #### F ER, CBC, FE and TIBC #### [facility] [address] [place] [address] Iron and TIBC Profileon % Iron Saturation 27.2 % Normal 20-50 [facility] Comment on above: Performed By: #### F ER, CBC, FE and TIBC #### [address] Total Iron Binding Capacity 412 ug/dL Normal 255-450 [facility] Comment on above: Performed By: #### F ER, CBC, FE and TIBC #### [facility] [address] [place] [address] Leukocytes [#/volume] correc irena for nucleated erythrocytes in Blood by Automated counOrdered By: Thomas Hoover on 03-06-2025 WBC corrected for nucl RBC Auto (Bld) [#/Vol] 8.5 10*3/uL 3.8-11.6 [facility] Leukocytes [#/volume] in Blo od by Automated countOrdered By: Thomas Hoover on 03-06-2025 WBC (Bld) [#/Vol] 8.5 10*3/uL Normal 3.8-11.6 [facility] Comment on above: Performed By: #### F ER, CBC, FE and TIBC #### [address] Lymphocytes [#/volume] in Bl ood by Automated countOrdered By: Thomas Hoover on 03-06-2025 Lymphocytes (Bld) [#/Vol] 1.9 10*3/uL Normal 1.00-4.8 [facility] Comment on above: Performed By: #### F ER, CBC, FE and TIBC #### [address] Lymphocytes/100 leukocytes i n Blood by Automated countOrdered By: Thomas Hoover on 03-06-2025 Lymphocytes/100 WBC (Bld) 22.2 % Normal . [facility] Comment on above: Performed By: #### F ER, CBC, FE and TIBC #### [address] MCH [Entitic mass] by Automa irena countOrdered By: Thomas Hoover on 03-06-2025 MCH (RBC) [Entitic mass] 28.9 pg Normal 24.7-34.3 [facility] Comment on above: Performed By: #### F ER, CBC, FE and TIBC #### [address] MCHC Auto (RBC) [Mass/Vol]Or dered By: Thomas Hoover on 03-06-2025 MCHC (RBC) [Mass/Vol] 33.6 g/dL 32.0-35.0 [facility] MCV [Entitic volume] by Auto mated countOrdered By: Thomas Hoover on 03-06-2025 MCV (RBC) [Entitic vol] 86.2 fL Normal 80-100 [facility] Comment on above: Performed By: #### F ER, CBC, FE and TIBC #### [address] Monocytes [#/volume] in Bloo d by Automated countOrdered By: Thomas Hoover on 03-06-2025 Monocytes (Bld) [#/Vol] 0.6 10*3/uL Normal 0.0-0.8 [facility] Comment on above: Performed By: #### F ER, CBC, FE and TIBC #### [facility] [address] Monocytes/100 leukocytes in Blood by Automated countOrdered By: Thomas Hoover on 03-06-2025 Monocytes/100 WBC (Bld) 7.3 % Normal . [facility] Comment on above: Performed By: #### F ER, CBC, FE and TIBC #### [facility] [address] Neutrophils [#/volume] in Bl ood by Automated countOrdered By: Thomas Hoover on 03-06-2025 Neutrophils (Bld) [#/Vol] 5.8 10*3/uL Normal 1.8-7.7 [facility] Comment on above: Performed By: #### F ER, CBC, FE and TIBC #### [address] Neutrophils/100 leukocytes i n Blood by Automated countOrdered By: Thomas Hoover on 03-06-2025 Neutrophils/100 WBC (Bld) 68.9 % Normal . [facility] Comment on above: Performed By: #### F ER, CBC, FE and TIBC #### [address] Nucleated erythrocytes [Pres ence] in Blood by Automated countOrdered By: Thomas Hoover on 03-06-2025 Nucleated RBC Auto Ql (Bld) 0.1 /100{WBC} 0-0.5 [facility] Platelet mean volume [Entiti c volume] in Blood by Automated countOrdered By: Thomas Hoover on 03-06-2025 Platelet mean volume (Bld) [Entitic vol] 8.8 fL Normal 6.3-10.7 [facility] Comment on above: Performed By: #### F ER, CBC, FE and TIBC #### [place] [address] [place] Platelets [#/volume] in Bloo d by Automated countOrdered By: Thomas Hoover on 03-06-2025 Platelets (Bld) [#/Vol] 310 10*3/uL Normal 150-450 [facility] Comment on above: Performed By: #### F ER, CBC, FE and TIBC #### [facility] [address] Serum or plasma iron binding capacity measurement (mass/volume)Ordered By: Thomas Hoover on 03-06-2025 Iron binding capacity [Mass/Vol] 412 ug/dL 255-450 [facility] Serum or plasma iron saturat ion measurement (mass fraction)Ordered By: Thomas Hoover on 03-06-2025 Iron saturation [Mass fraction] 27.2 % 20-50 [facility] Transferrin [Mass/volume] in Serum or PlasmaOrdered By: Thomas Hoover on 03-06-2025 Transferrin [Mass/Vol] 294 mg/dL Normal 203-362 [facility] Comment on above: Performed By: #### F ER, CBC, FE and TIBC #### [facility] [address] [place] [id number] [facility] ECG 12 [address] 01-03-2025 Normal sinus rhythm with borderline first-degree AV block [facility] Work Phone: MM diagnostic mammo BI w/CAD on 11-08-2024 MM diagnostic mammo BI w/CAD [facility] [address] [place] [address] Mammography Report Signed Patient: Doris Carnes MR#: [id number] : 1960 Acct:[id number] Age/Sex: 64 / F Adm Date: 11/08/24 Loc: [place] Room: Type: [facility] Attending Dr: Raphael Connors DO Ordering Provider: Raphael Connors DO Date of Service: 11/08/24 Procedure(s): MM diagnostic mammo BI w/CAD Accession Number(s): ([id number]) MM/MM diagnostic mammo BI w/CAD: Z85.3 Copies [...] mammogram. Impression dictated by: Edwardo Means Jr., D.O.11/08/2024 11:01 AM Dictation Location: [facility] Dictated By: Edwardo Means Jr, DO 11/08/24 1055 Signed By: 11/08/24 1101 Normal [facility] Mammography reportOrdered By : Edwardo Means on 11-08-2024 Diagnostic imaging study [facility] [address] [place] [address] Mammography Report Signed Patient: Doris Carnes MR#: [id number] : 1960 Acct:[id number] Age/Sex: 64 / F Adm Date: 5 Loc: [place] Room: Type: [facility] Attending Dr: Raphael Connors DO Ordering Provider: Raphael Connors DO Date of Service: 11/08/24 Procedure(s): MM diagnostic mammo BI w/CAD Accession Number(s): ([id number]) MM/MM diagnostic mammo BI w/CAD: Z85.3 Copies to: MD Raphael Bates DO~ CLINICAL DATA: History of right-sided breast cancer status post lumpectomy [id number]. Bilateral DIAGNOSTIC MAMMOGRAM - WITH TOMOSYNTHESIS AND [...] mammogram. Impression dictated by: Edwardo Means Jr., D.O.11/08/2024 11:01 AM Dictation Location: [facility] Dictated By: Edwardo Means Jr, DO 11/08/24 1055 Signed By: 11/08/24 1101 [facility] A1C with Estimated Average G luon 05-31-2024 Glucose [Mass/Vol] 131 mg/dL Normal [facility] Comment on above: Result Comment: PERF ORMED BY: [place] [address] PATHOLOGIST [employer]ING [employer]ION [employer]ER SUSAN THOMPSON M.D. Performed By: #### V [id number], CBC, THYROID SC, A1C WTH eA, LIPID, CMP #### [facility] [address] [place] [address] [place] Alanine aminotransferase [En zymatic activity/volume] in Serum or PlasmaOrdered By: Noah Lewis on 05-31-2024 ALT [Catalytic activity/Vol] 26 U/L Normal 7-52 [facility] Comment on above: Performed By: #### V [id number], CBC, THYROID SC, A1C WTH eA, LIPID, CMP #### [facility] [address] [place] [address] [place] Albumin [Mass/volume] in Ser um or Plasma by Bromocresol green (BCG) dye binding methoOrdered By: Noah Lewis on 05-31-2024 Albumin BCG dye [Mass/Vol] 3.9 g/dL 3.5-5.7 [facility] Alkaline phosphatase [Enzyma tic activity/volume] in Serum or PlasmaOrdered By: Noah Zamoraaleksey on 05-31-2024 ALP [Catalytic activity/Vol] 80 U/L Normal 34-104 [facility] Comment on above: Performed By: #### V [id number], CBC, THYROID SC, A1C WTH eA, LIPID, CMP #### [facility] [address] Aspartate aminotransferase [ Enzymatic activity/volume] in Serum or PlasmaOrdered By: Noah Aye on 05-31-2024 AST [Catalytic activity/Vol] 19 U/L Normal 13-39 [facility] Comment on above: Performed By: #### V [id number], CBC, THYROID SC, A1C WTH eA, LIPID, CMP #### [address] Automated basophil %Ordered By: Noah Lewis on 05-31-2024 Basophils/100 WBC (Bld) 0.3 % Normal . [facility] Comment on above: Performed By: #### V [id number], CBC, THYROID SC, A1C WTH eA, LIPID, CMP #### [facility] [address] [place] [address] Automated basophil countOrde red By: Noah Hoy on 05-31-2024 Basophils (Bld) [#/Vol] 0.0 10*3/uL Normal 0.0-0.2 [facility] Comment on above: Result Comment: PERF ORMED BY: [place] [address] PATHOLOGIST READING INTERVENTION TEACHER SUSAN THOMPSON M.D. Performed By: #### V [id number], CBC, THYROID SC, A1C WTH eA, LIPID, CMP #### [address] Automated blood monocyte cou ntOrdered By: Noah Lewis on 05-31-2024 Monocytes (Bld) [#/Vol] 0.7 10*3/uL Normal 0.0-0.8 [facility] Comment on above: Performed By: #### V [id number], CBC, THYROID SC, A1C WTH eA, LIPID, CMP #### [facility] [address] Automated eosinophil %Ordere d By: Noah Zamoraaleksey on 05-31-2024 Eosinophils/100 WBC (Bld) 1.1 % Normal . [facility] Comment on above: Performed By: #### V [id number], CBC, THYROID SC, A1C WTH eA, LIPID, CMP #### [facility] [address] Automated eosinophil countOr dered By: Noah Aye on 05-31-2024 Eosinophils (Bld) [#/Vol] 0.1 10*3/uL Normal 0.0-0.45 [facility] Comment on above: Performed By: #### V [id number], CBC, THYROID SC, A1C WTH eA, LIPID, CMP #### [address] Automated monocyte %Ordered By: Noah Lewis on 05-31-2024 Monocytes/100 WBC (Bld) 7.8 % Normal . [facility] Comment on above: Performed By: #### V [id number], CBC, THYROID SC, A1C WTH eA, LIPID, CMP #### [address] Automated neutrophil %Ordere d By: Noah Lewis on 05-31-2024 Neutrophils/100 WBC (Bld) 67.9 % Normal . [facility] Comment on above: Performed By: #### V [id number], CBC, THYROID SC, A1C WTH eA, LIPID, CMP #### [address] Bilirubin.total [Mass/volume ] in Serum or PlasmaOrdered By: Noah Lewis on 05-31-2024 Bilirubin [Mass/Vol] 0.7 mg/dL Normal 0.3-1.0 [facility] Comment on above: Performed By: #### V [id number], CBC, THYROID SC, A1C WTH eA, LIPID, CMP #### [address] Calcium [Mass/volume] in Ser um or PlasmaOrdered By: Noah Lewis on 05-31-2024 Calcium [Mass/Vol] 9.4 mg/dL Normal 8.6-10.3 [facility] Comment on above: Performed By: #### V [id number], CBC, THYROID SC, A1C WTH eA, LIPID, CMP #### [facility] [address] [place] [address] [place] Carbon dioxide, total [Moles /volume] in Serum or PlasmaOrdered By: Noah Lewis on 05-31-2024 CO2 [Moles/Vol] 33.5 mmol/L High 21.0-31.0 [facility] Comment on above: Performed By: #### V [id number], CBC, THYROID SC, A1C WTH eA, LIPID, CMP #### [facility] [address] [place] [address] [place] Chloride [Moles/volume] in S yoandy or PlasmaOrdered By: Noah Lewis on 05-31-2024 Chloride [Moles/Vol] 101 mmol/L Normal 98-107 [facility] Comment on above: Performed By: #### V [id number], CBC, THYROID SC, A1C WTH eA, LIPID, CMP #### [facility] [address] [place] [address] [place] Cholesterol [Mass/volume] in Serum or PlasmaOrdered By: Noah Lewis on 05-31-2024 Cholesterol [Mass/Vol] 209 mg/dL High 140-200 [facility] Comment on above: Chol less than 200 m g/dl low riskChol 201-239 mg/dl borderline riskChol 240 mg/dl and greater high risk Result Comment: Chol less than 200 mg/dl low risk Chol 201-239 mg/dl borderline risk Chol 240 mg/dl and greater high risk Performed By: #### V [id number], CBC, THYROID SC, A1C WTH eA, LIPID, CMP #### [facility] [address] [place] [address] [place] Cholesterol in LDL Calc [Mas s/Vol]Ordered By: Noah Lewis on 05-31-2024 Cholesterol in LDL [Mass/Vol] 120 mg/dL High 0-100 [facility] Comment on above: LDL ATP III CLASSIFI CATIONLDL less than 100 mg/dL OptimalLDL 100-129 mg/dL Near or above optimalLDL 130-159 mg/dL Borderline highLDL 160-189 mg/dL HighLDL greater than 189 mg/dL Very high Cholesterol in VLDL Calc [Ma ss/Vol]Ordered By: Noah Lewis on 05-31-2024 Cholesterol in VLDL [Mass/Vol] 50 mg/dL [facility] Complete Blood Count Auto Di ffon 05-31-2024 Mean Corpuscular HGB Conc 33.8 g/dL Normal 32.0-35.0 [facility] Comment on above: Performed By: #### V [id number], CBC, THYROID SC, A1C WTH eA, LIPID, CMP #### [facility] [address] NRBC% 0.1 /100{WBC} Normal 0-0.5 [facility] Comment on above: Performed By: #### V [id number], CBC, THYROID SC, A1C WTH eA, LIPID, CMP #### [facility] [address] Comprehensive Metabolic Pane meli 05-31-2024 Albumin [Mass/Vol] 3.9 g/dL Normal 3.5-5.7 [facility] Comment on above: Performed By: #### V [id number], CBC, THYROID SC, A1C WTH eA, LIPID, CMP #### [facility] [address] [place] [address] GFR/1.73 sq M.predicted MDRD (S/P/Bld) [Vol rate/Area] 53.991 mL/min/{1.73_m2} Normal [facility] Comment on above: Performed By: #### V [id number], CBC, THYROID SC, A1C WTH eA, LIPID, CMP #### [address] Creatinine [Mass/volume] in Serum or PlasmaOrdered By: Noah Lewis on 05-31-2024 Creatinine [Mass/Vol] 1.13 mg/dL Normal 0.60-1.20 [facility] Comment on above: Performed By: #### V [id number], CBC, THYROID SC, A1C WTH eA, LIPID, CMP #### [facility] [address] Erythrocyte distribution wid th [Ratio] by Automated countOrdered By: Noah Lewis on 05-31-2024 Erythrocyte distribution width (RBC) [Ratio] 14.0 % Normal 11.9-15.3 [facility] Comment on above: Performed By: #### V [id number], CBC, THYROID SC, A1C WTH eA, LIPID, CMP #### [facility] [address] Erythrocytes [#/volume] in B lood by Automated countOrdered By: Noah eLwis on 05-31-2024 RBC (Bld) [#/Vol] 4.66 10*6/uL Normal 3.60-5.00 [facility] Comment on above: Performed By: #### V [id number], CBC, THYROID SC, A1C WTH eA, LIPID, CMP #### [facility] [address] Glucose [Mass/volume] in Ser um or PlasmaOrdered By: Noah Lewis on 05-31-2024 Glucose [Mass/Vol] 113 mg/dL High 70-100 [facility] Comment on above: ADA recommended refe rence rangeRandom Glucose Reference Range is dependent on time and content of last meal. Glucose of more than 200 mg/dL in a nonstressed, ambulatory subject supports the diagnosis of Diabetes Mellitus. Result Comment: [place] om Glucose Reference Range is dependent on time and content of last meal. Glucose of more than 200 mg/dL in a nonstressed, ambulatory subject supports the diagnosis of Diabetes Mellitus. ADA recommended reference range Performed By: #### V [id number], CBC, THYROID SC, A1C WTH eA, LIPID, CMP #### [facility] [address] Glucose mean value [Mass/vol ume] in Blood Estimated from glycated hemoglobinOrdered By: Noah Lewis on 05-31-2024 Average glucose Estimated from glycated hemoglobin (Bld) [Mass/Vol] 131 mg/dL [facility] Hematocrit [Volume Fraction] of Blood by Automated countOrdered By: Noah Lewis on 05-31-2024 Hematocrit (Bld) [Volume fraction] 40.3 % Normal 34.0-46.4 [facility] Comment on above: Performed By: #### V [id number], CBC, THYROID SC, A1C WTH eA, LIPID, CMP #### [facility] [address] Hemoglobin A1c percentageOrd ered By: Noah Lewis on 05-31-2024 HbA1c (Bld) [Mass fraction] 6.2 % High 4.3-5.6 [facility] Comment on above: Increased risk for d iabetes: 5.7 - 6.4diabetes: >6.4glycemic control for adults with diabetes: <7.0 Result Comment: Incr eased risk for diabetes: 5.7 - 6.4 diabetes: >6.4 glycemic control for adults with diabetes: <7.0 Performed By: #### V [id number], CBC, THYROID SC, A1C WTH eA, LIPID, CMP #### [facility] [address] Hemoglobin [Mass/volume] in BloodOrdered By: Noah Lewis on 05-31-2024 Hemoglobin (Bld) [Mass/Vol] 13.6 g/dL Normal 11.8-15.4 [facility] Comment on above: Performed By: #### V [id number], CBC, THYROID SC, A1C WTH eA, LIPID, CMP #### [facility] [address] Leukocytes [#/volume] correc irena for nucleated erythrocytes in Blood by Automated counOrdered By: Noah Lewis on 05-31-2024 WBC corrected for nucl RBC Auto (Bld) [#/Vol] 8.6 10*3/uL 3.8-11.6 [facility] Leukocytes [#/volume] in Blo od by Automated countOrdered By: Noah Lewis on 05-31-2024 WBC (Bld) [#/Vol] 8.6 10*3/uL Normal 3.8-11.6 [facility] Comment on above: Performed By: #### V [id number], CBC, THYROID SC, A1C WTH eA, LIPID, CMP #### [facility] [address] Lipid Panelon 05-31-2024 LDL Cholesterol,Calculated 120 mg/dL High 0-100 [facility] Comment on above: Result Comment: LDL ATP III CLASSIFICATION LDL less than 100 mg/dL Optimal LDL 100-129 mg/dL Near or above optimal LDL 130-159 mg/dL Borderline high LDL 160-189 mg/dL High LDL greater than 189 mg/dL Very high Performed By: #### V [id number], CBC, THYROID SC, A1C WTH eA, LIPID, CMP #### [address] Triglyceride w/Reflex 251 mg/dL High 0-149 [facility] Comment on above: Result Comment: TRIG ATP III CLASSIFICATION TRIG less than 150 mg/dL Normal TRIG 150-199 mg/dL Borderline high TRIG 200-500 mg/dL High TRIG greater than 500 mg/dL Very high Standard traceable to the Center for Disease Conrtrol and Prevention (CDC) test method. Performed By: #### V [id number], CBC, THYROID SC, A1C WTH eA, LIPID, CMP #### [address] VLDL CHOLESTEROL 50 mg/dL Normal [facility] Comment on above: Performed By: #### V [id number], CBC, THYROID SC, A1C WTH eA, LIPID, CMP #### [address] Lymphocytes [#/volume] in Bl ood by Automated countOrdered By: Noah Lewis on 05-31-2024 Lymphocytes (Bld) [#/Vol] 2.0 10*3/uL Normal 1.00-4.8 [facility] Comment on above: Performed By: #### V [id number], CBC, THYROID SC, A1C WTH eA, LIPID, CMP #### [place] [address] [place] Lymphocytes/100 leukocytes i n Blood by Automated countOrdered By: Noah Lewis on 05-31-2024 Lymphocytes/100 WBC (Bld) 22.9 % Normal . [facility] Comment on above: Performed By: #### V [id number], CBC, THYROID SC, A1C WTH eA, LIPID, CMP #### [facility] [address] MCH [Entitic mass] by Automa irena countOrdered By: Noah Zamoraaleksey on 05-31-2024 MCH (RBC) [Entitic mass] 29.2 pg Normal 24.7-34.3 [facility] Comment on above: Performed By: #### V [id number], CBC, THYROID SC, A1C WTH eA, LIPID, CMP #### [facility] [address] [place] [address] MCHC Auto (RBC) [Mass/Vol]Or dered By: Noah Lewis on 05-31-2024 MCHC (RBC) [Mass/Vol] 33.8 g/dL 32.0-35.0 [facility] MCV [Entitic volume] by Auto mated countOrdered By: Noah Aye on 05-31-2024 MCV (RBC) [Entitic vol] 86.4 fL Normal 80-100 [facility] Comment on above: Performed By: #### V [id number], CBC, THYROID SC, A1C WTH eA, LIPID, CMP #### [address] Neutrophils [#/volume] in Bl ood by Automated countOrdered By: Noah Lewis on 05-31-2024 Neutrophils (Bld) [#/Vol] 5.9 10*3/uL Normal 1.8-7.7 [facility] Comment on above: Performed By: #### V [id number], CBC, THYROID SC, A1C WTH eA, LIPID, CMP #### [facility] [address] [place] [address] No Panel InformationOrdered By: Noah Lewis on 05-31-2024 Estimated GFR (CKD-EPI) 53.991 mL/Min [facility] Creatinine Clearance (Chem N/A [facility] Nucleated erythrocytes [Pres ence] in Blood by Automated countOrdered By: Noah Lewis on 05-31-2024 Nucleated RBC Auto Ql (Bld) 0.1 /100{WBC} 0-0.5 [facility] Platelet mean volume [Entiti c volume] in Blood by Automated countOrdered By: Noah Lewis on 05-31-2024 Platelet mean volume (Bld) [Entitic vol] 8.5 fL Normal 6.3-10.7 [facility] Comment on above: Performed By: #### V [id number], CBC, THYROID SC, A1C WTH eA, LIPID, CMP #### [facility] [address] [place] [address] [place] Platelets [#/volume] in Bloo d by Automated countOrdered By: Noah Lewis on 05-31-2024 Platelets (Bld) [#/Vol] 299 10*3/uL Normal 150-450 [facility] Comment on above: Performed By: #### V [id number], CBC, THYROID SC, A1C WTH eA, LIPID, CMP #### [facility] [address] [place] [address] [place] Potassium [Moles/volume] in Serum or PlasmaOrdered By: Noah Lewis on 05-31-2024 Potassium [Moles/Vol] 3.8 mmol/L Normal 3.5-5.1 [facility] Comment on above: Performed By: #### V [id number], CBC, THYROID SC, A1C WTH eA, LIPID, CMP #### [facility] [address] [place] [address] [place] Protein [Mass/volume] in Ser um or PlasmaOrdered By: Noah Lewis on 05-31-2024 Protein [Mass/Vol] 6.1 g/dL Low 6.4-8.9 [facility] Comment on above: Performed By: #### V [id number], CBC, THYROID SC, A1C WTH eA, LIPID, CMP #### [facility] [address] Serum globulin measurement b y calculation (mass/volume)Ordered By: Noah Lewis on 05-31-2024 Globulin (S) [Mass/Vol] 2.2 g/dL Normal [facility] Comment on above: Performed By: #### V [id number], CBC, THYROID SC, A1C WTH eA, LIPID, CMP #### [facility] [address] Serum or plasma albumin/glob ulin mass ratioOrdered By: Noah Lewis on 05-31-2024 Albumin/Globulin [Mass ratio] 1.8 {ratio} Normal [facility] Comment on above: Performed By: #### V [id number], CBC, THYROID SC, A1C WTH eA, LIPID, CMP #### [facility] [address] Serum or plasma anion gap de terminationOrdered By: Noah Lewis on 05-31-2024 Anion gap [Moles/Vol] 11.3 mmol/L Normal 6.0-15.0 [facility] Comment on above: Performed By: #### V [id number], CBC, THYROID SC, A1C WTH eA, LIPID, CMP #### [facility] [address] Serum or plasma high density lipoprotein (HDL) cholesterol measurementOrdered By: Noah Lewis on 05-31-2024 Cholesterol in HDL [Mass/Vol] 39 mg/dL Normal 23-92 [facility] Comment on above: HDL CHOL ATP-III CLA SSIFICATION Cardiovascular RiskHDL > or equal to 60 mg/dL LOWHDL < 40 mg/dL HIGH Result Comment: HDL CHOL ATP-III CLASSIFICATION Cardiovascular Risk HDL > or equal to 60 mg/dL LOW HDL < 40 mg/dL HIGH Performed By: #### V [id number], CBC, THYROID SC, A1C WTH eA, LIPID, CMP #### [facility] [address] Serum or plasma total choles terol/high density lipoprotein (HDL) cholesterol mass ratOrdered By: Noah Lewis on 05-31-2024 Cholesterol.total/Mari sterol in HDL [Mass ratio] 5.4 {ratio} Normal <5.0 [facility] Comment on above: Performed By: #### V [id number], CBC, THYROID SC, A1C WTH eA, LIPID, CMP #### [facility] [address] [place] [address] [place] Sodium [Moles/volume] in Ser um or PlasmaOrdered By: Noah Lewis on 05-31-2024 Sodium [Moles/Vol] 142 mmol/L Normal 136-145 [facility] Comment on above: Performed By: #### V [id number], CBC, THYROID SC, A1C WTH eA, LIPID, CMP #### [facility] [address] [place] [address] [place] Thyrotropin [Units/volume] i n Serum or PlasmaOrdered By: Noah Lewis on 05-31-2024 TSH Qn 2.02 m[IU]/L Normal 0.45-5.33 [facility] Comment on above: Performed By: #### V [id number], CBC, THYROID SC, A1C WTH eA, LIPID, CMP #### [facility] [address] [place] [address] [place] Thyroxine (T4) free [Mass/vo lume] in Serum or PlasmaOrdered By: Noah Lewis on 05-31-2024 Free T4 [Mass/Vol] 1.11 ng/dL Normal 0.61-1.12 [facility] Comment on above: Performed By: #### V [id number], CBC, THYROID SC, A1C WTH eA, LIPID, CMP #### [facility] [address] [place] [address] [place] Triglyceride [Mass/volume] i n Serum or PlasmaOrdered By: Noah Lewis on 05-31-2024 Triglyceride [Mass/Vol] 251 mg/dL High 0-149 [facility] Comment on above: TRIG ATP III CLASSIF ICATIONTRIG less than 150 mg/dL NormalTRIG 150-199 mg/dL Borderline highTRIG 200-500 mg/dL High TRIG greater than 500 mg/dL Very highStandard traceable to the Center for Disease Conrtrol and Prevention (CDC) test method. Urea nitrogen [Mass/volume] in Serum or PlasmaOrdered By: Noah Lewis on 05-31-2024 Urea nitrogen [Mass/Vol] 30 mg/dL High 7-25 [facility] Comment on above: Performed By: #### V [id number], CBC, THYROID SC, A1C WTH eA, LIPID, CMP #### [facility] [address] [place] [id number] [facility] Vitamin D 25 Hydroxy Totalon 05-31-2024 Vitamin D 25 Hydroxy Total 27.7 ng/mL Low 30-100 [facility] Comment on above: Result Comment: KEVEN MIN D STATUS 25(OH)VITAMIN D RANGE (ng/mL) Deficient <20 Insufficient 20 to <30 Sufficient 30 to 100 Reference: Darrel [place], Shane PAIGE, et al. Evaluation,treatment, and prevention of vitamin D deficiency; an Endocrine Society clinical practice guideline. JCEM. 2010; 96(7):1911-30. PERFORMED BY: [address] [place] [id number] PATHOLOGIST READING INTERVENTION TEACHER SUSAN THOMPSON M.D. Performed By: #### V [id number], CBC, THYROID SC, A1C WTH eA, LIPID, CMP #### [facility] [address] [place] [id number] [facility] Vitamin D+Metabolites [Mass/ volume] in Serum or PlasmaOrdered By: Noah Lewis on 05-31-2024 Vitamin D+Metabolites [Mass/Vol] 27.7 ng/mL Low 30-100 [facility] Comment on above: VITAMIN D STATUS 25( [place])VITAMIN D RANGE (ng/mL) Deficient <20 Insufficient 20 to <30Sufficient 30 to 100Reference: Darrel Lima, Shane PAIGE, et al. Evaluation,treatment, and prevention of vitamin D deficiency; an Endocrine Society clinical practice guideline. JCEM. 2010; 96(7):1911-30. Glucose Glucometer (BldC) [M ass/Vol]Ordered By: Raphael Connors on 12-26-2023 Glucose [Mass/Vol] 127 mg/dL [facility] Comment on above: Random Glucose Refer ence Range is dependent on time and content of last meal. Glucose of more than 200 mg/dL in a nonstressed, ambulatory subject supports the diagnosis of Diabetes Mellitus. No Panel InformationOrdered By: Raphael Connors on 12-26-2023 Bedside Glucose Comment Glu2: cleaned meter [facility] NM Heart Perfusion W stress and W radionuclide [place] 12-21-2023 Normal Lexiscan Myoview cardiac perfusion stress test. No evidence of ischemia or myocardial infarction by perfusion imaging. Normal left ventricular systolic function, ejection fraction 87%. When compared to previous study. Previous study reported anteroseptal defect under question infarct versus attenuation. This defect is no longer present. Signed by: Kaye Pastor 12/21/2023 5:04 PM Dictation workstation: [id number] MMODAL Interpreted By: Kaye Pastor and Giannuzzi Michael STUDY: MYOCARDIAL PERFUSION STRESS TEST WITH LEXISCAN Performing facility: [facility], [address] [place] [address], [address], [address] Provider: Ben Schmitt MD, [facility] PCP: Dr. Obi Lewis Supervising provider: Kaye Pastor MD INDICATION: Abnormal EKG; Pre-operative risk assessment for [place]pectomy [place] [facility] [place] HISTORY: Gender: F; Age: 63 y/o ; Height: HT 162.6 cm cm; Weight: WT 122.018 kg kg. CAD; High Cholesterol; Abnormal EKG; Diabetes; HTN; Denies smoking. Cardiac catheterization on 2017. PTCA on 2017. COMPARISON: Previous nuclear testing [place] [id number] [place] [facility] ACCESSION NUMBER(S): [id number] ORDERING CLINICIAN: WILEY SCHMITT TECHNIQUE: TWO DAY [...] were no evidence of attenuation artifact. MMODAL Kaye Pastor MD - 12/21/2023 Interpreted By: Kaye Pastor and Giannuzzi Michael STUDY: MYOCARDIAL PERFUSION STRESS TEST WITH LEXISCAN Performing facility: [facility], [address] [place] [address], [address] Provider: Ben Schmitt MD, [facility] PCP: Dr. Obi Lewis Supervising provider: Kaye Pastor MD INDICATION: Abnormal EKG; Pre-operative risk assessment for Lumpectomy scheduled at [facility] [place] 12[place]26[place]23 HISTORY: Gender: F; Age: 63 y/o ; Height: HT 162.6 cm cm; Weight: WT 122.018 kg kg. CAD; High Cholesterol; Abnormal EKG; Diabetes; HTN; Denies smoking. Cardiac catheterization on 2017. PTCA on 2017. COMPARISON: Previous nuclear testing [place] [id number] [place] [facility]ESSION NUMBER(S): [id number] ORDERING CLINICIAN: WILEY SCHMITT TECHNIQUE: TWO DAY [...] defect is no longer present. Signed by: Kaye Pastor 12/21/2023 5:04 PM Dictation workstation: [id number] [facility] Work Phone: NM Heart Perfusion W stress and W radionuclide IVOrdered By: Kaye Pastor on 12-21-2023 [facility] Work Phone: NM Heart Perfusion W stress and W radionuclide [place] 12-20-2023 Radiology Study observation (narrative) [facility] Work Phone: NUCLEAR STRESS TESTon 2023 NUCLEAR STRESS TEST Interpreted By: Kaye Pastor and Giannuzzi Michael STUDY: MYOCARDIAL PERFUSION STRESS TEST WITH LEXISCAN Performing facility: [facility], [address] [place] [address], [address], [address] Provider: Ben Schmitt MD, [facility] PCP: Dr. Obi Lewis Supervising provider: Kaye Pastor MD INDICATION: Abnormal EKG; Pre-operative risk assessment for Lumpectomy scheduled [place] [facility] [place] 12[place]26[place]23 HISTORY: Gender: F; Age: 63 y/o ; Height: HT 162.6 cm cm; Weight: WT 122.018 kg kg. CAD; High Cholesterol; Abnormal EKG; Diabetes; HTN; Denies smoking. Cardiac catheterization on 2017. PTCA on 2017. COMPARISON: Previous nuclear testing [place] [id number] [place] [facility] ACCESSION NUMBER(S): [id number] ORDERING CLINICIAN: WILEY SCHMITT TECHNIQUE: TWO DAY [...] defect is no longer present. Signed by: Kaye Pastor 12/21/2023 5:04 PM Dictation workstation: [id number] [facility] Basophils Auto (Bld) [#/Vol] Ordered By: Raphael Connors on 12-12-2023 Basophils (Bld) [#/Vol] 0.0 10*3/uL 0.0-0.2 [facility] Basophils/100 WBC Auto (Bld) Ordered By: Raphael Connors on 12-12-2023 Basophils/100 WBC (Bld) 0.3 % . [facility] Calcium [Mass/volume] in Ser um or PlasmaOrdered By: Raphael Connors on 12-12-2023 Calcium [Mass/Vol] 9.5 mg/dL 8.6-10.3 [facility] Carbon dioxide, total [Moles /volume] in Serum or PlasmaOrdered By: Raphael Connors on 12-12-2023 CO2 [Moles/Vol] 33.7 mmol/L 21.0-31.0 [facility] Chloride [Moles/volume] in S yoandy or PlasmaOrdered By: Raphael Connors on 12-12-2023 Chloride [Moles/Vol] 101 mmol/L 98-107 [facility] Creatinine [Mass/volume] in Serum or PlasmaOrdered By: Raphael Connors on 12-12-2023 Creatinine [Mass/Vol] 0.87 mg/dL 0.60-1.20 [facility] Eosinophils Auto (Bld) [#/Vo l]Ordered By: Raphael Connors on 12-12-2023 Eosinophils (Bld) [#/Vol] 0.1 10*3/uL 0.0-0.45 [facility] Eosinophils/100 WBC Auto (Bl d)Ordered By: Raphael Connors on 12-12-2023 Eosinophils/100 WBC (Bld) 0.7 % . [facility] Erythrocyte distribution wid th Auto (RBC) [Ratio]Ordered By: Raphael Connors on 12-12-2023 Erythrocyte distribution width (RBC) [Ratio] 13.9 % 11.9-15.3 [facility] Glucose [Mass/volume] in Ser um or PlasmaOrdered By: Raphael Connors on 12-12-2023 Glucose [Mass/Vol] 109 mg/dL 70-100 [facility] Comment on above: ADA recommended refe rence rangeRandom Glucose Reference Range is dependent on time and content of last meal. Glucose of more than 200 mg/dL in a nonstressed, ambulatory subject supports the diagnosis of Diabetes Mellitus. Hematocrit Auto (Bld) [Volum e fraction]Ordered By: Raphael Connors on 12-12-2023 Hematocrit (Bld) [Volume fraction] 41.9 % 34.0-46.4 [facility] Hemoglobin [Mass/volume] in BloodOrdered By: Raphael Connors on 12-12-2023 Hemoglobin (Bld) [Mass/Vol] 14.0 g/dL 11.8-15.4 [facility] Leukocytes [#/volume] correc irena for nucleated erythrocytes in Blood by Automated counOrdered By: Raphael Connors on 12-12-2023 WBC corrected for nucl RBC Auto (Bld) [#/Vol] 8.2 10*3/uL 3.8-11.6 [facility] Lymphocytes Auto (Bld) [#/Vo l]Ordered By: Raphael Connors on 12-12-2023 Lymphocytes (Bld) [#/Vol] 2.3 10*3/uL 1.00-4.8 [facility] Lymphocytes/100 WBC Auto (Bl d)Ordered By: Raphael Connors on 12-12-2023 Lymphocytes/100 WBC (Bld) 27.6 % . [facility] MCH Auto (RBC) [Entitic mass ]Ordered By: Raphael Connors on 12-12-2023 MCH (RBC) [Entitic mass] 28.2 pg 24.7-34.3 [facility] MCHC Auto (RBC) [Mass/Vol]Or dered By: Raphael Connors on 12-12-2023 MCHC (RBC) [Mass/Vol] 33.4 g/dL 32.0-35.0 [facility] MCV Auto (RBC) [Entitic vol] Ordered By: Raphael Connors on 12-12-2023 MCV (RBC) [Entitic vol] 84.4 fL 80-100 [facility] Monocytes Auto (Bld) [#/Vol] Ordered By: Raphael Connors on 12-12-2023 Monocytes (Bld) [#/Vol] 0.5 10*3/uL 0.0-0.8 [facility] Monocytes/100 WBC Auto (Bld) Ordered By: Raphael Connors on 12-12-2023 Monocytes/100 WBC (Bld) 6.5 % . [facility] Neutrophils Auto (Bld) [#/Vo l]Ordered By: Raphael Connors on 12-12-2023 Neutrophils (Bld) [#/Vol] 5.3 10*3/uL 1.8-7.7 [facility] Neutrophils/100 WBC Auto (Bl d)Ordered By: Raphael Connors on 12-12-2023 Neutrophils/100 WBC (Bld) 64.9 % . [facility] No Panel InformationOrdered By: Raphael Connors on 12-12-2023 Estimated GFR (CKD-EPI) > 60.0 mL/Min [facility] Creatinine Clearance (Chem N/A [facility] Nucleated erythrocytes [Pres ence] in Blood by Automated countOrdered By: Raphael Connors on 12-12-2023 Nucleated RBC Auto Ql (Bld) 0.1 /100{WBC} 0-0.5 [facility] Platelet mean volume Auto (B ld) [Entitic vol]Ordered By: Raphael Connors on 12-12-2023 Platelet mean volume (Bld) [Entitic vol] 8.4 fL 6.3-10.7 [facility] Platelets Auto (Bld) [#/Vol] Ordered By: Raphael Connors on 12-12-2023 Platelets (Bld) [#/Vol] 318 10*3/uL 150-450 [facility] Potassium [Moles/volume] in Serum or PlasmaOrdered By: Raphael Connors on 12-12-2023 Potassium [Moles/Vol] 3.8 mmol/L 3.5-5.1 [facility] RBC Auto (Bld) [#/Vol]Ordere d By: Raphael Connors on 12-12-2023 RBC (Bld) [#/Vol] 4.96 10*6/uL 3.60-5.00 [facility] Serum or plasma anion gap de terminationOrdered By: Raphael Connors on 12-12-2023 Anion gap [Moles/Vol] 11.1 mmol/L 6.0-15.0 [facility] Sodium [Moles/volume] in Ser um or PlasmaOrdered By: Raphael Connors on 12-12-2023 Sodium [Moles/Vol] 142 mmol/L 136-145 [facility] Urea nitrogen [Mass/volume] in Serum or PlasmaOrdered By: Raphael Connors on 12-12-2023 Urea nitrogen [Mass/Vol] 17 mg/dL 7-25 [facility] WBC Auto (Bld) [#/Vol]Ordere d By: Raphael Connors on 12-12-2023 WBC (Bld) [#/Vol] 8.2 10*3/uL 3.8-11.6 [facility] Alanine aminotransferase [En zymatic activity/volume] in Serum or PlasmaOrdered By: Noah Lewis on 06-16-2023 ALT [Catalytic activity/Vol] 30 U/L 7-52 [facility] Albumin [Mass/volume] in Ser um or Plasma by Bromocresol green (BCG) dye binding methoOrdered By: Noah Lewis on 06-16-2023 Albumin BCG dye [Mass/Vol] 4.1 g/dL 3.5-5.7 [facility] Alkaline phosphatase [Enzyma tic activity/volume] in Serum or PlasmaOrdered By: Noah Lewis on 06-16-2023 ALP [Catalytic activity/Vol] 78 U/L 34-104 [facility] Aspartate aminotransferase [ Enzymatic activity/volume] in Serum or PlasmaOrdered By: Noah Lewis on 06-16-2023 AST [Catalytic activity/Vol] 21 U/L 13-39 [facility] Basophils Auto (Bld) [#/Vol] Ordered By: Noah Lewis on 06-16-2023 Basophils (Bld) [#/Vol] 0.0 10*3/uL 0.0-0.2 [facility] Basophils/100 WBC Auto (Bld) Ordered By: Noah Lewis on 06-16-2023 Basophils/100 WBC (Bld) 0.3 % . [facility] Bilirubin.total [Mass/volume ] in Serum or PlasmaOrdered By: Noah Lewis on 06-16-2023 Bilirubin [Mass/Vol] 0.8 mg/dL 0.3-1.0 [facility] Calcium [Mass/volume] in Ser um or PlasmaOrdered By: Noah Lewis on 06-16-2023 Calcium [Mass/Vol] 9.3 mg/dL 8.6-10.3 [facility] Carbon dioxide, total [Moles /volume] in Serum or PlasmaOrdered By: Noah Lewis on 06-16-2023 CO2 [Moles/Vol] 33.0 mmol/L 21.0-31.0 [facility] Chloride [Moles/volume] in S yoandy or PlasmaOrdered By: Noah Lewis on 06-16-2023 Chloride [Moles/Vol] 101 mmol/L 98-107 [facility] Cholesterol [Mass/volume] in Serum or PlasmaOrdered By: Noah Lewis on 06-16-2023 Cholesterol [Mass/Vol] 235 mg/dL 140-200 [facility] Comment on above: Chol less than 200 m g/dl low riskChol 201-239 mg/dl borderline riskChol 240 mg/dl and greater high risk Cholesterol in LDL Calc [Mas s/Vol]Ordered By: Noah Lewis on 06-16-2023 Cholesterol in LDL [Mass/Vol] 142 mg/dL 0-100 [facility] Comment on above: LDL ATP III CLASSIFI CATIONLDL less than 100 mg/dL OptimalLDL 100-129 mg/dL Near or above optimalLDL 130-159 mg/dL Borderline highLDL 160-189 mg/dL HighLDL greater than 189 mg/dL Very high Cholesterol in VLDL Calc [Ma ss/Vol]Ordered By: Noah Lewis on 06-16-2023 Cholesterol in VLDL [Mass/Vol] 45 mg/dL [facility] Creatinine [Mass/volume] in Serum or PlasmaOrdered By: Noah Lewis on 06-16-2023 Creatinine [Mass/Vol] 0.98 mg/dL 0.60-1.20 [facility] Eosinophils Auto (Bld) [#/Vo l]Ordered By: Noah Lewis on 06-16-2023 Eosinophils (Bld) [#/Vol] 0.1 10*3/uL 0.0-0.45 [facility] Eosinophils/100 WBC Auto (Bl d)Ordered By: Noah Lewis on 06-16-2023 Eosinophils/100 WBC (Bld) 1.2 % . [facility] Erythrocyte distribution wid th Auto (RBC) [Ratio]Ordered By: Noah Lewis on 06-16-2023 Erythrocyte distribution width (RBC) [Ratio] 14.5 % 11.9-15.3 [facility] Globulin Calc (S) [Mass/Vol] Ordered By: Noah Lewis on 06-16-2023 Globulin (S) [Mass/Vol] 2.3 g/dL [facility] Glucose [Mass/volume] in Ser um or PlasmaOrdered By: Noah Lewis on 06-16-2023 Glucose [Mass/Vol] 117 mg/dL 70-100 [facility] Comment on above: ADA recommended refe rence rangeRandom Glucose Reference Range is dependent on time and content of last meal. Glucose of more than 200 mg/dL in a nonstressed, ambulatory subject supports the diagnosis of Diabetes Mellitus. Glucose mean value [Mass/vol ume] in Blood Estimated from glycated hemoglobinOrdered By: Noah Lewis on 06-16-2023 Average glucose Estimated from glycated hemoglobin (Bld) [Mass/Vol] 128 mg/dL [facility] Hematocrit Auto (Bld) [Volum e fraction]Ordered By: Noah Lewis on 06-16-2023 Hematocrit (Bld) [Volume fraction] 39.4 % 34.0-46.4 [facility] Hemoglobin A1c percentageOrd ered By: Noah Lewis on 06-16-2023 HbA1c (Bld) [Mass fraction] 6.1 % 4.3-5.6 [facility] Comment on above: Increased risk for d iabetes: 5.7 - 6.4diabetes: >6.4glycemic control for adults with diabetes: <7.0 Hemoglobin [Mass/volume] in BloodOrdered By: Noah Lewis on 06-16-2023 Hemoglobin (Bld) [Mass/Vol] 13.2 g/dL 11.8-15.4 [facility] Leukocytes [#/volume] correc irena for nucleated erythrocytes in Blood by Automated counOrdered By: Noah Lewis on 06-16-2023 WBC corrected for nucl RBC Auto (Bld) [#/Vol] 8.4 10*3/uL 3.8-11.6 [facility] Lymphocytes Auto (Bld) [#/Vo l]Ordered By: Noah Lewis on 06-16-2023 Lymphocytes (Bld) [#/Vol] 2.3 10*3/uL 1.00-4.8 [facility] Lymphocytes/100 WBC Auto (Bl d)Ordered By: Noah Lewis on 06-16-2023 Lymphocytes/100 WBC (Bld) 27.4 % . [facility] MCH Auto (RBC) [Entitic mass ]Ordered By: Noah Lewis on 06-16-2023 MCH (RBC) [Entitic mass] 28.9 pg 24.7-34.3 [facility] MCHC Auto (RBC) [Mass/Vol]Or dered By: Noah Lewis on 06-16-2023 MCHC (RBC) [Mass/Vol] 33.5 g/dL 32.0-35.0 [facility] MCV Auto (RBC) [Entitic vol] Ordered By: Noah Lewis on 06-16-2023 MCV (RBC) [Entitic vol] 86.3 fL 80-100 [facility] Monocytes Auto (Bld) [#/Vol] Ordered By: Noah Lewis on 06-16-2023 Monocytes (Bld) [#/Vol] 0.6 10*3/uL 0.0-0.8 [facility] Monocytes/100 WBC Auto (Bld) Ordered By: Noah Lewis on 06-16-2023 Monocytes/100 WBC (Bld) 7.3 % . [facility] Neutrophils Auto (Bld) [#/Vo l]Ordered By: Noah Lewis on 06-16-2023 Neutrophils (Bld) [#/Vol] 5.4 10*3/uL 1.8-7.7 [facility] Neutrophils/100 WBC Auto (Bl d)Ordered By: Noah Lewis on 06-16-2023 Neutrophils/100 WBC (Bld) 63.8 % . [facility] No Panel InformationOrdered By: Noah Lewis on 06-16-2023 Estimated GFR (CKD-EPI) > 60.0 mL/Min [facility] Creatinine Clearance (Chem N/A [facility] Nucleated erythrocytes [Pres ence] in Blood by Automated countOrdered By: Noah Lewis on 06-16-2023 Nucleated RBC Auto Ql (Bld) 0.1 /100{WBC} 0-0.5 [facility] Platelet mean volume Auto (B ld) [Entitic vol]Ordered By: Noah Lewis on 06-16-2023 Platelet mean volume (Bld) [Entitic vol] 8.9 fL 6.3-10.7 [facility] Platelets Auto (Bld) [#/Vol] Ordered By: Noah Lewis on 06-16-2023 Platelets (Bld) [#/Vol] 291 10*3/uL 150-450 [facility] Potassium [Moles/volume] in Serum or PlasmaOrdered By: Noah Lewis on 06-16-2023 Potassium [Moles/Vol] 4.0 mmol/L 3.5-5.1 [facility] Protein [Mass/volume] in Ser um or PlasmaOrdered By: Noah Lewis on 06-16-2023 Protein [Mass/Vol] 6.4 g/dL 6.4-8.9 [facility] RBC Auto (Bld) [#/Vol]Ordere d By: Noah Lewis on 06-16-2023 RBC (Bld) [#/Vol] 4.56 10*6/uL 3.60-5.00 [facility] Serum or plasma albumin/glob ulin mass ratioOrdered By: Noah Lewis on 06-16-2023 Albumin/Globulin [Mass ratio] 1.8 {ratio} [facility] Serum or plasma anion gap de terminationOrdered By: Noah Lewis on 06-16-2023 Anion gap [Moles/Vol] 11.0 mmol/L 6.0-15.0 [facility] Serum or plasma high density lipoprotein (HDL) cholesterol measurementOrdered By: Noah Lewis on 06-16-2023 Cholesterol in HDL [Mass/Vol] 48 mg/dL 23-92 [facility] Comment on above: HDL CHOL ATP-III CLA SSIFICATION Cardiovascular RiskHDL > or equal to 60 mg/dL LOWHDL < 40 mg/dL HIGH Serum or plasma total choles terol/high density lipoprotein (HDL) cholesterol mass ratOrdered By: Noah Lewis on 06-16-2023 Cholesterol.total/Mari sterol in HDL [Mass ratio] 4.9 {ratio} <5.0 [facility] Sodium [Moles/volume] in Ser um or PlasmaOrdered By: Noah Lewis on 06-16-2023 Sodium [Moles/Vol] 141 mmol/L 136-145 [facility] Thyrotropin [Units/volume] i n Serum or PlasmaOrdered By: Noah Lewis on 06-16-2023 TSH Qn 2.01 m[IU]/L 0.45-5.33 [facility] Thyroxine (T4) free [Mass/vo lume] in Serum or PlasmaOrdered By: Noah Lewis on 06-16-2023 Free T4 [Mass/Vol] 1.09 ng/dL 0.61-1.12 [facility] Triglyceride [Mass/volume] i n Serum or PlasmaOrdered By: Noah Lewis on 06-16-2023 Triglyceride [Mass/Vol] 225 mg/dL 0-149 [facility] Comment on above: TRIG ATP III CLASSIF ICATIONTRIG less than 150 mg/dL NormalTRIG 150-199 mg/dL Borderline highTRIG 200-500 mg/dL High TRIG greater than 500 mg/dL Very highStandard traceable to the Center for Disease Conrtrol and Prevention (CDC) test method. Triiodothyronine (T3) Free [ Mass/volume] in Serum or PlasmaOrdered By: Noah Lewis on 06-16-2023 Free T3 [Mass/Vol] 4.16 pg/mL 2.50-3.90 [facility] Urea nitrogen [Mass/volume] in Serum or PlasmaOrdered By: Noah Lewis on 06-16-2023 Urea nitrogen [Mass/Vol] 26 mg/dL 7-25 [facility] WBC Auto (Bld) [#/Vol]Ordere d By: Noah Lewis on 06-16-2023 WBC (Bld) [#/Vol] 8.4 10*3/uL 3.8-11.6 [facility] Office Visit (Cardiology)on 01-05-2023 Follow-up visit Diagnoses/Problems Assessed Essential hypertension (401.9) (I10) Diabetes mellitus (250.00) (E11.9) Atherosclerosis of [place] coronary artery of [place] heart without angina pectoris (414.01) (I25.10) S/P PTCA (percutaneous transluminal coronary angioplasty) (V45.82) (Z98.61) Morbid obesity with BMI of 45.0-49.9, adult (278.01,V85.42) (E66.01,Z68.42) Hyperlipidemia (272.4) (E78.5) Never a smoker Orders Atherosclerosis of [place] coronary artery of [place] heart without angina pectoris Renew: Aspirin 81 MG Oral Tablet Delayed Release; TAKE 1 TABLET DAILY DIRECTED Renew: Clopidogrel Bisulfate 75 MG Oral Tablet; TAKE ONE (1) TABLET BY MOUTH ONCE DAILY Atherosclerosis of [place] coronary artery of [place] heart without angina pectoris, Essential hypertension Renew: Chlorthalidone 25 MG Oral Tablet; TAKE 1 TABLET ONCE DAILY Renew: Metoprolol Succinate ER 100 MG Oral Tablet Extended Release 24 Hour; TAKE 1 TABLET DAILY Morbid obesity with BMI of 45.0-49.9, adult Healthy Weight Tips; Status:Complete - Retrospective Authorization; Done: [id number] Some eating tips that can help you lose weight.; Status:Complete - Retrospective Authorization; Done: [id number] SocHx: Never a smoker Tobacco Use Screening; Status:Complete; Done: [id number] Patient Instructions Please bring all medicines, vitamins, [...] Pulmonary: n (more content not included)... Normal [employer] Tobacco Screening.on 023 Adult depression screening assessment No [facility] [employer] k 600 DO Work Phone: Fall risk assessment a) No falls within the last year [facility] k 600 DO Work Phone: Tobacco use status [facility] b) No [facility] DO Work Phone: Office Visit (Cardiology)on 05-06-2022 [...] 40.0-44.9, adult Healthy Weight Tips; Status:Complete; Done: 06May2022 Patient Instructions Please bring all medicines, vitamins, [...] no palpitations (more content not included)... Normal Drive.SG Tobacco Screening.on 022 Adult depression screening assessment No [facility] [employer] DO Work Phone: Fall risk assessment a) No falls within the last year [facility] DO Work Phone: Tobacco use status [facility] b) No M [facility] [employer] DO Work Phone: Basophils Auto (Bld) [#/Vol] Ordered By: Bari Mac on 04-08-2022 Basophils (Bld) [#/Vol] 0.0 10*3/uL 0.0-0.2 [facility] Basophils/100 WBC Auto (Bld) Ordered By: Bari Mac on 04-08-2022 Basophils/100 WBC (Bld) 0.4 % . [facility] Blood hemoglobin measurement (mass/volume)Ordered By: Bari Mac on 04-08-2022 Hemoglobin (Bld) [Mass/Vol] 14.2 g/dL 11.8-15.4 [facility] Blood leukocytes automated c ount (number/volume)Ordered By: Bari Mac on 04-08-2022 WBC (Bld) [#/Vol] 8.1 10*3/uL 4.5-11.0 [facility] Body fluid albumin measureme nt (mass/volume)Ordered By: Bari Mac on 04-08-2022 Albumin (Body fld) [Mass/Vol] 3.8 g/dL 3.2-5.5 [facility] Cholesterol [Mass/volume] in Serum or PlasmaOrdered By: Bari Mac on 04-08-2022 Cholesterol [Mass/Vol] 225 mg/dL 140-200 [facility] Comment on above: Chol less than 200 m g/dl low risk Chol 201-239 mg/dl borderline risk Chol 240 mg/dl and greater high risk Chol less than 200 m g/dl low riskChol 201-239 mg/dl borderline riskChol 240 mg/dl and greater high risk Cholesterol in LDL Calc [Mas s/Vol]Ordered By: Bari Mac on 04-08-2022 Cholesterol in LDL [Mass/Vol] 132 mg/dL 0-100 [facility] Comment on above: LDL ATP III CLASSIFI [...] 04-08-2022 Cholesterol in VLDL [Mass/Vol] 52 mg/dL [facility] Creatinine and Glomerular fi ltration rate.predicted panel (S/P/Bld)Ordered By: Bari Mac on 04-08-2022 Creatinine [Mass/Vol] 0.94 mg/dL 0.44-1.03 [facility] Eosinophils Auto (Bld) [#/Vo l]Ordered By: Bari Mac on 04-08-2022 Eosinophils (Bld) [#/Vol] 0.1 10*3/uL 0.0-0.45 [facility] Eosinophils/100 WBC Auto (Bl d)Ordered By: Bari Mac on 04-08-2022 Eosinophils/100 WBC (Bld) 1.2 % . [facility] Erythrocyte distribution wid th Auto (RBC) [Ratio]Ordered By: Bari Mac on 04-08-2022 Erythrocyte distribution width (RBC) [Ratio] 14.3 % 11.9-15.3 [facility] Estimated glomerular filtrat ion rate (GFR) non- AmericanOrdered By: Bari Mac on 04-08-2022 GFR/1.73 sq M.predicted among non-blacks MDRD (S/P/Bld) [Vol rate/Area] 60 mL/Min [facility] Globulin Calc (S) [Mass/Vol] Ordered By: Bari Mac on 04-08-2022 Globulin (S) [Mass/Vol] 2.9 g/dL F [facility] Glucose mean value [Mass/vol ume] in Blood Estimated from glycated hemoglobinOrdered By: Bari Mac on 04-08-2022 Average glucose Estimated from glycated hemoglobin (Bld) [Mass/Vol] 131 mg/dL [facility] Hematocrit Auto (Bld) [Volum e fraction]Ordered By: Bari Mac on 04-08-2022 Hematocrit (Bld) [Volume fraction] 42.7 % 34.0-46.4 [facility] Laboratory - Chemistry and C hemistry - challengeOrdered By: Bari Mac on 04-08-2022 Glucose [Mass/Vol] 111 mg/dL 70-100 [facility] Comment on above: ADA recommended refe rence range Laboratory - Hematology and Cell countsOrdered By: Bari Mac on 04-08-2022 HbA1c (Bld) [Mass fraction] 6.2 % 4.3-5.6 [facility] Comment on above: Increased risk for d iabetes: 5.7 - 6.4 diabetes: >6.4 glycemic control for adults with diabetes: <7.0 Increased risk for d iabetes: 5.7 - 6.4diabetes: >6.4glycemic control for adults with diabetes: <7.0 Nucleated RBC/100 WBC (Bld) [Ratio] 0.1 % 0-0.5 [facility] Lymphocytes Auto (Bld) [#/Vo l]Ordered By: Bari Mac on 04-08-2022 Lymphocytes (Bld) [#/Vol] 2.3 10*3/uL 1.00-4.8 [facility] Lymphocytes/100 WBC Auto (Bl d)Ordered By: Bari Mac on 04-08-2022 Lymphocytes/100 WBC (Bld) 28.8 % . [facility] MCH Auto (RBC) [Entitic mass ]Ordered By: Bari Mac on 04-08-2022 MCH (RBC) [Entitic mass] 28.8 pg 24.7-34.3 [facility] MCHC Auto (RBC) [Mass/Vol]Or dered By: Bari Mac on 04-08-2022 MCHC (RBC) [Mass/Vol] 33.1 g/dL 32.0-35.0 [facility]ir [facility] MCV Auto (RBC) [Entitic vol] Ordered By: Bari Mac on 04-08-2022 MCV (RBC) [Entitic vol] 87.0 fL 80-100 F [facility] Monocyte %Ordered By: Bari Mac on 04-08-2022 Monocyte % 262 mg/dL 35-149 [facility] Comment on above: TRIG ATP III CLASSIF [...] 04-08-2022 Monocytes (Bld) [#/Vol] 0.6 10*3/uL 0.0-0.8 [facility] Monocytes/100 WBC Auto (Bld) Ordered By: Bari Mac on 04-08-2022 Monocytes/100 WBC (Bld) 7.6 % . F [facility] Neutrophils Auto (Bld) [#/Vo l]Ordered By: Bari Mac on 04-08-2022 Neutrophils (Bld) [#/Vol] 5.0 10*3/uL 1.8-7.7 [facility] Neutrophils/100 WBC Auto (Bl d)Ordered By: Bari Mac on 04-08-2022 Neutrophils/100 WBC (Bld) 62.0 % . [facility] No Panel InformationOrdered By: Bari Mac on 04-08-2022 Estimated GFR () > 60 mL/Min [facility] Comment on above: GFR estimated refere nce range: According to KDOQI guidelines, <60 ml/min/1.73m2 is sufficient to diagnose a patient with chronic kidney disease. Nicotine Metabolite Negative Cutoff=25 [facility] Comment on above: Performed at: [employer] [address] [id number] Tugboat Operator: Mendy Elizondo MD, Phone: [phone] Performed at: [facility] [employer] [address] [id number] Director: Mendy Elizondo MD, Phone: [phone] Pharmacy Creatinine Clearance (Chem N/A [facility] Platelet mean volume Auto (B ld) [Entitic vol]Ordered By: Bari Mac on 04-08-2022 Platelet mean volume (Bld) [Entitic vol] 9.1 fL 6.3-10.7 [facility] Platelets Auto (Bld) [#/Vol] Ordered By: Bari Mac on 04-08-2022 Platelets (Bld) [#/Vol] 290 10*3/uL 150-450 [facility] Protein [Mass/volume] in Ser um or PlasmaOrdered By: Bari Mac on 04-08-2022 Protein [Mass/Vol] 6.7 g/dL 6.1-7.9 [facility] RBC Auto (Bld) [#/Vol]Ordere d By: Bari Mac on 04-08-2022 RBC (Bld) [#/Vol] 4.91 10*6/uL 3.60-5.00 [facility] Serum or plasma alanine warren otransferase measurement without P-5'-P (enzymatic activiOrdered By: Bari Mac on 04-08-2022 ALT No additional P-5'-P [Catalytic activity/Vol] 32 U/L 10-60 [facility] Serum or plasma albumin/glob ulin mass ratioOrdered By: Bari Mac on 04-08-2022 Albumin/Globulin [Mass ratio] 1.3 {ratio} [facility] Serum or plasma alkaline jhonatan sphatase measurement (enzymatic activity/volume)Ordered By: Bari Mac on 04-08-2022 ALP [Catalytic activity/Vol] 87 U/L 32-92 [facility] Serum or plasma aspartate am inotransferase measurement (enzymatic activity/volume)Ordered By: Bari Mac on 04-08-2022 AST [Catalytic activity/Vol] 24 U/L 10-42 [facility] Serum or plasma calcium leonor urement (mass/volume)Ordered By: Bari Mac on 04-08-2022 Calcium [Mass/Vol] 9.4 mg/dL 8.2-10.2 [facility] Serum or plasma chloride maggie surement (moles/volume)Ordered By: Bari Mac on 04-08-2022 Chloride [Moles/Vol] 96 mmol/L 95-114 [facility] Serum or plasma high density lipoprotein (HDL) cholesterol measurementOrdered By: Bari Mac on 04-08-2022 Cholesterol in HDL [Mass/Vol] 41 mg/dL 35-85 [facility] Comment on above: HDL CHOL ATP-III CLA SSIFICATION Cardiovascular Risk HDL > or equal to 60 mg/dL LOW HDL < 40 mg/dL HIGH HDL CHOL ATP-III CLA SSIFICATION Cardiovascular RiskHDL > or equal to 60 mg/dL LOWHDL < 40 mg/dL HIGH Serum or plasma potassium me asurement (moles/volume)Ordered By: Bari Mac on 04-08-2022 Potassium [Moles/Vol] 3.6 mmol/L 3.5-5.1 [facility] Serum or plasma sodium measu rement (moles/volume)Ordered By: Bari Mac on 04-08-2022 Sodium [Moles/Vol] 139 mmol/L 136-146 [facility] Serum or plasma total biliru bin measurement (mass/volume)Ordered By: Bari Mac on 04-08-2022 Bilirubin [Mass/Vol] 0.9 mg/dL 0.3-1.2 [facility] Serum or plasma total carbon dioxide measurement (moles/volume)Ordered By: Bari Mac on 04-08-2022 CO2 [Moles/Vol] 31.6 mmol/L 22.0-30.0 [facility] Serum or plasma total choles terol/high density lipoprotein (HDL) cholesterol mass ratOrdered By: Bari Mac on 04-08-2022 Cholesterol.total/Mari sterol in HDL [Mass ratio] 5.5 {ratio} <5.0 [facility] Serum or plasma urea nitroge n measurement (mass/volume)Ordered By: Bari Mac on 04-08-2022 Urea nitrogen [Mass/Vol] 20 mg/dL 05-21 [facility] TSH DL <= 0.005 mIU/L QnOrde red By: Bari Mac on 04-08-2022 TSH Qn 1.68 m[IU]/L 0.45-5.33 [facility] Creatinine and Glomerular fi ltration rate.predicted panel (S/P/Bld)Ordered By: Wiley Schmitt on 02-12-2022 Creatinine [Mass/Vol] 0.85 mg/dL 0.44-1.03 [facility] Estimated glomerular filtrat ion rate (GFR) non- AmericanOrdered By: Wiley Schmitt on 02-12-2022 GFR/1.73 sq M.predicted among non-blacks MDRD (S/P/Bld) [Vol rate/Area] > 60 mL/Min [facility] No Panel InformationOrdered By: Wiley Schmitt on 02-12-2022 Estimated GFR () > 60 mL/Min [facility] Comment on above: GFR estimated refere nce range: According to KDOQI guidelines, <60 ml/min/1.73m2 is sufficient to diagnose a patient with chronic kidney disease. Pharmacy Creatinine Clearance (Chem N/A [facility] No Panel Informationon 02-12 9.1\S\9.1 Normal 8.2-10.2 -[facility] [address] DO Work Phone: Comment on above: PERFORMED BY:[facility] [place]GHLINTrinhFL[place] [id number] MEDICAL DIRECTORSUSAN THOMPSON M.D. 30.0\S\30.0 Normal 22.0-30.0 [facility] [address] DO Work Phone: 98\S\98 Normal 95-114 [facility] 250 DO Work Phone: [phone] 3.6\S\3.6 Normal 3.5-5.1 [facility] [address] DO Work Phone: [phone] 141\S\141 Normal 136-146 [facility] 250 DO Work Phone: [phone] > 60 Normal [facility] Sheila gomez 250 DO Work Phone: Comment on above: GFR estimated refere nce range: According to KDOQI guidelines, <60 ml/min/1.73m2 is sufficient to diagnose a patient with chronic kidney disease. 0.85\S\0.85 Normal 0.44-1.03 [facility] 250 DO Work Phone: [phone] 16\S\16 Normal 9-23 [facility] HeartRadha [place] 250 DO Work Phone: [phone] 122\S\122 above high threshold 70-100 [facility] 250 DO Work Phone: Comment on above: Random Glucose Refer ence Range is dependent on time and content of last meal. Glucose of more than 200 mg/dL in a nonstressed, ambulatory subject supports the diagnosis of Diabetes Mellitus. ADA recommended reference range Serum or plasma calcium leonor urement (mass/volume)Ordered By: Wiley Schmitt on 02-12-2022 Calcium [Mass/Vol] 9.1 mg/dL 8.2-10.2 [facility] Serum or plasma chloride maggie surement (moles/volume)Ordered By: Wiley Schmitt on 02-12-2022 Chloride [Moles/Vol] 98 mmol/L 95-114 [facility] Serum or plasma glucose leonor urement (mass/volume)Ordered By: Wiley Schmitt on 02-12-2022 Glucose [Mass/Vol] 122 mg/dL 70-100 [facility] Comment on above: ADA recommended refe rence range Random Glucose Reference Range is dependent on time and content of last meal. Glucose of more than 200 mg/dL in a nonstressed, ambulatory subject supports the diagnosis of Diabetes Mellitus. Serum or plasma potassium me asurement (moles/volume)Ordered By: Wiley Schmitt on 02-12-2022 Potassium [Moles/Vol] 3.6 mmol/L 3.5-5.1 [facility] Serum or plasma sodium measu rement (moles/volume)Ordered By: Wiley Schmitt on 02-12-2022 Sodium [Moles/Vol] 141 mmol/L 136-146 [facility] Serum or plasma total carbon dioxide measurement (moles/volume)Ordered By: Wiley Schmitt on 02-12-2022 CO2 [Moles/Vol] 30.0 mmol/L 22.0-30.0 [facility] Serum or plasma urea nitroge n measurement (mass/volume)Ordered By: Wiley Schmitt on 02-12-2022 Urea nitrogen [Mass/Vol] 16 mg/dL 9-23 [facility] Office Visit (Cardiology)on 01-22-2022 Follow-up visit Diagnoses/Problems Assessed Diabetes mellitus (250.00) (E11.9) Essential hypertension (401.9) (I10) Hyperlipidemia (272.4) (E78.5) Atherosclerosis of [place] coronary artery of [place] heart without angina pectoris (414.01) (I25.10) S/P PTCA (percutaneous transluminal coronary angioplasty) (V45.82) (Z98.61) Never a smoker Morbid obesity with BMI of 45.0-49.9, adult (278.01,V85.42) (E66.01,Z68.42) Orders Atherosclerosis of [place] coronary artery of [place] heart without angina pectoris, Essential hypertension Start: Chlorthalidone 25 MG Oral Tablet; TAKE 1 TABLET ONCE DAILY Basic Metabolic Panel; Status:Active; Requested for:08Feb2022; Start: Metoprolol Succinate ER 100 MG Oral Tablet Extended Release 24 Hour; TAKE 1 TABLET DAILY SocHx: Never a smoker Tobacco Use Screening; Status:Complete; Done: [id number] Unlinked Stop: Carvedilol 25 MG Oral Tablet Stop: hydrALAZINE HCl - 25 MG Oral Tablet Stop: hydrALAZINE HCl - 50 MG Oral Tablet Patient Instructions By signing my name below, I, Shelley Horowitz LPN, Scribe, attest that this documentation has been prepared under the direction and in the presence of Dr. Wiley Schmitt MD. All medical record entries made by the Isaias were at my direction and personally dictated [...] negative for complaint. Vitals Vital Signs Recorded: [id number] 12:20PM Heart Rate74, L Radial Rbpeknin471, RUE, Sitting Fnemsfjqf98, RUE, Sitting Height5 ft 4 in Mepuxx501 lb BMI Avcqwzxcya86 kg/m2 BSA Calculated2.22 Tobacco Useb) No PHQ-2 #1. Over the last 2 weeks have you felt down, depressed or hopeless? (If yes, answer PHQ-9 below)No PHQ-2 #2. Over the last 2 weeks paige (more content not included)... Normal [employer] Tobacco Screening.on 022 Adult depression screening assessment No [facility] 600 DO Work Phone: Fall risk assessment a) No falls within the last year -[facility] Work Phone: Tobacco use status CP b) No M -[facility] [address] DO Work Phone: NM STRESS/REST MULTIon 01-16 NM STRESS/REST MULTI Patient: DORIS CARNES Exam Date: 01/16/2021 : 1960 Gender:F Ordering : DR NOAH LEWIS . Admission #: [id number] Family : Order #: [id number] CLICK HERE TO VIEW EXAM RADIOLOGY REPORT [...] DEFECT: LOCATION: Basal anterior. Mid-anterior. Apical anterior. [place]. SIZE: Medium (3-4 segments). SEVERITY: Moderate. TYPE: Persistent. WALL MOTION: Moderate hypokinesis: Apical anterior. Apical inferior. [place]. LV SIZE: Normal. 79 mL. TID / [...] Flynn MD on 01/19/2021 at 15:[address] [facility] Vital Signs Date Time Vital Sign Value Performing Clinician Facility 04-30-2025 10:45-0400 Body height 162.6 cm Raphael Connors DO Work Phone: [facility] 04-30-2025 10:45-0400 Body mass index (BMI) [Ratio] 41.2 kg/m2 Raphael Connors DO Work Phone: [facility] 04-30-2025 10:45-0400 Body weight 108.86 kg Raphael Connors DO Work Phone: [facility] 04-30-2025 10:45-0400 Diastolic blood pressure 78 mm[Hg] Raphael Connors DO Work Phone: [facility] 04-30-2025 10:45-0400 Systolic blood pressure 123 mm[Hg] Raphael Omar ALARCON Work Phone: [facility] 04-12-2025 11:26-0400 Body height 162.56 cm Noah Lewis MD Work Phone: [facility] 04-12-2025 11:26-0400 Body mass index (BMI) [Ratio] 42.2 kg/m2 Noah Lewis MD Work Phone: [facility] 04-12-2025 11:26-0400 Body temperature 97.8 [degF] Noah Lewis MD Work Phone: [facility] 04-12-2025 11:26-0400 Body weight 111.58 kg Noah Lewis MD Work Phone: [facility] 04-12-2025 11:26-0400 Diastolic blood pressure 83 mm[Hg] Noah Lewis MD Work Phone: [facility] 04-12-2025 11:26-0400 Heart rate 68 /min Noah Lewis MD Work Phone: [facility] 04-12-2025 11:26-0400 Respiratory rate 16 /min Noah Lewis MD Work Phone: [facility] 04-12-2025 11:26-0400 SaO2% (BldA) [Mass fraction] 97 % Noah Lewis MD Work Phone: [facility] 04-12-2025 11:26-0400 Systolic blood pressure 143 mm[Hg] Noah eLwis MD Work Phone: [facility] 03-06-2025 10:40-0400 Body height 162.56 cm Noah Lewis MD Work Phone: [facility] 03-06-2025 10:40-0400 Body mass index (BMI) [Ratio] 42.9 kg/m2 Noah Lewis MD Work Phone: [facility] 03-06-2025 10:40-0400 Body weight 113.39 kg Noah Lewis MD Work Phone: [facility] 03-06-2025 10:40-0400 Diastolic blood pressure 81 mm[Hg] Noah Lewis MD Work Phone: [facility] 03-06-2025 10:40-0400 Heart rate 54 /min Noah Lewis MD Work Phone: [facility] 03-06-2025 10:40-0400 SaO2% (BldA) [Mass fraction] 99 % Noah Lewis MD Work Phone: [facility] 03-06-2025 10:40-0400 Systolic blood pressure 156 mm[Hg] Noah Lewis MD Work Phone: [facility] 01-03-2025 13:28-0400 Body height 162.6 cm Kaye Pastor MD Work Phone: [facility] 01-03-2025 13:28-0400 Body mass index (BMI) [Ratio] 44.29 kg/m2 Kaye Pastor MD Work Phone: [facility] 01-03-2025 13:28-0400 Body weight 117.03 kg Kaye Pastor MD Work Phone: [facility] 01-03-2025 13:28-0400 Diastolic blood pressure 58 mm[Hg] Kaye Pastor MD Work Phone: [facility] 01-03-2025 13:28-0400 Heart rate 61 /min Kaye Pastor MD Work Phone: [facility] 01-03-2025 13:28-0400 Systolic blood pressure 124 mm[Hg] Kaye Pastor MD Work Phone: [facility] 10-10-2024 11:26-0500 Body height 162.56 cm [facility] 10-10-2024 11:26-0500 Body mass index (BMI) [Ratio] 43.6 kg/m2 [facility] 10-10-2024 11:26-0500 Body temperature 97.9 [degF] [facility] 10-10-2024 11:26-0500 Body weight 115.21 kg [facility] 10-10-2024 11:26-0500 Diastolic blood pressure 83 mm[Hg] [facility] 10-10-2024 11:26-0500 Heart rate 68 /min [facility] 10-10-2024 11:26-0500 Respiratory rate 16 /min [facility] 10-10-2024 11:26-0500 SaO2% (BldA) [Mass fraction] 95 % [facility] 10-10-2024 11:26-0500 Systolic blood pressure 130 mm[Hg] [facility] 08-23-2024 13:43-0500 Body height 162.6 cm Raphael Connors DO Work Phone: [facility] 08-23-2024 13:43-0500 Body mass index (BMI) [Ratio] 43.94 kg/m2 Raphael Connors DO Work Phone: [facility] 08-23-2024 13:43-0500 Body weight 116.12 kg Raphael Connors DO Work Phone: [facility] 08-23-2024 13:43-0500 Diastolic blood pressure 80 mm[Hg] Raphael Connors DO Work Phone: [facility] 08-23-2024 13:43-0500 Systolic blood pressure 125 mm[Hg] Raphael Connors DO Work Phone: [facility] 05-01-2024 14:24-0400 Body height 162.56 cm MD Noah Lewis Work Phone: [facility] 05-01-2024 14:24-0400 Body mass index (BMI) [Ratio] 43.9 kg/m2 MD Noah Lewis Work Phone: [facility] 05-01-2024 14:24-0400 Body weight 116.11 kg MD Noah Lewis Work Phone: [facility] 05-01-2024 14:24-0400 Diastolic blood pressure 83 mm[Hg] MD Noah Lewis Work Phone: [facility] 05-01-2024 14:24-0400 Heart rate 76 /min MD Noah Lewis Work Phone: [facility] 05-01-2024 14:24-0400 SaO2% (BldA) [Mass fraction] 96 % MD Noah Lewis Work Phone: [facility] 05-01-2024 14:24-0400 Systolic blood pressure 142 mm[Hg] MD Noah Lewis Work Phone: [facility] 04-17-2024 09:50-0400 Body height 162.6 cm Raphael Connors DO Work Phone: [facility] 04-17-2024 09:50-0400 Body mass index (BMI) [Ratio] 44.29 kg/m2 Raphael Connors DO Work Phone: [facility] 04-17-2024 09:50-0400 Body weight 117.03 kg Raphael Connors DO Work Phone: [facility] 04-17-2024 09:50-0400 Diastolic blood pressure 80 mm[Hg] Raphael Connors DO Work Phone: [facility] 04-17-2024 09:50-0400 Systolic blood pressure 120 mm[Hg] Raphael Connors Work Phone: [facility] 04-11-2024 11:16-0400 Body height 162.56 cm MD Noah Lewis Work Phone: [facility] 04-11-2024 11:16-0400 Body mass index (BMI) [Ratio] 44.2 kg/m2 MD Noah Lewis Work Phone: [facility] 04-11-2024 11:16-0400 Body temperature 97.8 [degF] MD Noah Lewis Work Phone: [facility] 04-11-2024 11:16-0400 Body weight 117.02 kg MD Noah Lewis Work Phone: [facility] 04-11-2024 11:16-0400 Diastolic blood pressure 78 mm[Hg] MD Noah Lewis Work Phone: [facility] 04-11-2024 11:16-0400 Heart rate 65 /min MD Noah Lewis Work Phone: [facility] 04-11-2024 11:16-0400 Respiratory rate 16 /min MD Noah Lewis Work Phone: [facility] 04-11-2024 11:16-0400 SaO2% (BldA) [Mass fraction] 98 % MD Noah Lewis Work Phone: [facility] 04-11-2024 11:16-0400 Systolic blood pressure 135 mm[Hg] MD Noah Lewis Work Phone: [facility] 02-16-2024 13:11-0400 Body weight 118.84 kg MD Noah Lewis Work Phone: [facility] 02-16-2024 13:11-0400 Diastolic blood pressure 91 mm[Hg] MD Noah Lewis Work Phone: [facility] 02-16-2024 13:11-0400 Heart rate 69 /min MD Noah Lewis Work Phone: [facility] 02-16-2024 13:11-0400 Respiratory rate 18 /min MD Noah Lewis Work Phone: [facility] 02-16-2024 13:11-0400 SaO2% (BldA) [Mass fraction] 97 % MD Noah Lewis Work Phone: [facility] 02-16-2024 13:11-0400 Systolic blood pressure 150 mm[Hg] MD Noah Lewis Work Phone: [facility] 02-09-2024 09:00-0400 Body height 162.56 cm MD Noah Lewis Work Phone: [facility] 02-09-2024 09:00-0400 Body mass index (BMI) [Ratio] 45.4 kg/m2 MD Noah Lewis Work Phone: [facility] 02-09-2024 09:00-0400 Body temperature 97.5 [degF] MD Noah Lewis Work Phone: [facility] 02-09-2024 09:00-0400 Body weight 120.2 kg MD Noah Lewis Work Phone: [facility] 02-09-2024 09:00-0400 Diastolic blood pressure 104 mm[Hg] MD Noah Lewis Work Phone: [facility] 02-09-2024 09:00-0400 Heart rate 73 /min MD Noah Lewis Work Phone: [facility] 02-09-2024 09:00-0400 Respiratory rate 16 /min MD Noah Lewis Work Phone: [facility] 02-09-2024 09:00-0400 SaO2% (BldA) [Mass fraction] 95 % MD Noah Lewis Work Phone: [facility] 02-09-2024 09:00-0400 Systolic blood pressure 169 mm[Hg] MD Noah Lewis Work Phone: [facility] 01-24-2024 08:38-0400 Body height 162.56 cm MD Noah Lewis Work Phone: [facility] 01-24-2024 08:38-0400 Body mass index (BMI) [Ratio] 45.4 kg/m2 MD Noah Lewis Work Phone: [facility] 01-24-2024 08:38-0400 Body weight 120.2 kg MD Noah Lewis Work Phone: [facility] 01-24-2024 08:38-0400 Diastolic blood pressure 95 mm[Hg] MD Noah Lewis Work Phone: [facility] 01-24-2024 08:38-0400 Heart rate 68 /min MD Noah Lewis Work Phone: [facility] 01-24-2024 08:38-0400 SaO2% (BldA) [Mass fraction] 98 % MD Noah Lewis Work Phone: [facility] 01-24-2024 08:38-0400 Systolic blood pressure 153 mm[Hg] MD Noah Lewis Work Phone: [facility] 01-11-2024 08:51-0400 Body temperature 97 [degF] MD Noah Lewis Work Phone: [facility] 01-11-2024 08:51-0400 Body weight 119.74 kg MD Noah Lewis Work Phone: [facility] 01-11-2024 08:51-0400 Diastolic blood pressure 85 mm[Hg] MD Noah Lewis Work Phone: [facility] 01-11-2024 08:51-0400 Heart rate 66 /min MD Noah Lewis Work Phone: [facility] 01-11-2024 08:51-0400 Respiratory rate 16 /min MD Noah Lewis Work Phone: [facility] 01-11-2024 08:51-0400 SaO2% (BldA) [Mass fraction] 97 % MD Noah Lewis Work Phone: [facility] 01-11-2024 08:51-0400 Systolic blood pressure 141 mm[Hg] MD Noah Lewis Work Phone: [facility] 01-04-2024 08:50-0400 Body height 162.6 cm Wiley Schmitt MD Work Phone: [facility] 01-04-2024 08:50-0400 Body mass index (BMI) [Ratio] 44.97 kg/m2 Wiley Schmitt MD Work Phone: [facility] 01-04-2024 08:50-0400 Body weight 118.84 kg Wiley Schmitt MD Work Phone: [facility] 01-04-2024 08:50-0400 Diastolic blood pressure 82 mm[Hg] Wiley Schmitt MD Work Phone: [facility] 01-04-2024 08:50-0400 Heart rate 76 /min Wiley Schmitt MD Work Phone: [facility] 01-04-2024 08:50-0400 Systolic blood pressure 118 mm[Hg] Wiley Schmitt MD Work Phone: [facility] 12-26-2023 13:40-0400 Diastolic blood pressure 95 mm[Hg] MD Noah Lewis Work Phone: [facility] 12-26-2023 13:40-0400 Heart rate 57 /min MD Noah Lewis Work Phone: [facility] 12-26-2023 13:40-0400 Respiratory rate 16 /min MD Noah Lewis Work Phone: [facility] 12-26-2023 13:40-0400 SaO2% (BldA) [Mass fraction] 96 % MD Noah Lewis Work Phone: [facility] 12-26-2023 13:40-0400 Systolic blood pressure 161 mm[Hg] MD Noah Lewis Work Phone: [facility] 12-26-2023 12:45-0400 Body temperature 97.1 [degF] MD Noah Lewis Work Phone: [facility] 12-26-2023 12:15-0400 Inhaled oxygen flow rate 8 L/min MD Noah Lewis Work Phone: [facility] 12-26-2023 10:22-0400 Body height 162.56 cm MD Noah Lewis Work Phone: [facility] 12-26-2023 10:22-0400 Body mass index (BMI) [Ratio] 45 kg/m2 MD Noah Lewis [facility] [facility] [place] 12-26-2023 [id number] Body weight 119 kg MD Noah Lewis Work Phone: [facility] 12-20-2023 11:19-0400 Diastolic blood pressure 82 mm[Hg] Kerline [address] [place] [address] 12-20-2023 11:19-0400 Heart rate 85 /min Kerline [address] [place] [address] 12-20-2023 11:19-0400 Systolic blood pressure 136 mm[Hg] Kerline [address] [place] [address] 12-01-2023 11:02-0400 Body height 162.56 cm MD Noah Lewis Work Phone: [facility] 12-01-2023 11:02-0400 Body mass index (BMI) [Ratio] 45.6 kg/m2 MD Noah Lewis Work Phone: [facility] 12-01-2023 11:02-0400 Body temperature 97.1 [degF] MD Noah Lewis Work Phone: [facility] 12-01-2023 11:02-0400 Body weight 120.65 kg MD Noah Lewis Work Phone: [facility] 12-01-2023 11:02-0400 Diastolic blood pressure 106 mm[Hg] MD Noah Lewis Work Phone: [facility] 12-01-2023 11:02-0400 Heart rate 76 /min MD Noah Lewis Work Phone: [facility] 12-01-2023 11:02-0400 Respiratory rate 16 /min MD Noah Lewis Work Phone: [facility] 12-01-2023 11:02-0400 SaO2% (BldA) [Mass fraction] 98 % MD Noah Lewis Work Phone: [facility] 12-01-2023 11:02-0400 Systolic blood pressure 173 mm[Hg] MD Noah Lewis Work Phone: [facility] 11-15-2023 13:05-0400 Body temperature 98.2 [degF] MD Noah Lewis Work Phone: [facility] 11-15-2023 13:05-0400 Diastolic blood pressure 92 mm[Hg] MD Noah Lewis Work Phone: [facility] 11-15-2023 13:05-0400 Heart rate 76 /min MD Noah Lewis Work Phone: [facility] 11-15-2023 13:05-0400 Respiratory rate 18 /min MD Noah Lewis Work Phone: [facility] 11-15-2023 13:05-0400 SaO2% (BldA) [Mass fraction] 98 % MD Noah Lewis Work Phone: [facility] 11-15-2023 13:05-0400 Systolic blood pressure 173 mm[Hg] MD Noah Lewis Work Phone: [facility] 01-05-2023 10:37-0400 Body height 162.56 cm Noah Lewis Work Phone: [facility] 600 DO Work Phone: 01-05-2023 10:37-0400 Body mass index (BMI) [Ratio] 46.17 kg/m2 Noah Lewis Work Phone: [facility] 600 DO Work Phone: 01-05-2023 10:37-0400 Body surface area Derived from formula 2.22 m2 Noah Goldsmith Hoy Work Phone: [facility] 600 DO Work Phone: 01-05-2023 10:37-0400 Body weight 122.02 kg Noah Rupal Hoy Work Phone: [facility] 600 DO Work Phone: 01-05-2023 10:37-0400 Diastolic blood pressure 84 mm[Hg] Noah M Hoy Work Phone: [facility] 600 DO Work Phone: 01-05-2023 10:37-0400 Heart rate 64 /min Noah Rupal Hoy Work Phone: [facility] 600 DO Work Phone: 01-05-2023 10:37-0400 Systolic blood pressure 134 mm[Hg] Noah M Hoy Work Phone: [facility] 600 DO Work Phone: 01-05-2023 09:14-0400 Diastolic blood pressure 92 mm[Hg] Noah M Hoy Work Phone: [facility] 600 DO Work Phone: 01-05-2023 09:14-0400 Diastolic blood pressure 100 mm[Hg] Noah M Hoy Work Phone: [facility] 600 DO Work Phone: 01-05-2023 09:14-0400 Systolic blood pressure 138 mm[Hg] Noah M Hoy Work Phone: [facility] 600 DO Work Phone: 01-05-2023 09:14-0400 Systolic blood pressure 130 mm[Hg] Noah M Hoy Work Phone: [facility] 600 DO Work Phone: 01-05-2023 08:38-0400 Body height 162.56 cm Noah M Hoy Work Phone: [facility] 600 DO Work Phone: 01-05-2023 08:38-0400 Body mass index (BMI) [Ratio] 46.17 kg/m2 Noah M Hoy Work Phone: [facility] 600 DO Work Phone: 01-05-2023 08:38-0400 Body surface area Derived from formula 2.22 m2 Noah M Hoy Work Phone: [facility] 600 DO Work Phone: 01-05-2023 08:38-0400 Body weight 122.02 kg Noah M Hoy Work Phone: [facility] 600 DO Work Phone: 01-05-2023 08:38-0400 Diastolic blood pressure 102 mm[Hg] Noah M Hoy Work Phone: [facility] 600 DO Work Phone: 01-05-2023 08:38-0400 Heart rate 68 /min Noah M Hoy Work Phone: [facility] 600 DO Work Phone: 01-05-2023 08:38-0400 Systolic blood pressure 148 mm[Hg] Noah M Hoy Work Phone: [facility] 600 DO Work Phone: 05-06-2022 14:44-0400 Body height 162.56 cm Noah M Hoy Work Phone: [facility] 600 DO Work Phone: 05-06-2022 14:44-0400 Body mass index (BMI) [Ratio] 44.8 kg/m2 Noah M Hoy Work Phone: [facility] 600 DO Work Phone: 05-06-2022 14:44-0400 Body surface area Derived from formula 2.19 m2 Noah M Hoy Work Phone: [facility] 600 DO Work Phone: 05-06-2022 14:44-0400 Body weight 118.39 kg Noah M Hoy Work Phone: [facility] 600 DO Work Phone: 05-06-2022 14:44-0400 Diastolic blood pressure 82 mm[Hg] Noah M Hoy Work Phone: [facility] 600 DO Work Phone: 05-06-2022 14:44-0400 Heart rate 63 /min Noah M Hoy Work Phone: [facility] 600 DO Work Phone: 05-06-2022 14:44-0400 Systolic blood pressure 120 mm[Hg] Noah M Hoy Work Phone: [facility] 600 DO Work Phone: 01-22-2022 12:20-0400 Body height 162.56 cm Noah M Hoy Work Phone: [facility] 600 DO Work Phone: 01-22-2022 12:20-0400 Body mass index (BMI) [Ratio] 46 kg/m2 Noah M Hoy Work Phone: [facility] 600 DO Work Phone: 01-22-2022 12:20-0400 Body surface area Derived from formula 2.22 m2 Noah M Hoy Work Phone: [facility] 600 DO Work Phone: 01-22-2022 12:20-0400 Body weight 121.56 kg Noah M Hoy Work Phone: [facility] 600 DO Work Phone: 01-22-2022 12:20-0400 Diastolic blood pressure 96 mm[Hg] Noah Zamoray Work Phone: [facility] 600 DO Work Phone: 01-22-2022 12:20-0400 Heart rate 74 /min Noah Lewis Work Phone: [facility] 600 DO Work Phone: 01-22-2022 12:20-0400 Systolic blood pressure 150 mm[Hg] Noah Lewis Work Phone: [facility] 600 DO Work Phone: Encounters Encounter Date Encounter Type Care Provider Facility Start: 04-30-2025 End: 04-30-2025 Office outpatient visit 15 minutes Raphael Connors DO Work Phone: [facility] Comment on above: History of right deborah ast cancer (Primary Dx) Start: 04-30-2025 End: 04-30-2025 ambulatory RAPHAEL CONNORS Not Available Start: 04-12-2025 Registered Recurring Kinsey carrera MD -[facility] Work Phone: Start: 04-12-2025 End: 04-12-2025 Patient encounter procedure Milagro GONZALEZ -[facility] Work Phone: Start: 04-12-2025 End: 04-12-2025 ambulatory Noah Lewis MD Work Phone: [facility] Work Phone: Start: 03-06-2025 End: 03-06-2025 ambulatory Noah Lewis MD Work Phone: [facility] Work Phone: Start: 03-06-2025 End: 03-06-2025 Patient encounter procedure Thomas Hoover MD -[facility] Work Phone: Start: 01-03-2025 End: 01-03-2025 Office outpatient visit 25 minutes Kaye Pastor MD Work Phone: [facility] Comment on above: Coronary artery dise ase involving [place] coronary artery of [place] heart without angina pectoris (Primary Dx); Mixed hyperlipidemia; History of PTCA; Essential hypertension; BMI 40.0-44.9, adult (Multi); Never smoked tobacco; Diabetes mellitus type II, non insulin dependent (Multi); Acquired hypothyroidism Start: 01-03-2025 End: 01-03-2025 ambulatory [facility] Start: 12-25-2024 End: 12-25-2024 Office outpatient visit 15 minutes Raphael Connors DO Work Phone: [employer] Comment on above: Infiltrating ductal carcinoma of right breast (Primary Dx) Start: 12-25-2024 End: 12-25-2024 ambulatory RAPHAEL CONNORS Not Available Start: 11-08-2024 End: 11-08-2024 Patient encounter procedure Noah Lewis MD Work Phone: [facility] Work Phone: Start: 11-08-2024 End: 11-08-2024 ambulatory Noah Lewis MD Work Phone: [facility] Work Phone: Start: 10-10-2024 End: 10-10-2024 ambulatory [facility] Work Phone: Start: 10-10-2024 End: 10-10-2024 Patient encounter procedure [facility] Work Phone: Start: 08-23-2024 End: 08-23-2024 Office outpatient visit 15 minutes Raphael Connors DO Work Phone: [employer] Comment on above: Infiltrating ductal carcinoma of right breast (CMS/HCC) (Primary Dx); History of right breast cancer Start: 08-23-2024 End: 08-23-2024 ambulatory RAPHAEL CONNORS Not Available Start: 05-31-2024 End: 05-31-2024 Patient encounter procedure MD Noah Lewis Work Phone: [facility] [place] Work Phone: Start: 05-31-2024 End: 05-31-2024 ambulatory MD Noah Lewis Work Phone: [facility] Work Phone: Start: 05-01-2024 End: 05-01-2024 Patient encounter procedure MD Noah Lewis Work Phone: [facility] Physician [facility] Work Phone: Start: 04-17-2024 End: 04-17-2024 Office outpatient visit 15 minutes Raphael Connors DO Work Phone: [facility] Comment on above: Infiltrating ductal carcinoma of right breast (CMS/HCC) (Primary Dx) Start: 04-11-2024 End: 04-11-2024 ambulatory MD Noah Lewis Work Phone: [facility] Work Phone: Start: 04-11-2024 End: 04-11-2024 Patient encounter procedure MD Noah Lewis Work Phone: [facility] Amb[facility] Work Phone: Start: 04-11-2024 Registered Recurring MD Rich Lewis Work [facility]: [facility] Work Phone: Start: 03-05-2024 Non-patient / Non-visit MD Panfilo Lewis Work Phone: [facility] Work Phone: Start: 02-21-2024 Non-patient / Non-visit MD Panfilo Lewis Work Phone: [facility] Work Phone: Start: 02-21-2024 Non-patient / Non-visit MD Panfilo Lewis Work Phone: [facility] Work Phone: Start: 02-16-2024 End: 02-16-2024 ambulatory MD Noah Lewis Work Phone: [facility] Work Phone: Start: 02-16-2024 End: 02-16-2024 Patient encounter procedure MD Noah Lewis Work Phone: [facility] Work Phone: Start: 02-16-2024 Registered Recurring MD Rich Lewis Work Phone: [facility] Work Phone: Start: 02-09-2024 End: 02-09-2024 ambulatory MD Noah Lewis Work Phone: [facility] Work Phone: Start: 02-09-2024 End: 02-09-2024 Patient encounter procedure MD Noah Lewis Work Phone: [facility] Work Phone: Start: 02-09-2024 Registered Recurring MD Rich Lewis Work [facility]: [facility] Work Phone: Start: 02-07-2024 End: 02-07-2024 ambulatory MD Noah Lewis Work Phone: [facility] Work Phone: Start: 02-07-2024 End: 02-07-2024 Patient encounter procedure MD Noah Lewis Work Phone: [facility] Work Phone: Start: 01-24-2024 End: 01-24-2024 ambulatory MD Noah Lewis Work Phone: [facility] Work Phone: Start: 01-24-2024 End: 01-24-2024 Patient encounter procedure MD Noah Lewis Work Phone: [facility] Work Phone: Start: 01-11-2024 End: 01-11-2024 Patient encounter procedure MD Noah Lewis Work Phone: [facility] Work Phone: Start: 01-11-2024 Registered Recurring MD Rich Lewis Work Phone: [facility] Work Phone: Start: 01-04-2024 End: 01-04-2024 Office outpatient visit 25 minutes Wiley Schmitt MD Work Phone: [facility] Comment on above: Coronary artery dise ase involving [place] coronary artery of [place] heart without angina pectoris (Primary Dx); Essential hypertension; Mixed hyperlipidemia; History of PTCA; Hypertension, unspecified type; BMI 40.0-44.9, adult (Multi); Never smoked tobacco; Statin declined Start: 12-26-2023 End: 12-26-2023 Admission to same day surgery center MD Noah Lewis Work Phone: [facility] [place] Start: 12-26-2023 End: 12-26-2023 ambulatory MD Noah Lewis Work Phone: [facility] Work Phone: Start: 12-21-2023 End: 12-22-2023 ambulatory [facility] Start: 12-21-2023 End: 12-21-2023 Subsequent hospital visit by physician Kerline Andrews [place] [facility] Start: 12-20-2023 End: 12-21-2023 ambulatory [facility] Start: 12-20-2023 End: 12-21-2023 Encounter for other preprocedural examination [facility] Start: 12-20-2023 End: 12-20-2023 Preoperative state [address] Work Phone: Start: 12-20-2023 End: 12-20-2023 Subsequent hospital visit by physician Kerline Shen Admin Room [facility] Comment on above: Pre-operative cleara nce; Abnormal EKG; Osteoarthritis, unspecified osteoarthritis type, unspecified site Start: 12-14-2023 Registered Recurring MD Rich Lewis Work Phone: [facility] Work Phone: Start: 12-12-2023 End: 12-12-2023 ambulatory MD Noah Lewis Work Phone: [facility] Work Phone: Start: 12-12-2023 End: 12-12-2023 Patient encounter procedure MD Noah Lewis Work Phone: [facility]Pre-Surgical Testing Work Phone: Start: 12-01-2023 Registered Recurring MD Rich Lewis Work Phone: [facility] Work Phone: Start: 12-01-2023 End: 12-01-2023 ambulatory MD Noah Lewis Work Phone: [facility] Work Phone: Start: 12-01-2023 End: 12-01-2023 Patient encounter procedure MD Noah Lewis Work Phone: [facility] Ambulatory Work Phone: Start: 11-15-2023 End: 11-15-2023 Admission to same day surgery center MD Noah Lewis Work Phone: [facility] Start: 11-15-2023 End: 11-15-2023 ambulatory MD Noah Lewis Work Phone: [facility] Work Phone: Start: 11-08-2023 End: 11-08-2023 Patient encounter procedure MD Noah Lewis Work [facility]: [facility] Work Phone: Start: 10-27-2023 End: 10-27-2023 Patient encounter procedure MD Noah Lewis Work Phone: [facility] Work Phone: Start: 06-16-2023 End: 06-16-2023 ambulatory MD Noah Lewis Work Phone: [facility] Work Phone: Start: 06-16-2023 End: 06-16-2023 Patient encounter procedure MD Noah Lewis Work Phone: [facility] Work Phone: Start: 06-09-2023 Registered Recurring MD Rich Lewis Work Phone: [facility] Work Phone: Start: 06-09-2023 End: 06-09-2023 ambulatory Jose Laughlin Other [facility] [employer] Other Start: 06-09-2023 TX ROOM EST LVL II M TM VIRTUAL [facility] Start: 05-12-2023 End: 05-12-2023 ambulatory Ene Poon Other [facility] [employer] Other Start: 05-12-2023 Telephone encounter Ene Poon [facility] Start: 01-05-2023 Office outpatient vi sit 25 minutes Noah Lewis Work Phone: [facility] 600 DO Work Phone: Start: 01-05-[address] [facility] Facility: Start: 11-23-2022 Rx Renewal Noah Lewis Work Phone: [facility] 250 DO Work Phone: Start: 10-22-2022 Rx Renewal Noah Rupal Noahaleksey Work Phone: [facility] 250 DO Work Phone: Start: 05-27-2022 ([facility] INJ) [facility] Injection Ene Poon [facility] Start: 05-27-2022 End: 05-27-2022 ambulatory MD Noah Lewis Work Phone: [facility] Work Phone: Start: 05-27-2022 End: 05-27-2022 Patient encounter procedure MD Noah Lewis Work Phone: [facility] [facility] Start: 05-06-2022 Office outpatient vi sit 15 minutes Noah Lewis Work Phone: [facility] 600 DO Work Phone: Start: 05-06-[address] Noah Lewis Facility: Start: 04-15-2022 Rx Renewal Noah Lewis Work Phone: [facility] 250 DO Work Phone: Start: 04-08-2022 End: 04-08-2022 Patient encounter procedure MD Noah Lewis Work Phone: [facility] Start: 04-08-2022 End: 04-08-2022 Departed Referred MD Noah Lewis Work Phone: [facility]-Employee Benefit Screening Start: 02-18-2022 Chart Update Noah Lewis Work Phone: [facility] 250 DO Work Phone: Start: 02-12-2022 End: 02-12-2022 Patient encounter procedure MD Noah Lewis Work Phone: [facility] [place] Start: 01-22-2022 Office outpatient vi sit 25 minutes [facility] Work Phone: Start: 01-22-[address] Noah Lewis Facility: Start: 10-12-2021 Rx Renewal Wiley amin MD Work Phone: [facility] 250 DO Work Phone: Start: 01-19-2021 End: 01-20-[address] NOAH LEWIS Facility:[facility]1 Start: 01-16-2021 End: 01-17-[address] NOAH LEWIS Facility:[facility] Procedures Date Procedure Procedure Detail Performing Clinician Start: 01-03-2025 Ecg routine ecg w/least 12 lds w/i&r Kaye Pastor MD Work Phone: Start: 11-08-2024 End: 11-08-2024 Bilateral mammography Noah Lewis MD Work Phone: Start: 01-04-2024 History of percutaneous transluminal coronary [...] Panfilo babak Lewis Work Phone: History of percutane ous transluminal coronary angioplasty History of PTCA Kaye Pastor MD Work Phone: History of placement of stent in anterior descending branch of left coronary artery History of placement of stent in LAD coronary artery MD Noah Lewis Work Phone: History of placement of stent in anterior descending branch of left coronary artery History of placement of stent in LAD coronary artery Milagro Hoover [employer] Procedure on neck Noah Zamoraaleksey Work Phone: Repair of shoulder Noah Lewis Work Phone: Thyroidectomy Noah Lewis Work Phone: Tonsillectomy and adenoidectomy Noah Zamoraaleksey Work Phone: Total abdominal hysterectomy Noah Lewis Work Phone: Plan of Treatment Date Care Activity Detail Author Start: 01-07-2026 End: 01-07-2026 Patient encounter procedure 01/07/2026 1:50 PM EDT Office Visit [address] [phone] Kaye Pastor MD [address] [facility], [address] [place] [address] [facility] Start: 11-08-2025 End: 02-24-2026 MG Breast - bilateral Diagnostic Bilateral diagnostic mammogram Imaging Routine Infiltrating ductal carcinoma of right breast (CMS/HCC) Expected: 11/08/2025, Expires: 02/24/2026 [facility] Work Phone: Comment on above: Expected: 11/08/2025 , Expires: 02/24/2026 Start: 11-08-2025 Screening for malign ant neoplasm of breast Mammogram [facility] Start: 09-04-2025 End: 09-04-2025 Patient encounter procedure 09/04/2025 9:45 AM EST Office Visit [address] [place] [phone] Raphael Connors, [address] [facility] [address] [place] [address] [facility] Start: 04-30-2025 End: 04-30-2025 Patient encounter procedure 04/30/2025 10:45 AM EDT Office Visit [facility] [address] [facility] [address] [place] [phone] Raphael Connors, DO [address] [facility] [address] [place] [address] [facility] Start: 04-29-2025 Influenza vaccination Influenza Vacc ine (#1) [facility] Start: 01-03-2025 End: 01-03-2025 Patient encounter procedure 01/03/2025 1:30 PM EDT Office Visit [facility] [address] [facility] [address] [place] [phone] Kaye Pastor MD [address] [facility], [address] [place] [address] [facility] Start: 12-25-2024 Screening for malign ant neoplasm of breast Mammogram [facility] Start: 12-25-2024 End: 12-25-2024 Patient encounter procedure 12/25/2024 10:45 AM EDT Office Visit [facility] [address] [phone] Raphael Connors, DO [address] [id number] [facility] Start: 11-26-2024 End: 10-24-2025 MG Breast - bilateral Diagnostic Bilateral diagnostic mammogram Imaging Routine Infiltrating ductal carcinoma of right breast (CMS/HCC) History of right breast cancer Expected: 11/26/2024, Expires: 10/24/2025 [facility] Work Phone: Comment on above: Expected: 11/26/2024 , Expires: 10/24/2025 Start: 11-10-2024 COVID-19 Vaccine ( season) COVID-19 Vaccine ( season) [facility] Start: 08-23-2024 End: 08-23-2024 Patient encounter procedure 08/23/2024 1:45 PM EST Office Visit [facility] [address] [place] [phone] Raphael Connors, DO [address] [address] [facility] Start: 04-29-2024 Influenza vaccination Influenza Vacc ine (#1) [facility] Start: 02-09-2024 Patient referral [facility] Work Phone: Start: 01-04-2024 FUV, Provider: Wiley Schmitt, Status: Pen, Time: 9:00 AM FUV, Provider: Wiley Schmitt, Status: Pen, Time: 9:00 AM [facility] 600 DO Work Phone: Start: 01-04-2024 End: 01-04-2024 Patient encounter procedure 01/04/2024 9:00 AM EDT Office Visit [place] [address] [address] [place] [address] Wiley Schmitt MD [address] [facility], [address] [place] [address] [facility] Start: 01-03-2024 Pneumococcal Vaccine : 65+ Years (2 of 2 - PCV) Pneumococcal Vaccine: 65+ Years (2 of 2 - PCV) [facility] Start: 12-26-2023 [facility] Start: 12-26-2023 [facility] Start: 12-26-2023 NM Lymphatic vessels Views W radionuclide intra lymphatic [facility] Start: 12-26-2023 Radionuclide sentine l lymph node study NM sentinel node w imaging [facility] Start: 12-26-2023 Mammography of right breast specimen MM surgical specimen RT [facility] Start: 12-26-2023 MG Breast specimen - right Views [facility] Start: 12-21-2023 End: 12-21-2023 Patient encounter procedure Karen [facility] Start: 11-26-2023 COVID-19 Vaccine ( season) COVID-19 Vaccine ( season) [facility] Start: 01-05-2023 FUV, Provider: Wiley Schmitt, Status: Pen, Time: 8:40 AM FUV, Provider: Wiley Schmitt, Status: Pen, Time: 8:40 AM [facility] 600 DO Work Phone: Start: 05-07-2022 FUV, Provider: Wiley Schmitt, Status: Pen, Time: 1:00 PM FUV, Provider: Wiley Schmitt, Status: Pen, Time: 1:00 PM [facility] 250 DO Work Phone: Start: 05-06-2022 FUV, Provider: Julia Verdin, Status: Pen, Time: 2:30 PM FUV, Provider: Julia Verdin, Status: Pen, Time: 2:30 PM -[facility] 250 DO Work Phone: Start: 03-25-2022 FUV, Provider: Julia Verdin, Status: Pen, Time: 2:30 PM FUV, Provider: Julia Verdin, Status: Pen, Time: 2:30 PM [facility] 250 DO Work Phone: Start: 2019 RSV High Risk: (Elde rly (60+) or Population) (1 - Risk 60-74 years 1-dose series) RSV High Risk: (Elderly (60+) or Population) (1 - Risk 60-74 years 1-dose series) [facility] Start: 2019 RSV patient s and/or patients aged 60+ years (1 - 1-dose 60+ series) RSV patients and/or patients aged 60+ years (1 - 1-dose 60+ series) [facility] Start: 07-07-2017 Pneumococcal vaccination Pneumococcal Vaccine (2 of 2 - PCV) [facility] Start: 07-07-2017 Pneumococcal Vaccine : 65+ Years (2 of 2 - PCV) Pneumococcal Vaccine: 65+ Years (2 of 2 - PCV) [facility] Start: 2009 Zoster Vaccines (1 o f 2) Zoster Vaccines (1 of 2) [facility] Start: 1989 Screening for malign ant neoplasm of cervix [facility] Start: 1981 DTaP/Tdap/Td Vaccine s (1 - Tdap) DTaP/Tdap/Td Vaccines (1 - Tdap) [facility] Start: 01-03-1980 Screening for malign ant neoplasm of cervix [facility] Start: 1977 Diabetes mellitus screening Diabetes Screening [facility] Start: 1977 Hepatitis C [facility]: [facility] MMR Vaccines (1 of 1 - Standard series) MMR Vaccines (1 of 1 - Standard series) [facility] Start: 1959 Annual wellness visit Medicare Initial Physical (IPPE) [facility] Start: 1959 HIV screening [facility] Start: 1959 Lipid panel Lipid Panel [facility] Start: 1959 Medicare Annual Wellness Visit Medicare Annual Wellness Visit (AWV) [facility] Start: 1959 Screening for malign ant neoplasm of colon [facility] Start: 1959 Screening for osteoporosis Bone Density Scan [facility] Start: 1959 Thyroid stimulating hormone measurement TSH Level [facility] Start: 1959 Yearly Adult Physical Yearly Adult P hysical [facility] Computed tomography for radiotherapy planning [facility] DXA Skeletal system.axial Views for bone density [facility] DXA Skeletal system.axial Views for bone density [facility] End: 12-20-2023 NM Heart Perfusion W stress and W radionuclide IV [facility] [[email or web address] Service Area Work Phone: Comment on above: Once for 1 Occurrenc es starting 12/20/2023 until 12/20/2023 Patient referral [facility] Work Phone: [facility] Immunizations Immunization Date Immunization Notes Care Provider Fa penelope 05-13-2024 influenza virus vaccine, unspecified formulation Raphael Connors DO Work Phone: [facility] 07-28-2023 COVID-19 (PFIZER) 12Y and older MD Noah Lewis Work Phone: [facility] 07-28-2023 Influenza, injectabl e, [place] Canine Kidney, preservative free, quadrivalent Kaye Pastor MD Work Phone: [facility] 07-28-2023 influenza virus vaccine, unspecified formulation Raphael Connors DO Work Phone: [facility] 05-27-2022 influenza, injectabl e, quadrivalent, preservative free Ene Fitt Other [facility] 05-27-2022 COVID-19 Moderna (BIvalent) Ene Fitt Other [facility] 06-30-2021 Moderna COVID-19 Vaccine 100 MCG/0.5ML Intramuscular Suspension Noah Goldsmith Hoy Work Phone: [facility] 09-22-2020 Moderna COVID-19 Vaccine 100 MCG/0.5ML Intramuscular Suspension Noah M Hoy Work Phone: [facility] 08-25-2020 Moderna COVID-19 Vaccine 100 MCG/0.5ML Intramuscular Suspension Noah M Hoy Work Phone: [facility] 06-06-2020 influenza virus vaccine, unspecified formulation Noah M Hoy Work Phone: [facility] 600 DO Work Phone: 05-29-2020 influenza virus vaccine, unspecified formulation Noah M Hoy Work Phone: [facility] 600 DO Work Phone: 05-29-2020 influenza, seasonal, injectable Kaye Pastor MD Work Phone: [facility] Work Phone: 06-05-2019 influenza virus vaccine, unspecified formulation Noah M Hoy Work Phone: [facility] 600 DO Work Phone: 06-16-2018 influenza virus vaccine, unspecified formulation Noah M Hoy Work Phone: [facility] 600 DO Work Phone: 07-07-2016 pneumococcal polysaccharide vaccine, 23 valent Noah M Hoy Work Phone: [facility] 600 DO Work Phone: Payers Date Payer Category Payer Self-pay [id number] 2023 Medicare [id number] 2023 Medicare (Managed Care) 1.2. [id number] 2023 Medicare [id number] 2023 Unknown 1959 Unknown [id number] 1959 Unknown [id number] 2.16.84 0.1.865698.3.579.2.593 1959 Unknown [id number] 2.16.84 0.1.496384.3.579.2.593 1959 Unknown [id number] 2.16. 840.1.462400.3.579.2.356 1959 Unknown [id number] 2.16. 840.1.957779.3.579.2.356 1959 Unknown [id number] 2.16. 840.1.020174.3.579.2.356 1959 Unknown [id number] 2.16.84 0.1.182716.3.579.2.1246 1959 Unknown [id number] 2.16.84 0.1.028278.3.579.2.1246 1959 Unknown [id number] 2.16.84 0.1.031489.3.579.2.1246 1959 Unknown [id number] 2.16.84 0.1.614039.3.579.2.1246 1959 Unknown [id number] 2.16.84 0.1.673422.3.579.2.1246 1959 Unknown [id number] 2.16. 840.1.482572.3.579.2.1244 1959 Unknown [id number] 2.16.8 40.1.744560.3.579.2.1259 1959 Unknown [id number] 2.16.84 0.1.766973.3.579.2.1259 1959 Unknown [id number] 2.16.84 0.1.068184.3.579.2.1259 Unknown [id number] 2.16.8 40.1.666496.3.579.2.531 Unknown [id number] 2.16.8 40.1.909518.3.579.2.531 Unknown [id number] 2.16.8 40.1.382722.3.579.2.531 Unknown [id number] 2.16.8 40.1.858005.3.579.2.531 Social History Date Type Detail Facility Start: 01-04-2024 End: 04-30-2025 No alcohol use No alcohol use -[facility] 600 DO Work Phone: Comment on above: 2 CUPS OF COFFEE SHRUTHI LY; Start: 1960 Sex Assigned At Female F [facility] Start: 01-04-2024 End: 04-30-2025 Sex Assigned At [facility] Start: 11-23-2023 End: 12-01-2023 Tobacco smoking status NHIS Never smoked tobacco (finding) [facility] Start: 11-02-2023 Tobacco smoking stat us NYIS Tobacco smoking consumption unknown [facility] Work Phone: Start: 1960 [facility] Start: 12-10-2023 End: 01-03-2025 Exposure to SARS-CoV-2 (event) Not sure [facility] Start: 11-23-2023 End: 01-04-2024 Tobacco use and exposure Smokeless tobacco non-user [facility] Work Phone: Start: 01-04-2024 End: 04-30-2025 Alcoholic beverage intake Lifetime non-drinker (finding) [facility] Work Phone: Start: 11-21-2023 Gender identity Identifies as female gender (finding) [facility] Work Phone: Start: 11-21-2023 Sexual orientation Heterosexual (fin ding) [facility] Work Phone: Start: 10-10-2024 End: 11-09-2024 Sex Female (finding) [facility] Medical Equipment Procedure Code Equipment Code Equipment [...] 4. 0 X 22 FDA Start: 07-25-2018 Start: 12-19-2023 CL STENT DONNA 4. 0 X 22 FDA Start: 07-25-2018 CL STENT DONNA 4. 0 X 22 FDA Start: 07-25-2018 CL STENT DONNA 4. 0 X 22 FDA Start: 07-25-2018 CL STENT DONNA 4. 0 X 22 FDA Start: 07-25-2018 CL STENT DONNA 4. 0 X 22 FDA Start: 07-25-2018 Goals Date Patient Goal Desired Activity /State Clinical Notes 05-27-2022 to 04-30-2025 Raphael Connors, DO - 04/30/2025 10:45 AM EDT Note Date & Type Note Facility 04-30-2025 History of Presen t illness Narrative Images from the original note were not included. Doris Carnes 1960 Doris Carnes is a 65 y.o. female presents with [...] Never Physical Exam Exam conducted with a traffic supervisor present. Constitutional: Appearance: Normal appearance. HENT: Head: [...] ductal carcinoma and DCIS. Margins are negative. [place] lymph node negative. T1 N0 = stage [...] for earlier re-evaluation. documented in this encounter [facility] 03-06-2025 Evaluation note Diagnosis Onset Date Resolution BMI 40.0-44.9, adult acute March 06, 2025 10:28am Chronic intermittent hypoxia with obstructive sleep apnea acute February 10:28am Hypersomnia acute March 06 10:28am Obstructive sleep apnea acute J 2024 10:28am Restless leg syndrome acute Feb 10:28am Sleep phase syndrome, delayed acute March 06, 2025 10:28am [facility] Work Phone: 1(861) 220-909407-09-2025 Evaluation note* Diagnosis Onset Date Resolution Status Admit Date BMI 40.0-44.9, adult acute March 06, 2025 10:28am Chronic intermittent hypoxia with obstructive sleep apnea acute Feb 10:28am Hypersomnia acute March 06 10:28am Obstructive sleep apnea acute J 2024 10:28am Restless leg syndrome acute Feb 10:28am Sleep phase syndrome, delayed acute March 06, 2025 10:28am Encounter for monitoring aromatase inhibitor therapy acute 2024 11:21am History of placement of sten t in LAD coronary artery acute April 122024 11:21am Malignant neoplasm of centra l portion of right breast in female, estrogen acute April 12 11:21am Screening for osteoporosis acute April 12, 2025 11:21am [facility] Work Phone: 1(789) 836-347105-08-2025 History of Present illness Narrative* Kaye Pastor MD - 01/03/2025 1:30 PM EDT Chief Complaint Patient presents with Follow-up 1 year for Coronary artery disease involving [place] coronary artery of [place] heart without angina pectoris Subjective Doris Carnes is a 65 y.o. female HPI Patient is here for follow-up continue management for history of coronary artery disease previous PCI to the LAD. She is a former patient of Dr. Schmitt. She underwent PCI to the LAD back in 2018. Patient is morbidly obese with history of hyperlipidemia and history of intolerance to Zetia and statin. She currently on Repatha. Patient denies chest pain, lightheadedness, dizziness or syncope. She describes rare palpitation and shortness of breath. Her recent labs suggest demonstrate lipid is suboptimally controlled. Assessment 1. Single-vessel coronary artery disease status post PCI to the LAD back in 2018. Her last stress test last year was normal 2. Morbid obesity 3. Mixed hyperlipidemia with documented history of intolerance to statin and Zetia she is currentlyon Repatha 4. Shortness of breath related to morbid obesity 5. Diabetes mellitus 6. Hypothyroidism on replacement therapy Plan 1. We discussed treatment option for her hyperlipidemia at great length I suggested a trial of Nexletol 2. I encouraged her to lose weight and exercise 3. I advised her to discuss with her PCP treatment of with Ozempic or Mounjaro 4. Follow-up in 1 year Review of Systems Cardiovascular: Positive for palpitations. Respiratory: Positive for shortness of breath. All other systems reviewed and are negative. Vitals: 01/03/25 1328 BP: 124/58 BP Location: Right arm Patient Position: Sitting Pulse: 61 Weight: 117 kg (258 lb) Height: 1.626 m (5' 4 ) [...] content normal. Judgment: Judgment normal. Allergies Hydroxychloroquine, Wyguhgp-imx-wcx reductase inhibitors, and Cephalexin Current Medications Current Outpatient Medications Medication Instructions anastrozole (ARIMIDEX) 1 mg, Daily aspirin 81 mg, oral, Daily budesonide-formoteroL (Symbicort) 160-4.5 mcg/actuation inhaler Inhale. As directed chlorthalidone (HYGROTON) 25 mg, oral, Daily clopidogrel (PLAVIX) 75 mg, oral, Daily diclofenac (Voltaren) 75 mg EC tablet 1 tablet, 2 times daily empagliflozin (Jardiance) 10 mg tablet Take by mouth. esomeprazole (NexIUM) [address] capsule 1 capsule, Daily glimepiride (Amaryl) 4 mg tablet 1 tablet, Daily levothyroxine (Synthroid, Levoxyl) 75 mcg tablet 1 tablet, Daily lisinopril 40 mg, oral, Daily metFORMIN (Glucophage) 500 mg tablet 1 tablet, Daily metoprolol succinate XL (TOPROL-XL) 100 mg, oral, Daily montelukast (Singulair) 10 mg tablet 1 tablet, Daily multivitamin tablet 1 tablet, Daily nitroglycerin (NITROSTAT) 0.4 mg, Every 5 min PRN Repatha SureClick 140 mg, Every 14 days Assessment/Plan 1. Mixed hyperlipidemia 2. Coronary artery disease involving [place] coronary artery of [place] heart without angina pectorisFollow Up In Cardiology 3. History of PTCA 4. Essential hypertension 5. BMI 40.0-44.9, adult (Multi) 6. Never smoked tobacco Scribe Attestation By signing my name below, I, Ingrid Simpson LPN, Scribe attest that this documentation has been prepared under the direction and in the presence of MD Sohail. Provider Attestation - Scribe documentation All medical record entries made by the Scribe were at my direction and personally dictated by me. Ihave reviewed the chart and agree that the record accurately reflects my personal performance of the history, physical exam, discussion and plan. documented in this [facility] Work Phone: 1([phone]) 545-562505-08-2025 Instructions* Patient Instructions* Ingrid Contreras LPN - 01/03/2025 1:30 PM EDT Please bring all medicines, vitamins, and herbal supplements with you when you come to the office. Prescriptions will not be filled unless you are compliant with your follow up appointments or have a follow up appointment scheduled as per instruction of your physician. Refills should be requested at the time of your visit. BMI was above normal measurement. Current weight: 117 kg (258 lb) Weight change since last visit (-) denotes wt loss -4 lbs Weight loss needed to achieve BMI 25: 112.7 Lbs Weight loss needed to achieve BMI 30: 83.6 Lbs Provided instructions on dietary changes. Cont Repatha every 2 weeks Nexletol one times daily documented in this [facility] Work Phone: 1(474) 750-115904-29-2025 History of Present illness Narrative* Raphael Connors, - 12/25/2024 10:45 AM EDT Images from the original note were not included. Dorsi Carnes 1960 Doris Carnes is a 64 y.o. female presents with chief complaint of 1st poy Rt lumpectomy (W/mamms) HPI: HPI Patient is taking anastrozole. She has not having any problems with that. She has not having any new lumps or bumps or masses. She has not having any skin changes. She has not having any nipple discharge. The scar tissue that she feels that the surgical site is unchanged. She does not have any breast pain. No arm swelling. SUBJECTIVE: MEDICATIONS: ALLERGIES Current Outpatient Medications Medication [...] Past Medical History: Diagnosis Date Breast cancer ([facility]/HCC) 11/18/23 COPD (chronic obstructive pulmonary disease) ([facility]/HCC) Coronary artery disease (CMS/HCC) 2018 Diabetes mellitus (CMS/HCC) Diverticulitis of colon Fibrocystic breast May 2019 Hypertension (CMS/HCC) Thyroid nodule ([facility]/HCC) One side removed Social History Tobacco Use Smoking status: Never Smokeless tobacco: Never Substance Use Topics Alcohol use: Never Drug use: Never Past Surgical History: Procedure Laterality Date BREAST LUMPECTOMY 12/26/2023 Right lumpectomy HYSTERECTOMY TUBAL LIGATION REVIEW OF SYMPTOMS: Review of Systems Constitutional: Negative for appetite change, fatigue and fever. HENT: Negative for trouble swallowing. Respiratory: Negative for cough and shortness of breath. Cardiovascular: Negative for chest pain. Gastrointestinal: Negative for abdominal pain. Genitourinary: Negative for hematuria. Musculoskeletal: Negative for back pain. Skin: Negative for wound. Neurological: Negative for seizures. OBJECTIVE: Visit Vitals Smoking Status Never Physical Exam Exam conducted with a traffic supervisor present. Constitutional: Appearance: Normal appearance. HENT: Head: Atraumatic. Eyes: General: No scleral icterus. Cardiovascular: Rate and Rhythm: Regular rhythm. Pulmonary: Effort: No respiratory distress. Chest: Comments: Bilateral exam is performed in the seated and supine position. There is no skin changes. There is no nipple discharge. There is no dominant mass, there is some palpable scar tissue at the mid aspect of the excisional site. Unchanged from prior. No axillary lymphadenopathy. Radiation changes basically all resolved. Abdominal: General: There is no distension. Tenderness: There is no abdominal tenderness. Skin: Findings: No bruising. Neurological: Mental Status: She is alert. Gait: Gait normal. 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 [place] lymph node negative. T1 N0 = stage I breast CA. Oncotype DX low risk of recurrence, no chemo. Pt on endocrine therapy. Repeat bilateral mammogram shows no suspicious findings. No suspicious findings on exam. We discussed continue follow up, recheck physical exam in 4 months. She will continue with the anastrozole. Repeat mammogram next year. If she notices anything suspicious or concerning she will contact me for earlier re-evaluation. documented in [facility] [id number] Evaluation note* Diagnosis Onset Date Resolution Status Admit Date Encounter for monitoring aromatase inhibitor therapy acute Febr ua2024 11:18am History of placement of sten t in LAD coronary artery acute October 10, 2024 11:18am Malignant neoplasm of centra l portion of right breast in female, estrogen acute October 10, 2024 11:18am Screening for osteoporosis acute October 10, 2024 11:18am [facility] Work Phone: 1([phone]) 740-152312-26-2024 History of Present illness Narrative* Raphael Connors DO - 08/23/2024 1:45 PM EST Images from the original note were not included. Doris Carnes 1960 Doris Carnes is a 64 y.o. female presents with chief complaint of 8th pom Rt lumpectomy HPI: HPI Patient said that she is doing well. She has been [facility] and getting some exercise. She still [...] m Physical Exam Exam conducted with a traffic supervisor present. Constitutional: Appearance: Normal appearance. HENT: Head: [...] invasive ductal carcinoma and DCIS.Margins are negative. [place] lymph node negative. T1 N0 = stage I breast CA. Oncotype DX low risk of recurrence, no chemo. Pt on endocrine therapy. Patient will continue on her anastrozole. If she notices anything suspicious she will contact me for sooner re-evaluation otherwise I will see her in 4 months. She will get mammogram in the meantime. documented in this encounterSaint [facility] [id number] History of Present illness Narrative* Raphael Connors DO - 04/17/2024 9:45 AM EDT Images from the original note were not included. Doris Carnes 1960 Doris Carnes is a 64 y.o. female presents for 4th pom - right lumpectomy HPI: HPI Patient had her radiation without any difficulty. She has not having any sunburn or skin changes orproblems. She has not having any new lumps or bumps or masses. Some swelling that she had the area and firmness at the surgical site is getting smaller. She has not having any nipple discharge. She feels no side effects from the anastrozole. She has not losing weight without trying to. She has not feeling fatigued or with other issues. Shehas not having shortness of breath or chest pain. She has not noticed any new breast masses or lumps or bumps. She has not having any nerve issues. She does have hot flashes that is something she hadbefore she was taking anastrozole as well as some joint pain. OBJECTIVE: Physical Exam Exam conducted with a traffic supervisor present. Constitutional: Appearance: Normal appearance. HENT: Head: [...] invasive ductal carcinoma and DCIS.Margins are negative. [place] lymph node negative. T1 N0 = stage [...] continue with her anastrozole. documented in this encounterSaint [facility] [id number] Hospital Discharge instructionsAmbulatory Orders* Oncology Histology Time Frame: 01/11/24, Location: Determined By Patient [facility] Work Phone: 1([phone]) 365-138605-08-2024 History of Present illness Narrative* Wiley Schmitt MD - 01/04/2024 9:00 AM EDT Subjective Doris Carnes is a 64 y.o. female Chief Complaint Follow-up HPI Review of Systems All other systems reviewed and are negative. Patient returns in follow-up of problems as noted. In the interim she is done well. I cannot elicitany angina CHF or arrhythmia symptomatology. She states [...] content normal. Judgment: Judgment normal. Allergies Hydroxychloroquine, Hqwiprp-dwb-jjq reductase inhibitors, and Cephalexin Current Medications Current [...] Rfl: Assessment/Plan 1. Coronary artery disease involving [place] coronary artery of [place] heart without angina pectoris No recurrence of [...] Scribe Attestation By signing my name below, IWendy HERNAN , Scribe attest that this documentation has been prepared under the direction and in the presence of Rosales Schmitt MD. Provider Attestation - Scribe documentation All medical record entries made by the Scribe were at my direction and personally dictated by me. Ihave reviewed the chart and agree that the record accurately reflects my personal performance of the history, physical exam, discussion and plan. [facility] 1(102) 605-474105-08-2024 Instructions* Patient Instructions* Ana Luisa Mederos LPN - 01/04/2024 9:00 [...] time of your visit. [facility] Work Phone: 1(523) 713-163110-12-2023 Evaluation note* Encounter Date Diagnosis Assessment Notes Treatment Notes Treatment Clinical Notes May, Encounter for medication management (ICD-10 - Z79.899) May, Other Patient present ed today for a virtual comprehensive medication review with pharmacist as part of the [facility] Medication Therapy Management (MTM) program. The patient [...] PharmD , Evolocumab injection material was published [employer] Other 09-29-2022 Evaluation note* Encounter Date Diagnosis Assessment Notes Treatment Notes Treatment Clinical Notes Apr, Encounter for immunization (ICD-10 - Z23) Patient denies current illness, previous allergic reaction to influenza vaccine, eggs, or other vaccines, and Guillain-[place] Syndrome. Patient given current editions of influenza Vaccine Information Statement (VIS). [employer] Other evaluzfmoy noteNo assessment information available [facility] Work Phone: evaluation noteNo InformationNort [place] Other evaluation note* Diagnosis Onset Date Resolution Status Breast mass, right acute [facility] Work Phone: Evaluation note* Diagnosis Onset Date Resolution Status Breast mass, right acute Encounter for coordination of complex care acute History of placement of stent in LAD coronary artery acute [id number] acute Screening for osteoporosis a cute [facility] Work Phone: Evaluation note* Diagnosis Pre-operative clearance Unspecified pre-operative examination Abnormal EKG Nonspecific abnormal electrocardiogram (ECG) (EKG) Osteoarthritis, unspecified osteoarthritis type, unspecified site documented in this encounter [facility] Work Phone: Evaluation note* Diagnosis Coronary artery disease involving [place] coronary artery of [place] heart without angina pectoris- Primary Essential hypertension Unspecified essential hypertension Mixed hyperlipidemia History of PTCA Postsurgical percutaneous transluminal coronary angioplasty status Hypertension, unspecified type BMI 40.0-44.9, adult (Multi) Never smoked tobacco Statin declined documented in this encounter [facility] Work Phone: Evaluation note* Diagnosis Onset Date Resolution Status Breast mass, right acute Encounter for coordination of complex care acute History of placement of stent in LAD coronary artery acute [id number] acute Screening for osteoporosis a cute Encounter for coordination of complex care acute History of placement of stent in LAD coronary artery acute [id number] acute Screening for osteoporosis a cute BMI 45.0-49.9, adult acute COPD (chronic obstructive pulmonary disease) acute Hx of iron deficiency anemia acute Hypertension acute Insomnia acute Metabolic alkalosis acute [facility] Work Phone: Evaluation note* Diagnosis Onset Date Resolution Status Breast mass, right acute Encounter for coordination of complex care acute History of placement of stent in LAD coronary artery acute [id number] acute Screening for osteoporosis a cute Encounter for coordination of complex care acute History of placement of stent in LAD coronary artery acute [id number] acute Screening for osteoporosis a cute BMI 45.0-49.9, adult acute COPD (chronic obstructive pulmonary disease) acute Hx of iron deficiency anemia acute Hypertension acute Insomnia acute Metabolic alkalosis acute Obstructive sleep apnea acut e [facility] Work Phone: Evaluation note* Diagnosis Onset Date Resolution Status Breast mass, right acute Encounter for coordination of complex care acute History of placement of stent in LAD coronary artery acute [id number] acute Screening for osteoporosis a cute Encounter for coordination of complex care acute History of placement of stent in LAD coronary artery acute [id number] acute Screening for osteoporosis a cute BMI 45.0-49.9, adult acute COPD (chronic obstructive pulmonary disease) acute Hx of iron deficiency anemia acute Hypertension acute Insomnia acute Metabolic alkalosis acute Obstructive sleep apnea acut e Encounter for coordination of complex care acute History of placement of stent in LAD coronary artery acute [id number] acute Screening for osteoporosis a [facility] Work Phone: Evaluation note* Diagnosis Onset Date Resolution Status Encounter for coordination of complex care acute History of placement of stent in LAD coronary artery acute [id number] acute Screening for osteoporosis a cute Encounter for coordination of complex care acute History of placement of stent in LAD coronary artery acute [id number] acute Screening for osteoporosis a cute BMI 45.0-49.9, adult acute COPD (chronic obstructive pulmonary disease) acute Hx of iron deficiency anemia acute Hypertension acute Insomnia acute Metabolic alkalosis acute Obstructive sleep apnea acut e Encounter for coordination of complex care acute History of placement of stent in LAD coronary artery acute [id number] acute [id number] Work Phone: Evaluation note* Diagnosis Onset Date Resolution Status BMI 45.0-49.9, adult acute COPD (chronic obstructive pulmonary disease) acute Hx of iron deficiency anemia acute Hypertension acute Insomnia acute Metabolic alkalosis acute Obstructive sleep apnea acut e Encounter for coordination of complex care acute History of placement of stent in LAD coronary artery acute [id number] acute Screening for osteoporosis [facility] [id number] acute Encounter for monitoring aromatase inhibitor therapy acute History of placement of stent in LAD coronary artery acute [id number] acute Screening for osteoporosis a [facility] Work Phone: Evaluation note* Diagnosis Onset Date Resolution Status BMI 45.0-49.9, adult acute COPD (chronic obstructive pulmonary disease) acute Hx of iron deficiency anemia acute Hypertension acute Insomnia acute Metabolic alkalosis acute Obstructive sleep apnea acut e Encounter for coordination of complex care acute History of placement of stent in LAD coronary artery acute [id number] acute Screening for osteoporosis a [facility] [id number] acute Encounter for monitoring aromatase inhibitor therapy acute History of placement of stent in LAD coronary artery acute [id number] acute [facility] osteoporosis [id number] Work Phone: Evaluation note* Diagnosis Onset Date Resolution Status Encounter for monitoring aromatase inhibitor therapy acute History of placement of stent in LAD coronary artery acute [id number] acute Screening for osteoporosis a cute [id number] acute BMI 40.0-44.9, adult acute Chronic intermittent hypoxia with obstructive sleep apnea acute COPD (chronic obstructive pulmonary disease) acute Hypertension acute Hypothyroidism acute Obstructive sleep apnea acut e Sleep phase syndrome, delayed acute [facility] Work Phone: Evaluation note* Diagnosis Infiltrating ductal carcinoma of right breast (CMS/HCC)- Primary documented in this encounter [facility] HealthcareEvaluation note* Diagnosis Infiltrating ductal carcinoma of right breast (CMS/HCC)- Primary History of right breast cancer documented in this encounter [facility] HealthcareEvaluation note* Diagnosis Onset Date Resolution Status Admit Date Encounter for monitoring aromatase inhibitor therapy acute Febr [id number] 11:18am History of placement of sten t in LAD coronary artery acute October 10, 2024 11:18am Malignant neoplasm of centra l portion of right breast in female, estrogen acute October 10, 2024 11:18am Screening for osteoporosis acute October 10, 2024 11:18am [facility] Work Phone: Evaluation note* Diagnosis Infiltrating ductal carcinoma of right breast- Primary documented in this encounter [facility] HealthcareEvaluation note* Diagnosis Coronary artery disease involving [place] coronary artery of [place] heart without angina pectoris- Primary Mixed hyperlipidemia History of PTCA Postsurgical percutaneous transluminal coronary angioplasty status Essential hypertension Unspecified essential hypertension BMI 40.0-44.9, adult (Multi) Never smoked tobacco Diabetes mellitus type II, non insulin dependent (Multi) Type II or unspecified type diabetes mellitus without mention of complication, not stated as uncontrolled Acquired hypothyroidism Unspecified hypothyroidism documented in this encounter [facility] Work Phone: Evaluation note* Diagnosis Onset Date Resolution Status Admit Date BMI 40.0-44.9, adult acute March 06, 2025 10:28am Chronic intermittent hypoxia with obstructive sleep apnea acute February 10:28am Obstructive sleep apnea acute J bridget 2024 10:28am Sleep phase syndrome, delayed acute March 06, 2025 10:28am [facility] Work Phone: Evaluation note* Diagnosis History of right breast cancer- Primary documented [facility] this encounter [facility] Narrative - Reported* Type Description Date Medical History high cholesterol Medical History Esophageal reflux Medical History heart disease Medical History high blood pressure Medical History Hypothyroidism Medical History diabetes mallitus Medical History shortness of breath Hologic Other History of Present illness NarrativePatient is [...] and its favorable impact on diabetes and hypertension.-[facility] [employer] DO Work Phone: History of Present illness [...] medication regimen. She denies medication side effects. -[facility] [employer] DO Work Phone: History of Present illness [...] weight loss as well as exercise were advocated.[facility] [employer] DO Work Phone: Hospital Discharge instructionsAmbulatory Orders* Referral to Radiation Oncology Location: None Selected [facility] Work Phone: Reason for referral (narrative)* Consultation (Routine) - Authorized Specialty Diagnoses / Procedures Referred By Contac t Referred To Contact Cardiology Diagnoses Coronary artery disease involving [place] coronary artery of [place] heart without angina pectoris Procedures Follow Up In Cardiology Wiley Schmitt MD [address] [place] [address] 2, [address] [address] Kaye Pastor MD [address] [place] [address] 2, [facility] [address] [place] [address] Referral ID Status Reason Start Date Expiration Date V isits Requested Visits Authorized [id number] Authorized 01/04/2024 01/03/2025 1 1 [facility] Work Phone: Rennyu for referral (narrative)No reason for referral information [facility] Work [facility]: Summary Purpose Family History No [...] Advance Directives No June 02, 2017 11:36am Advance Directive Response Recorded Date/ Time Advance Directives No June 02, 2017 10:36am Chief Complaint DORIS CARNES is being seen [...] Complaint and Reason for Visit Chief Complaint Admit Date Follow Up 6 Months October 10, 2024 11:18am Z85.3 C50.911 November 08, 2024 10: 28am Reason for Visit Admit Date Encounter for monitoring aromatase inhib itor therapy October 10, 2024 11:18am History of placement of stent in LAD cor onary artery October 10, 2024 11:18am Malignant neoplasm of centra l portion of right breast in female, estrogen October 10, 2024 11:18am Screening for osteoporosis September 11:18am Chief Complaint I25.10 I10 Chief Complaint I25.10 [...] placement of stent in LAD coronary artery [id number] Screening for osteoporosis Chief Complaint z12.31 r92.8 Breast Mass NEW Invasive breast cancer Right Breast Cancer Invasive ductal carcinoma Right Breast Cancer Reason for Visit Breast mass, right Encounter for coordination of complex care History of placement of stent in LAD coronary artery [id number] Screening for osteoporosis Chief Complaint z12.31 r92.8 Breast Mass NEW Invasive breast cancer Right Breast Cancer Right Breast Cancer Invasive ductal carcinoma Follow Up after Surgery g47.33 Reason for Visit Breast mass, right Encounter for coordination of complex care History of placement of stent in LAD coronary artery [id number] Screening for osteoporosis Encounter for coordination of complex care History of placement of stent in LAD coronary artery [id number] Screening for osteoporosis BMI 45.0-49.9, adult COPD [...] placement of stent in LAD coronary artery [id number] Screening for osteoporosis Encounter for coordination of complex care History of placement of stent in LAD coronary artery [id number] Screening for osteoporosis BMI 45.0-49.9, adult COPD [...] placement of stent in LAD coronary artery [id number] Screening for osteoporosis Encounter for coordination of complex care History of placement of stent in LAD coronary artery [id number] Screening for osteoporosis BMI 45.0-49.9, adult COPD (chronic obstructive pulmonary disease) Hx of iron deficiency anemia Hypertension Insomnia Metabolic alkalosis Obstructive sleep apnea Encounter for coordination of complex care History of placement of stent in LAD coronary artery [id number] Screening for osteoporosis Chief Complaint NEW Invasive breast cancer Right Breast Cancer Right Breast Cancer Follow Up after Surgery g47.33 Unspecified sleep apnea Follow Up Invasive ductal carcinoma New Patient, Right Breast Cancer Reason for Visit Encounter for coordi nation of complex care History of placement of stent in LAD coronary artery [id number] Screening for osteoporosis Encounter for coordination of complex care History of placement of stent in LAD coronary artery [id number] Screening for osteoporosis BMI 45.0-49.9, adult COPD (chronic obstructive pulmonary disease) Hx of iron deficiency anemia Hypertension Insomnia Metabolic alkalosis Obstructive sleep apnea Encounter for coordination of complex care History of placement of stent in LAD coronary artery [id number] Screening for osteoporosis [id number] Chief Complaint g47.33 Unspecified sleep apnea Follow [...] placement of stent in LAD coronary artery [id number] Screening for osteoporosis [id number] Encounter for monitoring aromatase inhibitor therapy History of placement of stent in LAD coronary artery [id number] Screening for osteoporosis Chief Complaint g47.33 Unspecified [...] placement of stent in LAD coronary artery [id number] Screening for osteoporosis [id number] Encounter for monitoring aromatase inhibitor therapy History of placement of stent in LAD coronary artery [id number] Screening for osteoporosis [id number] Chief Complaint Right Breast Invasiv e ductal carcinoma Follow Up Follow Up 1 Month, Right Breast Cancer MELVI/ Visit i25.10 e11.69 g47.00 i10 e03.9 Reason for Visit Encounter for monito ring aromatase inhibitor therapy History of placement of stent in LAD coronary artery [id number] Screening for osteoporosis [id number] BMI 40.0-44.9, adult Chronic intermittent hypoxia with obstructive sleep apnea COPD (chronic obstructive pulmonary disease) Hypertension Hypothyroidism Obstructive sleep apnea Sleep phase syndrome, delayed Chief Complaint Admit Date Follow Up 6 Months October 10, 2024 11:18am Chief Complaint Admit Date MELVI March 06, 2025 10:28 am Reason for Visit Admit Date BMI 40.0-44.9, adult March 06, 2025 10:2 8am Chronic intermittent hypoxia with obstru ctive sleep apnea March 06, 2025 10:28am Obstructive sleep apnea March 06, 2025 1 0:28am Sleep phase syndrome, delayed March 06, 2025 10:28am Chief Complaint Admit Date MELVI March 06, 2025 10:28 am E83.10 March 06, 2025 11:01 am Reason for Visit Admit Date BMI 40.0-44.9, adult March 06, 2025 10:2 8am Chronic intermittent hypoxia with obstru ctive sleep apnea March 06, 2025 10:28am Hypersomnia March 06, 2025 10:28 am Obstructive sleep apnea March 06, 2025 1 0:28am Restless leg syndrome March 06, 2025 10: 28am Sleep phase syndrome, delayed March 06, 2025 10:28am Chief Complaint Admit Date MELVI March 06, 2025 10:28 am E83.10 March 06, 2025 11:01 am Follow Up 6 Months April 12, 2025 11 :21am Right Breast Invasive ductal carcinoma A ugust 2024 11:23am Reason for Visit Admit Date BMI 40.0-44.9, adult March 06, 2025 10:2 8am Chronic intermittent hypoxia with obstru ctive sleep apnea March 06, 2025 10:28am Hypersomnia March 06, 2025 10:28 am Obstructive sleep apnea March 06, 2025 1 0:28am Restless leg syndrome March 06, 2025 10: 28am Sleep phase syndrome, delayed March 06, 2025 10:28am Encounter for monitoring aromatase inhib itor therapy April 12, 2025 11:21am History of placement of stent in LAD cor onary artery April 12, 2025 11:21am Malignant neoplasm of centra l portion of right breast in female, estrogen April 12, 2025 11:21am Screening for osteoporosis April 12, 2025 11:21am Reason for Referral Specialty Diagnoses / Procedures Referred By Contac t Referred To Contact Radiology Diagnoses Pre-operative clearance Abnormal EKG Osteoarthritis, unspecified osteoarthritis type, unspecified site Procedures Nuclear Stress Test CHG MYOCARDIAL SPECT MULTIPLE STUDIES Wiley Schmitt MD [address] [place] [address] Referral ID Status Reason Start Date Expiration Date V isits Requested Visits Authorized [id number] Authorized 11/30/2023 11/29/2024 5 5 Additional Source Comments INFORMATION SOURCE (unrecogn ized section and content) DATE CREATED AUTHOR 01/25/2021 [facility] DATE CREATED AUTHOR AUTHOR'S ORGANIZ ATION 01/07/2023 [facility] DATE CREATED AUTHOR AUTHOR'S ORGANIZ ATION 01/07/2023 [employer] DATE CREATED AUTHOR AUTHOR'S ORGANIZ ATION 12/26/2023 [facility] DATE CREATED AUTHOR AUTHOR'S ORGANIZ ATION 01/05/2025 [facility] DATE CREATED AUTHOR AUTHOR'S ORGANIZ ATION 04/14/2025 [facility] DATE CREATED AUTHOR AUTHOR'S ORGANIZ ATION 05/01/2025 [facility] EPIC Care Teams (unrecognized sec tion and content) Team Status: Active Member Role Status Rosa Lewis MD Primary Care Provider Active Team Status: Inactive Member Role Status Rosa Lewis MD Primary Care Provider Active Start: October 10, 2024 End: October 10, 2024 Ana Luisa Harvey MD Attending Provider Active Start: October 10, 2024 End: October 10, 2024 Team Status: Active Member Role Status [...] Primary Care Provider Active Bari Mac DO [facility] Attending Provider Active Team Status: Active Member Role Status Rosa Lewis MD Primary Care Provider Active Ene Poon RPH Attending Provider Active Team Status: Inactive Member Role Status Rosa Lewis MD Primary Care Provider Active Benedicto Campos MD Attending Provider Active Team Status: Inactive Member Role Status Rosa Lewis MD Primary Care Provider Active Ene Poon RPH Attending Provider Active Team Status: Inactive Member [...] December 12, 2023 End: December 12, 2023 Commercial Truck Driver Relationship Specialty Start Date End Date Noah Lewis MD [address] [place] [address] PCP - General 08/29/20 Commercial Truck Driver Relationship Specialty Start Date End Date Noah Lewis MD [address] [place] [id number] PCP - General 08/29/20 Commercial Truck Driver Relationship Specialty Start Date End Date Noah Lewis MD [address] [place] [address] PCP - General 08/29/20 Commercial Truck Driver Relationship Specialty Start Date End Date Noah Lewis MD [address] [place] [id number] PCP - General 08/29/20 Team Status: Active [...] December 26, 2023 End: December 26, 2023 Commercial Truck Driver Relationship Specialty Start Date End Date Noah Lewis MD [address] [place] [id number] PCP - General 08/29/20 Team Status: Active Member Role Status Dates Noah Lewis MD Primary Care Provide r, Referring Provider Active Start: January 11, 2024 Ana Luisa Harvey MD Attending Provider Active Start: January 11, 2024 Team Status: Inactive Member Role Status Dates Noah Goldsmith Hoy , MD Primary Care Provider Active Start: January [...] February 09, 2024 End: February 09, 2024 nAa Luisa Harvey MD Attending Provider Active Start: [...] Other Provider Active Start: March 05, 2024 Commercial Truck Driver Relationship Specialty Start Date End Date Noah Lewis MD [address] [facility] [place] [address] PCP - General Family Medicine 11/21/23 Commercial Truck Driver Relationship Specialty Start Date End Date Noah Lewis MD [address] [facility] [place] [address] PCP - General Family Medicine 11/21/23 Team Status: Inactive Member Role Status Dates Noah Lewis MD Primary Care Provider Active Start: November 08, 2024 End: November 08, 2024 Raphael Connors DO Attending Provider Active Start : November 08, 2024 End: November 08, 2024 Commercial Truck Driver Relationship Specialty Start Date End Date Noah Lewis MD [address] [facility] [place] [address] PCP - General Family Medicine 11/21/23 Commercial Truck Driver Relationship Specialty Start Date End Date Noah Lewis MD [address] [place] [facility] [address] PCP - General 08/29/20 Team Status: Inactive Member Role Status Dates Noah Lewis MD Primary Care Provider Active Start: March 06, 2025 End: March 06, 2025 Thomas Hoover MD Attending Provider Active S tart: March 06, 2025 End: March 06, 2025 Team Status: Inactive Member Role Status Dates Noah Lewis MD Primary Care Provider Active Start: April 12, 2025 End: April 12, 2025 Milagro Hoover TRACK SUPERVISOR-C Attending Provider Active Start: April 12, 2025 End: April 12, 2025 Team Status: Active Member Role Status Dates Noah Lewis MD Primary Care Provider Active Start: April 12, 2025 Noah Lewis MD Referring Provider Active Sta rt: April 12, 2025 Kinsey Canela MD Attending Provider Active Start: April 12, 2025 Commercial Truck Driver Relationship Specialty Start Date End Date Noah Lewis MD [address] [place] [address] PCP - General Family Medicine 04/09/25 Goals (unrecognized section and content) Goals may [...] content) Specialty Diagnoses / Procedures Referred By Tiffanie t Referred To Contact Radiology Diagnoses Pre-operative clearance Abnormal EKG Osteoarthritis, unspecified osteoarthritis type, unspecified site Procedures Nuclear Stress Test CHG MYOCARDIAL SPECT MULTIPLE STUDIES Wiley Schmitt MD [address] [address] Referral ID Status Reason Start Date Expiration Date V isits Requested Visits Authorized [id number] Authorized 11/30/2023 11/29/2024 5 5 Reason Comments Follow-up 1yr Reason Comments 4th pom - right lumpectomy Reason Comments 8th pom Rt lumpectomy Reason Comments 1st poy Rt lumpectomy W/mamms Reason Comments Follow-up 1 year for Coronary artery disease involving [place] coronary artery of [place] heart without angina pectoris Specialty Diagnoses / Procedures Referred By Contadrianna t Referred To Contact Cardiology Diagnoses Coronary artery disease involving [place] coronary artery of [place] heart without angina pectoris Procedures Follow Up In Cardiology Wiley Schmitt MD Traboulssi, Mourhaf, MD [address] [facility] 2, [address] [address] Phone: tel: fax: Referral ID Status Reason Start Date Expiration Date V isits Requested Visits Authorized [id number] Authorized 01/04/2024 01/03/2025 1 1 Reason Comments 1st poy 4th pom Rt lumpectomy FOR RECORDS PERTAINING TO [...] BE BASED ON THE PRIMARY CLINICAL RECORDS. [facility]. provides no warranty or guarantee of the accuracy or completeness of information in this document.
--- NOTE | 2025-05-03 11:50 | XR_ITS ---
The [address] [address] Patient Name: FERMIN CARNES MRN: [id number] date: 1960 Sex: F Assigned Patient Location: LAB Current Patient Location: LAB Accession/Order Number: [id number] Exam Date: 05/03/2025 11:42 Report Date: 05/03/2025 12:13 At the request of: NOAH GRIFFITHS MD Procedure: XR hip LT 2V w/ pelvis LEFT HIP WITH AP PELVIS - 3 views COMPARISON: None available CLINICAL DATA: Left hip pain radiating down the leg. No injury. AP view of the pelvis as well as AP and frog-lateral views of the left hip were obtained. No acute fracture or dislocation is identified. The hip joint spaces are symmetric. There is minor marginal spurring. The SI joints are intact. There is mild sclerosis. There is slight levoscoliotic curvature and degenerative change involving the lower imaged lumbar spine. No soft tissue abnormalities are present. XR/XR hip LT 2V w/ pelvis IMPRESSION: MILD DEGENERATIVE CHANGES. NO ACUTE BONY FINDINGS. Impression dictated by: Yeni Garza M.D. 05/03/2025 12:13 PM Dictation Location: [place] [address] Electronically authenticated by: [id number] Y Date: 05/03/2025 12:13
[2025-05-03 12:12] LABS: Alanine Aminotransferase 39 U/L (14-59); Albumin Globulin Ratio 1.3; Albumin Level 4.0 g/dL (3.4-5.0); Alkaline Phosphatase 84 U/L (46-116); Anion Gap 12.8; Aspartate Amino Transferase 23 U/L (15-37); Blood Urea Nitrogen 34.0 mg/dL (7.0-18.0); Calcium 9.3 mg/dL (8.5-10.1); Carbon Dioxide 29.8 mmol/L (21.0-32.0); Chloride 103 mmol/L (98-107); Cholesterol 155 mg/dL (<=200); Estimated GFR (African America 57 (>=60 mL/min/1.73m^2); Estimated GFR (Non-African Ame 47 (>=60 mL/min/1.73m^2); Free T3 1.73 pg/mL (2.18-3.98); Globulin 3.2 g/dL; Glucose 109 mg/dL (74-106); HDL Cholesterol 45 mg/dL (40-60); Potassium 3.6 mmol/L (3.5-5.1); Sodium 142 mmol/L (136-145); Thyroid Stimulating Hormone 1.552 uIU/mL (0.358-3.740); Total Protein 7.2 g/dL (6.4-8.2); Triglycerides 192 mg/dL (<=150); VLDL CHOLESTEROL 38.4 mg/dL
[2025-05-03 12:14] LABS: Hematocrit 41.5 % (36.0-48.0); Hemoglobin 14.1 g/dL (12.0-16.0); Immature Granulocytes Abs Auto 0.15 10^3/uL (0.00-0.03); Immature Granulocytes Pct Auto 1.8 % (0.0-0.5); Lymphocytes Absolute Auto 1.9 10^3/uL (1.2-3.8); Mean Corpuscular HGB Conc 34.0 g/dL (29.9-35.2); Mean Corpuscular Hemoglobin 29.7 pg (26.7-34.0); Mean Corpuscular Volume 87.4 fL (81.0-99.0); Platelet Count 327 10^3/uL (150-450); Red Blood Count 4.75 10^6/uL (4.20-5.40); White Blood Count 8.4 10^3/uL (4.0-11.0)
[2025-05-03 12:15] LABS: Iron 88.0 ug/dL (50.0-170.0)
== END 2025-05-03 11:15 | disposition home or self-care (01) ==
LOC: LAB 11:15
PROVIDERS: PCP Family Medicine; Visit Provider Family Medicine
DX: E78.5 Hyperlipidemia, unspecified (principal); E11.69 Type 2 diabetes mellitus with other specified complication; I10 Essential (primary) hypertension; G47.33 Obstructive sleep apnea (adult) (pediatric); I25.10 Atherosclerotic heart disease of native coronary artery without angina pectoris; M25.552 Pain in left hip; D64.9 Anemia, unspecified; R53.83 Other fatigue; E55.9 Vitamin D deficiency, unspecified
CPT/HCPCS: 36415; 73502; 80053; 80061; 82306; 83036; 83540; 84436; 84443; 84481; 85025

== ENCOUNTER 2025-06-04 09:55 | Outpatient (OUT) | payer MEDICARE, SELFPAY ==
--- OUTSIDE RECORDS SUMMARY | 2025-06-04 09:59 | XMS_ITS | Clinical Summary ---
Author Organization [facility] Address [address] [place] [address] Phone Care Team Providers Care Crankshaft Grinder Name Role Phone Carlos Lewis MD Primary Care Provider [phone] Allergies Active Allergy Reactions Criticality Noted Date Comments Cephalexin Itching,Rash Low 11/02/2023 Hydroxychloroquine Itching 11/02/2023 Jqwzkfn-Pkf-Vji Reductase Inhibitors Myalgia 11/02/2023 Medications budesonide-formoter oL [...] 24 hr tabletIndications:C oronary artery disease involving [place] coronary artery of [place] heart without angina pectoris Take 1 tablet [...] 75 mg tabletIndications:C oronary artery disease involving [place] coronary artery of [place] heart without angina pectoris,History of PTCA Take [...] 180 mg tabletIndications:C oronary artery disease involving [place] coronary artery of [place] heart without angina pectoris,Mixed hyperlipidemia Take 180 mg by mouth early in the morning.. 90 tablet 3 5 01/04/20 26 Active Active Problems Problem Noted Date Diagnosed Date Diabetes mellitus type II, non insulin dependent (Multi) 01/03/2025 Acquired hypothyroidism 01/03/2025 Coronary artery disease invo lving [place] coronary artery of [place] heart without angina pectoris 01/04/2024 Essential hypertension [...] Description 01/07/2026 1:50 PM EDT Office Visit [facility] [address] [facility] [address] [place] [address] Ciera Pastor MD [address] [facility] 2, [facility] [address] [place] [address] Health Maintenance Due Date Last [...] patient's age to complete this topic Insurance [facility] MEDICARE ADVANTAGE [facility] MEDICARE ADVANTAGE Care Teams Crankshaft Grinder Relationship Specialty Start Date End Date Carlos Lewis MD [address] [facility] [place] [address] PCP - General 08/29/20
--- OUTSIDE RECORDS SUMMARY | 2025-06-04 09:59 | XMS_ITS | Encounter Summary ---
Author Organization [facility] Address [address] [place] [address] Care Team Providers Care Telegraphic Service Dispatcher Name Role Phone Carlos Lewis MD Primary Care Provider [phone] Encounter Details Date Type Department Care Team (Late Contact Info) Description 05/03/2025 Orders Only [facility] [address] [phone] Aylin Black MA History of right breast cancer; Infiltrating ductal carcinoma of right breast (HCC) Social History Tobacco Use Types Packs/Day Years [...] EST Office Visit [facility] [address] [address] Raphael Nelson DO [address] [address] documented as of this encounter Visit Diagnoses Diagnosis History of right breast cancer Infiltrating ductal carcinoma of right breast (HCC) documented in this encounter Care Teams Telegraphic Service Dispatcher Relationship Specialty Start Date End Date Carlos Lewis MD [address] [place] [phone] PCP - General Family Medicine 04/09/25 documented as of this encounter
--- OUTSIDE RECORDS SUMMARY | 2025-06-04 09:59 | XMS_ITS | Encounter Summary ---
Author Organization [facility] Address [address] [place] [address] Phone Care Team Providers Care Vp Revenue Cycle Name Role Phone Carlos Lewis MD Primary Care Provider [phone] Encounter Details Date Type Department Care Team (Late st Contact Info) Description 12/12/2023 Scanned Document [facility] [address] [place] [phone] Scanning, Generic Provider Social History Tobacco Use [...] Description 01/07/2026 1:50 PM EDT Office Visit [place] [address] [facility] [address] [place] [address] Ciera Pastor MD 7[address] [facility] [address] [place] [address] documented as of this encounter Visit Diagnoses Not on filedocumented in this encounter Care Teams Vp Revenue Cycle Relationship Specialty Start Date End Date Carlos Lewis MD [address] [place] [address] PCP - General 08/29/20 documented as of this encounter
--- OUTSIDE RECORDS SUMMARY | 2025-06-04 09:59 | XMS_ITS | Encounter Summary ---
Author Organization [facility] Address [address] [place] [address] Phone Care Team Providers Care Plating Foreman Name Role Phone Carlos Lewis MD Primary Care Provider [phone] Encounter Details Date Type Department Care Team (Late st Contact Info) Description 05/31/2024 Scanned Document [facility] [address] [place] [phone] Scanning, Generic Provider Social History Tobacco Use [...] Description 01/07/2026 1:50 PM EDT Office Visit [place] [address] [facility] [address] [place] [address] Ciera Pastor MD 703 [facility] [address] [place], [place] [phone] documented as of this encounter Visit Diagnoses Not on filedocumented in this encounter Additional Health Concerns Assessment Noted Time A fall risk assessment has been complete d for the patient 01/04/2024 8:50 AM EDT documented as of this encounter Care Teams Plating Foreman Relationship Specialty Start Date End Date Carlos Lewis MD [address] [place] [address] PCP - General 08/29/20 documented as of this encounter
--- OUTSIDE RECORDS SUMMARY | 2025-06-04 10:00 | XMS_ITS | Encounter Summary ---
Author Organization [facility] Address [address] [place] [address] Care Team Providers Care Concrete Finisher Apprentice Name Role Phone Carlos Lewis MD Primary Care Provider [phone] Carlos Lewis MD Primary Care Provider [phone] Encounter Details Date Type Department Care Team (Late Contact Info) Description 12/12/2023 External Result Encounter [facility] External Department Unsolicited Raphael Nelson, [address] [address] Social History Tobacco Use Types Packs/Day Years [...] EST Office Visit [facility] [address] [address] Raphael Nelson DO [address] [address] documented as of this encounter Procedures Procedure Name Priority Date/Time Associated Diagnosis Comments ECG 12-LEAD 12/12/2023 11:06 AM EDT documented in this encounter Results * ECG 12 lead (12/12/2023 11:06 AM EDT) 12/12/2023 11:0 6 AM EDT [facility] - 12/12/2023 2:18 PM EDT [place] [phone] Electrocardiograph Report Signed Patient: Doris Mays MR#: [id number] : 1960 Acct:[id number] Age/Sex: 63 / F ADM Date: 12/12/23 [...] change was found Confirmed by Mustapha Krueger ([id number]) on 12/12/2023 2:18:19 PM Referred By: AYE NELSON Electronically Signed By:Mustapha Krueger Transcribed By: MUS Signed By Mustapha Krueger MD 12/12/23 1418 Procedure Note Morris Krueger MD - 12/12/[address] [address] Electrocardiograph Report Signed Patient: Doris Mays EMR#: [id number] : 9Acct:[id number] Age/Sex: 63 / FADM Date: 12/12/23 Loc: [...] change was found Confirmed by Mustapha Krueger ([id number]) on 12/12/2023 2:18:19 PM Referred By: AYE NELSON Electronically Signed By:Mustapha Krueger Transcribed By: [facility] Signed By Mustapha Krueger MD 12/12/23 1418 us Raphael Nelson DO ECG ORDERABLES Final Result Performing Organization Address City/State/[facility] Phone Number [address] [id number] documented in this encounter Visit Diagnoses Not on filedocumented in this encounter Care Teams Concrete Finisher Apprentice Relationship Specialty Start Date End Date Carlos Lewis MD PCP - General Family Medicine 11/21/23 04/08/25 Carlos Lewis MD [address] [place] [address] PCP - General Family Medicine 04/09/25 documented as of this encounter
--- OUTSIDE RECORDS SUMMARY | 2025-06-04 10:00 | XMS_ITS | Encounter Summary ---
Author Organization [facility] Address [address] [place] [address] Phone Care Team Providers Care Oracle Soa Developer Name Role Phone Carlos Lewis MD Primary Care Provider [phone] Encounter Details Date Type Department Care Team (Late st Contact Info) Description 05/19/2020 Orders Only [facility] [address] [place] [address] Conversion, Onbase Social History Tobacco Use Types [...] Description 01/07/2026 1:50 PM EDT Office Visit [address] [place] [address] Ciera Pastor MD 703 [facility] [address], [address] [place] [address] Scheduled Orders Name Type Priority Associated Diagnoses Orde r Schedule OUTSIDE LAB SCAN Lab Ordered: 05/19/2020 documented as of this encounter Visit Diagnoses Not on filedocumented in this encounter Care Teams Oracle Soa Developer Relationship Specialty Start Date End Date Carlos Lewis MD [address] [place] [address] PCP - General 08/29/20 documented as of this encounter
--- OUTSIDE RECORDS SUMMARY | 2025-06-04 10:00 | XMS_ITS | Encounter Summary ---
Author Organization [facility] Address [address] [place] [address] Care Team Providers Care Pay Station Collector Name Role Phone Carlos Lewis MD Primary Care Provider [phone] Carlos Lewis MD Primary Care Provider [phone] Encounter Details Date Type Department Care Team (Late Contact Info) Description 12/23/2023 External Result Encounter [facility] External Department Unsolicited Raphael Nelson, [address] [address] Social History Tobacco Use Types Packs/Day Years [...] EST Office Visit [facility] [address] [phone] Raphael Nelson DO [address] [address] documented as of this [...] Yeni Garza M.D.12/23/2023 11:29 AM Dictation Location: [facility] Tech: Rhea Pang; Pushpa Schafer Transcribed By: WILFREDO 12/23/23 1129 Dictated By: Yeni Garza MD 12/23/23 1056 Signed By: <Electronically signed by MD Yeni Garza in OV> 12/23/23 1129 Narrative 12/23/2023 1:41 PM EDT [facility] [address] Ultrasound Report Signed Patient: Doris Mays MR#: [id number] : 1960 Acct:[id number] Age/Sex: 63 / F ADM Date: 11/23/23 Loc: [place] Room: Type: [facility] [place] Attending Dr: Raphael Nelson DO Ordering Provider: Raphael Nelson DO Date of Service: 12/23/23 US/US breast needle loc RT: RT BREAST MAGNETIC SEED LOC ([id number]) MM/MM diagnostic mammo RT w/CAD: POST U/S [...] Procedure Note Radiology, Radiologist, MD - 12/23/2023 [facility] Main [place] [address] [place] [address] Ultrasound Report Signed Patient: Doris Mays EMR#: [id number] : 9Acct:[id number] Age/Sex: 63 / FADM Date: 11/23/23 Loc: [place] Room:Type: [facility] [place] Attending Dr: Raphael Nelson DO Ordering Provider: Raphael Nelsno DO Date of Service: 12/23/23 US/US breast needle loc RT: RT BREAST MAGNETICSEED LOC ([id number]) MM/MM diagnostic mammo RT w/CAD: POST U/S [...] Yeni Garza M.D.12/23/2023 11:29 AM Dictation Location: [facility] Tech: Rhea Pang; Pushpa Hanh Transcribed By: WILFREDO 12/23/23 1129 Dictated By: Yeni Garza MD 12/23/23 1056 Signed By: <Electronically signed by MD Yeni Garza in OV> 12/23/23 1129 Raphael Nelson DO IMG BI PROCEDURES Edited Result - Final documented in this encounter Visit Diagnoses Not on filedocumented in this encounter Care Teams Pay Station Collector Relationship Specialty Start Date End Date Carlos Lewis MD PCP - General Family Medicine 11/21/23 04/08/25 Carlos Lewis MD [address] [place] [address] PCP - General Family Medicine 04/09/25 documented as of this encounter
--- OUTSIDE RECORDS SUMMARY | 2025-06-04 10:00 | XMS_ITS | Encounter Summary ---
Author Organization [facility] Address [address] [place] [address] Care Team Providers Care Sorter Pricer Name Role Phone Carlos Lewis MD Primary Care Provider [phone] Carlos Lewis MD Primary Care Provider [phone] Encounter Details Date Type Department Care Team (Late Contact Info) Description 02/14/2024 Orders Only [facility] [address] [address] Raphael Nelson DO [address] [address] Social History Tobacco Use Types [...] EST Office Visit [facility] 703 [facility] [address] [place] [address] Raphael Nelson DO 703 [facility] [address] [place] [address] documented as of this encounter Procedures Procedure Name Priority Date/Time Associated Diagnosis Comments GENERAL PATHOLOGY Routine 02/14/2024 9:34 AM EDT documented in this encounter Results * GENERAL PATHOLOGY (02/14/2024 9:34 AM EDT) Raphael Nelson DO [facility] Final Result documented in this encounter Visit Diagnoses Not on filedocumented in this encounter Care Teams Sorter Pricer Relationship Specialty Start Date End Date Carlos Lewis MD PCP - General Family Medicine 11/21/23 04/08/25 [place] [address] [place] [phone] PCP - General Family Medicine 04/09/25 documented as of this encounter
--- OUTSIDE RECORDS SUMMARY | 2025-06-04 10:00 | XMS_ITS | Patient Health Record ---
Author Organization [facility] in [place] Address [address] [place] [address] Care Team Providers Care Rate Setter Name Role Phone Carlos Enrique Griffiths Primary Care Provider Allergies Allergen (clinical drug ingredient) Drug/Non Drug Allergy documented on EMR Reaction Allergy Type Onset Date Status rosuvastatin Crestor Unknown Drug Allergy Acti ve Keflex Unknown Drug Allergy Active hydroxychloroquine Hydroxychloroquine Unknown Drug Allergy Active Substance with 0-gmckevu-3-methylglutar yl-coenzyme A reductase inhibitor mechanism of action (substance) Statins myopathy Drug Allergy Active levofloxacin Levofloxacin Nausea, Drug Allergy A ctive Results Component Value Reference Range Notes COVID-19, Flu A+B IH Reviewed date:09/11/2024 07:15:50 PM Interpretation: Performing Lab: Notes/Report: COVID neg FLU A neg FLU B neg Control present White Blood Cells Reviewed date:09/16/2024 02:45:03 PM [...] Lab: see note LC - [facility] LB Gram Stain Evaluation [...] Lab: see note LC - [facility] LB Lower Respiratory Culture Reviewed date:09/16/2024 02:45:03 PM Interpretation: Performing Lab: Notes/Report: [facility] , Lower Respiratory Culture See Below For Report WILL FOLLOW Lower Respiratory Culture Lower Respiratory Culture Routine respir atory jimbo WILL FOLLOW Lower Respiratory Culture Lower Res[facility]: [facility] FO[facility] Lower Respiratory Culture Lower Respiratory Culture [address], [place], [place] [id number] WILL FOLLOW Lower Respiratory Culture Lower Respiratory Culture Studio Operation Engineer: Tyler Freedman PhD, Phone: [phone] WILL FOLLOW Lower Respiratory Culture Performing Lab: see note SEE REPORT - Director Trade Id information not found for OBX-specific compress engineer legend LC - [facility] LB CBC AUTO DIFF Reviewed date:05/04/2025 04:44:05 PM Interpretation: Performing Lab: Notes/Report: [facility] , White Blood Count 8.4 4.0-11.0 10 3/uL Red Blood Count 4.75 4.20-5.40 10 6/uL Hemoglobin 14.1 12.0-16.0 g/dL Hematocrit 41.5 36.0-48.0 % Mean Corpuscular Volume 87.4 81.0-99.0 fL Mean Corpuscular Hemoglobin 29.7 26.7-34.0 pg Mean Corpuscular HGB Conc 34.0 29.9-35.2 g/dL Red Cell Distribution Width 13.9 11.0-15.0 % Platelet Count 327 150-450 10 3/uL Mean Platelet Volume 10.7 9.5-13.5 fL Neutrophils Percent Auto 66.2 43.0-75.0 % Lymphocytes Percent Auto 22.3 20.5-60.0 % Monocytes Percent Auto 7.9 1.7-12.0 % Eosinophils Percent Auto 1.2 0.9-7.0 % Basophils Percent Auto 0.6 0.2-2.0 % Immature Granulocytes Pct Auto 1.8 0.0-0.5 % Neutrophils Absolute Auto 5.6 1.4-6.5 10 3/uL Lymphocytes Absolute Auto 1.9 1.2-3.8 10 3/uL Monocytes Absolute Auto 0.7 0.3-0.8 10 3/uL Eosinophils Absolute Auto 0.1 0.0-0.7 10 3/uL Basophils Absolute Auto 0.1 0.0-0.1 10 3/uL Immature Granulocytes Abs Auto 0.15 0.00-0.03 10 3/uL Performing Lab: see note ML - [facility] FREE T3 Reviewed date:05/04/2025 04:44:05 PM Interpretation: Performing Lab: Notes/Report: [facility] , Free T3 1.73 2.18-3.98 pg/mL Performing Lab: see note ML - [facility] GLYCOHEMOGLOBIN A1C Reviewed date:05/04/2025 04:44:05 PM Interpretation: Performing Lab: Notes/Report: [facility] , Glycohemoglobin A1C 5.8 4.5-6.2 % > 7.0 ADA THERAPEUTIC TARGET < 7.0 ADA RECOMMENDED LIMIT 4.0 - 6.0 ACTION SUGGESTED Estimated Average Glucose 120 Performing Lab: see note ML - [facility] IRON Reviewed date:05/04/2025 04:44:06 PM Interpretation: Performing Lab: Notes/Report: [facility] , Iron 88.0 50.0-170.0 ug/dL Performing Lab: see note ML - [facility] LB LIPID PROFILE Reviewed date:05/04/2025 04:44:06 PM Interpretation: Performing Lab: Notes/Report: [facility] , Triglycerides 192 <=150 mg/dL Cholesterol 155 <=200 mg/dL HDL Cholesterol 45 40-60 mg/dL <40 mg/dl - HIGH CARDIOVASCULAR RISK > or =60 mg/dl - LOW CARDIOVASCULAR RISK LDL Cholesterol Calculated 72.0 >190 mg/dl VERY HIGH 100-129 mg/dl NEAR OR ABOVE OPTIMAL 130-159 mg/dl BORDERLINE HIGH <100 mg/dl OPTIMAL 160-189 mg/dl HIGH VLDL CHOLESTEROL 38.4 Chol HDL Ratio 3.4 7.1 - 11.0 MODERATE RISK 4.4 - 7.1 AVERAGE RISK >11.0 HIGH RISK 3.3 - 4.4 LOW RISK Performing Lab: see note ML - [facility] PROF 14(COMP METB) Reviewed date:05/04/2025 04:44:06 PM Interpretation: Performing Lab: Notes/Report: [facility] , Sodium 142 136-145 mmol/L Potassium 3.6 3.5-5.1 mmol/L Chloride 103 98-107 mmol/L Carbon Dioxide 29.8 21.0-32.0 mmol/L Anion Gap 12.8 Glucose 109 74-106 mg/dL Blood Urea Nitrogen 34.0 7.0-18.0 mg/dL Creatinine 1.16 0.55-1.02 mg/dL Estimated GFR ( Angela 57 >=60 mL/min/1.73m 2 Estimated GFR (Non- Cassi 47 >=60 mL/min/1.73m 2 BUN Creatinine Ratio 29.3 Calcium 9.3 8.5-10.1 mg/dL Bilirubin Total 0.7 0.2-1.0 mg/dL Aspartate Amino Transferase 23 15-37 U/L Alanine Aminotransferase 39 14-59 U/L Alkaline Phosphatase 84 46-116 U/L Total Protein 7.2 6.4-8.2 g/dL Albumin Level 4.0 3.4-5.0 g/dL Globulin 3.2 Albumin Globulin Ratio 1.3 Performing Lab: see note ML - [facility] LB T4 Reviewed date:05/04/2025 04:44:06 PM Interpretation: Performing Lab: Notes/Report: [facility] , T4 Thyroxine 8.60 4.80-13.90 ug/dL Performing Lab: see note ML - [facility] LB TSH Reviewed date:05/04/2025 04:44:06 PM Interpretation: Performing Lab: Notes/Report: [facility] , Thyroid Stimulating Hormone 1.552 0.358-3.740 uIU/mL Performing Lab: see note ML - [facility] LB VITAMIN D 25 [place] Reviewed date:05/04/2025 04:44:06 PM Interpretation: Performing Lab: Notes/Report: [facility] , Vitamin D 34.6 <20 ng/mL Vit D deficient 30-100 ng/mL Vit D sufficient 20-<30 ng/mL Vit D insufficient >100 ng/mL Potential Toxicity Performing Lab: see note ML - [facility] LB XR hip LT 2V w/ pelvis Reviewed date:05/04/2025 04:44:06 PM Interpretation: Performing Lab: Notes/Report: Source Facility: [place] [address] [address] XRay Report Signed Patient: DORIS MAYS MR#: [id number] : 1960 Acct:[id number] Age/Sex: 65 / F ADM Date: 05/03/25 Loc: LAB Attending Dr: Noah Griffiths M.D. Ordering Physician: Noah Griffiths M.D. Date of Service: 05/03/25 Procedure(s): XR hip LT 2V w/ pelvis Accession Number(s): [id number] cc: Noah Griffiths M.D. [place] [address] Patient Name: DORIS MAYS MRN: [id number] date: 1960 Sex: F Assigned Patient Location: LAB Current Patient Location: LAB Accession/Order Number: [id number] Exam Date: 05/03/2025 11:42 Report Date: 05/03/2025 12:13 At the request of: NOAH GRIFFITHS MD Procedure: XR hip LT 2V w/ pelvis LEFT HIP WITH AP PELVIS - 3 views COMPARISON: None available CLINICAL DATA: Left hip pain radiating down the leg. No injury. AP view of the pelvis as well as AP and frog-lateral views of the left hip were obtained. No acute fracture or dislocation is identified. The hip joint spaces are symmetric. There is minor marginal spurring. The SI joints are intact. There is mild sclerosis. There is slight levoscoliotic curvature and degenerative change involving the lower imaged lumbar spine. No soft tissue abnormalities are present. XR/XR hip LT 2V w/ pelvis IMPRESSION: MILD DEGENERATIVE CHANGES. NO ACUTE BONY FINDINGS. Impression dictated by: Yeni Garza M.D. 05/03/2025 12:13 PM Dictation Location: [place] [address] Electronically authenticated by: [id number] Date: 05/03/2025 12:13 Dictated By: Yeni Garza M.D. Signed By: 05/03/25 1216 DD/ 1213 TD/TT: Concrete Pile Driver Operator: XR chest 2V Reviewed date:09/11/2024 07:15:50 PM Interpretation: Performing Lab: Notes/Report: Source Facility: [place] [address] XRay Report Signed Patient: DORIS MAYS MR#: [id number] : 1960 Acct:[id number] Age/Sex: 64 / F ADM Date: 09/10/24 Loc: LAB Attending Dr: Noah Griffiths M.D. Ordering Physician: Noah Griffiths M.D. Date of Service: 09/10/24 Procedure(s): XR chest 2V Accession Number(s): [id number] cc: Noah Griffiths M.D. [place] [address] Patient Name: DORIS MAYS MRN: [id number] date: 1960 Sex: F Assigned Patient Location: LAB Current Patient Location: LAB Accession/Order Number: [id number] Exam Date: 09/10/2024 16:27 Report Date: 09/11/2024 [...] Pride M.D. Signed By: 09/11/2459 DD/ TD/TT: Concrete Pile Driver Operator: PROF Murcia(COMP METB) Reviewed date:09/10/2024 08:20:42 PM Interpretation: Performing Lab: Notes/Report: [facility] , Sodium 141 136-145 mmol/L Potassium [...] Performing Lab: see note ML - [facility] LB CBC AUTO DIFF Reviewed date:09/10/2024 08:20:42 PM Interpretation: Performing Lab: Notes/Report: [facility] , White Blood Count 9.5 4.0-11.0 [...] 3/uL Performing Lab: see note ML - [facility] LB Reason For Referral No Information Medications Medication SIG (Take, Route, Frequency, Duration) Notes Start Date End Date Status Mounjaro 2.5 MG/0.5ML 2.5 mg Subcutaneou s weekly 01/23/2025 Active Montelukast Sodium 10 MG TAKE ONE TABLET BY MOUTH EVERY DAY; Duration: 90 Active Blood Glucose Test - as directed true metrix test strips In Vitro once daily; Duration: 100 days DX E11.9 09/13/2024 Active Jardiance 10 MG 1 tablet Orally Once a day; Duration: 90 days 05/17/2024 Active GNP Aspirin Low Dose 81 MG TAKE 1 TABLET BY MOUTH ONCE DAILY DIRECTED Oral; Duration: 90 Days Active Esomeprazole Magnesium 40 MG TAKE ONE CAPSULE BY MOUTH EVERY DAY; Duration: 90 Active Diclofenac Sodium 75 MG 1 tablet as need ed Orally Twice a day; Duration: 30 days 10/17/2024 Active Clopidogrel Bisulfate 75 MG TAKE 1 TABLE T BY MOUTH ONCE DAILY Oral; Duration: 90 Days Active Chlorthalidone 25 MG TAKE 1 TABLET BY MO UTH ONCE DAILY Oral; Duration: 90 Days Active Breyna 160-4.5 MCG/ACT INHALE TWO PUFFS BY MOUTH TWICE A DAY; Duration: 90 Active True Metrix Strips/Lancets - Use one strip with meter QD and PRN Dx: Diabetes Type II; Duration: 90 days 03/14/2023 Active Test Strips - Use 1 strip to monit or glucose daily DX E11.9; Duration: 90 days 09/24/2024 Active Repatha SureClick 140 MG/ML INJECT 1ML S UBCUTANEOUS ONCE EVERY TWO WEEKS 28 DAYS; Duration: 84 Active Ketoconazole 2 % 1 application Heavy Truck Technician ally bid; Duration: 14 days PRN 01/23/2025 Active Nexletol 180 MG 1 tablet Orally Once a day Cardio 04/25/2025 Active Accu-Chek Guide Test - Use 1 strip In Vi tro to check sugar daily DX E11.9; Duration: 90 days Active Metoprolol Succinate ER 100 MG TAKE ONE TABLET BY MOUTH EVERY DAY; Duration: 90 Active metFORMIN HCl ER 500 MG TAKE ONE TABLET BY MOUTH WITH EVENING MEAL ONCE DAILY; Duration: 90 Active Lisinopril 40 MG TAKE 1 TABLET BY JEANNE TH ONCE DAILY Oral; Duration: 90 Days Active Liothyronine Sodium 5 MCG Take 2 tablets Orally Once a day; Duration: 90 days Active Levothyroxine Sodium 50 MCG 1 tablet in the morning on an empty stomach Orally Once a day; Duration: 90 days Active Lancets 33G - Use 1 lancet to chec k glucose level DX E11.9; Duration: 90 days 09/24/2024 Active Blood Glucose Meter - Use device to luiz tor glucose level DX E11.9; Duration: 365 days 09/24/2024 Active Lancets 33G - Use as directed BID and PRN to test blood sugar Dx: Diabetes Type II; Duration: 90 days 03/14/2023 Active Anastrozole 1 MG 1 tablet Orally Once a day 05/17/2024 Active Social History Tobacco Use: Social History Observation Description Date Details (start date - stop date) Never Smoker NA - NA Tobacco Use/Smoking Question Answer Notes Patient is a nonsmoker Alcohol Screen (Audit-C) Question Answer Notes Did you have a drink containing alcohol in the p ast year? No Points 0 Interpretation Negative AUDIT-C (Standard) Question Answer Notes Did you have a drink containing alcohol in the p ast year? No Points 0 Interpretation Negative Problems Problem Type SNOMED Code ICD Code Onset Dates Problem Status W/U Status Risk Notes Problem Tinea corporis (39618456) Tinea corporis (B35.4) Active confirmed Problem Type 2 diabetes mellitus with other specified complication (E11.69) Active confirmed Problem Morbid obesity (disorder) (023420408) Morbid (severe) obesity due to excess calories (E66.01) Active confirmed Problem Insomnia (046280150) Insomnia, unspecified (G47.00) Active confirmed Problem Panlobular emphysema (8401346) Panlobular emphysema (J43.1) Active confirmed Problem Hyperlipidemia (26623646) Hyperlipidemia (E78.5) Active confirmed Problem Hypertension (48293789) Hypertension (I10) Active confirmed Problem Hypothyroidism (48036882) Hypothyroidism (E03.9) Active confirmed Problem Obstructive sleep apnea (52014307) Obstructive sleep apnea (G47.33) Active confirmed Problem Osteoarthritis of knee (201930168) Knee osteoarthritis (M17.9) Active confirmed Problem Coronary artery disease (57548281) CAD (coronary artery disease) (I25.10) Active confirmed Problem Breast cancer (025773341) Breast cancer (C50.919) Active confirmed Problem Fibromyalgia (156813314) Fibromyalgia (M79.7) Active confirmed Problem Myopathy (898656877) Myopathy (G72.9) Active confirmed Problem Acute bronchiolitis (8201473) Acute bronchiolitis (J21.9) Active confirmed Problem Malignant neoplasm of female breast (666093765) Malignant neoplasm of right breast (C50.911) Active confirmed Vital Signs Temperature 98.7 degrees Fahrenheit 09/06/2024 Blood pressure diastolic 82 mm Hg 06/04/2025 Height 64 in 06/04/2025 Blood pressure systolic 122 mm Hg 06/04/2025 Weight 240 lbs 06/04/2025 BMI 41.19 kg/m2 06/04/2025 Encounters Encounter Location Date Provider Diagnosis [facility] [address] [place] [address] 06/04/2025 Carlos Enrique Griffiths Encounter for Medica re annual wellness exam Z00.[address] [place] [id number] [place] [address] 09/06/2024 Carlos Enrique Griffiths Type 2 diabetes nav itus with other specified complication E11.69 ; Acute bronchitis, unspecified organism J20.9 and Morbid (severe) obesity due to excess calories E66.01 [place] [address] [place] [address] 01/23/2025 Carlos Enrique Zamoraaleksey Panlobular emphysema J43.1 ; Type 2 diabetes mellitus with other specified complication E11.69 ; CAD (coronary artery disease) I25.10 ; Obstructive sleep apnea G47.33 ; Hypothyroidism E03.9 and Hypertension I10 [address] [address] 10/17/2024 Carlos Enrique Griffiths Hypertension I10 ; Hypothyroidism E03.9 ; Hyperlipidemia E78.5 and CAD (coronary artery disease) I25.[address] [address] 04/25/2025 Carlos Enrique Griffiths Type 2 diabetes nav itus with other specified complication E11.69 ; Hyperlipidemia E78.5 ; Hypertension I10 ; Obstructive sleep apnea G47.33 ; CAD (coronary artery disease) I25.10 ; Hip pain, acute, right M25.551 and Hip pain, acute, left M25.[address] [address] 04/17/2025 Carlos Enrique Griffiths [address] [address] 04/24/2025 Carlos Enrique Griffiths [address] [address] 05/04/2025 Carlos Enrique Griffiths Abnormal thyroid blo od test R94.6 [employer] [address] [place] [address] 05/06/2025 Carlos Enrique Griffiths [facility] [address] [place] [address] 09/13/2024 Carlos Enrique Griffiths [place] [address] [facility] [address] 09/14/2024 Carlos Enrique Griffiths [facility] [address] [facility] [place] [address] 09/20/2024 Carlos Enrique Griffiths [facility] [address] [facility] [place] [address] 09/24/2024 Carlos Enrique Griffiths [facility] [address] [facility] [place] [address] 10/17/2024 Carlos Enrique Griffiths [facility] [address] [facility] [place] [address] 03/08/2025 Carlos Enrique Griffiths Hyperlipidemia E78.5 [facility] [address] [facility] [place] [address] 09/06/2024 Carlos Enrique Griffiths Hypertension I10 [facility] [address] [facility] [place] [address] 09/10/2024 Carlos Enrique Griffiths Type 2 diabetes nav itus with other specified complication E11.69 and Acute bronchitis, unspecified organism J20.9 [facility] [address] [facility] [place] [address] 09/11/2024 Carlos Enrique Griffiths [facility] [address] [facility] [place] [address] 09/11/2024 Carlos Enrique Griffiths Assessments Encounter Date Diagnosis (ICD Code) Assessment Notes Treatment Notes Treatment Clinical Notes Section Notes 09/06/2024 Type 2 diabetes mellitus with other specified complication (ICD-10 - E11.69) 09/06/2024 Acute bronchitis, unspecified organism (ICD-10 - J20.9) Rest and drink more liquids, especially water. You may use a humidifier or vaporizer to help keep the drainage moist. Wuis-zfb-ycohikm Nasal Saline may help the stuffy and runny nose. Use Ibuprofen and or Tylenol as needed for fever, chills, body aches or pain. Children 5 years old should not be given xjfz-ysm-syuenux cough and cold medications such as guaifenesin and dextromethorphan. If you're over age 5, you may try qqep-xuw-qaprzra cold medications such as guaifenesin and dextromethorphan, [...] the emergency room or call 911 01/23/2025 Type 2 diabetes mellitus with other specified complication (ICD-10 - E11.69) reviewd labs from last year 01/23/2025 Panlobular emphysema (ICD-10 - J43.1) 04/25/2025 Type 2 diabetes mellitus with other specified complication (ICD-10 - E11.69) well controld 04/25/2025 Hyperlipidemia (ICD-10 - E78.5) on Repatha 06/04/2025 Encounter for Medicare annual wellness exam (ICD-10 - Z00.00) 10/17/2024 Hypertension (ICD-10 - I10) 10/17/2024 Hypothyroidism (ICD-10 - E03.9) 09/06/2024 Hypertension (ICD-10 - I10) 09/10/2024 Type 2 diabetes mellitus with other specified complication (ICD-10 - E11.69) 03/08/2025 Hyperlipidemia (ICD-10 - E78.5) 05/04/2025 Abnormal thyroid blood test (ICD-10 - R94.6) 09/10/2024 Acute bronchitis, unspecified organism (ICD-10 - J20.9) 04/25/2025 Hypertension (ICD-10 - I10) stabel here - diastolic up sl 01/23/2025 CAD (coronary artery disease) (ICD-10 - I25.10) stable 10/17/2024 Hyperlipidemia (ICD-10 - E78.5) 09/06/2024 Morbid (severe) obesity due to excess calories (ICD-10 - E66.01) 01/23/2025 Obstructive sleep apnea (ICD-10 - G47.33) wearing mas 04/25/2025 Obstructive sleep apnea (ICD-10 - G47.33) weating mask 10/17/2024 CAD (coronary artery disease) (ICD-10 - I25.10) 04/25/2025 CAD (coronary artery disease) (ICD-10 - I25.10) stqabel seeing cardiology 01/23/2025 Hypothyroidism (ICD-10 - E03.9) on mes - reviewed labs 01/23/2025 Hypertension (ICD-10 - I10) stable 04/25/2025 Hip pain, acute, right (ICD-10 - M25.551) 04/25/2025 Hip pain, acute, left (ICD-10 - M25.552) needs x-ray Plan Of Treatment Pending Test Test Name Order Date CMP (COMPLETE METABOLIC PANEL) 3 CMP (COMPLETE METABOLIC PANEL) 4 HEMOGLOBIN [...] T3) 5 THYROID PANEL (T4/TSH/FREE T3) 4 THYROID PANEL (T4/TSH/FREE T3) 5 Vitamin D 05/17/2024 Gram Stain w/Sputum Cult Rflx 09/10/2024 CMP (COMP MET PETERS) w/eGFR CKD-EPI 2024 CBC WITH DIFF 04/25/2025 Next Appt Details Provider Name:Carlos Enrique Griffiths, 10:15:00 AM, [address] [facility], [place], [address], Insurance Providers Payer Name Payer Address Payer Phone Subscriber Number Group Number Insured Name Patient Relationship to Insured Coverage Start Date Coverage End Date [employer] ADV PLAN [address] [place] [address] [id number] Doris Mays Self - patient is the [...]
--- OUTSIDE RECORDS SUMMARY | 2025-06-04 10:00 | XMS_ITS | Encounter Summary ---
Author Organization [facility] Address [address] [place] [address] Care Team Providers Care Machine Shorthand Teacher Name Role Phone Carlos Lewis MD Primary Care Provider [phone] Carlos Lewis MD Primary Care Provider [phone] Encounter Details Date Type Department Care Team (Late Contact Info) Description 02/15/2024 Orders Only [facility] [address] [address] Raphael Nelson DO [address] [address] Social History Tobacco Use Types [...] EST Office Visit [facility] [address] [facility] [address] [place] [address] Raphael Nelson DO 703 [facility] [address] [place] [address] documented as of this encounter Procedures Procedure Name Priority Date/Time Associated Diagnosis Comments GENERAL PATHOLOGY Routine 02/15/2024 4:11 PM EDT documented in this encounter Results * GENERAL PATHOLOGY (02/15/2024 4:11 PM EDT) Raphael Nelson DO [facility] Final Result documented in this encounter Visit Diagnoses Not on filedocumented in this encounter Care Teams Machine Shorthand Teacher Relationship Specialty Start Date End Date Carlos Lewis MD PCP - General Family Medicine 11/21/23 04/08/25 [place] [address] [place] [address] PCP - General Family Medicine 04/09/25 documented as of this encounter
--- OUTSIDE RECORDS SUMMARY | 2025-06-04 10:00 | XMS_ITS | Encounter Summary ---
Author Organization [facility] Address [address] [place] [address] Phone Care Team Providers Care Clinical Dietitian Name Role Phone Carlos Lewis MD Primary Care Provider [phone] Encounter Details Date Type Department Care Team (Late st Contact Info) Description 03/03/2020 Orders Only [facility] [address] [place] [address] Conversion, Onbase Social History Tobacco Use Types [...] Description 01/07/2026 1:50 PM EDT Office Visit [address] [place] [address] Ciera Pastor MD 703 [facility] [address] [place] [address] Scheduled Orders Name Type Priority Associated Diagnoses Orde r Schedule OUTSIDE LAB SCAN Lab Ordered: 03/03/2020 OUTSIDE LAB SCAN Lab Ordered: 03/03/2020 documented as of this encounter Visit Diagnoses Not on filedocumented in this encounter Care Teams Clinical Dietitian Relationship Specialty Start Date End Date Carlos Lewis MD [address] [place] [address] PCP - General 08/29/20 documented as of this encounter
--- OUTSIDE RECORDS SUMMARY | 2025-06-04 10:00 | XMS_ITS | Encounter Summary ---
Author Organization [facility] Address [address] [place] [address] Care Team Providers Care Hemmer Chainstitch Name Role Phone Carlos Lewis MD Primary Care Provider [phone] Carlos Lewis MD Primary Care Provider [phone] Encounter Details Date Type Department Care Team (Late Contact Info) Description 02/20/2024 Orders Only [facility] [address] [address] Raphael Nelson DO [address] [address] Social History Tobacco Use Types [...] Office Visit [facility] [address] [facility] [address] [place] [address] Raphael Nelson DO 703 [facility] [address] [place] [address] documented as of this encounter Procedures Procedure Name Priority Date/Time Associated Diagnosis Comments GENERAL PATHOLOGY Routine 02/20/2024 9:24 AM EDT documented in this encounter Results * GENERAL PATHOLOGY (02/20/2024 9:24 AM EDT) Raphael Nelson DO [facility] Final Result documented in this encounter Visit Diagnoses Not on filedocumented in this encounter Care Teams Hemmer Chainstitch Relationship Specialty Start Date End Date Carlos Lewis MD PCP - General Family Medicine 11/21/23 04/08/25 [place] [address] [place] [phone] PCP - General Family Medicine 04/09/25 documented as of this encounter
--- OUTSIDE RECORDS SUMMARY | 2025-06-04 10:00 | XMS_ITS | Encounter Summary ---
Author Organization [facility] Address [address] [place] [address] Phone Care Team Providers Care Preform Machine Operator Name Role Phone Carlos Lewis MD Primary Care Provider [phone] Encounter Details Date Type Department Care Team (Late st Contact Info) Description 04/13/2021 Orders Only [facility] [address] [place] [address] Conversion, Onbase Social History Tobacco Use Types [...] Description 01/07/2026 1:50 PM EDT Office Visit [address] [place] [address] Ciera Pastor MD 703 [facility] 2, [address] [place] [address] Scheduled Orders Name Type Priority Associated Diagnoses Orde r Schedule OUTSIDE LAB SCAN Lab Ordered: 04/13/2021 documented as of this encounter Visit Diagnoses Not on filedocumented in this encounter Care Teams Preform Machine Operator Relationship Specialty Start Date End Date Carlos Lewis MD [address] [place] [address] PCP - General 08/29/20 documented as of this encounter
--- OUTSIDE RECORDS SUMMARY | 2025-06-04 10:00 | XMS_ITS | Encounter Summary ---
Author Organization [facility] Address [address] [place] [address] Care Team Providers Care Physical Therapy Nurse Name Role Phone Carlos Lewis MD Primary Care Provider [phone] Carlos Lewis MD Primary Care Provider [phone] Encounter Details Date Type Department Care Team (Late Contact Info) Description 12/26/2023 External Result Encounter [facility] External Department Unsolicited Raphael Nelson, [address] [address] Social History Tobacco Use Types Packs/Day Years [...] EST Office Visit [facility] [address] [phone] Raphael Nelson DO [address] [address] documented as of this encounter Procedures Procedure Name Priority Date/Time Associated Diagnosis Comments NM LYMPHOSCINTIGRAM 12/26/2023 2 :01 PM EDT documented in this encounter Results * NM lymphoscintigram (12/26/2023 2:01 PM EDT) Anatomical Region Laterality Modality Nuclear Medicine 12/26/2023 2:01 PM EDT Narrative 12/26/2023 2:06 PM EDT [place] [id number] Nuclear Medicine Report Signed Patient: Doris Mays MR#: [id number] : 1960 Acct:[id number] Age/Sex: 63 / F ADM Date: 12/26/23 Loc: [place] Room: Type: [facility] Attending Dr: Raphael Nelson DO Copies to: Edwardo Means Jr, DO Paul C Laffay, DO Ordering Provider: Raphael Nelson DO Date of Service: 12/26/23 NM/NM sentinel node w imaging: slnb Nuclear medicine [place] node imaging. Reason for exam: Right breast [...] 2:04 PM Dictation Location: RADIO-PC-15 Transcribed By: [facility] 12/26/23 1404 Dictated By: Edwardo Means Jr, DO 12/26/23 1401 Signed By: <Electronically signed by Edwardo Means Jr, DO in OV> 12/26/23 1404 Procedure Note Radiology, Radiologist, MD - 12/26/2023 [place] [id number] Nuclear Medicine Report Signed Patient: Doris Mays EMR#: [id number] : 1960cct:[id number] Age/Sex: 63 / FADM Date: 12/26/23 Loc: [place] Room:Type: [facility] Attending Dr: Raphael Nelson DO Copies to: Edwardo Means Jr, DO Paul C Laffay, DO Ordering Provider: Raphael Nelson DO Date of Service: 12/26/23 NM/NM sentinel node w imaging: slnb Nuclear medicine [place] node imaging. Reason for exam: Right breast [...] Means Jr., D.O.12/26/2023 2:04 PM Dictation Location: [place] [address] Transcribed By: [facility] 12/26/23 1404 Dictated By: Edwardo Means Jr, DO 12/26/23 1401 Signed By: <Electronically signed by Edwardo Means Jr, DO inOV> 12/26/23 1404 Raphael Nelson DO IMG NM PROCEDURES Final Result documented in this encounter Visit Diagnoses Not on filedocumented in this encounter Care Teams Physical Therapy Nurse Relationship Specialty Start Date End Date Carlos Lewis MD PCP - General Family Medicine 11/21/23 04/08/25 Carlos Lewis MD [address] [place] [address] [phone] PCP - General Family Medicine 04/09/25 documented as of this encounter
--- OUTSIDE RECORDS SUMMARY | 2025-06-04 10:00 | XMS_ITS | Encounter Summary ---
Author Organization [facility] Address [address] [place] [address] Phone Care Team Providers Care Magnesium Mill Operator Name Role Phone Carlos Lewis MD Primary Care Provider [phone] Encounter Details Date Type Department Care Team (Late st Contact Info) Description 04/08/2022 Orders Only [facility] [address] [place] [address] Conversion, Onbase Social History Tobacco Use Types [...] Description 01/07/2026 1:50 PM EDT Office Visit [address] [place] [address] Ciera Pastor MD 703 [facility] 2, [address] [place] [address] Scheduled Orders Name Type Priority Associated Diagnoses Orde r Schedule OUTSIDE LAB SCAN Lab Ordered: 04/08/2022 documented as of this encounter Visit Diagnoses Not on filedocumented in this encounter Care Teams Magnesium Mill Operator Relationship Specialty Start Date End Date Calros Lewis MD [address] [place] [address] PCP - General 08/29/20 documented as of this encounter
--- OUTSIDE RECORDS SUMMARY | 2025-06-04 10:00 | XMS_ITS | Encounter Summary ---
Author Organization [facility] Address [address] [place] [address] Care Team Providers Care Special Education Aide Name Role Phone Carlos Lewis MD Primary Care Provider [phone] Carlos Lewis MD Primary Care Provider [phone] Encounter Details Date Type Department Care Team (Late Contact Info) Description 12/26/2023 External Result Encounter [facility] External Department Unsolicited Raphael Nelson, [address] [address] Social History Tobacco Use Types Packs/Day Years [...] EST Office Visit [facility] [address] [phone] Raphael Nelson DO [address] [address] documented as of this encounter Procedures Procedure Name Priority Date/Time Associated Diagnosis Comments BI MAMMOGRAM DIAGNOSTIC RIGHT 12/26/2023 2:41 PM EDT documented in this encounter Results * Right diagnostic mammogram (12/26/2023 2:41 PM EDT) Anatomical Region Laterality Modality Breast Right Mammography 12/26/2023 2:41 PM EDT Narrative 12/26/2023 2:48 PM EDT [place] [id number] Mammography Report Signed Patient: Doris Mays MR#: [id number] : 1960 Acct:[id number] Age/Sex: 63 / F ADM Date: 12/26/23 Loc: [place] Room: Type: [facility] Attending Dr: Raphael Nelson DO Copies to: [...] Yeni Garza M.D.12/26/2023 2:45 PM Dictation Location: [place] [address] Transcribed By: [facility] 12/26/23 1445 Dictated By: eYni Garza MD 12/26/23 1441 Signed By: <Electronically signed by MD Yeni Garza in OV> 12/26/23 1445 Procedure Note Radiology, Radiologist, - 12/26/[address] [address] Mammography Report Signed Patient: Doris Mays EMR#: [id number] : 1960cct:[id number] Age/Sex: 63 / FADM Date: 12/26/23 Loc: [place] Room:Type: [facility] Attending Dr: Raphael Nelson DO Copies to: [...] Yeni Garza M.D.12/26/2023 2:45 PM Dictation Location: [place] [address] Transcribed By: [facility] 12/26/23 1445 Dictated By: Yeni Garza MD 12/26/23 1441 Signed By: <Electronically signed by MD Yeni Garza in OV> 12/26/23 1445 Raphael Nelson DO IMG BI PROCEDURES Final Result documented in this encounter Visit Diagnoses Not on filedocumented in this encounter Care Teams Special Education Aide Relationship Specialty Start Date End Date Carlos Lewis MD PCP - General Family Medicine 11/21/23 04/08/25 Carlos Lewis MD [address] [place] [address] PCP - General Family Medicine 04/09/25 documented as of this encounter
--- OUTSIDE RECORDS SUMMARY | 2025-06-04 10:01 | XMS_ITS | Encounter Summary ---
Author Organization [facility] Address [address] [place] [address] Care Team Providers Care Regulator Pin Inserter Name Role Phone Carlos Lewis MD Primary Care Provider [phone] Carlos Lewis MD Primary Care Provider [phone] Encounter Details Date Type Department Care Team (Late Contact Info) Description 11/08/2024 External Result Encounter [facility] External Department Unsolicited Raphael Nelson, [address] [address] Social History Tobacco Use Types Packs/Day Years [...] EST Office Visit [facility] [address] [phone] Raphael Nelson DO [address] [address] documented as of this encounter [...] Means Jr., DTrinhOTrinh11/08/2024 11:01 AM Dictation Location: [facility] Dictated By: Edwardo Means Jr, DO 11/08/24 1055 Signed By: <Electronically signed by Edwardo Means Jr, DO in OV> 11/08/24 1101 Narrative 11/08/2024 12:34 PM EDT [facility] [address] [place] [address] Mammography Report Signed Patient: Doris Mays MR#: [id number] : 1960 Acct:[id number] Age/Sex: 64 / F Adm Date: 11/08/24 Loc: [place] Room: Type: [facility] Attending Dr: Raphael Nelson DO Ordering Provider: Raphael Nelson DO Date of Service: 11/08/24 Procedure(s): MM diagnostic mammo BI w/CAD Accession Number(s): ([id number]) MM/MM diagnostic mammo BI w/CAD: Z85.3 Copies [...] Note Edwardo Means Jr., MD - 11/08/2024 [facility] [address] [place] [address] Mammography Report Signed Patient: Doris Mays EMR#: [id number] : 9Acct:[id number] Age/Sex: 64 / FAdm Date: 11/08/24 Loc: [place] Room:Type: [facility] Attending Dr: Raphael Nelson DO Ordering Provider: Raphael Nelson DO Date of Service: 11/08/24 Procedure(s): MM diagnostic mammo BI w/CAD Accession Number(s): ([id number]) MM/MM diagnostic mammo BI w/CAD: Z85.3 Copies [...] Means Jr., D.OTrinh11/08/2024 11:01 AM Dictation Location: [facility] Dictated By: Edwardo Means Jr, DO 11/08/24 1055 Signed By: <Electronically signed by Edwardo Means Jr DO inOV> 11/08/24 1101 Raphael Nelson DO IMG BI PROCEDURES Final Result documented in this encounter Visit Diagnoses Not on filedocumented in this encounter Care Teams Regulator Pin Inserter Relationship Specialty Start Date End Date Carlos Lewis MD PCP - General Family Medicine 11/21/23 04/08/25 Carlos Lewis MD [address] [place] [address] PCP - General Family Medicine 04/09/25 documented as of this encounter
--- OUTSIDE RECORDS SUMMARY | 2025-06-04 10:01 | XMS_ITS | Clinical Summary ---
Author Organization [facility] Address [address] [place] [address] Care Team Providers Care Rn Mental Health Name Role Phone Carlos Lewis MD Primary Care Provider [phone] Allergies Active Allergy Reactions Criticality Noted Date Comments Cephalexin Itching,Rash Low 11/02/2023 Hydroxychloroquine Itching 11/02/2023 Levofloxacin Swelling 11/23/2023 Statins Shortness of breath High 11/02/2023 Other Reaction(s): Myalgia Ezetimibe Shortness of breath High 04/17/2024 Medications GNP Aspirin Low Dose 81 MG EC tablet 4 Active esomeprazole (NexIUM) [address] capsule Take 40 mg by mouth Daily 4 Active metFORMIN XR (Glucophage-XR ) 500 MG 24 hr tablet 4 Active montelukast (Singulair) 10 MG tablet 3 Active Repatha SureClick 140 MG/ML injection 4 Active diclofenac (Voltaren) 75 MG EC tablet Take 75 mg by mouth in the morning and 75 mg before bedtime. 4 Active budesonide-for moterol (Symbicort) 160-4.5 MCG/ACT inhaler Inhale 2 puffs in the morning and 2 puffs before bedtime. 3 Active lisinopril 40 MG tablet Take 40 mg by mouth Daily 4 Active clopidogrel (Plavix) 75 MG tablet Take 75 mg by mouth Daily 4 Active chlorthalidone (Hygroton) 25 MG tablet Take 25 mg by mouth Daily 4 Active metoprolol succinate XL (Toprol-XL) 100 MG 24 hr tablet Take 100 mg by mouth Daily 4 Active nitroglycerin (Nitrostat) 0.[address] 0.4 mg under the tongue every 5 (five) minutes if needed for chest pain Active NON FORMULARY GLUCOCIL 2 DAILY Active anastrozole (Arimidex) 1 MG chemo tablet 4 Active doxycycline (Monodox) 100 MG capsule Take 100 mg by mouth in the morning and 100 mg before bedtime. 4 Active True Metrix Blood Glucose Test test strip 4 Active mometasone (Elocon) 0.1 % cream 4 Active empagliflozin (Jardiance) 10 MG Take by mouth Active Synthroid 50 MCG tablet 5 Active Mounjaro 2.5 MG/0.5ML solution auto-injector INJECT 2.5 MG SUBCUTANEOUSLY WEEKLY 5 Active Nexletol 180 MG tablet TAKE 1 TABLET BY MOUTH EVERY DAY IN THE MORNING *FAXED PA* Active Active Problems Problem Noted Date Diagnosed Date History of right breast cancer 04/30/2025 Infiltrating ductal carcinoma of right breast Encounters Date Type Department Care Team Description 05/03/2025 Orders Only [facility] [address] [place] [phone] Aylin Black MS History of right breast cancer; Infiltrating ductal carcinoma of right breast (HCC) 04/30/2025 10:45 AM EDT Office Visit [facility] [address] [place] [phone] Raphael Nelson DO History of right breast cancer (Primary Dx) [...] Maternal Grandmother Henry Quevedo Diabetes Mother Yaquelin Phillipsrbacher Heart disease Mother Yaquelin Phillipsrbacher Hyperlipidemia Mother Yaquelin Phillipsrbacher Hypertension Mother Yaquelin Phillipsrbacher Kidney disease Mother Yaquelin Phillipsrbacher Cancer Mother's Brother Efrem(Maidens) Sae Vasquez Cancer Mother's Sister Naty Mora COPD Paternal Grandmother Iris Jacquelinerbacher Diabetes Sister Luiza Watters Hyperlipidemia Sister Luiza Watters Hypertension Sister Luiza Watters Relation Name Status Comments Father Vic Arceacher Father's Sister Bailey Elias Maternal Grandfather Efrem Quevedo Sr Maternal Grandmother Henry Quevedo Mother Yaquelin Phillipsrbacher Mother's Brother Efrem(Maidens) Quevedo Jr Mother's Sister Naty Mora Paternal Grandmother Iris Jacquelinerbacher Sister Luiza Watters Social History Tobacco Use [...] EST Office Visit [facility] [address] [phone] Raphael Nelson DO [address] [address] Health Maintenance Due Date Last Done [...] 11/08/24 1101 Narrative 11/08/2024 12:34 PM EDT [facility] [address] [place] [address] Mammography Report Signed Patient: Doris Mays MR#: [id number] : 1960 Acct:[id number] Age/Sex: 64 / F Adm Date: 11/08/24 Loc: [place] Room: Type: [facility] Attending Dr: Raphael Nelson DO Ordering Provider: Raphael Nelson DO Date of Service: 11/08/24 Procedure(s): MM diagnostic mammo BI w/CAD Accession Number(s): ([id number]) MM/MM diagnostic mammo BI w/CAD: Z85.3 Copies [...] Note Edwardo Means Jr., MD - 11/08/2024 [place] [address] Mammography Report Signed Patient: Doris Mays EMR#: [id number] : 1960cct:[id number] Age/Sex: 64 / FAdm Date: 11/08/24 Loc: [place] Room:Type: [facility] Attending Dr: Raphael Nelson DO Ordering Provider: Raphael Nelson DO Date of Service: 11/08/24 Procedure(s): MM diagnostic mammo BI w/CAD Accession Number(s): ([id number]) MM/MM diagnostic mammo BI w/CAD: Z85.3 Copies [...] Means Jr., D.O.11/08/2024 11:01 AM Dictation Location: [facility] Dictated By: Edwardo Means Jr, DO 11/08/24 1055 Signed By: <Electronically signed by Edwardo Means Jr DO inOV> 11/08/24 1101 Raphael Nelson DO IM BI PROCEDURES Final Result from Last 3 Months or Most Recently Relevant to Health Maintenance Insurance [employer] Care Teams Rn Mental Health Relationship Specialty Start Date End Date Carlos Lewis MD [address] [place] [address] PCP - General Family Medicine 04/09/25
--- OUTSIDE RECORDS SUMMARY | 2025-06-04 10:01 | XMS_ITS | Encounter Summary ---
Author Organization [facility] Address [address] [place] [address] Care Team Providers Care Emt Driver Name Role Phone Carlos Lewis MD Primary Care Provider [phone] Carlos Lewis MD Primary Care Provider [phone] Encounter Details Date Type Department Care Team (Late Contact Info) Description 11/23/2023 Orders Only [facility] [address] [address] Carlos Lewis MD [address] [place] [phone] Social History Tobacco Use Types Packs/Day Years [...] EST Office Visit [facility] [address] [address] Raphael Nelson, [address] [address] documented as of this encounter [...] on filedocumented in this encounter Care Teams Emt Driver Relationship Specialty Start Date End Date Carlos Lewis MD PCP - General Family Medicine 11/21/23 04/08/25 Carlos Lewis MD [address] [place] [address] PCP - General Family Medicine 04/09/25 documented as of this encounter
--- OUTSIDE RECORDS SUMMARY | 2025-06-04 10:07 | XMS_ITS | CCD ---
Author Organization [facility] CliniSyid Care Team Providers Care It Corporate Recruiter Name Role Phone DR NOAH LEWIS Primary [...] Unavailable MD Noah Lewis Primary Care Provider [phone] MD Wiley Schmitt Attending Provider DO Bari Mac Attending Provider [phone] MD Noah Lewis Referring Provider Self, Referral Attending Provider Unavailable MD Noah Lewis Primary Care Provider [phone] MD Benedicto Campos Attending Provider Cleve Damien Luque Attending Provider Ene Poon Unavailable Dr. Noah Lewis Primary Care Unavail able Parish MATA, Dr. Wiley Solano Attending Unavailable Parish MATA, Dr. Wiley Solano Referring Unavailable Dr. Noah Lewis Primary Care Unavail able Dionte, Ms. Julia Thurman Attending Katja Rapp, Ms. Julia hTurman Referring Katja Schmitt II, Dr. Wiley Solano [...] Provider Noah Lewis MD Primary Care Provider [phone] WILEY SCHMITT Referring Unavailable NOAH LEWIS Primary Care Unavailable WILEY SCHMITT Referring Unavailable NOAH LEWIS Primary Care Unavailable MD Noah Lewis Referring Provider MD Ana Luisa Harvey Attending Provider MD Noah Lewis Referring Provider MD Ana Luisa Harvey Attending Provider MD Noah Lewis Primary Care Provider MD Noah Lewis Attending Provider MD Thomas Hoover Attending Provider MD Noah [...] Provider Noah Lewis MD Primary Care Provider KAYE PASTOR Attending Unavailable WILEY SCHMITT Referring Unavailable NOAH LEWIS Primary Care Unavailable Noah Lewis MD Primary Care Provider Thomas Hoover MD Attending Provider Kiko TOBACCO FARMWORKER-C, Milagro Reaves Attending Provider Noah Lewis MD Referring Provider [phone] Kinsey Canela MD Attending Provider Raphael Connors Admitting Unavailable Raphael Connors Attending Unavailable Noah Lewis Primary Care Unavailable Noah Lewis Admitting Unavailable Noah Lewis Attending Unavailable Noah eLwis Primary Care Unavailable Noah Lewis Referring Unavailable Noah Lewis Primary Care Unavailable Kinsey Canela Admitting Unavailable Kinsey Canela Attending Unavailable Thomas Hoover Admitting Unavailable Thomas Hoover Attending Unavailable Noah Lewis Primary Care Unavailable Noah Lewis MD Primary Care Provider RAPHAEL CONNORS Attending Unavailable RAPHAEL CONNORS Attending Unavailable RAPHAEL CONNORS Attending Unavailable Allergies Allergy Classification Reported Allergen(s) Allergy Type Date of Onset Reaction(s) Facility Cephalosporins (antibiotic) (1 source) Cephalexin Drug Allergy [facility] Repository (20 sources) Cephalexin; Translations: [cephalexin] Drug Allergy 8 hives, Itching, Rash [facility] (10 sources) Hmg-Coa Reductase Inhibitors (Statins); Translations: [Statins] Allergy to drug (finding) Myalgia [facility] [employer] 250 DO Work Phone: (20 sources) Hydroxychloroqui ne; Translations: [Plaquenil Sulfate] Drug Allergy 4 Itching [facility] [employer] 250 DO Work Phone: (20 sources) Hydroxychloroqui ne; Translations: [HYDROXYCHLOROQU INE] Drug Allergy 8 Itching [facility] (20 sources) Xlvhdmg-ARB-BmL Reductase Inhibitor; Translations: [Yylcumc-JDH-FhB Reductase Inhibitor] Allergy to substance 8 Difficulty Breathing [facility] Comment on above: joints hurt (2 sources) Amoxicillin; Translations: [Amoxicillin TABS] Drug Allergy -[facility] 600 DO Work Phone: (9 sources) HMG-CoA reductase inhibitor Drug allergy 4 Shortness of breath [facility] [employer] Other (20 sources) levoFLOXacin Drug Allergy 3 Swelling [facility] (9 sources) HMG-CoA reductase inhibitor; Translations: [WARLALN-HYA-RDQ REDUCTASE INHIBITORS] Drug Allergy 4 [facility] Work Phone: (8 sources) ezetimibe Drug Allergy 4 Shortness of breath [facility] (1 source) Cephalexin Drug Allergy 5 [facility] Repository (1 source) levoFLOXacin Drug Allergy 5 [facility] Repository Medications Current Medications Medication Drug Class(es) [...] 19, 2018 12:00am December 01, 2023 8:01am Ihdmtuwruqmx-Klbs-C olic Acid (Women's Daily Multivitamin) 18-400 mg-mcg tablet (3 sources) Start: 03-06-2025 End: 04-12-2025 take 1 tablet by mouth once daily Multivitamin-Iron -Folic Acid (Women's Daily Multivitamin) 18-400 mg-mcg tablet Discontinued 1 TAB PO Daily March 06, 2025 12:00am April 12, 2025 11:29am Start: 03-06-2025 take 1 tablet by mouth once da melvin Start: 03-06-2025 take 1 tablet by mouth once da melvin Vayszatbeays-Ikmo-Uqixt Acid (Women's Daily Multivitamin) 18-400 mg-mcg tablet [...] disease (20 sources) Atherosclerotic heart disease of [place] coronary artery with unstable angina pectoris; Translations: [Atherosclerotic heart disease of [place] coronary artery without angina pectoris] Onset: 01-16-2021 [...] 01-19-2021 Chronic Other aftercare (1 source) Other equipment operator intermodal yard (current) drug therapy Episodic Other aftercare (9 [...] Basophils (Bld) [#/Vol] 0.0 10*3/uL Normal 0.0-0.2 [facility] Comment on above: Result Comment: PERF ORMED BY: [place] [address] PATHOLOGIST POLICE ARTIST NICOLETTE MARTINEZ M.D. Performed By: #### F ER, CBC, FE and TIBC #### [address] Basophils/100 leukocytes in Blood by Automated countOrdered By: Thomas Hoover on 03-06-2025 Basophils/100 WBC (Bld) 0.3 % Normal . [facility] Comment on above: Performed By: #### F ER, CBC, FE and TIBC #### [address] Complete Blood Count Auto Di ffon 03-06-2025 Mean Corpuscular HGB Conc 33.6 g/dL Normal 32.0-35.0 [facility] Comment on above: Performed By: #### F ER, CBC, FE and TIBC #### [address] NRBC% 0.1 /100{WBC} Normal 0-0.5 [facility] Comment on above: Performed By: #### F ER, CBC, FE and TIBC #### [address] White Blood Count 8.5 [CFU]/mL Normal 3.8-11.6 [facility] Comment on above: Performed By: #### F ER, CBC, FE and TIBC #### [address] Eosinophils [#/volume] in Bl ood by Automated countOrdered By: Thomas Hoover on 03-06-2025 Eosinophils (Bld) [#/Vol] 0.1 10*3/uL Normal 0.0-0.45 [facility] Comment on above: Performed By: #### F ER, CBC, FE and TIBC #### [address] Eosinophils/100 leukocytes i n Blood by Automated countOrdered By: Thomas Hoover on 03-06-2025 Eosinophils/100 WBC (Bld) 1.3 % Normal . [facility] Comment on above: Performed By: #### F ER, CBC, FE and TIBC #### [address] Erythrocyte distribution wid th [Ratio] by Automated countOrdered By: Thomas Hoover on 03-06-2025 Erythrocyte distribution width (RBC) [Ratio] 14.4 % Normal 11.9-15.3 [facility] Comment on above: Performed By: #### F ER, CBC, FE and TIBC #### [address] Erythrocytes [#/volume] in B lood by Automated countOrdered By: Thomas Hoover on 03-06-2025 RBC (Bld) [#/Vol] 4.78 10*6/uL Normal 3.60-5.00 [facility] Comment on above: Performed By: #### F ER, CBC, FE and TIBC #### [address] Ferritin [Mass/volume] in Se rum or PlasmaOrdered By: Thomas Hoover on 03-06-2025 Ferritin [Mass/Vol] 42.5 ng/mL Normal 11.0-306.8 [facility] Comment on above: Result Comment: PERF ORMED BY: [place] [address] PATHOLOGIST POLICE ARTIST NICOLETTE MARTINEZ M.D. Performed By: #### F ER, CBC, FE and TIBC #### [address] Hematocrit [Volume Fraction] of Blood by Automated countOrdered By: Thomas Hoover on 03-06-2025 Hematocrit (Bld) [Volume fraction] 41.2 % Normal 34.0-46.4 [facility] Comment on above: Performed By: #### F ER, CBC, FE and TIBC #### [address] Hemoglobin [Mass/volume] in BloodOrdered By: Thomas Hoover on 03-06-2025 Hemoglobin (Bld) [Mass/Vol] 13.8 g/dL Normal 11.8-15.4 [facility] Comment on above: Performed By: #### F ER, CBC, FE and TIBC #### [facility] [address] [place] [address] Iron [Mass/volume] in Serum or PlasmaOrdered By: Thomas Hoover on 03-06-2025 Iron [Mass/Vol] 112 ug/dL Normal 50-212 [facility] Comment on above: Performed By: #### F ER, CBC, FE and TIBC #### [facility] [address] [place] [address] Iron and TIBC Profileon % Iron Saturation 27.2 % Normal 20-50 [facility] Comment on above: Performed By: #### F ER, CBC, FE and TIBC #### [address] Total Iron Binding Capacity 412 ug/dL Normal 255-450 [facility] Comment on above: Performed By: #### F ER, CBC, FE and TIBC #### [facility] [address] [place] [address] Leukocytes [#/volume] correc irena for nucleated erythrocytes in Blood by Automated counOrdered By: Thomas Hoover on 03-06-2025 WBC corrected for nucl RBC Auto (Bld) [#/Vol] 8.5 10*3/uL 3.8-11.6 [facility] Leukocytes [#/volume] in Blo od by Automated countOrdered By: Thomas Hoover on 03-06-2025 WBC (Bld) [#/Vol] 8.5 10*3/uL Normal 3.8-11.6 [facility] Comment on above: Performed By: #### F ER, CBC, FE and TIBC #### [address] Lymphocytes [#/volume] in Bl ood by Automated countOrdered By: Thomas Hoover on 03-06-2025 Lymphocytes (Bld) [#/Vol] 1.9 10*3/uL Normal 1.00-4.8 [facility] Comment on above: Performed By: #### F ER, CBC, FE and TIBC #### [address] Lymphocytes/100 leukocytes i n Blood by Automated countOrdered By: Thomas Hoover on 03-06-2025 Lymphocytes/100 WBC (Bld) 22.2 % Normal . [facility] Comment on above: Performed By: #### F ER, CBC, FE and TIBC #### [address] MCH [Entitic mass] by Automa irena countOrdered By: Thomas Hoover on 03-06-2025 MCH (RBC) [Entitic mass] 28.9 pg Normal 24.7-34.3 [facility] Comment on above: Performed By: #### F ER, CBC, FE and TIBC #### [address] MCHC Auto (RBC) [Mass/Vol]Or dered By: Thomas Hoover on 03-06-2025 MCHC (RBC) [Mass/Vol] 33.6 g/dL 32.0-35.0 [facility] MCV [Entitic volume] by Auto mated countOrdered By: Thomas Hoover on 03-06-2025 MCV (RBC) [Entitic vol] 86.2 fL Normal 80-100 [facility] Comment on above: Performed By: #### F ER, CBC, FE and TIBC #### [address] Monocytes [#/volume] in Bloo d by Automated countOrdered By: Thomas Hoover on 03-06-2025 Monocytes (Bld) [#/Vol] 0.6 10*3/uL Normal 0.0-0.8 [facility] Comment on above: Performed By: #### F ER, CBC, FE and TIBC #### [facility] [address] Monocytes/100 leukocytes in Blood by Automated countOrdered By: Thomas Hoover on 03-06-2025 Monocytes/100 WBC (Bld) 7.3 % Normal . [facility] Comment on above: Performed By: #### F ER, CBC, FE and TIBC #### [facility] [address] Neutrophils [#/volume] in Bl ood by Automated countOrdered By: Thomas Hoover on 03-06-2025 Neutrophils (Bld) [#/Vol] 5.8 10*3/uL Normal 1.8-7.7 [facility] Comment on above: Performed By: #### F ER, CBC, FE and TIBC #### [address] Neutrophils/100 leukocytes i n Blood by Automated countOrdered By: Thomas Hoover on 03-06-2025 Neutrophils/100 WBC (Bld) 68.9 % Normal . [facility] Comment on above: Performed By: #### F ER, CBC, FE and TIBC #### [address] Nucleated erythrocytes [Pres ence] in Blood by Automated countOrdered By: Thoams Hoover on 03-06-2025 Nucleated RBC Auto Ql (Bld) 0.1 /100{WBC} 0-0.5 [facility] Platelet mean volume [Entiti c volume] in Blood by Automated countOrdered By: Thomas Hoover on 03-06-2025 Platelet mean volume (Bld) [Entitic vol] 8.8 fL Normal 6.3-10.7 [facility] Comment on above: Performed By: #### F ER, CBC, FE and TIBC #### [place] [address] [place] Platelets [#/volume] in Bloo d by Automated countOrdered By: Thomas Hoover on 03-06-2025 Platelets (Bld) [#/Vol] 310 10*3/uL Normal 150-450 [facility] Comment on above: Performed By: #### F ER, CBC, FE and TIBC #### [facility] [address] Serum or plasma iron binding capacity measurement (mass/volume)Ordered By: Thomas Hoover on 03-06-2025 Iron binding capacity [Mass/Vol] 412 ug/dL 255-450 [facility] Serum or plasma iron saturat ion measurement (mass fraction)Ordered By: Thomas Hoover on 03-06-2025 Iron saturation [Mass fraction] 27.2 % 20-50 [facility] Transferrin [Mass/volume] in Serum or PlasmaOrdered By: Thomas Hoover on 03-06-2025 Transferrin [Mass/Vol] 294 mg/dL Normal 203-362 [facility] Comment on above: Performed By: #### F ER, CBC, FE and TIBC #### [facility] [address] [id number] [facility] ECG 12 [place] 01-03-2025 Normal sinus rhythm with borderline first-degree AV block [facility] Work Phone: MM diagnostic mammo BI w/CAD on 11-08-2024 MM diagnostic mammo BI w/CAD [facility] [address] [place] [address] Mammography Report Signed Patient: Doris Carnes MR#: [id number] : 1960 Acct:[id number] Age/Sex: 64 / F Adm Date: 11/08/24 Loc: [place] Room: Type: [facility] Attending Dr: Raphael Connors DO Ordering Provider: Raphael Connors DO Date of Service: 11/08/24 Procedure(s): MM diagnostic mammo BI w/CAD Accession Number(s): ([id number]) MM/MM diagnostic mammo BI w/CAD: Z85.3 Copies [...] Means Jr., D.O.11/08/2024 11:01 AM Dictation Location: [facility] Dictated By: Edwardo Means Jr, DO 11/08/24 1055 Signed By: 11/08/24 1101 Normal [facility] Mammography reportOrdered By : Edwardo Means on 11-08-2024 Diagnostic imaging study [facility] [address] [place] [address] Mammography Report Signed Patient: Doris Carnes MR#: [id number] : 1960 Acct:[id number] Age/Sex: 64 / F Adm Date: 5 Loc: [place] Room: Type: [facility] Attending Dr: Raphael Connors DO Ordering Provider: Raphael Connors DO Date of Service: 11/08/24 Procedure(s): MM diagnostic mammo BI w/CAD Accession Number(s): ([id number]) MM/MM diagnostic mammo BI w/CAD: Z85.3 Copies to: MD Raphael Bates DO~ CLINICAL DATA: History of right-sided breast cancer status post lumpectomy [id number]. Bilateral DIAGNOSTIC MAMMOGRAM - WITH TOMOSYNTHESIS AND [...] Means Jr., D.O.11/08/2024 11:01 AM Dictation Location: [facility] Dictated By: Edwardo Means Jr, DO 11/08/24 1055 Signed By: 11/08/24 1101 [facility] A1C with Estimated Average G luon 05-31-2024 Glucose [Mass/Vol] 131 mg/dL Normal [facility] Comment on above: Result Comment: PERF ORMED BY: [place] [address] PATHOLOGIST POLICE ARTIST SUSAN THOMPSON M.D. Performed By: #### V [id number], CBC, THYROID SC, A1C WTH eA, LIPID, CMP #### [facility] [address] [place] [address] [place] Alanine aminotransferase [En zymatic activity/volume] in Serum or PlasmaOrdered By: Noah Lewis on 05-31-2024 ALT [Catalytic activity/Vol] 26 U/L Normal 7-52 [facility] Comment on above: Performed By: #### V [id number], CBC, THYROID SC, A1C WTH eA, LIPID, CMP #### [facility] [address] [place] [address] [place] Albumin [Mass/volume] in Ser um or Plasma by Bromocresol green (BCG) dye binding methoOrdered By: Noah Lewis on 05-31-2024 Albumin BCG dye [Mass/Vol] 3.9 g/dL 3.5-5.7 [facility] Alkaline phosphatase [Enzyma tic activity/volume] in Serum or PlasmaOrdered By: Noah Zamoraaleksey on 05-31-2024 ALP [Catalytic activity/Vol] 80 U/L Normal 34-104 [facility] Comment on above: Performed By: #### V [id number], CBC, THYROID SC, A1C WTH eA, LIPID, CMP #### [facility] [address] Aspartate aminotransferase [ Enzymatic activity/volume] in Serum or PlasmaOrdered By: Noah Aye on 05-31-2024 AST [Catalytic activity/Vol] 19 U/L Normal 13-39 [facility] Comment on above: Performed By: #### V [id number], CBC, THYROID SC, A1C WTH eA, LIPID, CMP #### [address] Automated basophil %Ordered By: Noah Lewis on 05-31-2024 Basophils/100 WBC (Bld) 0.3 % Normal . [facility] Comment on above: Performed By: #### V [id number], CBC, THYROID SC, A1C WTH eA, LIPID, CMP #### [facility] [address] [place] [address] Automated basophil countOrde red By: Noah Hoy on 05-31-2024 Basophils (Bld) [#/Vol] 0.0 10*3/uL Normal 0.0-0.2 [facility] Comment on above: Result Comment: PERF ORMED BY: [place] [address] PATHOLOGIST POLICE ARTIST SUSAN THOMPSON M.D. Performed By: #### V [id number], CBC, THYROID SC, A1C WTH eA, LIPID, CMP #### [address] Automated blood monocyte cou ntOrdered By: Noah Lewis on 05-31-2024 Monocytes (Bld) [#/Vol] 0.7 10*3/uL Normal 0.0-0.8 [facility] Comment on above: Performed By: #### V [id number], CBC, THYROID SC, A1C WTH eA, LIPID, CMP #### [facility] [address] Automated eosinophil %Ordere d By: Noah Zamoraaleksey on 05-31-2024 Eosinophils/100 WBC (Bld) 1.1 % Normal . [facility] Comment on above: Performed By: #### V [id number], CBC, THYROID SC, A1C WTH eA, LIPID, CMP #### [facility] [address] Automated eosinophil countOr dered By: Noah Aye on 05-31-2024 Eosinophils (Bld) [#/Vol] 0.1 10*3/uL Normal 0.0-0.45 [facility] Comment on above: Performed By: #### V [id number], CBC, THYROID SC, A1C WTH eA, LIPID, CMP #### [address] Automated monocyte %Ordered By: Noah Lewis on 05-31-2024 Monocytes/100 WBC (Bld) 7.8 % Normal . [facility] Comment on above: Performed By: #### V [id number], CBC, THYROID SC, A1C WTH eA, LIPID, CMP #### [address] Automated neutrophil %Ordere d By: Noah Lewis on 05-31-2024 Neutrophils/100 WBC (Bld) 67.9 % Normal . [facility] Comment on above: Performed By: #### V [id number], CBC, THYROID SC, A1C WTH eA, LIPID, CMP #### [address] Bilirubin.total [Mass/volume ] in Serum or PlasmaOrdered By: Noah Lewis on 05-31-2024 Bilirubin [Mass/Vol] 0.7 mg/dL Normal 0.3-1.0 [facility] Comment on above: Performed By: #### V [id number], CBC, THYROID SC, A1C WTH eA, LIPID, CMP #### [address] Calcium [Mass/volume] in Ser um or PlasmaOrdered By: Noah Lewis on 05-31-2024 Calcium [Mass/Vol] 9.4 mg/dL Normal 8.6-10.3 [facility] Comment on above: Performed By: #### V [id number], CBC, THYROID SC, A1C WTH eA, LIPID, CMP #### [facility] [address] [place] [address] [place] Carbon dioxide, total [Moles /volume] in Serum or PlasmaOrdered By: Noah Lewis on 05-31-2024 CO2 [Moles/Vol] 33.5 mmol/L High 21.0-31.0 [facility] Comment on above: Performed By: #### V [id number], CBC, THYROID SC, A1C WTH eA, LIPID, CMP #### [facility] [address] [place] [address] [place] Chloride [Moles/volume] in S yoandy or PlasmaOrdered By: Noah Lewis on 05-31-2024 Chloride [Moles/Vol] 101 mmol/L Normal 98-107 [facility] Comment on above: Performed By: #### V [id number], CBC, THYROID SC, A1C WTH eA, LIPID, CMP #### [facility] [address] [place] [address] [place] Cholesterol [Mass/volume] in Serum or PlasmaOrdered By: Noah Lewis on 05-31-2024 Cholesterol [Mass/Vol] 209 mg/dL High 140-200 [facility] Comment on above: Chol less than 200 m g/dl low riskChol 201-239 mg/dl borderline riskChol 240 mg/dl and greater high risk Result Comment: Chol less than 200 mg/dl low risk Chol 201-239 mg/dl borderline risk Chol 240 mg/dl and greater high risk Performed By: #### V [id number], CBC, THYROID SC, A1C WTH eA, LIPID, CMP #### [facility] [address] [place] [address] [place] Cholesterol in LDL Calc [Mas s/Vol]Ordered By: Noah Lewis on 05-31-2024 Cholesterol in LDL [Mass/Vol] 120 mg/dL High 0-100 [facility] Comment on above: LDL ATP III CLASSIFI CATIONLDL less than 100 mg/dL OptimalLDL 100-129 mg/dL Near or above optimalLDL 130-159 mg/dL Borderline highLDL 160-189 mg/dL HighLDL greater than 189 mg/dL Very high Cholesterol in VLDL Calc [Ma ss/Vol]Ordered By: Noah Lewis on 05-31-2024 Cholesterol in VLDL [Mass/Vol] 50 mg/dL [facility] Complete Blood Count Auto Di ffon 05-31-2024 Mean Corpuscular HGB Conc 33.8 g/dL Normal 32.0-35.0 [facility] Comment on above: Performed By: #### V [id number], CBC, THYROID SC, A1C WTH eA, LIPID, CMP #### [facility] [address] NRBC% 0.1 /100{WBC} Normal 0-0.5 [facility] Comment on above: Performed By: #### V [id number], CBC, THYROID SC, A1C WTH eA, LIPID, CMP #### [facility] [address] Comprehensive Metabolic Pane meli 05-31-2024 Albumin [Mass/Vol] 3.9 g/dL Normal 3.5-5.7 [facility] Comment on above: Performed By: #### V [id number], CBC, THYROID SC, A1C WTH eA, LIPID, CMP #### [facility] [address] [place] [address] GFR/1.73 sq M.predicted MDRD (S/P/Bld) [Vol rate/Area] 53.991 mL/min/{1.73_m2} Normal [facility] Comment on above: Performed By: #### V [id number], CBC, THYROID SC, A1C WTH eA, LIPID, CMP #### [address] Creatinine [Mass/volume] in Serum or PlasmaOrdered By: Noah Lewis on 05-31-2024 Creatinine [Mass/Vol] 1.13 mg/dL Normal 0.60-1.20 [facility] Comment on above: Performed By: #### V [id number], CBC, THYROID SC, A1C WTH eA, LIPID, CMP #### [facility] [address] Erythrocyte distribution wid th [Ratio] by Automated countOrdered By: Noah Lewis on 05-31-2024 Erythrocyte distribution width (RBC) [Ratio] 14.0 % Normal 11.9-15.3 [facility] Comment on above: Performed By: #### V [id number], CBC, THYROID SC, A1C WTH eA, LIPID, CMP #### [facility] [address] Erythrocytes [#/volume] in B lood by Automated countOrdered By: Noah Lewis on 05-31-2024 RBC (Bld) [#/Vol] 4.66 10*6/uL Normal 3.60-5.00 [facility] Comment on above: Performed By: #### V [id number], CBC, THYROID SC, A1C WTH eA, LIPID, CMP #### [facility] [address] Glucose [Mass/volume] in Ser um or PlasmaOrdered By: Noah Lewis on 05-31-2024 Glucose [Mass/Vol] 113 mg/dL High 70-100 [facility] Comment on above: ADA recommended refe rence rangeRandom Glucose Reference Range is dependent on time and content of last meal. Glucose of more than 200 mg/dL in a nonstressed, ambulatory subject supports the diagnosis of Diabetes Mellitus. Result Comment: [place] om Glucose Reference Range is dependent on time and content of last meal. Glucose of more than 200 mg/dL in a nonstressed, ambulatory subject supports the diagnosis of Diabetes Mellitus. ADA recommended reference range Performed By: #### V [id number], CBC, THYROID SC, A1C WTH eA, LIPID, CMP #### [facility] [address] Glucose mean value [Mass/vol ume] in Blood Estimated from glycated hemoglobinOrdered By: Noah Lewis on 05-31-2024 Average glucose Estimated from glycated hemoglobin (Bld) [Mass/Vol] 131 mg/dL [facility] Hematocrit [Volume Fraction] of Blood by Automated countOrdered By: Noah Lewis on 05-31-2024 Hematocrit (Bld) [Volume fraction] 40.3 % Normal 34.0-46.4 [facility] Comment on above: Performed By: #### V [id number], CBC, THYROID SC, A1C WTH eA, LIPID, CMP #### [facility] [address] [address] Hemoglobin A1c percentageOrd ered By: Noah Lewis on 05-31-2024 HbA1c (Bld) [Mass fraction] 6.2 % High 4.3-5.6 [facility] Comment on above: Increased risk for d iabetes: 5.7 - 6.4diabetes: >6.4glycemic control for adults with diabetes: <7.0 Result Comment: Incr eased risk for diabetes: 5.7 - 6.4 diabetes: >6.4 glycemic control for adults with diabetes: <7.0 Performed By: #### V [id number], CBC, THYROID SC, A1C WTH eA, LIPID, CMP #### [facility] [address] Hemoglobin [Mass/volume] in BloodOrdered By: Noah Lewis on 05-31-2024 Hemoglobin (Bld) [Mass/Vol] 13.6 g/dL Normal 11.8-15.4 [facility] Comment on above: Performed By: #### V [id number], CBC, THYROID SC, A1C WTH eA, LIPID, CMP #### [facility] [address] Leukocytes [#/volume] correc irena for nucleated erythrocytes in Blood by Automated counOrdered By: Noah Lewis on 05-31-2024 WBC corrected for nucl RBC Auto (Bld) [#/Vol] 8.6 10*3/uL 3.8-11.6 [facility] Leukocytes [#/volume] in Blo od by Automated countOrdered By: Noah Lewis on 05-31-2024 WBC (Bld) [#/Vol] 8.6 10*3/uL Normal 3.8-11.6 [facility] Comment on above: Performed By: #### V [id number], CBC, THYROID SC, A1C WTH eA, LIPID, CMP #### [facility] [address] Lipid Panelon 05-31-2024 LDL Cholesterol,Calculated 120 mg/dL High 0-100 [facility] Comment on above: Result Comment: LDL ATP III CLASSIFICATION LDL less than 100 mg/dL Optimal LDL 100-129 mg/dL Near or above optimal LDL 130-159 mg/dL Borderline high LDL 160-189 mg/dL High LDL greater than 189 mg/dL Very high Performed By: #### V [id number], CBC, THYROID SC, A1C WTH eA, LIPID, CMP #### [address] Triglyceride w/Reflex 251 mg/dL High 0-149 [facility] Comment on above: Result Comment: TRIG ATP III CLASSIFICATION TRIG less than 150 mg/dL Normal TRIG 150-199 mg/dL Borderline high TRIG 200-500 mg/dL High TRIG greater than 500 mg/dL Very high Standard traceable to the Center for Disease Conrtrol and Prevention (CDC) test method. Performed By: #### V [id number], CBC, THYROID SC, A1C WTH eA, LIPID, CMP #### [address] VLDL CHOLESTEROL 50 mg/dL Normal [facility] Comment on above: Performed By: #### V [id number], CBC, THYROID SC, A1C WTH eA, LIPID, CMP #### [address] Lymphocytes [#/volume] in Bl ood by Automated countOrdered By: Noah Lewis on 05-31-2024 Lymphocytes (Bld) [#/Vol] 2.0 10*3/uL Normal 1.00-4.8 [facility] Comment on above: Performed By: #### V [id number], CBC, THYROID SC, A1C WTH eA, LIPID, CMP #### [place] [address] [place] Lymphocytes/100 leukocytes i n Blood by Automated countOrdered By: Noah Lewis on 05-31-2024 Lymphocytes/100 WBC (Bld) 22.9 % Normal . [facility] Comment on above: Performed By: #### V [id number], CBC, THYROID SC, A1C WTH eA, LIPID, CMP #### [facility] [address] MCH [Entitic mass] by Automa irena countOrdered By: Noah Zamoraaleksey on 05-31-2024 MCH (RBC) [Entitic mass] 29.2 pg Normal 24.7-34.3 [facility] Comment on above: Performed By: #### V [id number], CBC, THYROID SC, A1C WTH eA, LIPID, CMP #### [facility] [address] [place] [address] MCHC Auto (RBC) [Mass/Vol]Or dered By: Noah Lewis on 05-31-2024 MCHC (RBC) [Mass/Vol] 33.8 g/dL 32.0-35.0 [facility] MCV [Entitic volume] by Auto mated countOrdered By: Noah Aye on 05-31-2024 MCV (RBC) [Entitic vol] 86.4 fL Normal 80-100 [facility] Comment on above: Performed By: #### V [id number], CBC, THYROID SC, A1C WTH eA, LIPID, CMP #### [address] Neutrophils [#/volume] in Bl ood by Automated countOrdered By: Noah Lewis on 05-31-2024 Neutrophils (Bld) [#/Vol] 5.9 10*3/uL Normal 1.8-7.7 [facility] Comment on above: Performed By: #### V [id number], CBC, THYROID SC, A1C WTH eA, LIPID, CMP #### [facility] [address] [place] [address] No Panel InformationOrdered By: Noah Lewis on 05-31-2024 Estimated GFR (CKD-EPI) 53.991 mL/Min [facility] Creatinine Clearance (Chem N/A [facility] Nucleated erythrocytes [Pres ence] in Blood by Automated countOrdered By: Noah Lewis on 05-31-2024 Nucleated RBC Auto Ql (Bld) 0.1 /100{WBC} 0-0.5 [facility] Platelet mean volume [Entiti c volume] in Blood by Automated countOrdered By: Noah Lewis on 05-31-2024 Platelet mean volume (Bld) [Entitic vol] 8.5 fL Normal 6.3-10.7 [facility] Comment on above: Performed By: #### V [id number], CBC, THYROID SC, A1C WTH eA, LIPID, CMP #### [facility] [address] [place] [address] [place] Platelets [#/volume] in Bloo d by Automated countOrdered By: Noah Lewis on 05-31-2024 Platelets (Bld) [#/Vol] 299 10*3/uL Normal 150-450 [facility] Comment on above: Performed By: #### V [id number], CBC, THYROID SC, A1C WTH eA, LIPID, CMP #### [facility] [address] [place] [address] [place] Potassium [Moles/volume] in Serum or PlasmaOrdered By: Noah Lewis on 05-31-2024 Potassium [Moles/Vol] 3.8 mmol/L Normal 3.5-5.1 [facility] Comment on above: Performed By: #### V [id number], CBC, THYROID SC, A1C WTH eA, LIPID, CMP #### [facility] [address] [place] [address] [place] Protein [Mass/volume] in Ser um or PlasmaOrdered By: Noah Lewis on 05-31-2024 Protein [Mass/Vol] 6.1 g/dL Low 6.4-8.9 [facility] Comment on above: Performed By: #### V [id number], CBC, THYROID SC, A1C WTH eA, LIPID, CMP #### [facility] [address] Serum globulin measurement b y calculation (mass/volume)Ordered By: Noah Lewis on 05-31-2024 Globulin (S) [Mass/Vol] 2.2 g/dL Normal [facility] Comment on above: Performed By: #### V [id number], CBC, THYROID SC, A1C WTH eA, LIPID, CMP #### [facility] [address] Serum or plasma albumin/glob ulin mass ratioOrdered By: Noah Lewis on 05-31-2024 Albumin/Globulin [Mass ratio] 1.8 {ratio} Normal [facility] Comment on above: Performed By: #### V [id number], CBC, THYROID SC, A1C WTH eA, LIPID, CMP #### [facility] [address] Serum or plasma anion gap de terminationOrdered By: Noah Lewis on 05-31-2024 Anion gap [Moles/Vol] 11.3 mmol/L Normal 6.0-15.0 [facility] Comment on above: Performed By: #### V [id number], CBC, THYROID SC, A1C WTH eA, LIPID, CMP #### [facility] [address] Serum or plasma high density lipoprotein (HDL) cholesterol measurementOrdered By: Noah Lewis on 05-31-2024 Cholesterol in HDL [Mass/Vol] 39 mg/dL Normal 23-92 [facility] Comment on above: HDL CHOL ATP-III CLA SSIFICATION Cardiovascular RiskHDL > or equal to 60 mg/dL LOWHDL < 40 mg/dL HIGH Result Comment: HDL CHOL ATP-III CLASSIFICATION Cardiovascular Risk HDL > or equal to 60 mg/dL LOW HDL < 40 mg/dL HIGH Performed By: #### V [id number], CBC, THYROID SC, A1C WTH eA, LIPID, CMP #### [facility] [address] Serum or plasma total choles terol/high density lipoprotein (HDL) cholesterol mass ratOrdered By: Noah Lewis on 05-31-2024 Cholesterol.total/Mari sterol in HDL [Mass ratio] 5.4 {ratio} Normal <5.0 [facility] Comment on above: Performed By: #### V [id number], CBC, THYROID SC, A1C WTH eA, LIPID, CMP #### [facility] [address] [place] [address] [place] Sodium [Moles/volume] in Ser um or PlasmaOrdered By: Noah Lewis on 05-31-2024 Sodium [Moles/Vol] 142 mmol/L Normal 136-145 [facility] Comment on above: Performed By: #### V [id number], CBC, THYROID SC, A1C WTH eA, LIPID, CMP #### [facility] [address] [place] [address] [place] Thyrotropin [Units/volume] i n Serum or PlasmaOrdered By: Noah Lewis on 05-31-2024 TSH Qn 2.02 m[IU]/L Normal 0.45-5.33 [facility] Comment on above: Performed By: #### V [id number], CBC, THYROID SC, A1C WTH eA, LIPID, CMP #### [facility] [address] [place] [address] [place] Thyroxine (T4) free [Mass/vo lume] in Serum or PlasmaOrdered By: Noah Lewis on 05-31-2024 Free T4 [Mass/Vol] 1.11 ng/dL Normal 0.61-1.12 [facility] Comment on above: Performed By: #### V [id number], CBC, THYROID SC, A1C WTH eA, LIPID, CMP #### [facility] [address] [place] [address] [place] Triglyceride [Mass/volume] i n Serum or PlasmaOrdered By: Noah Lewis on 05-31-2024 Triglyceride [Mass/Vol] 251 mg/dL High 0-149 [facility] Comment on above: TRIG ATP III CLASSIF ICATIONTRIG less than 150 mg/dL NormalTRIG 150-199 mg/dL Borderline highTRIG 200-500 mg/dL High TRIG greater than 500 mg/dL Very highStandard traceable to the Center for Disease Conrtrol and Prevention (CDC) test method. Urea nitrogen [Mass/volume] in Serum or PlasmaOrdered By: Noah Lewis on 05-31-2024 Urea nitrogen [Mass/Vol] 30 mg/dL High 7-25 [facility] Comment on above: Performed By: #### V [id number], CBC, THYROID SC, A1C WTH eA, LIPID, CMP #### [facility] [address] [place] [id number] [facility] Vitamin D 25 Hydroxy Totalon 05-31-2024 Vitamin D 25 Hydroxy Total 27.7 ng/mL Low 30-100 [facility] Comment on above: Result Comment: KEVEN MIN D STATUS 25(OH)VITAMIN D RANGE (ng/mL) Deficient <20 Insufficient 20 to <30 Sufficient 30 to 100 Reference: Darrel Lima, Shane PAIGE, et al. Evaluation,treatment, and prevention of vitamin D deficiency; an Endocrine Society clinical practice guideline. JCEM. 2010; 96(7):1911-30. PERFORMED BY: [address] [place] [id number] PATHOLOGIST [employer] ARTIST SUSAN THOMPSON M.D. Performed By: #### V [id number], CBC, THYROID SC, A1C WTH eA, LIPID, CMP #### [facility] [address] [place] [id number] [facility] Vitamin D+Metabolites [Mass/ volume] in Serum or PlasmaOrdered By: Noah Lewis on 05-31-2024 Vitamin D+Metabolites [Mass/Vol] 27.7 ng/mL Low 30-100 [facility] Comment on above: VITAMIN D STATUS 25( OH)VITAMIN D RANGE (ng/mL) Deficient <20 Insufficient 20 to <30Sufficient 30 to 100Reference: Darrel Lima, Shane PAIGE, et al. Evaluation,treatment, and prevention of vitamin D deficiency; an Endocrine Society clinical practice guideline. JCEM. 2010; 96(7):1911-30. Glucose Glucometer (BldC) [M ass/Vol]Ordered By: Raphael Connors on 12-26-2023 Glucose [Mass/Vol] 127 mg/dL [facility] Comment on above: Random Glucose Refer ence Range is dependent on time and content of last meal. Glucose of more than 200 mg/dL in a nonstressed, ambulatory subject supports the diagnosis of Diabetes Mellitus. No Panel InformationOrdered By: Raphael Connors on 12-26-2023 Bedside Glucose Comment Glu2: cleaned meter [facility] NM Heart Perfusion W stress and W [...] Kaye Pastor 12/21/2023 5:04 PM Dictation workstation: [id number] Interpreted By: Kaye Pastor and Giannuzzi Michael STUDY: MYOCARDIAL PERFUSION STRESS TEST WITH LEXISCAN Performing facility: [facility], [address] [place] [address], [address], [address] Provider: Ben Schmitt MD, [facility] PCP: Dr. Obi Lewis Supervising provider: Kaye Pastor MD INDICATION: Abnormal EKG; Pre-operative risk assessment for Lumpectomy scheduled at [facility] on 12-26-23 HISTORY: Gender: F; Age: 63 y/o ; Height: HT 162.6 cm cm; Weight: WT 122.018 kg kg. CAD; High Cholesterol; Abnormal EKG; Diabetes; HTN; Denies smoking. Cardiac catheterization on 2017. PTCA on 2017. COMPARISON: Previous nuclear testing completed [id number] at [facility]. ACCESSION NUMBER(S): [id number] ORDERING CLINICIAN: WILEY SCHMITT TECHNIQUE: TWO DAY [...] PERFUSION STRESS TEST WITH LEXISCAN Performing facility: [facility], [address] [place] [address], [address] Provider: Ben Schmitt MD, [facility] PCP: Dr. Obi Lewis Supervising provider: Kaye Pastor MD INDICATION: Abnormal EKG; Pre-operative risk assessment for Lumpectomy scheduled at [facility] on 12-26-23 HISTORY: Gender: F; Age: 63 y/o ; Height: HT 162.6 cm cm; Weight: WT 122.018 kg kg. CAD; High Cholesterol; Abnormal EKG; Diabetes; HTN; Denies smoking. Cardiac catheterization on 2017. PTCA on 2017. COMPARISON: Previous nuclear testing completed [id number] at [facility]. ACCESSION NUMBER(S): [id number] ORDERING CLINICIAN: WILEY SCHMITT TECHNIQUE: TWO DAY [...] Kaye Pastor 12/21/2023 5:04 PM Dictation workstation: [id number] [facility] Work Phone: NM Heart Perfusion W stress and W radionuclide IVOrdered By: Kaye Pastor on 12-21-2023 [facility] Work Phone: NM Heart Perfusion W stress and W radionuclide [place] 12-20-2023 Radiology Study observation (narrative) [facility] Work Phone: NUCLEAR STRESS TESTon 2023 NUCLEAR STRESS TEST Interpreted By: Kaye Pastor and Giannuzzi Michael STUDY: MYOCARDIAL PERFUSION STRESS TEST WITH LEXISCAN Performing facility: [facility], [address] [place] [address], [address], [address] Provider: Ben Schmitt MD, [facility] PCP: Dr. Obi Lewis Supervising provider: Kaye Pastor MD INDICATION: Abnormal EKG; Pre-operative risk assessment for Lumpectomy scheduled at [facility] on 12-26-23 HISTORY: Gender: F; Age: 63 y/o ; Height: HT 162.6 cm cm; Weight: WT 122.018 kg kg. CAD; High Cholesterol; Abnormal EKG; Diabetes; HTN; Denies smoking. Cardiac catheterization on 2017. PTCA on 2017. COMPARISON: Previous nuclear testing completed [id number] at [facility]. ACCESSION NUMBER(S): [id number] ORDERING CLINICIAN: WILEY SCHMITT TECHNIQUE: TWO DAY [...] Kaye Pastor 12/21/2023 5:04 PM Dictation workstation: [id number] [facility] Basophils Auto (Bld) [#/Vol] Ordered By: Raphael Connors on 12-12-2023 Basophils (Bld) [#/Vol] 0.0 10*3/uL 0.0-0.2 [facility] Basophils/100 WBC Auto (Bld) Ordered By: Raphael Connors on 12-12-2023 Basophils/100 WBC (Bld) 0.3 % . [facility] Calcium [Mass/volume] in Ser um or PlasmaOrdered By: Raphael Connors on 12-12-2023 Calcium [Mass/Vol] 9.5 mg/dL 8.6-10.3 [facility] Carbon dioxide, total [Moles /volume] in Serum or PlasmaOrdered By: Raphael Connors on 12-12-2023 CO2 [Moles/Vol] 33.7 mmol/L 21.0-31.0 [facility] Chloride [Moles/volume] in S yoandy or PlasmaOrdered By: Raphael Connors on 12-12-2023 Chloride [Moles/Vol] 101 mmol/L 98-107 [facility] Creatinine [Mass/volume] in Serum or PlasmaOrdered By: Raphael Connors on 12-12-2023 Creatinine [Mass/Vol] 0.87 mg/dL 0.60-1.20 [facility] Eosinophils Auto (Bld) [#/Vo l]Ordered By: Raphael Connors on 12-12-2023 Eosinophils (Bld) [#/Vol] 0.1 10*3/uL 0.0-0.45 [facility] Eosinophils/100 WBC Auto (Bl d)Ordered By: Raphael Connors on 12-12-2023 Eosinophils/100 WBC (Bld) 0.7 % . [facility] Erythrocyte distribution wid th Auto (RBC) [Ratio]Ordered By: Raphael oCnnors on 12-12-2023 Erythrocyte distribution width (RBC) [Ratio] 13.9 % 11.9-15.3 [facility] Glucose [Mass/volume] in Ser um or PlasmaOrdered By: Raphael Connors on 12-12-2023 Glucose [Mass/Vol] 109 mg/dL 70-100 [facility] Comment on above: ADA recommended refe rence rangeRandom Glucose Reference Range is dependent on time and content of last meal. Glucose of more than 200 mg/dL in a nonstressed, ambulatory subject supports the diagnosis of Diabetes Mellitus. Hematocrit Auto (Bld) [Volum e fraction]Ordered By: Raphael Connors on 12-12-2023 Hematocrit (Bld) [Volume fraction] 41.9 % 34.0-46.4 [facility] Hemoglobin [Mass/volume] in BloodOrdered By: Raphael Connors on 12-12-2023 Hemoglobin (Bld) [Mass/Vol] 14.0 g/dL 11.8-15.4 [facility] Leukocytes [#/volume] correc irena for nucleated erythrocytes in Blood by Automated counOrdered By: Raphael Connors on 12-12-2023 WBC corrected for nucl RBC Auto (Bld) [#/Vol] 8.2 10*3/uL 3.8-11.6 [facility] Lymphocytes Auto (Bld) [#/Vo l]Ordered By: Raphael Connors on 12-12-2023 Lymphocytes (Bld) [#/Vol] 2.3 10*3/uL 1.00-4.8 [facility] Lymphocytes/100 WBC Auto (Bl d)Ordered By: Raphael Connors on 12-12-2023 Lymphocytes/100 WBC (Bld) 27.6 % . [facility] MCH Auto (RBC) [Entitic mass ]Ordered By: Raphael Connors on 12-12-2023 MCH (RBC) [Entitic mass] 28.2 pg 24.7-34.3 [facility] MCHC Auto (RBC) [Mass/Vol]Or dered By: Raphael Connors on 12-12-2023 MCHC (RBC) [Mass/Vol] 33.4 g/dL 32.0-35.0 [facility] MCV Auto (RBC) [Entitic vol] Ordered By: Raphael Connors on 12-12-2023 MCV (RBC) [Entitic vol] 84.4 fL 80-100 [facility] Monocytes Auto (Bld) [#/Vol] Ordered By: Raphael Connors on 12-12-2023 Monocytes (Bld) [#/Vol] 0.5 10*3/uL 0.0-0.8 [facility] Monocytes/100 WBC Auto (Bld) Ordered By: Raphael Connors on 12-12-2023 Monocytes/100 WBC (Bld) 6.5 % . [facility] Neutrophils Auto (Bld) [#/Vo l]Ordered By: Raphael Connors on 12-12-2023 Neutrophils (Bld) [#/Vol] 5.3 10*3/uL 1.8-7.7 [facility] Neutrophils/100 WBC Auto (Bl d)Ordered By: Raphael Connors on 12-12-2023 Neutrophils/100 WBC (Bld) 64.9 % . [facility] No Panel InformationOrdered By: Raphael Connors on 12-12-2023 Estimated GFR (CKD-EPI) > 60.0 mL/Min [facility] Creatinine Clearance (Chem N/A [facility] Nucleated erythrocytes [Pres ence] in Blood by Automated countOrdered By: Raphael Connors on 12-12-2023 Nucleated RBC Auto Ql (Bld) 0.1 /100{WBC} 0-0.5 [facility] Platelet mean volume Auto (B ld) [Entitic vol]Ordered By: Raphael Connors on 12-12-2023 Platelet mean volume (Bld) [Entitic vol] 8.4 fL 6.3-10.7 [facility] Platelets Auto (Bld) [#/Vol] Ordered By: Raphael Connors on 12-12-2023 Platelets (Bld) [#/Vol] 318 10*3/uL 150-450 [facility] Potassium [Moles/volume] in Serum or PlasmaOrdered By: Raphael Connors on 12-12-2023 Potassium [Moles/Vol] 3.8 mmol/L 3.5-5.1 [facility] RBC Auto (Bld) [#/Vol]Ordere d By: Raphael Connors on 12-12-2023 RBC (Bld) [#/Vol] 4.96 10*6/uL 3.60-5.00 [facility] Serum or plasma anion gap de terminationOrdered By: Raphael Connors on 12-12-2023 Anion gap [Moles/Vol] 11.1 mmol/L 6.0-15.0 [facility] Sodium [Moles/volume] in Ser um or PlasmaOrdered By: Raphael Connors on 12-12-2023 Sodium [Moles/Vol] 142 mmol/L 136-145 [facility] Urea nitrogen [Mass/volume] in Serum or PlasmaOrdered By: Raphael Connors on 12-12-2023 Urea nitrogen [Mass/Vol] 17 mg/dL 7-25 [facility] WBC Auto (Bld) [#/Vol]Ordere d By: Raphael Connors on 12-12-2023 WBC (Bld) [#/Vol] 8.2 10*3/uL 3.8-11.6 [facility] Alanine aminotransferase [En zymatic activity/volume] in Serum or PlasmaOrdered By: Noah Lewis on 06-16-2023 ALT [Catalytic activity/Vol] 30 U/L 7-52 [facility] Albumin [Mass/volume] in Ser um or Plasma by Bromocresol green (BCG) dye binding methoOrdered By: Noah Lewis on 06-16-2023 Albumin BCG dye [Mass/Vol] 4.1 g/dL 3.5-5.7 [facility] Alkaline phosphatase [Enzyma tic activity/volume] in Serum or PlasmaOrdered By: Noah Lewis on 06-16-2023 ALP [Catalytic activity/Vol] 78 U/L 34-104 [facility] Aspartate aminotransferase [ Enzymatic activity/volume] in Serum or PlasmaOrdered By: Noah Lewis on 06-16-2023 AST [Catalytic activity/Vol] 21 U/L 13-39 [facility] Basophils Auto (Bld) [#/Vol] Ordered By: Noah Lewis on 06-16-2023 Basophils (Bld) [#/Vol] 0.0 10*3/uL 0.0-0.2 [facility] Basophils/100 WBC Auto (Bld) Ordered By: Noah Lewis on 06-16-2023 Basophils/100 WBC (Bld) 0.3 % . [facility] Bilirubin.total [Mass/volume ] in Serum or PlasmaOrdered By: Noah Lewis on 06-16-2023 Bilirubin [Mass/Vol] 0.8 mg/dL 0.3-1.0 [facility] Calcium [Mass/volume] in Ser um or PlasmaOrdered By: Noah Lewis on 06-16-2023 Calcium [Mass/Vol] 9.3 mg/dL 8.6-10.3 [facility] Carbon dioxide, total [Moles /volume] in Serum or PlasmaOrdered By: Noah Lewis on 06-16-2023 CO2 [Moles/Vol] 33.0 mmol/L 21.0-31.0 [facility] Chloride [Moles/volume] in S yoandy or PlasmaOrdered By: Noah Lewis on 06-16-2023 Chloride [Moles/Vol] 101 mmol/L 98-107 [facility] Cholesterol [Mass/volume] in Serum or PlasmaOrdered By: Noah Lewis on 06-16-2023 Cholesterol [Mass/Vol] 235 mg/dL 140-200 [facility] Comment on above: Chol less than 200 m g/dl low riskChol 201-239 mg/dl borderline riskChol 240 mg/dl and greater high risk Cholesterol in LDL Calc [Mas s/Vol]Ordered By: Noah Lewis on 06-16-2023 Cholesterol in LDL [Mass/Vol] 142 mg/dL 0-100 [facility] Comment on above: LDL ATP III CLASSIFI CATIONLDL less than 100 mg/dL OptimalLDL 100-129 mg/dL Near or above optimalLDL 130-159 mg/dL Borderline highLDL 160-189 mg/dL HighLDL greater than 189 mg/dL Very high Cholesterol in VLDL Calc [Ma ss/Vol]Ordered By: Noah Lewis on 06-16-2023 Cholesterol in VLDL [Mass/Vol] 45 mg/dL [facility] Creatinine [Mass/volume] in Serum or PlasmaOrdered By: Noah Lewis on 06-16-2023 Creatinine [Mass/Vol] 0.98 mg/dL 0.60-1.20 [facility] Eosinophils Auto (Bld) [#/Vo l]Ordered By: Noah Lewis on 06-16-2023 Eosinophils (Bld) [#/Vol] 0.1 10*3/uL 0.0-0.45 [facility] Eosinophils/100 WBC Auto (Bl d)Ordered By: Noah Lewis on 06-16-2023 Eosinophils/100 WBC (Bld) 1.2 % . [facility] Erythrocyte distribution wid th Auto (RBC) [Ratio]Ordered By: Noah Lewis on 06-16-2023 Erythrocyte distribution width (RBC) [Ratio] 14.5 % 11.9-15.3 [facility] Globulin Calc (S) [Mass/Vol] Ordered By: Noah Lewis on 06-16-2023 Globulin (S) [Mass/Vol] 2.3 g/dL [facility] Glucose [Mass/volume] in Ser um or PlasmaOrdered By: Noah Lewis on 06-16-2023 Glucose [Mass/Vol] 117 mg/dL 70-100 [facility] Comment on above: ADA recommended refe rence rangeRandom Glucose Reference Range is dependent on time and content of last meal. Glucose of more than 200 mg/dL in a nonstressed, ambulatory subject supports the diagnosis of Diabetes Mellitus. Glucose mean value [Mass/vol ume] in Blood Estimated from glycated hemoglobinOrdered By: Noah Lewis on 06-16-2023 Average glucose Estimated from glycated hemoglobin (Bld) [Mass/Vol] 128 mg/dL [facility] Hematocrit Auto (Bld) [Volum e fraction]Ordered By: Noah Lewis on 06-16-2023 Hematocrit (Bld) [Volume fraction] 39.4 % 34.0-46.4 [facility] Hemoglobin A1c percentageOrd ered By: Noah Lewis on 06-16-2023 HbA1c (Bld) [Mass fraction] 6.1 % 4.3-5.6 [facility] Comment on above: Increased risk for d iabetes: 5.7 - 6.4diabetes: >6.4glycemic control for adults with diabetes: <7.0 Hemoglobin [Mass/volume] in BloodOrdered By: Noah Lewis on 06-16-2023 Hemoglobin (Bld) [Mass/Vol] 13.2 g/dL 11.8-15.4 [facility] Leukocytes [#/volume] correc irena for nucleated erythrocytes in Blood by Automated counOrdered By: Noah Lewis on 06-16-2023 WBC corrected for nucl RBC Auto (Bld) [#/Vol] 8.4 10*3/uL 3.8-11.6 [facility] Lymphocytes Auto (Bld) [#/Vo l]Ordered By: Noah Lewis on 06-16-2023 Lymphocytes (Bld) [#/Vol] 2.3 10*3/uL 1.00-4.8 [facility] Lymphocytes/100 WBC Auto (Bl d)Ordered By: Noah Lewis on 06-16-2023 Lymphocytes/100 WBC (Bld) 27.4 % . [facility] MCH Auto (RBC) [Entitic mass ]Ordered By: Noah Lewis on 06-16-2023 MCH (RBC) [Entitic mass] 28.9 pg 24.7-34.3 [facility] MCHC Auto (RBC) [Mass/Vol]Or dered By: Noah Lewis on 06-16-2023 MCHC (RBC) [Mass/Vol] 33.5 g/dL 32.0-35.0 [facility] MCV Auto (RBC) [Entitic vol] Ordered By: Noah Lewis on 06-16-2023 MCV (RBC) [Entitic vol] 86.3 fL 80-100 [facility] Monocytes Auto (Bld) [#/Vol] Ordered By: Noah Lewis on 06-16-2023 Monocytes (Bld) [#/Vol] 0.6 10*3/uL 0.0-0.8 [facility] Monocytes/100 WBC Auto (Bld) Ordered By: Noah Lewis on 06-16-2023 Monocytes/100 WBC (Bld) 7.3 % . [facility] Neutrophils Auto (Bld) [#/Vo l]Ordered By: Noah Lewis on 06-16-2023 Neutrophils (Bld) [#/Vol] 5.4 10*3/uL 1.8-7.7 [facility] Neutrophils/100 WBC Auto (Bl d)Ordered By: Noah Lewis on 06-16-2023 Neutrophils/100 WBC (Bld) 63.8 % . [facility] No Panel InformationOrdered By: Noah Lewis on 06-16-2023 Estimated GFR (CKD-EPI) > 60.0 mL/Min [facility] Pharmacy Creatinine Clearance (Chem N/A [facility] Nucleated erythrocytes [Pres ence] in Blood by Automated countOrdered By: Noah Lewis on 06-16-2023 Nucleated RBC Auto Ql (Bld) 0.1 /100{WBC} 0-0.5 [facility] Platelet mean volume Auto (B ld) [Entitic vol]Ordered By: Noah Lewis on 06-16-2023 Platelet mean volume (Bld) [Entitic vol] 8.9 fL 6.3-10.7 [facility] Platelets Auto (Bld) [#/Vol] Ordered By: Noah Lewis on 06-16-2023 Platelets (Bld) [#/Vol] 291 10*3/uL 150-450 [facility] Potassium [Moles/volume] in Serum or PlasmaOrdered By: Noah Lewis on 06-16-2023 Potassium [Moles/Vol] 4.0 mmol/L 3.5-5.1 [facility] Protein [Mass/volume] in Ser um or PlasmaOrdered By: Noah Lewis on 06-16-2023 Protein [Mass/Vol] 6.4 g/dL 6.4-8.9 [facility] RBC Auto (Bld) [#/Vol]Ordere d By: Noah Lewis on 06-16-2023 RBC (Bld) [#/Vol] 4.56 10*6/uL 3.60-5.00 [facility] Serum or plasma albumin/glob ulin mass ratioOrdered By: Noah Lewis on 06-16-2023 Albumin/Globulin [Mass ratio] 1.8 {ratio} [facility] Serum or plasma anion gap de terminationOrdered By: Noah Lewis on 06-16-2023 Anion gap [Moles/Vol] 11.0 mmol/L 6.0-15.0 [facility] Serum or plasma high density lipoprotein (HDL) cholesterol measurementOrdered By: Noah Lewis on 06-16-2023 Cholesterol in HDL [Mass/Vol] 48 mg/dL 23-92 [facility] Comment on above: HDL CHOL ATP-III CLA SSIFICATION Cardiovascular RiskHDL > or equal to 60 mg/dL LOWHDL < 40 mg/dL HIGH Serum or plasma total choles terol/high density lipoprotein (HDL) cholesterol mass ratOrdered By: Noah Lewis on 06-16-2023 Cholesterol.total/Mari sterol in HDL [Mass ratio] 4.9 {ratio} <5.0 [facility] Sodium [Moles/volume] in Ser um or PlasmaOrdered By: Noah Lewis on 06-16-2023 Sodium [Moles/Vol] 141 mmol/L 136-145 [facility] Thyrotropin [Units/volume] i n Serum or PlasmaOrdered By: Noah Lewis on 06-16-2023 TSH Qn 2.01 m[IU]/L 0.45-5.33 [facility] Thyroxine (T4) free [Mass/vo lume] in Serum or PlasmaOrdered By: Noah Lewis on 06-16-2023 Free T4 [Mass/Vol] 1.09 ng/dL 0.61-1.12 [facility] Triglyceride [Mass/volume] i n Serum or PlasmaOrdered By: Noah Lewis on 06-16-2023 Triglyceride [Mass/Vol] 225 mg/dL 0-149 [facility] Comment on above: TRIG ATP III CLASSIF ICATIONTRIG less than 150 mg/dL NormalTRIG 150-199 mg/dL Borderline highTRIG 200-500 mg/dL High TRIG greater than 500 mg/dL Very highStandard traceable to the Center for Disease Conrtrol and Prevention (CDC) test method. Triiodothyronine (T3) Free [ Mass/volume] in Serum or PlasmaOrdered By: Noah Lewis on 06-16-2023 Free T3 [Mass/Vol] 4.16 pg/mL 2.50-3.90 [facility] Urea nitrogen [Mass/volume] in Serum or PlasmaOrdered By: Noah Lewis on 06-16-2023 Urea nitrogen [Mass/Vol] 26 mg/dL 7-25 [facility] WBC Auto (Bld) [#/Vol]Ordere d By: Noah Lewsi on 06-16-2023 WBC (Bld) [#/Vol] 8.4 10*3/uL 3.8-11.6 [facility] Office Visit (Cardiology)on 01-05-2023 Follow-up visit Diagnoses/Problems Assessed Essential hypertension (401.9) (I10) Diabetes mellitus (250.00) (E11.9) Atherosclerosis of [place] coronary artery of [place] heart without angina pectoris (414.01) (I25.10) S/P PTCA (percutaneous transluminal coronary angioplasty) (V45.82) (Z98.61) Morbid obesity with BMI of 45.0-49.9, adult (278.01,V85.42) (E66.01,Z68.42) Hyperlipidemia (272.4) (E78.5) Never a smoker Orders Atherosclerosis of [place] coronary artery of [place] heart without angina pectoris Renew: Aspirin 81 MG Oral Tablet Delayed Release; TAKE 1 TABLET DAILY DIRECTED Renew: Clopidogrel Bisulfate 75 MG Oral Tablet; TAKE ONE (1) TABLET BY MOUTH ONCE DAILY Atherosclerosis of [place] coronary artery of [place] heart without angina pectoris, Essential hypertension Renew: Chlorthalidone 25 MG Oral Tablet; TAKE 1 TABLET ONCE DAILY Renew: Metoprolol Succinate ER 100 MG Oral Tablet Extended Release 24 Hour; TAKE 1 TABLET DAILY Morbid obesity with BMI of 45.0-49.9, adult Healthy Weight Tips; Status:Complete - Retrospective Authorization; Done: [id number] Some eating tips that can help you lose weight.; Status:Complete - Retrospective Authorization; Done: [id number] SocHx: Never a smoker Tobacco Use Screening; Status:Complete; Done: [id number] Patient Instructions Please bring all medicines, vitamins, [...] Screening.on 023 Adult depression screening assessment No [facility] [place] [address] DO Work Phone: Fall risk assessment a) No falls within the last year [facility] k 600 DO Work Phone: Tobacco use status [facility] b) No [facility] k 600 DO Work Phone: Office Visit [...] no palpitations (more content not included)... Normal [facility] Tobacco Screening.on 022 Adult depression screening assessment No [facility] [employer] DO Work Phone: Fall risk assessment a) No falls within the last year [facility] DO Work Phone: Tobacco use status [facility]S b) No M [facility] [employer] DO Work Phone: Basophils Auto (Bld) [#/Vol] Ordered By: Bari Mac on 04-08-2022 Basophils (Bld) [#/Vol] 0.0 10*3/uL 0.0-0.2 [facility] Basophils/100 WBC Auto (Bld) Ordered By: Bari Mac on 04-08-2022 Basophils/100 WBC (Bld) 0.4 % . [facility] Blood hemoglobin measurement (mass/volume)Ordered By: Bari Mac on 04-08-2022 Hemoglobin (Bld) [Mass/Vol] 14.2 g/dL 11.8-15.4 [facility] Blood leukocytes automated c ount (number/volume)Ordered By: Bari Mac on 04-08-2022 WBC (Bld) [#/Vol] 8.1 10*3/uL 4.5-11.0 [facility] Body fluid albumin measureme nt (mass/volume)Ordered By: Bari Mac on 04-08-2022 Albumin (Body fld) [Mass/Vol] 3.8 g/dL 3.2-5.5 [facility] Cholesterol [Mass/volume] in Serum or PlasmaOrdered By: Bari Mac on 04-08-2022 Cholesterol [Mass/Vol] 225 mg/dL 140-200 [facility] Comment on above: Chol less than 200 m g/dl low risk Chol 201-239 mg/dl borderline risk Chol 240 mg/dl and greater high risk Chol less than 200 m g/dl low riskChol 201-239 mg/dl borderline riskChol 240 mg/dl and greater high risk Cholesterol in LDL Calc [Mas s/Vol]Ordered By: Bari Mac on 04-08-2022 Cholesterol in LDL [Mass/Vol] 132 mg/dL 0-100 [facility] Comment on above: LDL ATP III [...] 04-08-2022 Cholesterol in VLDL [Mass/Vol] 52 mg/dL [facility] Creatinine and Glomerular fi ltration rate.predicted panel (S/P/Bld)Ordered By: Bari Mac on 04-08-2022 Creatinine [Mass/Vol] 0.94 mg/dL 0.44-1.03 [facility] Eosinophils Auto (Bld) [#/Vo l]Ordered By: Bari Mac on 04-08-2022 Eosinophils (Bld) [#/Vol] 0.1 10*3/uL 0.0-0.45 [facility] Eosinophils/100 WBC Auto (Bl d)Ordered By: Bari Mac on 04-08-2022 Eosinophils/100 WBC (Bld) 1.2 % . [facility] Erythrocyte distribution wid th Auto (RBC) [Ratio]Ordered By: Bari Mca on 04-08-2022 Erythrocyte distribution width (RBC) [Ratio] 14.3 % 11.9-15.3 [facility] Estimated glomerular filtrat ion rate (GFR) non- AmericanOrdered By: Bari Mac on 04-08-2022 GFR/1.73 sq M.predicted among non-blacks MDRD (S/P/Bld) [Vol rate/Area] 60 mL/Min [facility] Globulin Calc (S) [Mass/Vol] Ordered By: Bari Mac on 04-08-2022 Globulin (S) [Mass/Vol] 2.9 g/dL [facility] Glucose mean value [Mass/vol ume] in Blood Estimated from glycated hemoglobinOrdered By: Bari Mac on 04-08-2022 Average glucose Estimated from glycated hemoglobin (Bld) [Mass/Vol] 131 mg/dL [facility] Hematocrit Auto (Bld) [Volum e fraction]Ordered By: Bari Mac on 04-08-2022 Hematocrit (Bld) [Volume fraction] 42.7 % 34.0-46.4 [facility] Laboratory - Chemistry and C hemistry - challengeOrdered By: Bari Mac on 04-08-2022 Glucose [Mass/Vol] 111 mg/dL 70-100 [facility] Comment on above: ADA recommended refe rence range Laboratory - Hematology and Cell countsOrdered By: Bari Mac on 04-08-2022 HbA1c (Bld) [Mass fraction] 6.2 % 4.3-5.6 [facility] Comment on above: Increased risk for d iabetes: 5.7 - 6.4 diabetes: >6.4 glycemic control for adults with diabetes: <7.0 Increased risk for d iabetes: 5.7 - 6.4diabetes: >6.4glycemic control for adults with diabetes: <7.0 Nucleated RBC/100 WBC (Bld) [Ratio] 0.1 % 0-0.5 [facility] Lymphocytes Auto (Bld) [#/Vo l]Ordered By: Bari Mac on 04-08-2022 Lymphocytes (Bld) [#/Vol] 2.3 10*3/uL 1.00-4.8 [facility] Lymphocytes/100 WBC Auto (Bl d)Ordered By: Bari Mac on 04-08-2022 Lymphocytes/100 WBC (Bld) 28.8 % . [facility] MCH Auto (RBC) [Entitic mass ]Ordered By: Bari Mac on 04-08-2022 MCH (RBC) [Entitic mass] 28.8 pg 24.7-34.3 [facility] MCHC Auto (RBC) [Mass/Vol]Or dered By: Bari Mac on 04-08-2022 MCHC (RBC) [Mass/Vol] 33.1 g/dL 32.0-35.0 [facility] MCV Auto (RBC) [Entitic vol] Ordered By: Bari Mac on 04-08-2022 MCV (RBC) [Entitic vol] 87.0 fL 80-100 [facility] Monocyte %Ordered By: Bari Mac on 04-08-2022 Monocyte % 262 mg/dL 35-149 [facility] Comment on above: TRIG ATP III [...] 04-08-2022 Monocytes (Bld) [#/Vol] 0.6 10*3/uL 0.0-0.8 [facility] Monocytes/100 WBC Auto (Bld) Ordered By: Bari Mac on 04-08-2022 Monocytes/100 WBC (Bld) 7.6 % . [facility] Neutrophils Auto (Bld) [#/Vo l]Ordered By: Bari Mac on 04-08-2022 Neutrophils (Bld) [#/Vol] 5.0 10*3/uL 1.8-7.7 [facility] Neutrophils/100 WBC Auto (Bl d)Ordered By: Bari Mac on 04-08-2022 Neutrophils/100 WBC (Bld) 62.0 % . [facility] No Panel InformationOrdered By: Bari Mac on 04-08-2022 Estimated GFR () > 60 mL/Min [facility] Comment on above: GFR estimated refere nce range: According to KDOQI guidelines, <60 ml/min/1.73m2 is sufficient to diagnose a patient with chronic kidney disease. Nicotine Metabolite Negative Cutoff=25 [facility] Comment on above: Performed at: [facility] [address] [id number] Farm Facility Manager: Mendy Elizondo MD, Phone: [phone] Performed at: [facility] [address] [id number] Director: Mendy Elizondo MD, Phone: [phone] Pharmacy Creatinine Clearance (Chem N/A [facility] Platelet mean volume Auto (B ld) [Entitic vol]Ordered By: Bari Mac on 04-08-2022 Platelet mean volume (Bld) [Entitic vol] 9.1 fL 6.3-10.7 [facility] Platelets Auto (Bld) [#/Vol] Ordered By: Bari Mac on 04-08-2022 Platelets (Bld) [#/Vol] 290 10*3/uL 150-450 [facility] Protein [Mass/volume] in Ser um or PlasmaOrdered By: Bari Mac on 04-08-2022 Protein [Mass/Vol] 6.7 g/dL 6.1-7.9 [facility] RBC Auto (Bld) [#/Vol]Ordere d By: Bari Mac on 04-08-2022 RBC (Bld) [#/Vol] 4.91 10*6/uL 3.60-5.00 [facility] Serum or plasma alanine warren otransferase measurement without P-5'-P (enzymatic activiOrdered By: Bari Mac on 04-08-2022 ALT No additional P-5'-P [Catalytic activity/Vol] 32 U/L 10-60 [facility] Serum or plasma albumin/glob ulin mass ratioOrdered By: Bari Mac on 04-08-2022 Albumin/Globulin [Mass ratio] 1.3 {ratio} [facility] Serum or plasma alkaline jhonatan sphatase measurement (enzymatic activity/volume)Ordered By: Bari Mac on 04-08-2022 ALP [Catalytic activity/Vol] 87 U/L 32-92 [facility] Serum or plasma aspartate am inotransferase measurement (enzymatic activity/volume)Ordered By: Bari Mac on 04-08-2022 AST [Catalytic activity/Vol] 24 U/L 10-42 [facility] Serum or plasma calcium leonor urement (mass/volume)Ordered By: Bari Mac on 04-08-2022 Calcium [Mass/Vol] 9.4 mg/dL 8.2-10.2 [facility] Serum or plasma chloride maggie surement (moles/volume)Ordered By: Bari Mac on 04-08-2022 Chloride [Moles/Vol] 96 mmol/L 95-114 [facility] Serum or plasma high density lipoprotein (HDL) cholesterol measurementOrdered By: Bari Mac on 04-08-2022 Cholesterol in HDL [Mass/Vol] 41 mg/dL 35-85 [facility] Comment on above: HDL CHOL ATP-III CLA SSIFICATION Cardiovascular Risk HDL > or equal to 60 mg/dL LOW HDL < 40 mg/dL HIGH HDL CHOL ATP-III CLA SSIFICATION Cardiovascular RiskHDL > or equal to 60 mg/dL LOWHDL < 40 mg/dL HIGH Serum or plasma potassium me asurement (moles/volume)Ordered By: Bari Mac on 04-08-2022 Potassium [Moles/Vol] 3.6 mmol/L 3.5-5.1 [facility] Serum or plasma sodium measu rement (moles/volume)Ordered By: Bari Mac on 04-08-2022 Sodium [Moles/Vol] 139 mmol/L 136-146 [facility] Serum or plasma total biliru bin measurement (mass/volume)Ordered By: Bari Mac on 04-08-2022 Bilirubin [Mass/Vol] 0.9 mg/dL 0.3-1.2 [facility] Serum or plasma total carbon dioxide measurement (moles/volume)Ordered By: Bari Mca on 04-08-2022 CO2 [Moles/Vol] 31.6 mmol/L 22.0-30.0 [facility] Serum or plasma total choles terol/high density lipoprotein (HDL) cholesterol mass ratOrdered By: Bari Mac on 04-08-2022 Cholesterol.total/Mari sterol in HDL [Mass ratio] 5.5 {ratio} <5.0 [facility] Serum or plasma urea nitroge n measurement (mass/volume)Ordered By: Bari Mac on 04-08-2022 Urea nitrogen [Mass/Vol] 20 mg/dL 05-21 [facility] TSH DL <= 0.005 mIU/L QnOrde red By: Bari Mac on 04-08-2022 TSH Qn 1.68 m[IU]/L 0.45-5.33 [facility] Creatinine and Glomerular fi ltration rate.predicted panel (S/P/Bld)Ordered By: Wiley Schmitt on 02-12-2022 Creatinine [Mass/Vol] 0.85 mg/dL 0.44-1.03 [facility] Estimated glomerular filtrat ion rate (GFR) non- AmericanOrdered By: Wiley Schmitt on 02-12-2022 GFR/1.73 sq M.predicted among non-blacks MDRD (S/P/Bld) [Vol rate/Area] > 60 mL/Min [facility] No Panel InformationOrdered By: Wiley Schmitt on 02-12-2022 Estimated GFR () > 60 mL/Min [facility] Comment on above: GFR estimated refere nce range: According to KDOQI guidelines, <60 ml/min/1.73m2 is sufficient to diagnose a patient with chronic kidney disease. Pharmacy Creatinine Clearance (Chem N/A [facility] No Panel Informationon 02-12 9.1\S\9.1 Normal 8.2-10.2 -[facility] [address] DO Work Phone: Comment on above: PERFORMED BY:[facility] ELLY MCLAUGHLINTrinhFLAKITA MD [id number] MEDICAL DIRECTORSUSAN THOMPSON M.D. 30.0\S\30.0 Normal 22.0-30.0 [facility] [address] DO Work Phone: 98\S\98 Normal 95-114 [facility] 250 DO Work Phone: [phone] 3.6\S\3.6 Normal 3.5-5.1 [facility] 250 DO Work Phone: [phone] 141\S\141 Normal 136-146 [facility] g[place] 250 DO Work Phone: [phone] > 60 Normal [facility] Sheila gomez 250 DO Work Phone: Comment on above: GFR estimated refere nce range: According to KDOQI guidelines, <60 ml/min/1.73m2 is sufficient to diagnose a patient with chronic kidney disease. 0.85\S\0.85 Normal 0.44-1.03 [facility] 250 DO Work Phone: [phone] 16\S\16 Normal 9-23 [facility] HeartRadha g[place] 250 DO Work Phone: [phone] 122\S\122 above high threshold 70-100 [facility] ogmez 250 DO Work Phone: Comment on above: Random Glucose Refer ence Range is dependent on time and content of last meal. Glucose of more than 200 mg/dL in a nonstressed, ambulatory subject supports the diagnosis of Diabetes Mellitus. ADA recommended reference range Serum or plasma calcium leonor urement (mass/volume)Ordered By: Wiley Schmitt on 02-12-2022 Calcium [Mass/Vol] 9.1 mg/dL 8.2-10.2 [facility] Serum or plasma chloride maggie surement (moles/volume)Ordered By: Wiley Schmitt on 02-12-2022 Chloride [Moles/Vol] 98 mmol/L 95-114 [facility] Serum or plasma glucose leonor urement (mass/volume)Ordered By: Wiley Schmitt on 02-12-2022 Glucose [Mass/Vol] 122 mg/dL 70-100 [facility] Comment on above: ADA recommended refe rence range Random Glucose Reference Range is dependent on time and content of last meal. Glucose of more than 200 mg/dL in a nonstressed, ambulatory subject supports the diagnosis of Diabetes Mellitus. Serum or plasma potassium me asurement (moles/volume)Ordered By: Wiley Schmitt on 02-12-2022 Potassium [Moles/Vol] 3.6 mmol/L 3.5-5.1 [facility] Serum or plasma sodium measu rement (moles/volume)Ordered By: Wiley Schmitt on 02-12-2022 Sodium [Moles/Vol] 141 mmol/L 136-146 [facility] Serum or plasma total carbon dioxide measurement (moles/volume)Ordered By: Wiley Schmitt on 02-12-2022 CO2 [Moles/Vol] 30.0 mmol/L 22.0-30.0 [facility] Serum or plasma urea nitroge n measurement (mass/volume)Ordered By: Wiley Schmitt on 02-12-2022 Urea nitrogen [Mass/Vol] 16 mg/dL 9-23 [facility] Office Visit (Cardiology)on 01-22-2022 Follow-up visit Diagnoses/Problems Assessed Diabetes mellitus (250.00) (E11.9) Essential hypertension (401.9) (I10) Hyperlipidemia (272.4) (E78.5) Atherosclerosis of [place] coronary artery of [place] heart without angina pectoris (414.01) (I25.10) S/P PTCA (percutaneous transluminal coronary angioplasty) (V45.82) (Z98.61) Never a smoker Morbid obesity with BMI of 45.0-49.9, adult (278.01,V85.42) (E66.01,Z68.42) Orders Atherosclerosis of [place] coronary artery of [place] heart without angina pectoris, Essential hypertension Start: Chlorthalidone 25 MG Oral Tablet; TAKE 1 TABLET ONCE DAILY Basic Metabolic Panel; Status:Active; Requested for:08Feb2022; Start: Metoprolol Succinate ER 100 MG Oral Tablet Extended Release 24 Hour; TAKE 1 TABLET DAILY SocHx: Never a smoker Tobacco Use Screening; Status:Complete; Done: [id number] Unlinked Stop: Carvedilol 25 MG Oral Tablet [...] negative for complaint. Vitals Vital Signs Recorded: [id number] 12:20PM Heart Rate74, L Radial Hqlyypvd993, RUE, Sitting Etcqhuwqu58, RUE, Sitting Height5 ft 4 in Tmsnyt287 lb BMI Vxsimyvrbr57 kg/m2 BSA Calculated2.22 Tobacco Useb) No PHQ-2 #1. Over the last 2 weeks have you felt down, depressed or hopeless? (If yes, answer PHQ-9 below)No PHQ-2 #2. Over the last 2 weeks paige (more content not included)... Normal [employer] Tobacco Screening.on 022 Adult depression screening assessment No [facility] 600 DO Work Phone: Fall risk assessment a) No falls within the last year [facility] DO Work Phone: Tobacco use status CP b) No M [facility] k 600 DO Work Phone: NM STRESS/REST MULTIon 01-16 NM STRESS/REST MULTI Patient: DORIS CARNES Exam Date: 01/16/2021 : 1960 Gender:F Ordering : DR NOAH LEWIS . Admission #: [id number] Family : Order #: [id number] CLICK HERE TO VIEW EXAM RADIOLOGY REPORT [...] DEFECT: LOCATION: Basal anterior. Mid-anterior. Apical anterior. [place]. SIZE: Medium (3-4 segments). SEVERITY: Moderate. TYPE: Persistent. WALL MOTION: Moderate hypokinesis: Apical anterior. Apical inferior. [place]. LV SIZE: Normal. 79 mL. TID / [...] Flynn MD on 01/19/2021 at 15:40 Normal Vital Signs Date Time Vital Sign Value Performing Clinician Facility 04-30-2025 10:45-0400 Body height 162.6 cm Raphael Connors DO Work Phone: [facility] 04-30-2025 10:45-0400 Body mass index (BMI) [Ratio] 41.2 kg/m2 Raphael Connors DO Work Phone: [facility] 04-30-2025 10:45-0400 Body weight 108.86 kg Raphael Connors DO Work Phone: [facility] 04-30-2025 10:45-0400 Diastolic blood pressure 78 mm[Hg] Raphael Connors DO Work Phone: [facility] 04-30-2025 10:45-0400 Systolic blood pressure 123 mm[Hg] Raphael Omar ALARCON Work Phone: [facility] 04-12-2025 11:26-0400 Body height 162.56 cm Noah Lewis MD Work Phone: [facility] 04-12-2025 11:26-0400 Body mass index (BMI) [Ratio] 42.2 kg/m2 Noah Lewis MD Work Phone: [facility] 04-12-2025 11:26-0400 Body temperature 97.8 [degF] Noah Lewis MD Work Phone: [facility] 04-12-2025 11:26-0400 Body weight 111.58 kg Noah Lewis MD Work Phone: [facility] 04-12-2025 11:26-0400 Diastolic blood pressure 83 mm[Hg] Noah Lewis MD Work Phone: [facility] 04-12-2025 11:26-0400 Heart rate 68 /min Noah Lewis MD Work Phone: [facility] 04-12-2025 11:26-0400 Respiratory rate 16 /min Noah Lewis MD Work Phone: [facility] 04-12-2025 11:26-0400 SaO2% (BldA) [Mass fraction] 97 % Noah Lewis MD Work Phone: [facility] 04-12-2025 11:26-0400 Systolic blood pressure 143 mm[Hg] Noah Lewis MD Work Phone: [facility] 03-06-2025 10:40-0400 Body height 162.56 cm Noah Lewis MD Work Phone: [facility] 03-06-2025 10:40-0400 Body mass index (BMI) [Ratio] 42.9 kg/m2 Noah Lewis MD Work Phone: [facility] 03-06-2025 10:40-0400 Body weight 113.39 kg Noah Lewis MD Work Phone: [facility] [facility] 03-06-2025 10:40-0400 Diastolic blood pressure 81 mm[Hg] Noah Lewis MD Work Phone: [facility] 03-06-2025 10:40-0400 Heart rate 54 /min Noah Lewis MD Work Phone: [facility] 03-06-2025 10:40-0400 SaO2% (BldA) [Mass fraction] 99 % Noah Lewis MD Work Phone: [facility] 03-06-2025 10:40-0400 Systolic blood pressure 156 mm[Hg] Noah Lewis MD Work Phone: [facility] 01-03-2025 13:28-0400 Body height 162.6 cm Kaye Pastor MD Work Phone: [facility] 01-03-2025 13:28-0400 Body mass index (BMI) [Ratio] 44.29 kg/m2 Kaye Pastor MD Work Phone: [facility] 01-03-2025 13:28-0400 Body weight 117.03 kg Kaye Pastor MD Work Phone: [facility] 01-03-2025 13:28-0400 Diastolic blood pressure 58 mm[Hg] Kaye Pastor MD Work Phone: [facility] 01-03-2025 13:28-0400 Heart rate 61 /min Kaye Pastor MD Work Phone: [facility] 01-03-2025 13:28-0400 Systolic blood pressure 124 mm[Hg] Kaye Pastor MD Work Phone: [facility] 10-10-2024 11:26-0500 Body height 162.56 cm [facility] 10-10-2024 11:26-0500 Body mass index (BMI) [Ratio] 43.6 kg/m2 [facility] 10-10-2024 11:26-0500 Body temperature 97.9 [degF] [facility] 10-10-2024 11:26-0500 Body weight 115.21 kg [facility] 10-10-2024 11:26-0500 Diastolic blood pressure 83 mm[Hg] [facility] 10-10-2024 11:26-0500 Heart rate 68 /min [facility] 10-10-2024 11:26-0500 Respiratory rate 16 /min [facility] 10-10-2024 11:26-0500 SaO2% (BldA) [Mass fraction] 95 % [facility] 10-10-2024 11:26-0500 Systolic blood pressure 130 mm[Hg] [facility] 08-23-2024 13:43-0500 Body height 162.6 cm Raphael Connors DO Work Phone: [facility] 08-23-2024 13:43-0500 Body mass index (BMI) [Ratio] 43.94 kg/m2 Raphael Connors DO Work Phone: [facility] 08-23-2024 13:43-0500 Body weight 116.12 kg Raphael Connors DO Work Phone: [facility] 08-23-2024 13:43-0500 Diastolic blood pressure 80 mm[Hg] Raphael Connors DO Work Phone: [facility] 08-23-2024 13:43-0500 Systolic blood pressure 125 mm[Hg] Raphael Connors DO Work Phone: [facility] 05-01-2024 14:24-0400 Body height 162.56 cm MD Noah Lewis Work Phone: [facility] 05-01-2024 14:24-0400 Body mass index (BMI) [Ratio] 43.9 kg/m2 MD Noah Lewis Work Phone: [facility] 05-01-2024 14:24-0400 Body weight 116.11 kg MD Noah Lewis Work Phone: [facility] 05-01-2024 14:24-0400 Diastolic blood pressure 83 mm[Hg] MD Naoh Lewis Work Phone: [facility] 05-01-2024 14:24-0400 Heart rate 76 /min MD Noah Lewis Work Phone: [facility] 05-01-2024 14:24-0400 SaO2% (BldA) [Mass fraction] 96 % MD Noah Lewis Work Phone: [facility] 05-01-2024 14:24-0400 Systolic blood pressure 142 mm[Hg] MD Noah Lewis Work Phone: [facility] 04-17-2024 09:50-0400 Body height 162.6 cm Raphael Connors DO Work Phone: [facility] 04-17-2024 09:50-0400 Body mass index (BMI) [Ratio] 44.29 kg/m2 Raphael Connors DO Work Phone: [facility] 04-17-2024 09:50-0400 Body weight 117.03 kg Raphael Connors DO Work Phone: [facility] 04-17-2024 09:50-0400 Diastolic blood pressure 80 mm[Hg] Raphael Connors DO Work Phone: [facility] 04-17-2024 09:50-0400 Systolic blood pressure 120 mm[Hg] Raphael Connors Work Phone: [facility] 04-11-2024 11:16-0400 Body height 162.56 cm MD Noah Lewis Work Phone: [facility] 04-11-2024 11:16-0400 Body mass index (BMI) [Ratio] 44.2 kg/m2 MD Noah Lewis Work Phone: [facility] 04-11-2024 11:16-0400 Body temperature 97.8 [degF] MD Noah Lewis Work Phone: [facility] 04-11-2024 11:16-0400 Body weight 117.02 kg MD Noah Lewis Work Phone: [facility] 04-11-2024 11:16-0400 Diastolic blood pressure 78 mm[Hg] MD Noah Lewis Work Phone: [facility] 04-11-2024 11:16-0400 Heart rate 65 /min MD oNah Lewis Work Phone: [facility] 04-11-2024 11:16-0400 Respiratory rate 16 /min MD Noah Lewis Work Phone: [facility] 04-11-2024 11:16-0400 SaO2% (BldA) [Mass fraction] 98 % MD Noah Lewis Work Phone: [facility] 04-11-2024 11:16-0400 Systolic blood pressure 135 mm[Hg] MD Noah Lewis Work Phone: [facility] 02-16-2024 13:11-0400 Body weight 118.84 kg MD Noah Lewis Work Phone: [facility] 02-16-2024 13:11-0400 Diastolic blood pressure 91 mm[Hg] MD Noah Lewis Work Phone: [facility] 02-16-2024 13:11-0400 Heart rate 69 /min MD Noah Lewis Work Phone: [facility] 02-16-2024 13:11-0400 Respiratory rate 18 /min MD Noah Lewis Work Phone: [facility] 02-16-2024 13:11-0400 SaO2% (BldA) [Mass fraction] 97 % MD Noah Lewis Work Phone: [facility] 02-16-2024 13:11-0400 Systolic blood pressure 150 mm[Hg] MD Noah Lewis Work Phone: [facility] 02-09-2024 09:00-0400 Body height 162.56 cm MD Noah Lewis Work Phone: [facility] 02-09-2024 09:00-0400 Body mass index (BMI) [Ratio] 45.4 kg/m2 MD Noah Lewis Work Phone: [facility] 02-09-2024 09:00-0400 Body temperature 97.5 [degF] MD Noah Lewis Work Phone: [facility] 02-09-2024 09:00-0400 Body weight 120.2 kg MD Noah Lewis Work Phone: [facility] 02-09-2024 09:00-0400 Diastolic blood pressure 104 mm[Hg] MD Noah Lewis Work Phone: [facility] 02-09-2024 09:00-0400 Heart rate 73 /min MD Noah Lewis Work Phone: [facility] 02-09-2024 09:00-0400 Respiratory rate 16 /min MD Noah Lewis Work Phone: [facility] 02-09-2024 09:00-0400 SaO2% (BldA) [Mass fraction] 95 % MD Noah Lewis Work Phone: [facility] 02-09-2024 09:00-0400 Systolic blood pressure 169 mm[Hg] MD Noah Lewis Work Phone: [facility] 01-24-2024 08:38-0400 Body height 162.56 cm MD Noah Lewis Work Phone: [facility] 01-24-2024 08:38-0400 Body mass index (BMI) [Ratio] 45.4 kg/m2 MD Noah Lewis Work Phone: [facility] 01-24-2024 08:38-0400 Body weight 120.2 kg MD Noah Lewis Work Phone: [facility] 01-24-2024 08:38-0400 Diastolic blood pressure 95 mm[Hg] MD Noah Lewis Work Phone: [facility] 01-24-2024 08:38-0400 Heart rate 68 /min MD Noah Lewis Work Phone: [facility] 01-24-2024 08:38-0400 SaO2% (BldA) [Mass fraction] 98 % MD Noah Lewis Work Phone: [facility] 01-24-2024 08:38-0400 Systolic blood pressure 153 mm[Hg] MD Noah Lewis Work Phone: [facility] 01-11-2024 08:51-0400 Body temperature 97 [degF] MD Noah Lewis Work Phone: [facility] 01-11-2024 08:51-0400 Body weight 119.74 kg MD Noah Lewis Work Phone: [facility] 01-11-2024 08:51-0400 Diastolic blood pressure 85 mm[Hg] MD Noah Lewis Work Phone: [facility] 01-11-2024 08:51-0400 Heart rate 66 /min MD Noah Lewis Work Phone: [facility] 01-11-2024 08:51-0400 Respiratory rate 16 /min MD Noah Lewis Work Phone: [facility] 01-11-2024 08:51-0400 SaO2% (BldA) [Mass fraction] 97 % MD Noah Lewis Work Phone: [facility] 01-11-2024 08:51-0400 Systolic blood pressure 141 mm[Hg] MD Noah Lewis Work Phone: [facility] 01-04-2024 08:50-0400 Body height 162.6 cm Wiley Schmitt MD Work Phone: [facility] 01-04-2024 08:50-0400 Body mass index (BMI) [Ratio] 44.97 kg/m2 Wiley Schmitt MD Work Phone: [facility] 01-04-2024 08:50-0400 Body weight 118.84 kg Wiley Schmitt MD Work Phone: [facility] 01-04-2024 08:50-0400 Diastolic blood pressure 82 mm[Hg] Wiley Schmitt MD Work Phone: [facility] 01-04-2024 08:50-0400 Heart rate 76 /min Wiley Schmitt MD Work Phone: [facility] 01-04-2024 08:50-0400 Systolic blood pressure 118 mm[Hg] Wiley Schmitt MD Work Phone: [facility] 12-26-2023 13:40-0400 Diastolic blood pressure 95 mm[Hg] MD Noah Lewis Work Phone: [facility] 12-26-2023 13:40-0400 Heart rate 57 /min MD Noah Lewis Work Phone: [facility] 12-26-2023 13:40-0400 Respiratory rate 16 /min MD Noah Lewis Work Phone: [facility] 12-26-2023 13:40-0400 SaO2% (BldA) [Mass fraction] 96 % MD Noah Lewis Work Phone: [facility] 12-26-2023 13:40-0400 Systolic blood pressure 161 mm[Hg] MD Noah Lewis Work Phone: [facility] 12-26-2023 12:45-0400 Body temperature 97.1 [degF] MD Noah Lewis Work Phone: [facility] 12-26-2023 12:15-0400 Inhaled oxygen flow rate 8 L/min MD Noah Lewis Work Phone: [facility] 12-26-2023 10:22-0400 Body height 162.56 cm MD Noah Lewis Work Phone: [facility] 12-26-2023 10:22-0400 Body mass index (BMI) [Ratio] 45 kg/m2 MD Noah Lewis Work Phone: [facility] 12-26-2023 10:22040 Body weight 119 kg MD Noah Lewis Work Phone: [facility] 12-20-2023 11:19-0400 Diastolic blood pressure 82 mm[Hg] Kerline [address] [place] [address] 12-20-2023 11:19-0400 Heart rate 85 /min Kerline [address] [place] [address] 12-20-2023 11:19-0400 Systolic blood pressure 136 mm[Hg] Kerline [address] [place] [address] 12-01-2023 11:02-0400 Body height 162.56 cm MD Noah Lewis Work Phone: [facility] 12-01-2023 11:02-0400 Body mass index (BMI) [Ratio] 45.6 kg/m2 MD Noah Lewis Work Phone: [facility] 12-01-2023 11:02-0400 Body temperature 97.1 [degF] MD Noah Lewis Work Phone: [facility] 12-01-2023 11:02-0400 Body weight 120.65 kg MD Noah Lewis Work Phone: [facility] 12-01-2023 11:02-0400 Diastolic blood pressure 106 mm[Hg] MD Noah Lewis Work Phone: [facility] 12-01-2023 11:02-0400 Heart rate 76 /min MD Noah Lewis Work Phone: [facility] 12-01-2023 11:02-0400 Respiratory rate 16 /min MD Noah Lewis Work Phone: [facility] 12-01-2023 11:02-0400 SaO2% (BldA) [Mass fraction] 98 % MD Noah Lewis Work Phone: [facility] 12-01-2023 11:02-0400 Systolic blood pressure 173 mm[Hg] MD Noah Lewis Work Phone: [facility] 11-15-2023 13:05-0400 Body temperature 98.2 [degF] MD Noah Lewis Work Phone: [facility] 11-15-2023 13:05-0400 Diastolic blood pressure 92 mm[Hg] MD Noah Lewis Work Phone: [facility] 11-15-2023 13:05-0400 Heart rate 76 /min MD Noah Lewis Work Phone: [facility] 11-15-2023 13:05-0400 Respiratory rate 18 /min MD Noah Lewis Work Phone: [facility] 11-15-2023 13:05-0400 SaO2% (BldA) [Mass fraction] 98 % MD Noah Lewis Work Phone: [facility] 11-15-2023 13:05-0400 Systolic blood pressure 173 mm[Hg] MD Noah Lewis Work Phone: [facility] 01-05-2023 10:37-0400 Body height 162.56 cm Noah Lewis Work Phone: [facility] [employer] [address] DO Work Phone: 01-05-2023 10:37-0400 Body mass index (BMI) [Ratio] 46.17 kg/m2 Noah Lewis Work Phone: [facility] [employer] 600 DO Work Phone: 01-05-2023 10:37-0400 Body surface area Derived from formula 2.22 m2 Noah Goldsmith Hoy Work Phone: [facility] 600 DO Work Phone: 01-05-2023 10:37-0400 Body weight 122.02 kg Noah Rupal Hoy Work Phone: [facility] 600 DO Work Phone: 01-05-2023 10:37-0400 Diastolic blood pressure 84 mm[Hg] Noah M Hoy Work Phone: [facility] [address] DO Work Phone: 01-05-2023 10:37-0400 Heart rate 64 /min Noah Rupal Hoy Work Phone: [facility] 600 DO Work Phone: 01-05-2023 10:37-0400 Systolic blood pressure 134 mm[Hg] Noah M Hoy Work Phone: [facility] [address] DO Work Phone: 01-05-2023 09:14-0400 Diastolic blood pressure 92 mm[Hg] Noah M Hoy Work Phone: [facility] 600 DO Work Phone: 01-05-2023 09:14-0400 Diastolic blood pressure 100 mm[Hg] Noah M Hoy Work Phone: [facility] 600 DO Work Phone: 01-05-2023 09:14-0400 Systolic blood pressure 138 mm[Hg] Noah M Hoy Work Phone: [facility] 600 DO Work Phone: 01-05-2023 09:14-0400 Systolic blood pressure 130 mm[Hg] Noah M Hoy Work Phone: [facility] 600 DO Work Phone: 01-05-2023 08:38-0400 Body height 162.56 cm Noah M Hoy Work Phone: [facility] 600 DO Work Phone: 01-05-2023 08:38-0400 Body mass index (BMI) [Ratio] 46.17 kg/m2 Noah M Hoy Work Phone: [facility] 600 DO Work Phone: 01-05-2023 08:38-0400 Body surface area Derived from formula 2.22 m2 Noah M Hoy Work Phone: [facility] 600 DO Work Phone: 01-05-2023 08:38-0400 Body weight 122.02 kg Noah M Hoy Work Phone: [facility] 600 DO Work Phone: 01-05-2023 08:38-0400 Diastolic blood pressure 102 mm[Hg] Noah M Hoy Work Phone: [facility] 600 DO Work Phone: 01-05-2023 08:38-0400 Heart rate 68 /min Noah M Hoy Work Phone: [facility] 600 DO Work Phone: 01-05-2023 08:38-0400 Systolic blood pressure 148 mm[Hg] Noah M Hoy Work Phone: [facility] 600 DO Work Phone: 05-06-2022 14:44-0400 Body height 162.56 cm Noah M Hoy Work Phone: [facility] 600 DO Work Phone: 05-06-2022 14:44-0400 Body mass index (BMI) [Ratio] 44.8 kg/m2 Noah M Hoy Work Phone: [facility] 600 DO Work Phone: 05-06-2022 14:44-0400 Body surface area Derived from formula 2.19 m2 Noah M Hoy Work Phone: [facility] 600 DO Work Phone: 05-06-2022 14:44-0400 Body weight 118.39 kg Noah M Hoy Work Phone: [facility] 600 DO Work Phone: 05-06-2022 14:44-0400 Diastolic blood pressure 82 mm[Hg] Noah M Hoy Work Phone: [facility] 600 DO Work Phone: 05-06-2022 14:44-0400 Heart rate 63 /min Noah M Hoy Work Phone: [facility] 600 DO Work Phone: 05-06-2022 14:44-0400 Systolic blood pressure 120 mm[Hg] Noah M Hoy Work Phone: [facility] 600 DO Work Phone: 01-22-2022 12:20-0400 Body height 162.56 cm Noah M Hoy Work Phone: [facility] 600 DO Work Phone: 01-22-2022 12:20-0400 Body mass index (BMI) [Ratio] 46 kg/m2 Noah M Hoy Work Phone: [facility] 600 DO Work Phone: 01-22-2022 12:20-0400 Body surface area Derived from formula 2.22 m2 Noah M Hoy Work Phone: [facility] 600 DO Work Phone: 01-22-2022 12:20-0400 Body weight 121.56 kg Noah M Hoy Work Phone: [facility] 600 DO Work Phone: 01-22-2022 12:20-0400 Diastolic blood pressure 96 mm[Hg] Noah Zamoray Work Phone: [facility] 600 DO Work Phone: 01-22-2022 12:20-0400 Heart rate 74 /min Noah Lewis Work Phone: [facility] 600 DO Work Phone: 01-22-2022 12:20-0400 Systolic blood pressure 150 mm[Hg] Noah Lewis Work Phone: [facility] 600 DO Work Phone: Encounters Encounter Date Encounter Type Care Provider Facility Start: 04-30-2025 End: 04-30-2025 Office outpatient visit 15 minutes Raphael Connors DO Work Phone: [facility] Comment on above: History of right deborah ast cancer (Primary Dx) Start: 04-30-2025 End: 04-30-2025 ambulatory RAPHAEL CONNORS Not Available Start: 04-12-2025 Registered Recurring Kinsey carrera MD -[facility] Work Phone: Start: 04-12-2025 End: 04-12-2025 Patient encounter procedure Milagro GONZALEZ -[facility] Work Phone: Start: 04-12-2025 End: 04-12-2025 ambulatory Noah Lewis MD Work Phone: [facility] Work Phone: Start: 03-06-2025 End: 03-06-2025 ambulatory Noah Lewis MD Work Phone: [facility] Work Phone: Start: 03-06-2025 End: 03-06-2025 Patient encounter procedure Thomas Hoover MD -[facility] Work Phone: Start: 01-03-2025 End: 01-03-2025 Office outpatient visit 25 minutes Kaye Pastor MD Work Phone: [facility] Comment on above: Coronary artery dise ase involving [place] coronary artery of [place] heart without angina pectoris (Primary Dx); Mixed hyperlipidemia; History of PTCA; Essential hypertension; BMI 40.0-44.9, adult (Multi); Never smoked tobacco; Diabetes mellitus type II, non insulin dependent (Multi); Acquired hypothyroidism Start: 01-03-2025 End: 01-03-2025 ambulatory [facility] Start: 12-25-2024 End: 12-25-2024 Office outpatient visit 15 minutes Raphael Connors DO Work Phone: [employer] Comment on above: Infiltrating ductal carcinoma of right breast (Primary Dx) Start: 12-25-2024 End: 12-25-2024 ambulatory RAPHAEL CONNORS Not Available Start: 11-08-2024 End: 11-08-2024 Patient encounter procedure Noah Lewis MD Work Phone: [facility] Work Phone: Start: 11-08-2024 End: 11-08-2024 ambulatory Noah Lewis MD Work Phone: [facility] Work Phone: Start: 10-10-2024 End: 10-10-[address] [facility] Work Phone: Start: 10-10-2024 End: 10-10-2024 Patient encounter procedure [facility] Work Phone: Start: 08-23-2024 End: 08-23-2024 Office outpatient visit 15 minutes Raphael Connors DO Work Phone: [employer] Comment on above: Infiltrating ductal carcinoma of right breast (CMS/HCC) (Primary Dx); History of right breast cancer Start: 08-23-2024 End: 08-23-2024 ambulatory RAPHAEL CONNORS Not Available Start: 05-31-2024 End: 05-31-2024 Patient encounter procedure MD Noah Lewis Work Phone: [facility] [place] Work Phone: Start: 05-31-2024 End: 05-31-2024 ambulatory MD Noah Lewis Work Phone: [facility] Work Phone: Start: 05-01-2024 End: 05-01-2024 Patient encounter procedure MD Noah Lewis Work Phone: [facility] Work Phone: Start: 04-17-2024 End: 04-17-2024 Office outpatient visit 15 minutes Raphael Connors DO Work Phone: [facility] Comment on above: Infiltrating ductal carcinoma of right breast (CMS/HCC) (Primary Dx) Start: 04-11-2024 End: 04-11-2024 ambulatory MD Noah Lewis Work Phone: [facility] Work Phone: Start: 04-11-2024 End: 04-11-2024 Patient encounter procedure MD Noah Lewis Work Phone: [facility] Work Phone: Start: 04-11-2024 Registered Recurring MD Rich Lewis [facility] Work Phone: Start: 03-05-2024 Non-patient / Non-visit MD Panfilo Lewis Work Phone: [facility] Work Phone: Start: 02-21-2024 Non-patient / Non-visit MD Panfilo Lewis Work Phone: [facility] Work Phone: Start: 02-21-2024 Non-patient / Non-visit MD Panfilo Lewis Work Phone: [facility] Work Phone: Start: 02-16-2024 End: 02-16-2024 ambulatory MD Noah Lewis Work Phone: [facility] Work Phone: Start: 02-16-2024 End: 02-16-2024 Patient encounter procedure MD Noah Lewis Work Phone: [facility] Work Phone: Start: 02-16-2024 Registered Recurring MD Rich Lewis Work Phone: [facility] Work Phone: Start: 02-09-2024 End: 02-09-2024 ambulatory MD Noah Lewis Work Phone: [facility] Work Phone: Start: 02-09-2024 End: 02-09-2024 Patient encounter procedure MD Noah Lewis Work Phone: [facility] Work Phone: Start: 02-09-2024 Registered Recurring MD iRch Lewis [facility] [place] [facility] Work Phone: Start: 02-07-2024 End: 02-07-2024 ambulatory MD Noah eLwis Work Phone: [facility] Work Phone: Start: 02-07-2024 End: 02-07-2024 Patient encounter procedure MD Noah Lewis Work Phone: [facility] Work Phone: Start: 01-24-2024 End: 01-24-2024 ambulatory MD Noah Lewis Work Phone: [facility] Work Phone: Start: 01-24-2024 End: 01-24-2024 Patient encounter procedure MD Noah Lewis Work Phone: [facility] Work Phone: Start: 01-11-2024 End: 01-11-2024 Patient encounter procedure MD [facility] Work [facility]: Start: 01-11-2024 Registered Recurring MD Rich Lewis Work Phone: [facility] Work Phone: Start: 01-04-2024 End: 01-04-2024 Office outpatient visit 25 minutes Wiley Schmitt MD Work Phone: [facility] Comment on above: Coronary artery dise ase involving [place] coronary artery of [place] heart without angina pectoris (Primary Dx); Essential hypertension; Mixed hyperlipidemia; History of PTCA; Hypertension, unspecified type; BMI 40.0-44.9, adult (Multi); Never smoked tobacco; Statin declined Start: 12-26-2023 End: 12-26-2023 Admission to same day surgery center MD Noah Lewis Work Phone: [facility] [place] Start: 12-26-2023 End: 12-26-2023 ambulatory MD Noah Lewis Work Phone: [facility] Work Phone: Start: 12-21-2023 End: 12-22-2023 ambulatory [facility] Start: 12-21-2023 End: 12-21-2023 Subsequent hospital visit by physician Kerline Andrews Nm 1 [facility] Start: 12-20-2023 End: 12-21-2023 ambulatory [facility] Start: 12-20-2023 End: 12-21-2023 Encounter for other preprocedural examination [facility] Start: 12-20-2023 End: 12-20-2023 Preoperative state [address] Work Phone: Start: 12-20-2023 End: 12-20-2023 Subsequent hospital visit by physician Kerline Shen Admin Room 1 [facility] Comment on above: Pre-operative cleara nce; Abnormal EKG; Osteoarthritis, unspecified osteoarthritis type, unspecified site Start: 12-14-2023 Registered Recurring MD Rich Lewis [facility] Work Phone: Start: 12-12-2023 End: 12-12-2023 ambulatory MD Noah Lewis Work Phone: [facility] Work Phone: Start: 12-12-2023 End: 12-12-2023 Patient encounter procedure MD Noah Lewis Work Phone: [facility] Work Phone: Start: 12-01-2023 Registered Recurring MD Rich Lewis [facility] Phone: [facility] Work Phone: Start: 12-01-2023 End: 12-01-2023 ambulatory MD Noah Lewis Work Phone: [facility] Work Phone: Start: 12-01-2023 End: 12-01-2023 Patient encounter procedure MD Noah Lewis Work Phone: [facility] Ambulatory Work Phone: Start: 11-15-2023 End: 11-15-2023 Admission to same day surgery center MD Noah Lewis Work Phone: [facility] Start: 11-15-2023 End: 11-15-2023 ambulatory MD Noah Lewis Work Phone: [facility] Work Phone: Start: 11-08-2023 End: 11-08-2023 Patient encounter procedure MD Noah Lewis Work Phone: [facility] Work Phone: Start: 10-27-2023 End: 10-27-2023 Patient encounter procedure MD Noah Lewis Work Phone: [facility] Work Phone: Start: 06-16-2023 End: 06-16-2023 ambulatory MD Noah Lewis Work Phone: [facility] Work Phone: Start: 06-16-2023 End: 06-16-2023 Patient encounter procedure MD Noah Lewis Work Phone: [facility] Work Phone: Start: 06-09-2023 Registered Recurring MD Rich Lewis Work Phone: [facility] Work Phone: Start: 06-09-2023 End: 06-09-2023 ambulatory Jose Laughlin Other [employer] [facility] [employer] Other Start: 06-09-2023 TX ROOM EST LVL II M TM VIRTUAL [facility] Start: 05-12-2023 End: 05-12-2023 ambulatory Ene Poon Other [facility] [employer] Other Start: 05-12-2023 Telephone encounter Ene Poon [facility] Start: 01-05-2023 Office outpatient vi sit 25 minutes Noah Lewis Work Phone: [facility] 600 DO Work Phone: Start: 01-05-[address] [facility] Start: 11-23-2022 Rx Renewal Noah Lewis Work Phone: [facility] 250 DO Work Phone: Start: 10-22-2022 Rx Renewal Noah Rupal Noahaleksey Work Phone: [facility] 250 DO Work Phone: Start: 05-27-2022 ([facility] INJ) [facility] Injection Ene Poon [facility] Start: 05-27-2022 End: 05-27-2022 ambulatory MD Noah Lewis Work Phone: [facility] Work Phone: Start: 05-27-2022 End: 05-27-2022 Patient encounter procedure MD Noah Lewis Work Phone: [facility] [facility] Start: 05-06-2022 Office outpatient vi sit 15 minutes Noah Lewis Work Phone: [facility] 600 DO Work Phone: Start: 05-06-[address] Noah Lewis Facility: Start: 04-15-2022 Rx Renewal Noah Lewis Work Phone: [facility] 250 DO Work Phone: Start: 04-08-2022 End: 04-08-2022 Patient encounter procedure MD Noah Lewis Work Phone: [facility] Start: 04-08-2022 End: 04-08-2022 Departed Referred MD Noah Lewis Work Phone: [facility]Employee Benefit Screening Start: 02-18-2022 Chart Update Noah Lewis Work Phone: [facility] 250 DO Work Phone: Start: 02-12-2022 End: 02-12-2022 Patient encounter procedure MD Noah Lewis Work Phone: [facility] [place] Start: 01-22-2022 Office outpatient vi sit 25 minutes [facility] Work Phone: Start: 01-22-[address] Noah Lewis Facility: Start: 10-12-2021 Rx Renewal Wiley amin MD Work Phone: [facility] 250 DO Work Phone: Start: 01-19-2021 End: [...] stent in LAD coronary artery Milagro Hoover [employer] Procedure on neck Noah Zamoraaleksey Work Phone: Repair of shoulder Noah Lewis Work Phone: Thyroidectomy Noah Lewis Work Phone: Tonsillectomy and adenoidectomy Noah Zamoraaleksey Work Phone: Total abdominal hysterectomy Noah Lewis Work Phone: Plan of Treatment Date Care Activity Detail Author Start: 01-07-2026 End: 01-07-2026 Patient encounter procedure 01/07/2026 1:50 PM EDT Office Visit [address] [phone] Kaye Pastor MD [address] [facility] [address] [place] [address] [facility] Start: 11-08-2025 End: 02-24-2026 MG Breast - bilateral Diagnostic Bilateral diagnostic mammogram Imaging Routine Infiltrating ductal carcinoma of right breast (CMS/HCC) Expected: 11/08/2025, Expires: 02/24/2026 [facility] Work Phone: Comment on above: Expected: 11/08/2025 , Expires: 02/24/2026 Start: 11-08-2025 Screening for malign ant neoplasm of breast Mammogram [facility] Start: 09-04-2025 End: 09-04-2025 Patient encounter procedure 09/04/2025 9:45 AM EST Office Visit [address] [place] [phone] Raphael Connors, [address] [facility] [address] [place] [address] [facility] Start: 04-30-2025 End: 04-30-2025 Patient encounter procedure 04/30/2025 10:45 AM EDT Office Visit [facility] [address] [facility] [address] [place] [phone] Raphael Connors, DO [address] [facility] [address] [place] [address] [facility] Start: 04-29-2025 Influenza vaccination Influenza Vacc ine (#1) [facility] Start: 01-03-2025 End: 01-03-2025 Patient encounter procedure 01/03/2025 1:30 PM EDT Office Visit [facility] [address] [facility] [address] [place] [phone] Kaye Pastor MD [address] [facility] [place] [address] [facility] Start: 12-25-2024 Screening for malign ant neoplasm of breast Mammogram [facility] Start: 12-25-2024 End: 12-25-2024 Patient encounter procedure 12/25/2024 10:45 AM EDT Office Visit [facility] [address] [phone] Raphael Connors, DO [address] [address] [facility] Start: 11-26-2024 End: 10-24-2025 MG Breast - bilateral Diagnostic Bilateral diagnostic mammogram Imaging Routine Infiltrating ductal carcinoma of right breast (CMS/HCC) History of right breast cancer Expected: 11/26/2024, Expires: 10/24/2025 [facility] Work Phone: Comment on above: Expected: 11/26/2024 , Expires: 10/24/2025 Start: 11-10-2024 COVID-19 Vaccine ( season) COVID-19 Vaccine ( season) [facility] Start: 08-23-2024 End: 08-23-2024 Patient encounter procedure 08/23/2024 1:45 PM EST Office Visit [facility] [address] [place] [phone] Raphael Connors, DO [address] [address] [facility] Start: 04-29-2024 Influenza vaccination Influenza Vacc ine (#1) [facility] Start: 02-09-2024 Patient referral [facility] Work Phone: Start: 01-04-2024 FUV, Provider: Wiley Schmitt, Status: Pen, Time: 9:00 AM FUV, Provider: Wiley Schmitt, Status: Pen, Time: 9:00 AM [facility] 600 DO Work Phone: Start: 01-04-2024 End: 01-04-2024 Patient encounter procedure 01/04/2024 9:00 AM EDT Office Visit [place] [address] [address] [place] [address] Wiley Schmitt MD [address] [place] [facility] [address], [address] [place] [address] [facility] Start: 01-03-2024 Pneumococcal Vaccine : 65+ Years (2 of 2 - PCV) Pneumococcal Vaccine: 65+ Years (2 of 2 - PCV) [facility] Start: 12-26-2023 [facility] Start: 12-26-2023 [facility] Start: 12-26-2023 NM Lymphatic vessels Views W radionuclide intra lymphatic [facility] Start: 12-26-2023 Radionuclide sentine l lymph node study NM sentinel node w imaging [facility] Start: 12-26-2023 Mammography of right breast specimen MM surgical specimen RT [facility] Start: 12-26-2023 MG Breast specimen - right Views [facility] Start: 12-21-2023 End: 12-21-2023 Patient encounter procedure [facility] Start: 11-26-2023 COVID-19 Vaccine ( season) COVID-19 Vaccine ( season) [facility] Start: 01-05-2023 FUV, Provider: Wiley Schmitt, Status: Pen, Time: 8:40 AM FUV, Provider: Wiley Schmitt, Status: Pen, Time: 8:40 AM [facility] 600 DO Work Phone: Start: 05-07-2022 FUV, Provider: Wiely Schmitt, Status: Pen, Time: 1:00 PM FUV, Provider: Wiley Schmitt, Status: Pen, Time: 1:00 PM [facility] 250 DO Work Phone: Start: 05-06-2022 FUV, Provider: Julia Verdin, Status: Pen, Time: 2:30 PM FUV, Provider: Julia Verdin, Status: Pen, Time: 2:30 PM -[facility] 250 DO Work Phone: Start: 03-25-2022 FUV, Provider: Julia Verdin, Status: Pen, Time: 2:30 PM FUV, Provider: Julia Verdin, Status: Pen, Time: 2:30 PM [facility] 250 DO Work Phone: Start: 2019 RSV High Risk: (Elde rly (60+) or Population) (1 - Risk 60-74 years 1-dose series) RSV High Risk: (Elderly (60+) or Population) (1 - Risk 60-74 years 1-dose series) [facility] Start: 2019 RSV patient s and/or patients aged 60+ years (1 - 1-dose 60+ series) RSV patients and/or patients aged 60+ years (1 - 1-dose 60+ series) [facility] Start: 07-07-2017 Pneumococcal vaccination Pneumococcal Vaccine (2 of 2 - PCV) [facility] Start: 07-07-2017 Pneumococcal Vaccine : 65+ Years (2 of 2 - PCV) Pneumococcal Vaccine: 65+ Years (2 of 2 - PCV) [facility] Start: 2009 Zoster Vaccines (1 o f 2) Zoster Vaccines (1 of 2) [facility] Start: 1989 Screening for malign ant neoplasm of cervix [facility] Start: 1981 DTaP/Tdap/Td Vaccine s (1 - Tdap) DTaP/Tdap/Td Vaccines (1 - Tdap) [facility] Start: 01-03-1980 Screening for malign ant neoplasm of cervix [facility] Start: 1977 Diabetes mellitus screening Diabetes Screening [facility] Start: 1977 Hepatitis C [facility] Start: 01-03-1960 MMR Vaccines (1 of 1 - Standard series) MMR Vaccines (1 of 1 - Standard series) [facility] Start: 1959 Annual wellness visit Medicare Initial Physical (IPPE) [facility] Start: 1959 HIV screening [facility] Start: 1959 Lipid panel Lipid Panel [facility] Start: 1959 Medicare Annual Wellness Visit Medicare Annual Wellness Visit (AWV) [facility] Start: 1959 Screening for malign ant neoplasm of colon [facility] Start: 1959 Screening for osteoporosis Bone Density Scan [facility] Start: 1959 Thyroid stimulating hormone measurement TSH Level [facility] Start: 1959 Yearly Adult Physical Yearly Adult P hysical [facility] Computed tomography for radiotherapy planning [facility] DXA Skeletal system.axial Views for bone density [facility] DXA Skeletal system.axial Views for bone density [facility] End: 12-20-2023 NM Heart Perfusion W stress and W radionuclide IV [facility] Service Area Work Phone: Comment on above: Once for 1 Occurrenc es starting 12/20/2023 until 12/20/2023 Patient referral [facility] Work Phone: [facility] Immunizations Immunization Date Immunization Notes Care Provider Fa penelope 05-13-2024 influenza virus vaccine, unspecified formulation Raphael Connors DO Work Phone: [facility] 07-28-2023 COVID-19 (PFIZER) 12Y and older MD Noah Lewis Work Phone: [facility] 07-28-2023 Influenza, injectabl e, [place]in [place] Canine Kidney, preservative free, quadrivalent Kaye Pastor MD Work Phone: [facility] 07-28-2023 influenza virus vaccine, unspecified formulation Raphael Connors DO Work Phone: [facility] 05-27-2022 influenza, injectabl e, quadrivalent, preservative free Ene Fitt Other [facility] 05-27-2022 COVID-19 Moderna (BIvalent) Ene Fitt Other [facility] 06-30-2021 Moderna COVID-19 Vaccine 100 MCG/0.5ML Intramuscular Suspension Noah Goldsmith Hoy Work Phone: [facility] 09-22-2020 Moderna COVID-19 Vaccine 100 MCG/0.5ML Intramuscular Suspension Noah M Hoy Work Phone: [facility] 08-25-2020 Moderna COVID-19 Vaccine 100 MCG/0.5ML Intramuscular Suspension Noah M Hoy Work Phone: [facility] 06-06-2020 influenza virus vaccine, unspecified formulation Noah M Hoy Work Phone: [facility] 600 DO Work Phone: 05-29-2020 influenza virus vaccine, unspecified formulation Noah M Hoy Work Phone: [facility] 600 DO Work Phone: 05-29-2020 influenza, seasonal, injectable Kaye Pastor MD Work Phone: [facility] Work Phone: 06-05-2019 influenza virus vaccine, unspecified formulation Noah M Hoy Work Phone: [facility] 600 DO Work Phone: 06-16-2018 influenza virus vaccine, unspecified formulation Noah M Hoy Work Phone: [facility] 600 DO Work Phone: 07-07-2016 pneumococcal polysaccharide vaccine, 23 valent Noah M Hoy Work Phone: [facility] 600 DO Work Phone: Payers Date Payer Category Payer Self-pay [id number] 2023 Medicare [id number] 2023 Medicare (Managed Care) 1.2. [id number] 2023 Medicare [id number] 2023 Unknown 1959 Unknown [id number] 1959 Unknown [id number] 2.16.84 0.1.546761.3.579.2.593 1959 Unknown [id number] 2.16.84 0.1.404399.3.579.2.593 1959 Unknown [id number] 2.16. 840.1.887314.3.579.2.356 1959 Unknown [id number] 2.16. 840.1.762741.3.579.2.356 1959 Unknown [id number] 2.16. 840.1.298428.3.579.2.356 1959 Unknown [id number] 2.16.84 0.1.104826.3.579.2.1246 1959 Unknown [id number] 2.16.84 0.1.341179.3.579.2.1246 1959 Unknown [id number] 2.16.84 0.1.125148.3.579.2.1246 1959 Unknown [id number] 2.16.84 0.1.968505.3.579.2.1246 1959 Unknown [id number] 2.16.84 0.1.176767.3.579.2.1246 1959 Unknown [id number] 2.16. 840.1.296161.3.579.2.1244 1959 Unknown [id number] 2.16.8 40.1.955186.3.579.2.1259 1959 Unknown [id number] 2.16.84 0.1.655766.3.579.2.1259 1959 Unknown [id number] 2.16.84 0.1.453124.3.579.2.1259 Unknown [id number] 2.16.8 40.1.362730.3.579.2.531 Unknown [id number] 2.16.8 40.1.728596.3.579.2.531 Unknown [id number] 2.16.8 40.1.507909.3.579.2.531 Unknown [id number] 2.16.8 40.1.231751.3.579.2.531 Social History Date Type Detail Facility Start: 01-04-2024 End: 04-30-2025 No alcohol use No alcohol use -[facility] 600 DO Work Phone: Comment on above: 2 CUPS OF COFFEE SHRUTHI LY; Start: 1960 Sex Assigned At Female F [facility] Start: 01-04-2024 End: 04-30-2025 Sex Assigned At [facility] Start: 11-23-2023 End: 12-01-2023 Tobacco smoking status NHIS Never smoked tobacco (finding) [facility] Start: 11-02-2023 Tobacco smoking stat us NJIS Tobacco smoking consumption unknown [facility] Work Phone: Start: 1960 [facility]: Start: 12-10-2023 End: 01-03-2025 Exposure to SARS-CoV-2 (event) Not sure [facility] Start: 11-23-2023 End: 01-04-2024 Tobacco use and exposure Smokeless tobacco non-user [facility] Work Phone: Start: 01-04-2024 End: 04-30-2025 Alcoholic beverage intake Lifetime non-drinker (finding) [facility] Work Phone: Start: 11-21-2023 Gender identity Identifies as female gender (finding) [facility] Work Phone: Start: 11-21-2023 Sexual orientation Heterosexual (fin ding) [facility] Work Phone: Start: 10-10-2024 End: 11-09-2024 Sex Female (finding) [facility] Medical Equipment Procedure Code Equipment Code Equipment [...] Never Physical Exam Exam conducted with a benefit specialist present. Constitutional: Appearance: Normal appearance. HENT: Head: [...] ductal carcinoma and DCIS. Margins are negative. [place] lymph node negative. T1 N0 = stage [...] earlier re-evaluation. documented in this encounter [facility] 03-06-2025 Evaluation note Diagnosis Onset Date Resolution BMI 40.0-44.9, adult acute March 06, 2025 10:28am Chronic intermittent hypoxia with obstructive sleep apnea acute February 10:28am Hypersomnia acute March 06 10:28am Obstructive sleep apnea acute J 2024 10:28am Restless leg syndrome acute Feb 10:28am Sleep phase syndrome, delayed acute March 06, 2025 10:28am [facility] Work Phone: 1(320) 725-646907-09-2025 Evaluation note* Diagnosis Onset Date Resolution Status [...] for osteoporosis acute April 12, 2025 11:21am [facility] Work Phone: 1(966) 443-498005-08-2025 History of Present illness Narrative* Kaye Pastor MD - 01/03/2025 1:30 PM EDT Chief Complaint Patient presents with Follow-up 1 year for Coronary artery disease involving [place] coronary artery of [place] heart without angina pectoris Subjective Doris Carnes [...] content normal. Judgment: Judgment normal. Allergies Hydroxychloroquine, Gylchni-zcp-cca reductase inhibitors, and Cephalexin Current Medications Current [...] Mixed hyperlipidemia 2. Coronary artery disease involving [place] coronary artery of [place] heart without angina pectorisFollow Up In Cardiology [...] exam, discussion and plan. documented in this [facility] Work Phone: 1(856) 355-313405-08-2025 Instructions* Patient Instructions* Ingrid Contreras LPN - [...] Nexletol one times daily documented in this [facility] Work Phone: 1(292) 768-921904-29-2025 History of Present illness Narrative* Raphael Connors, [...] Past Medical History: Diagnosis Date Breast cancer ([facility]/HCC) 11/18/23 COPD (chronic obstructive pulmonary disease) ([facility]/HCC) Coronary artery disease (CMS/HCC) 2018 Diabetes mellitus (CMS/HCC) Diverticulitis of colon Fibrocystic breast May 2019 Hypertension (CMS/HCC) Thyroid nodule ([facility]/HCC) One side removed Social History Tobacco Use [...] Never Physical Exam Exam conducted with a benefit specialist present. Constitutional: Appearance: Normal appearance. HENT: Head: [...] invasive ductal carcinoma and DCIS.Margins are negative. [place] lymph node negative. T1 N0 = stage [...] for earlier re-evaluation. documented in this encounter[facility] [id number] Evaluation note* Diagnosis Onset Date Resolution Status Admit Date Encounter for monitoring aromatase inhibitor therapy acute Febr [id number] 11:18am History of placement of sten t in LAD coronary artery acute October 10, 2024 11:18am Malignant neoplasm of centra l portion of right breast in female, estrogen acute October 10, 2024 11:18am Screening for osteoporosis acute October 10, 2024 11:18am [facility] Work Phone: 1(296) 466-587312-26-2024 History of Present illness Narrative* Raphael Connors DO - 08/23/2024 1:45 PM EST Images from the original note were not included. Doris Carnes 1960 Doris Carnes is a 64 y.o. female presents with chief complaint of 8th pom Rt lumpectomy HPI: HPI Patient said that she is doing well. She has been going to the [facility] and getting some exercise. She still [...] m Physical Exam Exam conducted with a benefit specialist present. Constitutional: Appearance: Normal appearance. HENT: Head: [...] invasive ductal carcinoma and DCIS.Margins are negative. [place] lymph node negative. T1 N0 = stage I breast CA. Oncotype DX low risk of recurrence, no chemo. Pt on endocrine therapy. Patient will continue on her anastrozole. If she notices anything suspicious she will contact me for sooner re-evaluation otherwise I will see her in 4 months. She will get mammogram in the meantime. documented in this encounterSaint [facility] [id number] History of Present illness Narrative* Raphael Connors [...] OBJECTIVE: Physical Exam Exam conducted with a benefit specialist present. Constitutional: Appearance: Normal appearance. HENT: Head: [...] invasive ductal carcinoma and DCIS.Margins are negative. [place] lymph node negative. T1 N0 = stage [...] with her anastrozole. documented in this encounterSaint Louis University [id number] Hospital Discharge instructionsAmbulatory Orders* Oncology Histology Time Frame: 01/11/24, Location: Determined By Patient [facility] Work Phone: 1(591) 842-385605-08-2024 History of Present illness Narrative* Wiley Schmitt [...] content normal. Judgment: Judgment normal. Allergies Hydroxychloroquine, Plaalmj-zof-rah reductase inhibitors, and Cephalexin Current Medications Current [...] Rfl: Assessment/Plan 1. Coronary artery disease involving [place] coronary artery of [place] heart without angina pectoris No recurrence of [...] exam, discussion and plan. [facility] Work Phone: 1(761) 468-920505-08-2024 Instructions* Patient Instructions* Ana Luisa Mederos LPN [...] time of your visit. [facility] Work Phone: 1([phone]) 915-115610-12-2023 Evaluation note* Encounter Date Diagnosis Assessment Notes Treatment Notes Treatment Clinical Notes May, Encounter for medication management (ICD-10 - Z79.899) May, Other Patient present ed today for a virtual comprehensive medication review with pharmacist as part of the [facility] Medication Therapy Management (MTM) program. The patient [...] PharmD , Evolocumab injection material was published First To File Other 09-29-2022 Evaluation note* Encounter Date Diagnosis Assessment Notes Treatment Notes Treatment Clinical Notes Apr, Encounter for immunization (ICD-10 - Z23) Patient denies current illness, previous allergic reaction to influenza vaccine, eggs, or other vaccines, and Guillain-[place] Syndrome. Patient given current editions of influenza Vaccine Information Statement (VIS). First To File Other evalumcbti noteNo assessment information available [facility] Work Phone: evaluation noteNo InformationNort [employer] Other evaluation note* Diagnosis Onset Date Resolution Status Breast mass, right acute [facility] Work Phone: Evaluation note* Diagnosis Onset Date Resolution Status Breast mass, right acute Encounter for coordination of complex care acute History of placement of stent in LAD coronary artery acute [id number] acute Screening for osteoporosis a cute [facility] Work Phone: Evaluation note* Diagnosis Pre-operative clearance Unspecified pre-operative examination Abnormal EKG Nonspecific abnormal electrocardiogram (ECG) (EKG) Osteoarthritis, unspecified osteoarthritis type, unspecified site documented in this encounter [facility] Work Phone: Evaluation note* Diagnosis Coronary artery disease involving [place] coronary artery of [place] heart without angina pectoris- Primary Essential hypertension Unspecified essential hypertension Mixed hyperlipidemia History of PTCA Postsurgical percutaneous transluminal coronary angioplasty status Hypertension, unspecified type BMI 40.0-44.9, adult (Multi) Never smoked tobacco Statin declined documented in this encounter [facility] Work Phone: Evaluation note* Diagnosis Onset Date Resolution Status Breast mass, right acute Encounter for coordination of complex care acute History of placement of stent in LAD coronary artery acute [id number] acute Screening for osteoporosis a cute Encounter for coordination of complex care acute History of placement of stent in LAD coronary artery acute [id number] acute Screening for osteoporosis a cute BMI 45.0-49.9, adult acute COPD (chronic obstructive pulmonary disease) acute Hx of iron deficiency anemia acute Hypertension acute Insomnia acute Metabolic alkalosis acute [facility] Work Phone: Evaluation note* Diagnosis Onset Date Resolution Status Breast mass, right acute Encounter for coordination of complex care acute History of placement of stent in LAD coronary artery acute [id number] acute Screening for osteoporosis a cute Encounter for coordination of complex care acute History of placement of stent in LAD coronary artery acute [id number] acute Screening for osteoporosis a cute BMI 45.0-49.9, adult acute COPD (chronic obstructive pulmonary disease) acute Hx of iron deficiency anemia acute Hypertension acute Insomnia acute Metabolic alkalosis acute Obstructive sleep apnea acut e [facility] Work Phone: Evaluation note* Diagnosis Onset Date Resolution Status Breast mass, right acute Encounter for coordination of complex care acute History of placement of stent in LAD coronary artery acute [id number] acute Screening for osteoporosis a cute Encounter for coordination of complex care acute History of placement of stent in LAD coronary artery acute [id number] acute Screening for osteoporosis a cute BMI 45.0-49.9, adult acute COPD (chronic obstructive pulmonary disease) acute Hx of iron deficiency anemia acute Hypertension acute Insomnia acute Metabolic alkalosis acute Obstructive sleep apnea acut e Encounter for coordination of complex care acute History of placement of stent in LAD coronary artery acute [id number] acute Screening for osteoporosis a [facility] Work Phone: Evaluation note* Diagnosis Onset Date Resolution Status Encounter for coordination of complex care acute History of placement of stent in LAD coronary artery acute [id number] acute Screening for osteoporosis a cute Encounter for coordination of complex care acute History of placement of stent in LAD coronary artery acute [id number] acute Screening for osteoporosis a cute BMI 45.0-49.9, adult acute COPD (chronic obstructive pulmonary disease) acute Hx of iron deficiency anemia acute Hypertension acute Insomnia acute Metabolic alkalosis acute Obstructive sleep apnea acut e Encounter for coordination of complex care acute History of placement of stent in LAD coronary artery acute [id number] acute [facility] osteoporosis [id number] Work Phone: Evaluation note* Diagnosis Onset Date Resolution Status BMI 45.0-49.9, adult acute COPD (chronic obstructive pulmonary disease) acute Hx of iron deficiency anemia acute Hypertension acute Insomnia acute Metabolic alkalosis acute Obstructive sleep apnea acut e Encounter for coordination of complex care acute History of placement of stent in LAD coronary artery acute [id number] acute Screening for osteoporosis a [facility] [id number] acute Encounter for monitoring aromatase inhibitor therapy acute History of placement of stent in LAD coronary artery acute [id number] acute Screening for osteoporosis a [facility] Work Phone: Evaluation note* Diagnosis Onset Date Resolution Status BMI 45.0-49.9, adult acute COPD (chronic obstructive pulmonary disease) acute Hx of iron deficiency anemia acute Hypertension acute Insomnia acute Metabolic alkalosis acute Obstructive sleep apnea acut e Encounter for coordination of complex care acute History of placement of stent in LAD coronary artery acute [id number] acute Screening for osteoporosis a [facility] [id number] acute Encounter for monitoring aromatase inhibitor therapy acute History of placement of stent in LAD coronary artery acute [id number] acute [facility] osteoporosis [id number] Work Phone: Evaluation note* Diagnosis Onset Date Resolution Status Encounter for monitoring aromatase inhibitor therapy acute History of placement of stent in LAD coronary artery acute [id number] acute Screening for osteoporosis a cute [id number] acute BMI 40.0-44.9, adult acute Chronic intermittent hypoxia with obstructive sleep apnea acute COPD (chronic obstructive pulmonary disease) acute Hypertension acute Hypothyroidism acute Obstructive sleep apnea acut e Sleep phase syndrome, delayed acute [facility] Work Phone: Evaluation note* Diagnosis Infiltrating ductal carcinoma of right breast (CMS/HCC)- Primary documented in this encounter [facility] HealthcareEvaluation note* Diagnosis Infiltrating ductal carcinoma of right breast (CMS/HCC)- Primary History of right breast cancer documented in this encounter [facility] HealthcareEvaluation note* Diagnosis Onset Date Resolution Status Admit Date Encounter for monitoring aromatase inhibitor therapy acute Febr [id number] 11:18am History of placement of sten t in LAD coronary artery acute October 10, 2024 11:18am Malignant neoplasm of centra l portion of right breast in female, estrogen acute October 10, 2024 11:18am Screening for osteoporosis acute October 10, 2024 11:18am [facility] Work Phone: Evaluation note* Diagnosis Infiltrating ductal carcinoma of right breast- Primary documented in this encounter [facility] HealthcareEvaluation note* Diagnosis Coronary artery disease involving [place] coronary artery of [place] heart without angina pectoris- Primary Mixed hyperlipidemia History of PTCA Postsurgical percutaneous transluminal coronary angioplasty status Essential hypertension Unspecified essential hypertension BMI 40.0-44.9, adult (Multi) Never smoked tobacco Diabetes mellitus type II, non insulin dependent (Multi) Type II or unspecified type diabetes mellitus without mention of complication, not stated as uncontrolled Acquired hypothyroidism Unspecified hypothyroidism documented in this encounter [facility] Work Phone: Evaluation note* Diagnosis Onset Date Resolution Status Admit Date BMI 40.0-44.9, adult acute March 06, 2025 10:28am Chronic intermittent hypoxia with obstructive sleep apnea acute February 10:28am Obstructive sleep apnea acute J bridget 2024 10:28am Sleep phase syndrome, delayed acute March 06, 2025 10:28am [facility] Work Phone: Evaluation note* Diagnosis History of right breast cancer- Primary documented in this encounter [facility] Narrative - Reported* Type Description Date Medical History high cholesterol Medical History Esophageal reflux Medical History heart disease Medical History high blood pressure Medical History Hypothyroidism Medical History diabetes mallitus Medical History shortness of breath First To File Other History of Present illness NarrativePatient is [...] and its favorable impact on diabetes and hypertension.-[facility] DO Work Phone: History of Present illness [...] medication regimen. She denies medication side effects. -[facility] DO Work Phone: History of Present illness [...] weight loss as well as exercise were advocated.[facility] DO Work Phone: Hospital Discharge instructionsAmbulatory Orders* Referral to Radiation Oncology Location: None Selected [facility] Work Phone: Reason for referral (narrative)* Consultation (Routine) - Authorized Specialty Diagnoses / Procedures Referred By Contac t Referred To Contact Cardiology Diagnoses Coronary artery disease involving [place] coronary artery of [place] heart without angina pectoris Procedures Follow Up In Cardiology Wiley Schmitt MD [address] [place] [address] 2, [address] [address] Kaye Pastor MD [address] [place] [address] 2, [facility] [address] [place] [id number] Referral ID Status Reason Start Date Expiration Date V isits Requested Visits Authorized [id number] Authorized 01/04/2024 01/03/2025 1 1 [facility] Work Phone: Remoim for referral (narrative)No reason for referral [facility] Work [facility]: Summary Purpose Family [...] placement of stent in LAD coronary artery [id number] Screening for osteoporosis Chief Complaint z12.31 r92.8 Breast Mass NEW Invasive breast cancer Right Breast Cancer Invasive ductal carcinoma Right Breast Cancer Reason for Visit Breast mass, right Encounter for coordination of complex care History of placement of stent in LAD coronary artery [id number] Screening for osteoporosis Chief Complaint z12.31 r92.8 Breast Mass NEW Invasive breast cancer Right Breast Cancer Right Breast Cancer Invasive ductal carcinoma Follow Up after Surgery g47.33 Reason for Visit Breast mass, right Encounter for coordination of complex care History of placement of stent in LAD coronary artery [id number] Screening for osteoporosis Encounter for coordination of complex care History of placement of stent in LAD coronary artery [id number] Screening for osteoporosis BMI 45.0-49.9, adult COPD [...] placement of stent in LAD coronary artery [id number] Screening for osteoporosis Encounter for coordination of complex care History of placement of stent in LAD coronary artery [id number] Screening for osteoporosis BMI 45.0-49.9, adult COPD [...] placement of stent in LAD coronary artery [id number] Screening for osteoporosis Encounter for coordination of complex care History of placement of stent in LAD coronary artery [id number] Screening for osteoporosis BMI 45.0-49.9, adult COPD (chronic obstructive pulmonary disease) Hx of iron deficiency anemia Hypertension Insomnia Metabolic alkalosis Obstructive sleep apnea Encounter for coordination of complex care History of placement of stent in LAD coronary artery [id number] Screening for osteoporosis Chief Complaint NEW Invasive breast cancer Right Breast Cancer Right Breast Cancer Follow Up after Surgery g47.33 Unspecified sleep apnea Follow Up Invasive ductal carcinoma New Patient, Right Breast Cancer Reason for Visit Encounter for coordi nation of complex care History of placement of stent in LAD coronary artery [id number] Screening for osteoporosis Encounter for coordination of complex care History of placement of stent in LAD coronary artery [id number] Screening for osteoporosis BMI 45.0-49.9, adult COPD (chronic obstructive pulmonary disease) Hx of iron deficiency anemia Hypertension Insomnia Metabolic alkalosis Obstructive sleep apnea Encounter for coordination of complex care History of placement of stent in LAD coronary artery [id number] Screening for osteoporosis [id number] Chief Complaint g47.33 Unspecified sleep apnea Follow [...] placement of stent in LAD coronary artery [id number] Screening for osteoporosis [id number] Encounter for monitoring aromatase inhibitor therapy History of placement of stent in LAD coronary artery [id number] Screening for osteoporosis Chief Complaint g47.33 Unspecified [...] placement of stent in LAD coronary artery [id number] Screening for osteoporosis [id number] Encounter for monitoring aromatase inhibitor therapy History of placement of stent in LAD coronary artery [id number] Screening for osteoporosis [id number] Chief Complaint Right Breast Invasiv e ductal carcinoma Follow Up Follow Up 1 Month, Right Breast Cancer MELVI/ Visit i25.10 e11.69 g47.00 i10 e03.9 Reason for Visit Encounter for monito ring aromatase inhibitor therapy History of placement of stent in LAD coronary artery [id number] Screening for osteoporosis [id number] BMI 40.0-44.9, adult Chronic intermittent hypoxia with [...] MYOCARDIAL SPECT MULTIPLE STUDIES Wiley Schmitt MD [address] [place] [id number] Referral ID Status Reason Start Date Expiration Date V isits Requested Visits Authorized [id number] Authorized 11/30/2023 11/29/2024 5 5 Additional Source Comments INFORMATION SOURCE (unrecogn ized section and content) DATE CREATED AUTHOR 01/25/2021 [facility] DATE CREATED AUTHOR AUTHOR'S ORGANIZ ATION 01/07/2023 [facility] DATE CREATED AUTHOR AUTHOR'S ORGANIZ ATION 01/07/2023 [employer] DATE CREATED AUTHOR AUTHOR'S ORGANIZ ATION 12/26/2023 [facility] DATE CREATED AUTHOR AUTHOR'S ORGANIZ ATION 01/05/2025 [facility] DATE CREATED AUTHOR AUTHOR'S ORGANIZ ATION 04/14/2025 [facility] DATE CREATED AUTHOR AUTHOR'S ORGANIZ ATION 05/01/2025 [facility] EPIC Care Teams (unrecognized [...] Primary Care Provider Active Bari Mac DO [facility] Attending Provider Active Team Status: Active [...] December 12, 2023 End: December 12, 2023 It Corporate Recruiter Relationship Specialty Start Date End Date Noah Lewis MD [address] [place] [address] PCP - General 08/29/20 It Corporate Recruiter Relationship Specialty Start Date End Date Noah Lewis MD [address] [place] [id number] PCP - General 08/29/20 It Corporate Recruiter Relationship Specialty Start Date End Date Noah Lewis MD [address] [place] [address] PCP - General 08/29/20 It Corporate Recruiter Relationship Specialty Start Date End Date Noah Lewis MD [address] [place] [id number] PCP - General 08/29/20 Team Status: Active [...] December 26, 2023 End: December 26, 2023 It Corporate Recruiter Relationship Specialty Start Date End Date Noah Lewis MD [address] [place] [id number] PCP - General 08/29/20 Team Status: Active Member Role Status Dates Noah Lewis MD Primary Care Provide r, Referring Provider Active Start: January 11, 2024 Ana Luisa Harvey MD Attending Provider Active Start: January 11, 2024 Team Status: Inactive Member Role Status Dates Noah oGldsmith Hoy , MD Primary Care Provider Active [...] Provider Active Start: February 16, 2024 Ana uLisa Harvey MD Attending Provider Active Start: February [...] 2024 Team Status: Active Member Role Status Roas Lewis MD Primary Care Provide r, Referring Provider Active Start: March 05, 2024 Kinsey Canela MD Attending Provid er, Other Provider Active Start: March 05, 2024 It Corporate Recruiter Relationship Specialty Start Date End Date Noah Lewis MD [address] [place] [facility] [place] [address] PCP - General Family Medicine 11/21/23 It Corporate Recruiter Relationship Specialty Start Date End Date Noah Lewis MD [address] [place] [facility] [place] [address] PCP - General Family Medicine 11/21/23 Team Status: Inactive Member Role Status Dates Noah Lewis MD Primary Care Provider Active Start: November 08, 2024 End: November 08, 2024 Raphael Connors DO Attending Provider Active Start : November 08, 2024 End: November 08, 2024 It Corporate Recruiter Relationship Specialty Start Date End Date Noah Lewis MD [address] [place] [facility] [place] [address] PCP - General Family Medicine 11/21/23 It Corporate Recruiter Relationship Specialty Start Date End Date Noah Lewis MD [address] [place] [facility] [address] PCP - General 08/29/20 Team Status: Inactive [...] 2025 End: April 12, 2025 Milagro Hoover [employer]C Attending Provider Active Start: April 12, 2025 End: April 12, 2025 Team Status: Active Member Role Status Dates Noah Lewis MD Primary Care Provider Active Start: April 12, 2025 Noah Lewis MD Referring Provider Active Sta rt: April 12, 2025 Kinsey Canela MD Attending Provider Active Start: April 12, 2025 It Corporate Recruiter Relationship Specialty Start Date End Date Noah Lewis MD [address] [place] [address] PCP - General Family Medicine 04/09/25 Goals [...] SPECT MULTIPLE STUDIES Wiley Schmitt MD [address] [address] Referral ID Status Reason Start Date Expiration Date V isits Requested Visits Authorized [id number] Authorized 11/30/2023 11/29/2024 5 5 Reason Comments Follow-up 1yr Reason Comments 4th pom - right lumpectomy Reason Comments 8th pom Rt lumpectomy Reason Comments 1st poy Rt lumpectomy W/mamms Reason Comments Follow-up 1 year for Coronary artery disease involving [place] coronary artery of [place] heart without angina pectoris Specialty Diagnoses / Procedures Referred By Contadrianna t Referred To Contact Cardiology Diagnoses Coronary artery disease involving [place] coronary artery of [place] heart without angina pectoris Procedures Follow Up In Cardiology Wiley Schmitt MD Traboulssi, Mourhaf, MD [address] [facility] 2, [address] [address] Phone: tel: fax: Referral ID Status Reason Start Date Expiration Date V isits Requested Visits Authorized [id number] Authorized 01/04/2024 01/03/2025 1 1 Reason Comments [...] BE BASED ON THE PRIMARY CLINICAL RECORDS. [employer] [facility]. provides no warranty or guarantee of the accuracy or completeness of information in this document.
[2025-06-04 11:32] LABS: Free T3 2.50 pg/mL (2.18-3.98); Thyroid Stimulating Hormone 0.902 uIU/mL (0.358-3.740)
== END 2025-06-04 09:56 | disposition home or self-care (01) ==
LOC: LAB 09:58
PROVIDERS: PCP Family Medicine; Visit Provider Family Medicine
DX: R94.6 Abnormal results of thyroid function studies (principal)
CPT/HCPCS: 36415; 84436; 84443; 84481